=== PATIENT | male | born 1955 | race Caucasian/White ===

== ENCOUNTER 2023-04-16 06:35 | Outpatient (OUT) | payer MEDICARE, SELFPAY ==
[2023-04-16 07:14] LABS: Estimated Average Glucose 123 mg/dL; Glycohemoglobin A1C 5.9 % (4.5-6.2)
[2023-04-16 07:21] LABS: Anion Gap 12.7; BUN Creatinine Ratio 21.9; Calcium 8.9 mg/dL (8.5-10.1); Carbon Dioxide 28.5 mmol/L (21.0-32.0); Chloride 103 mmol/L (98-107); Chol HDL Ratio 2.1; Cholesterol 90 mg/dL (<=200); Estimated GFR (African America >60 (>=60); Estimated GFR (Non-African Ame >60 (>=60); Glucose 85 mg/dL (74-106); HDL Cholesterol 43 mg/dL (40-60); LDL Cholesterol Calculated 28.2 mg/dL; Potassium 4.2 mmol/L (3.5-5.1); Sodium 140 mmol/L (136-145); Triglycerides 94 mg/dL (<=150); VLDL CHOLESTEROL 18.8 mg/dL
== END 2023-04-16 06:36 | disposition home or self-care (01) ==
LOC: LAB 06:35
PROVIDERS: PCP Family Medicine; Visit Provider Family Medicine
DX: E11.9 Type 2 diabetes mellitus without complications (principal); E78.2 Mixed hyperlipidemia; I10 Essential (primary) hypertension
CPT/HCPCS: 36415; 80048; 80061; 83036

== ENCOUNTER 2024-10-26 00:49 | Observation (INO) | payer MEDICARE, SELFPAY ==
[2024-10-26] VITALS (11 sets, daily range): BP systolic 110–151; BP diastolic 56–73; PULSE 59–71; TEMP 36.4–36.7; O2SAT 95–99; BMI 27.6; BMI 28.1
--- NOTE | 2024-10-26 01:12 | CT_ITS ---
[address] [address] Patient Name: ARCHANA GUTIERREZ MRN: [id number] date: 1955 Sex: M Assigned Patient Location: ER Current Patient Location: [facility] Accession/Order Number: [id number] Exam Date: 10/26/2024 02:11 Report Date: 10/26/2024 03:28 At the request of: AFUA MARKER Procedure: CT head/brain wo con EXAMINATION: CT Head without Contrast TECHNIQUE: Multiple axial noncontrast images of the brain were obtained and reformatted according to the standard protocol. QPP DOCUMENTATION: At least one of the following dose reduction techniques was utilized: Iterative reconstruction, and/or Automatic Exposure Control, and/or mA/kV adjustment based on body size. INDICATION: hx CVA with right sided visual changes COMPARISON: Images from prior examinations are not available. FINDINGS: Intracranial hemorrhage: No CT evidence of intraparenchymal, intraventricular, or extraaxial hemorrhage. Infarct/Vascular: No CT evidence of acute transcortical infarctions. There is a large area of encephalomalacia within the anterior left frontal lobe likely due to old infarction. Intracranial Mass: No evidence of intracranial mass. There is an empty sella. CSF Spaces: The ventricles, sulci, and cisterns are normal. Calvarium and Scalp: Unremarkable. Mastoid Air Cells: Clear. Paranasal Sinuses: Visualized paranasal sinuses are clear. Orbits: Orbits are unremarkable. CT/CT head/brain wo con IMPRESSION: No CT evidence of acute intracranial abnormalities. Chronic intracranial changes, as described above. Empty sella. Electronically authenticated by: ROSAURA MARQUEZ Date: 10/26/2024 03:28
--- NOTE | 2024-10-26 01:12 | CT_ITS ---
The [address] [address] Patient Name: ARCHANA GUTIERREZ MRN: [id number] date: 1955 Sex: M Assigned Patient Location: ER Current Patient Location: Accession/Order Number: [id number] Exam Date: 10/26/2024 02:11 Report Date: 10/26/2024 04:15 At the request of: AFUA MARKER Procedure: CT abdomen pelvis w con CT OF THE ABDOMEN AND PELVIS WITH CONTRAST: 10/26/2024 2:11 AM EST CLINICAL HISTORY: Bloody diarrhea. COMPARISONS: None. TECHNIQUE: Thin section axial CT images were obtained from the lung bases to the pubis symphysis. This CT exam was performed using one or more of the following dose reduction techniques: Automated exposure control, adjustment of the mA and/or kV according to patient size, or use of iterative reconstruction technique. Thin section coronal and sagittal images were reconstructed from the axial data set. All images were reviewed and interpreted. CONTRAST: Intravenous contrast was administered. Type and amount is documented at the local institution. FINDINGS: LUNG BASES: No consolidation or pleural fluid. Cardiac chambers are not enlarged. Moderate coronary artery calcific disease noted. LIVER: Normal. GALLBLADDER: Normal. BILIARY TREE: No ductal dilatation. PANCREAS: Normal. SPLEEN: Normal. ADRENALS: Normal. KIDNEYS: There is chronic cortical scarring and atrophy and throughout the mid and lower pole left kidney. There is some mild cortical scarring right kidney. 2 mm nonobstructing calculus upper pole calyx right kidney. No right hydronephrosis. Right renal vascular calcifications. No calculi in left kidney or ureter. No left hydronephrosis. No renal mass or cyst. URINARY BLADDER: Grossly unremarkable. PELVIC STRUCTURES: Unremarkable. BOWEL: Fluid and air-filled nondistended small bowel. Question of some mild enteritis the left upper quadrant. No bowel obstruction. Scattered nonspecific mild/moderate stool retention of large bowel. No acute colitis. There is mild scattered diverticulosis. There is no evidence of diverticulitis. APPENDIX: No active disease with normal appendix. LYMPH NODES: No pathologically enlarged lymph nodes identified. PERITONEUM: No intraperitoneal free air. No free intraperitoneal fluid. MESENTERY: Unremarkable. RETROPERITONEUM: The retroperitoneum is unremarkable. AORTA: Normal caliber aorta. Severe calcific plaque throughout wall of the abdominal aorta and iliac arteries. No dissection. BODY WALL: No body wall mass. OSSEOUS STRUCTURES: Degenerative endplate changes throughout the lower thoracic and lumbar spine with some degenerative disc height loss facet arthropathy. No fractures. No lytic or blastic bone lesion. CT/CT abdomen pelvis w con IMPRESSION: 1. Nonspecific nondilated fluid and air-filled small bowel loops with question of some mild enteritis the left upper quadrant involving jejunum. No overt bowel obstruction. 2. Normal appendix. 3. Significant chronic scarring and focal atrophy of mid and lower pole left kidney some mild right renal cortical scarring. Nonobstructing calculus upper pole right renal calyx. No hydronephrosis of either kidney. 4. Additional chronic incidental findings as discussed above. Electronically authenticated by: PAO RUSSELL Date: 10/26/2024 04:15
[2024-10-26 01:21] LABS: Basophils Absolute Auto 0.1 10^3/uL (0.0-0.1); Basophils Percent Auto 0.8 % (0.2-2.0); Eosinophils Absolute Auto 0.3 10^3/uL (0.0-0.7); Eosinophils Percent Auto 2.3 % (0.9-7.0); Hematocrit 31.6 % (42.0-54.0); Hemoglobin 10.4 g/dL (14.0-18.0); Immature Granulocytes Abs Auto 0.05 10^3/uL (0.00-0.03); Immature Granulocytes Pct Auto 0.4 % (0.0-0.5); Lymphocytes Absolute Auto 1.7 10^3/uL (1.2-3.8); Lymphocytes Percent Auto 14.2 % (20.5-60.0); Mean Corpuscular HGB Conc 32.9 g/dL (29.9-35.2); Mean Corpuscular Hemoglobin 30.2 pg (25.9-34.0); Mean Corpuscular Volume 91.9 fL (80.0-94.0); Mean Platelet Volume 10.6 fL (9.5-13.5); Monocytes Absolute Auto 0.8 10^3/uL (0.3-0.8); Neutrophils Percent Auto 75.3 % (43.0-75.0); Platelet Count 377 10^3/uL (150-450); Red Blood Count 3.44 10^6/uL (4.70-6.10); Red Cell Distribution Width 13.2 % (11.0-15.0); White Blood Count 11.9 10^3/uL (4.0-11.0)
--- NOTE | 2024-10-26 01:28 | ED.GENADUL1 ---
HPI HPI - General Adult General Chief complaint: Weakness Stated complaint: DIARRHEA Time Seen by Provider: 10/26/24 00:51 Source: patient Mode of arrival: ambulance Limitations: no limitations History of Present Illness HPI narrative: This 69-year-old male who had a stroke in the past with right sided hand weakness presents for evaluation of diarrhea earlier in the day that was like mud. He thinks that there was blood mixed in with his diarrhea. He does not have any fevers or chills. He denies any abdominal pain. He states that after an episode of diarrhea his right leg was shaking and his vision in his right eye became blurry. That has since resolved. He has no new or focal neurologic weakness numbness or tingling. The patient lives at home. He denies any nausea or vomiting but did feel mildly lightheaded prior to his diarrhea. He has not had any dizziness or syncope. He does not have a headache. He has no slurred speech or confusion. He denies that he is on any blood thinners. Related Data Home Medications ?Medication ?Instructions ?Recorded ?Confirmed atorvastatin 80 mg tablet 80 mg PO DAILY 10/26/24 10/26/24 blood sugar diagnostic (OneTouch 10/26/24 10/26/24 Ultra Test strips) doxepin 10 mg capsule 20 mg PO BEDTIME 10/26/24 10/26/24 escitalopram oxalate 5 mg tablet 5 mg PO DAILY 10/26/24 10/26/24 hydralazine 25 mg tablet 25 mg PO BID 10/26/24 10/26/24 metformin 850 mg tablet 850 mg PO DAILY 10/26/24 10/26/24 Allergies Allergy/AdvReac Type Severity Reaction Status Date / Time No Known Drug Allergies Allergy Verified 10/26/24 00:53 Opioid HPI Opioid Management Most Recent Opioid Data: No Data to Display Review of Systems ROS Status of ROS 10 or more systems reviewed and unremarkable except as noted in history and below PFSH PFSH Social History Little interest or pleasure in doing things: not at all Feeling down, depressed, or hopeless: not at all Exam Narrative Exam Narrative: Vital signs and Nursing Notes reviewed: Patient is afebrile with a normal pulse, blood pressure is mildly elevated at 143/56, he is not hypoxic with pulse ox of 98% on room air General: Awake, alert, oriented, no acute distress, lying comfortably on the stretcher HEENT: Normocephalic atraumatic, mucous membranes are moist and pink, eyes are clear, normal conjunctiva, vision is grossly intact, posterior pharynx is normal in appearance. Neck: Supple, no meningeal signs, no anterior or posterior cervical lymphadenopathy Chest: Lungs are clear to auscultation with good air entry, there is no wheezing rhonchi or rales appreciated no accessory muscle use, patient is speaking in complete sentences-no chest wall tenderness to palpation CVS: Regular rate and rhythm S1-S2, no murmurs rubs or gallops, pulses are brisk and equal bilaterally ABD: Soft, nondistended, nontender, no rebound guarding or rigidity, bowel sounds are normal, no pulsatile masses appreciated, rectal exam performed with blood mixed with stool in rectal vault, no mass or hemorrhoid appreciated Extremities: Contracture of right hand, otherwise patient has full range of motion of the left hand and lower extremities have full strength and sensation Skin: Normal in appearance without rash,pallor, petechiae or purpura Neuro: No focal deficits, speech is clear, there is no facial droop, vision is grossly intact, there is a contracture of the right hand otherwise the upper and lower extremity strength and sensation is intact Constitutional Vital Signs, click to edit/add: Last Vital Signs Temp 97.6 F 10/26/24 00:49 Pulse 70 10/26/24 03:31 Resp 20 10/26/24 03:31 BP 118/61 10/26/24 03:31 Pulse Ox 95 10/26/24 03:31 O2 Del Method Room Air 10/26/24 00:49 Course Vital Signs Vital signs: Vital Signs Temperature 97.6 F 10/26/24 00:49 Pulse Rate 59 L 10/26/24 00:49 Respiratory Rate 16 10/26/24 00:49 Blood Pressure 143/56 H 10/26/24 00:49 Pulse Oximetry 98 10/26/24 00:49 Oxygen Delivery Method Room Air 10/26/24 00:49 Temperature 97.6 F 10/26/24 00:49 Pulse Rate 70 10/26/24 03:31 Respiratory Rate 20 10/26/24 03:31 Blood Pressure 118/61 10/26/24 03:31 Pulse Oximetry 95 10/26/24 03:31 Oxygen Delivery Method Room Air 02/04/25 00:49 Medical Decision Making [facility] Narrative Medical decision making narrative: This 69-year-old male with a history of a stroke who denies that he is on any blood thinners presents for evaluation of an episode of bloody diarrhea that he describes as looking like mud. He also had a brief episode of blurred vision in the right eye and shaking of his right leg. Those symptoms had resolved prior to arrival. His neuroexam was normal with the exception of a contracture of the right hand. He denied any abdominal pain. He had no chest pain or shortness of breath. His abdomen is soft. Rectal exam did reveal a small amount of mucus and blood on my finger but he does not appreciate any mass or hemorrhoids. He has remote history of a colonoscopy but has not had one in several years. An IV was placed and he was medicated with IV fluids. He declined the need for anything for pain. Routine labs are ordered. He has a normal white count. Hemoglobin is mildly low at 10.4. Lactic acid is elevated at 4. Electrolytes are normal with the exception of an elevated BUN of 58. Creatinine is stable at 1.05. Troponin is normal at 19. CT scan of the abdomen pelvis was ordered as well as CT scan of the brain due to his brief episode of blurred vision and shaking of the right leg. CT the scan of the brain is negative for acute findings. We did repeat his labs. His hemoglobin went from 10.4-9.5. Lactic acid proved from 4-1.5 after IV fluids. He has not had any additional episodes of bloody stool in the emergency department. CT scan of the abdomen pelvis shows a left upper quadrant enteritis but otherwise no specific findings contributory to the patient's symptoms. He has not had any additional neurologic findings or diarrhea or bloody stool while in the emergency department. The case was discussed with the hospitalist and he is excepted for admission to [facility], observation status Medical Records Medical records narrative: The [place] [id number] CT Scan Report Signed Patient: ARCHANA GUTIERREZ MR#: [id number] : 1955 Acct:[id number] Age/Sex: 69 / M ADM Date: 10/26/24 Loc: ER Attending Dr: Ordering Physician: Anali Lucas Date of Service: 10/26/24 Procedure(s): CT head/brain wo con Accession Number(s): [id number] cc: HITESH WATKINS ~ The [place] [id number] Patient Name: ARCHANA GUTIERREZ MRN: [id number] date: 1955 Sex: M Assigned Patient Location: ER Current Patient Location: ED.MAIN Accession/Order Number: [id number] Exam Date: 10/26/2024 02:11 Report Date: 10/26/2024 03:28 At the request of: ANALI MARKER Procedure: CT head/brain wo con EXAMINATION: CT Head without Contrast TECHNIQUE: Multiple axial noncontrast images of the brain were obtained and reformatted according to the standard protocol. QPP DOCUMENTATION: At least one of the following dose reduction techniques was utilized: Iterative reconstruction, and/or Automatic Exposure Control, and/or mA/kV adjustment based on body size. INDICATION: hx CVA with right sided visual changes COMPARISON: Images from prior examinations are not available. FINDINGS: Intracranial hemorrhage: No CT evidence of intraparenchymal, intraventricular, or extraaxial hemorrhage. Infarct/Vascular: No CT evidence of acute transcortical infarctions. There is a large area of encephalomalacia within the anterior left frontal lobe likely due to old infarction. Intracranial Mass: No evidence of intracranial mass. There is an empty sella. CSF Spaces: The ventricles, sulci, and cisterns are normal. Calvarium and Scalp: Unremarkable. Mastoid Air Cells: Clear. Paranasal Sinuses: Visualized paranasal sinuses are clear. Orbits: Orbits are unremarkable. CT/CT head/brain wo con IMPRESSION: No CT evidence of acute intracranial abnormalities. Chronic intracranial changes, as described above[place] [address] CT Scan Report Signed Patient: ARCHANA GUTIERREZ MR#: [id number] : 1955 Acct:[id number] Age/Sex: 69 / M ADM Date: 10/26/24 Loc: ER Attending Dr: Ordering Physician: Anali Lucas Date of Service: 10/26/24 Procedure(s): CT abdomen pelvis w con Accession Number(s): [id number] cc: LEONORAVIASMITAHITESH Coleman ~ The [address] [address] Patient Name: ARCHANA GUTIERREZ MRN: [facility]:[id number] date: 1955 Sex: M Assigned Patient Location: ER Current Patient Location: ER Accession/Order Number: [id number] Exam Date: 10/26/2024 02:11 Report Date: 10/26/2024 04:15 At the request of: ANALI LUCAS Procedure: CT abdomen pelvis w con CT OF THE ABDOMEN AND PELVIS WITH CONTRAST: 10/26/2024 2:11 AM EST CLINICAL HISTORY: Bloody diarrhea. COMPARISONS: None. TECHNIQUE: Thin section axial CT images were obtained from the lung bases to the pubis symphysis. This CT exam was performed using one or more of the following dose reduction techniques: Automated exposure control, adjustment of the mA and/or kV according to patient size, or use of iterative reconstruction technique. Thin section coronal and sagittal images were reconstructed from the axial data set. All images were reviewed and interpreted. CONTRAST: Intravenous contrast was administered. Type and amount is documented at the local institution. FINDINGS: LUNG BASES: No consolidation or pleural fluid. Cardiac chambers are not enlarged. Moderate coronary artery calcific disease noted. LIVER: Normal. GALLBLADDER: Normal. BILIARY TREE: No ductal dilatation. PANCREAS: Normal. SPLEEN: Normal. ADRENALS: Normal. KIDNEYS: There is chronic cortical scarring and atrophy and throughout the mid and lower pole left kidney. There is some mild cortical scarring right kidney. 2 mm nonobstructing calculus upper pole calyx right kidney. No right hydronephrosis. Right renal vascular calcifications. No calculi in left kidney or ureter. No left hydronephrosis. No renal mass or cyst. URINARY BLADDER: Grossly unremarkable. PELVIC STRUCTURES: Unremarkable. BOWEL: Fluid and air-filled nondistended small bowel. Question of some mild enteritis the left upper quadrant. No bowel obstruction. Scattered nonspecific mild/moderate stool retention of large bowel. No acute colitis. There is mild scattered diverticulosis. There is no evidence of diverticulitis. APPENDIX: No active disease with normal appendix. LYMPH NODES: No pathologically enlarged lymph nodes identified. PERITONEUM: No intraperitoneal free air. No free intraperitoneal fluid. MESENTERY: Unremarkable. RETROPERITONEUM: The retroperitoneum is unremarkable. AORTA: Normal caliber aorta. Severe calcific plaque throughout wall of the abdominal aorta and iliac arteries. No dissection. BODY WALL: No body wall mass. OSSEOUS STRUCTURES: Degenerative endplate changes throughout the lower thoracic and lumbar spine with some degenerative disc height loss facet arthropathy. No fractures. No lytic or blastic bone lesion. CT/CT abdomen pelvis w con IMPRESSION: 1. Nonspecific nondilated fluid and air-filled small bowel loops with question of some mild enteritis the left upper quadrant involving jejunum. No overt bowel obstruction. 2. Normal appendix. 3. Significant chronic scarring and focal atrophy of mid and lower pole left kidney some mild right renal cortical scarring. Nonobstructing calculus upper pole right renal calyx. No hydronephrosis of either kidney. 4. Additional chronic incidental findings as discussed above. Lab Data Lab results reviewed: Yes I reviewed the patient's lab results Labs: Lab Results 10/26/24 10/26/24 10/26/24 Range/Units 01:00 03:35 04:09 WBC 11.9 H 10.2 (4.0-11.0) 10^3/uL RBC 3.44 L 3.14 L (4.70-6.10) 10^6/uL Hgb 10.4 L 9.5 L (14.0-18.0) g/dL Hct 31.6 L 28.5 L (42.0-54.0) % MCV 91.9 90.8 (80.0-94.0) fL MCH 30.2 30.3 (25.9-34.0) pg MCHC 32.9 33.3 (29.9-35.2) g/dL RDW 13.2 13.4 (11.0-15.0) % Plt Count 377 354 (150-450) 10^3/uL MPV 10.6 10.5 (9.5-13.5) fL Neut % (Auto) 75.3 H 78.7 H (43.0-75.0) % Lymph % (Auto) 14.2 L 14.1 L (20.5-60.0) % [place] % (Auto) 7.0 5.7 (1.7-12.0) % Eos % (Auto) 2.3 0.5 L (0.9-7.0) % Baso % (Auto) 0.8 0.6 (0.2-2.0) % Neut # (Auto) 9.0 H 8.1 H (1.4-6.5) 10^3/uL Lymph # (Auto) 1.7 1.4 (1.2-3.8) 10^3/uL [place] # (Auto) 0.8 0.6 (0.3-0.8) 10^3/uL Eos # (Auto) 0.3 0.1 (0.0-0.7) 10^3/uL Baso # (Auto) 0.1 0.1 (0.0-0.1) 10^3/uL Abs Immat Gran (auto) 0.05 H 0.04 H (0.00-0.03) 10^3/uL Imm/Tot Granulo (auto) 0.4 0.4 (0.0-0.5) % Sodium 141 (136-145) mmol/L Potassium 5.1 (3.5-5.1) mmol/L Chloride 108 H (98-107) mmol/L Carbon Dioxide 21.1 (21.0-32.0) mmol/L Anion Gap 17.0 BUN 58.0 H (7.0-18.0) mg/dL Creatinine 1.05 (0.70-1.30) mg/dL Est GFR ( Amer) >60 (>=60 mL/min/1.73m^2) Est GFR (Non-Af Amer) >60 (>=60 mL/min/1.73m^2) BUN/Creatinine Ratio 55.2 Glucose 144 H (74-106) mg/dL Lactate 4.0 H* 1.5 (0.4-2.0) mmol/L Calcium 8.0 L (8.5-10.1) mg/dL Total Bilirubin 0.4 (0.2-1.0) mg/dL AST 25 (15-37) U/L ALT 26 (16-63) U/L Alkaline Phosphatase 93 (46-116) U/L Troponin I High Sens 19.0 (4.0-76.1) pg/mL Total Protein 5.3 L (6.4-8.2) g/dL Albumin 2.8 L (3.4-5.0) g/dL Globulin 2.5 g/dL Albumin/Globulin Ratio 1.1 Stool Occult Blood Positive A Blood Type O Positive Antibody Screen Negative ECG Data Attestation: I personally reviewed and interpreted this ECG as follows: (Sinus rhythm at 73 bpm, nonspecific ST changes, normal axis, no acute ST segment elevation or T wave inversion) Discharge Plan Discharge Chief Complaint: Weakness Clinical Impression: Diarrhea, Hematochezia, Enteritis Patient Disposition: Admitted as Observation Time of Disposition Decision: 04:22 Condition: Good
[2024-10-26 01:50] LABS: BUN Creatinine Ratio 55.2; Carbon Dioxide 21.1 mmol/L (21.0-32.0); Chloride 108 mmol/L (98-107); Estimated GFR (African America >60 (>=60 mL/min/1.73m^2); Estimated GFR (Non-African Ame >60 (>=60 mL/min/1.73m^2); Glucose 144 mg/dL (74-106); Potassium 5.1 mmol/L (3.5-5.1); Sodium 141 mmol/L (136-145)
[2024-10-26 01:51] LABS: Alanine Aminotransferase 26 U/L (16-63); Albumin Globulin Ratio 1.1; Albumin Level 2.8 g/dL (3.4-5.0); Alkaline Phosphatase 93 U/L (46-116); Aspartate Amino Transferase 25 U/L (15-37); Bilirubin Total 0.4 mg/dL (0.2-1.0); Globulin 2.5 g/dL; Total Protein 5.3 g/dL (6.4-8.2)
[2024-10-26] MEDS: 0.9 % SODIUM CHLORIDE 1,000 ML 1000 ML IV (02:26)
--- NOTE | 2024-10-26 02:39 | ECG_ITS ---
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
[2024-10-26] MEDS: lidocaine HCL 15 ML, MAG HYDROX/ALUMINUM HYD/SIMETH 30 ML, HYOSCYAMINE SULFATE 0.25 MG PO (02:53)
[2024-10-26] MEDS: FAMOTIDINE/PF 20 MG/2 ML VIAL IV (02:54)
[2024-10-26 03:53] LABS: Basophils Absolute Auto 0.1 10^3/uL (0.0-0.1); Basophils Percent Auto 0.6 % (0.2-2.0); Eosinophils Absolute Auto 0.1 10^3/uL (0.0-0.7); Eosinophils Percent Auto 0.5 % (0.9-7.0); Hematocrit 28.5 % (42.0-54.0); Hemoglobin 9.5 g/dL (14.0-18.0); Immature Granulocytes Abs Auto 0.04 10^3/uL (0.00-0.03); Immature Granulocytes Pct Auto 0.4 % (0.0-0.5); Lymphocytes Absolute Auto 1.4 10^3/uL (1.2-3.8); Lymphocytes Percent Auto 14.1 % (20.5-60.0); Mean Corpuscular HGB Conc 33.3 g/dL (29.9-35.2); Mean Corpuscular Hemoglobin 30.3 pg (25.9-34.0); Mean Corpuscular Volume 90.8 fL (80.0-94.0); Mean Platelet Volume 10.5 fL (9.5-13.5); Monocytes Absolute Auto 0.6 10^3/uL (0.3-0.8); Monocytes Percent Auto 5.7 % (1.7-12.0); Neutrophils Absolute Auto 8.1 10^3/uL (1.4-6.5); Neutrophils Percent Auto 78.7 % (43.0-75.0); Platelet Count 354 10^3/uL (150-450); Red Blood Count 3.14 10^6/uL (4.70-6.10); Red Cell Distribution Width 13.4 % (11.0-15.0); White Blood Count 10.2 10^3/uL (4.0-11.0)
[2024-10-26 04:08] LABS: Lactate/Lactic Acid 1.5 mmol/L (0.4-2.0)
[2024-10-26 04:15] LABS: Internal Control Within Normal Limits; Occult Blood Positive
[2024-10-26] MEDS: 0.9 % SODIUM CHLORIDE 1,000 ML 100 ML IV (06:03)
[2024-10-26 08:25] LABS: Hematocrit 28.7 % (42.0-54.0); Hemoglobin 9.5 g/dL (14.0-18.0)
--- NOTE | 2024-10-26 09:26 | P.HP_ITS ---
HPI H&P: HPI History of Present Illness Chief complaint: LOWER GI BLEED, ENTERITIS Narrative: Patient is a 69 year old male with past medical history of prior CVA with right arm weakness, HLD, depression, Non insulin dependent type 2 diabetes, Hypertension who presented to the ER last night with a few episodes of muddy diarrhea that he reports as blood tinged. He also had episode of right leg shaking and blurriness of vision shortly after the diarrhea episode. CT of the head showed no ACUTE strokes or bleeds. His leg shacking and visual symptoms subsided prior to arrival at the ER. He had a stool sample that was positive for blood. He has had no further bowel movements, no fever or chills. No nausea or vomiting. CT of the ab/pelvis showed air filled small bowel loops consistent with enteritis in the jejunum. Hemoglobin has been stable at 9.5. WBCs were 11.9, lactate was 4.0. Patient was given IVF bolus and admitted to the hospitalist service for further plan of care. He said it's been a long time since last colonoscopy. He has not had any Bowel movements today. he has no other issues or complaints. Opioid HPI Opioid Management Most Recent Pain and Opioid Data: Last Pain Assessment 10/26/24 07:00 Last ORT Total Score 0 10/26/24 05:10 10/26/24 Last ORT Risk Category Low Risk 10/26/24 05:10 10/26/24 Review of Systems ROS Narrative ROS: a complete review of systems were reviewed with patient and are positive as below or listed in History of Chief Complaint. General: no fever, chills, night sweats Head: no headache, trauma, visual changes, nausea or vomiting Skin: no reported rashes, itching or sores Eyes: no blurriness of vision Ears: no reported hearing loss, vertigo, earache, or tinnitus Throat: no sore throat, hoarseness, swelling of neck, or tongue pain Heart: no chest pain Lungs: no shortness of breath or cough GI: diarrhea no vomiting/nausea Urinary: no urinary urgency, frequency or pain Neuro: no numbness or tingling HEM: no bleeding issues or bruising ENDO: no thyroid problems Psych: no anxiety or depression [facility] Medical History (Updated 10/26/24 @ 09:33 by Leni Berry DO) Type 2 diabetes mellitus ?E11.9 - Type 2 diabetes mellitus without complications (ICD-10) Hyperlipidemia associated with type 2 diabetes mellitus ?E11.69 - Type 2 diabetes mellitus with other specified complication (ICD-10) ?E78.5 - Hyperlipidemia, unspecified (ICD-10) Primary hypertension ?I10 - Essential (primary) hypertension (ICD-10) History of CVA with residual deficit ?I69.30 - Unspecified sequelae of cerebral infarction (ICD-10) Type 2 diabetes mellitus ?E11.9 - Type 2 diabetes mellitus without complications (ICD-10) Stroke ?I63.9 - Cerebral infarction, unspecified (ICD-10) Family History Other Family history of cancer Family history of diabetes mellitus Family history of hypertension Family history of stroke Social History Within the past year, how often did you have a drink containing alcohol: never Within the past year, how often did you have six or more drinks on one occasion: never Score interpretation: A score less than 4 is consistent with normal alcohol consumption. Smoking status: Former smoker Non-prescribed substance use: denies use Previous occupational history: retired Highest level of school completed/degree received: GED or equivalent In a typical week, how many times do you talk on the telephone with family, friends, or neighbors: twice per week How often do you get together with friends or relatives: twice per week How often do you attend baptism or temple services: 4 or more times per year Little interest or pleasure in doing things: not at all Feeling down, depressed, or hopeless: not at all Feel stressed/tense/nervous/anxious/difficulty sleeping: not at all Do you think of yourself as: straight/heterosexual Gender Identity: male Meds Home Medications and Allergies Home Medications ?Medication ?Instructions ?Recorded ?Confirmed ?Type atorvastatin 80 mg tablet 80 mg PO .QHS 10/26/24 10/26/24 History blood sugar diagnostic (OneTouch 10/26/24 10/26/24 History Ultra Test strips) ciprofloxacin HCl 500 mg tablet 500 mg PO BID 7 days #14 tabs 10/26/24 Rx doxepin 10 mg capsule 20 mg PO BEDTIME 10/26/24 10/26/24 History escitalopram oxalate 5 mg tablet 5 mg PO DAILY 10/26/24 10/26/24 History hydralazine 25 mg tablet 25 mg PO BID 10/26/24 10/26/24 History metformin 850 mg tablet 850 mg PO DAILY 10/26/24 10/26/24 History metronidazole 250 mg tablet 250 mg PO BID 7 days #14 tabs 10/26/24 Rx omeprazole 40 mg capsule,delayed 40 mg PO BID 7 days #14 caps 10/26/24 Rx release Allergies Allergy/AdvReac Type Severity Reaction Status Date / Time No Known Drug Allergies Allergy Verified 10/26/24 00:53 Exam Narrative Exam Narrative: General: Patient is alert, and oriented to person, place and time with normal affect, proper hygiene Skin: no visible rashes, or ulcers Head: atraumatic, acephalic Eyes: PERRLA, no nystagmus present, conjunctiva clear, no scleral icterus Ears: normal Tympanic Membrane, normal gross auditory acuity Nose: symmetric, no discharge, no maxillary or frontal sinus tenderness Mouth/Throat: no erythema, exudate, or tonsillar enlargement, normal dentition Neck: no masses palpated, normal thyroid, no JVD or audible carotid bruits Heart: Normal rate and rhythm, no murmurs/rubs/gallops Lungs: no audible wheezes, crackles and normal breath sounds all lung gagnon Abdomen: Normal audible bowel sounds, no distension, No palpable masses, no organomegaly, no rebound/guarding/ or rigidity Musculoskeletal: muscle atrophy noted, ROM is limited due to being in hospital bed, no swelling bilateral lower extremities Neuro: CN II-X grossly intact Constitutional Vital Signs, click to edit/add: Last Vital Signs Temp 98.1 F 10/26/24 05:10 Pulse 67 10/26/24 05:10 Resp 18 10/26/24 05:10 BP 116/61 10/26/24 05:10 Pulse Ox 95 10/26/24 05:10 O2 Del Method Room Air 10/26/24 05:10 Results Labs Labs: Short CBC 10/26/24 10/26/24 10/26/24 Range/Units 01:00 03:35 08:18 WBC 11.9 H 10.2 (4.0-11.0) 10^3/uL Hgb 10.4 L 9.5 L 9.5 L (14.0-18.0) g/dL Hct 31.6 L 28.5 L 28.7 L (42.0-54.0) % Plt Count 377 354 (150-450) 10^3/uL BMP 10/26/24 01:00 Sodium 141 Potassium 5.1 Chloride 108 H Carbon Dioxide 21.1 BUN 58.0 H Creatinine 1.05 Glucose 144 H Calcium 8.0 L Liver Function 10/26/24 Range/Units 01:00 Total Bilirubin 0.4 (0.2-1.0) mg/dL AST 25 (15-37) U/L ALT 26 (16-63) U/L Alkaline Phosphatase 93 (46-116) U/L Albumin 2.8 L (3.4-5.0) g/dL Assessment and Plan Assessment and Plan (1) Enteritis: Assessment and Plan: add cipro and flagyl today. Monitor H&H. Type and Screen if necessary. Stool cultures, C diff. monitor closely electrolytes (2) History of CVA with residual deficit: Assessment and Plan: No acute strokes seen on CT head, no acute symptoms. (3) Primary hypertension: Assessment and Plan: continue hydralazine (4) Hyperlipidemia associated with type 2 diabetes mellitus: Assessment and Plan: continue statin (5) Type 2 diabetes mellitus: Assessment and Plan: SSI as needed hold metformin. Qualifiers: Diabetes mellitus complication status: without complication Diabetes mellitus terminal operations supervisor insulin use: without terminal operations supervisor use Qualified Code(s): E11.9 - Type 2 diabetes mellitus without complications Plan patient is a full code SCD's for DVT prophylaxis patient is in observation status and is not expected to cross 2 midnights.
[2024-10-26] MEDS: HYDRALAZINE HCL 25 MG TABLET PO (09:29)
[2024-10-26] MEDS: ESCITALOPRAM 10 MG TABLET 5 MG PO (09:30)
[2024-10-26] MEDS: METRONIDAZOLE 250 MG TABLET 500 MG PO (10:28)
[2024-10-26] MEDS: CIPROFLOXACIN HCL 500 MG TABLET PO (10:28)
--- NOTE | 2024-10-26 10:45 | CM.NOTE ---
Rounds made with Dr. Berry, pt will discharge to home today. Pt will need to f/u with GI for colonoscopy and PCP. Pt voices he would like to see a GI doctor in [place].
[2024-10-26 11:44] LABS: Hemoglobin 8.4 g/dL (14.0-18.0)
--- NOTE | 2024-10-26 13:29 | SWNOTE1 ---
Medicare Outpatient Observation Notice reviewed and discussed with patient. Pt. verbalized understanding and signed the form. Original given to patient and copy placed in patient?s chart.
--- NOTE | 2024-10-26 13:29 | SWNOTE1 ---
BOBBI met with pt to discuss dc needs. Pt lives at home by himself. He has a brother that checks on him. Pt is independent and still drives, cooks, does grocery shopping, etc. Pt does not use any DME to get around. Pt's biggest concern is about his insurance being in network. Pt had his insurance card. SW to make copy and place in chart and then send to Destiny in billing. BOBBI sent copy of card to Destiny in billing and to Sudha in PFS. Sudha replied stating she will reach out since pt had questions about financial assistance. Destiny replied back that pt was in network with us. BOBBI to update patient. Copy of insurance cards placed in chart.
--- NOTE | 2024-10-26 13:50 | PM.DS1 ---
DS: Providers Provider Date of admission: 10/26/24 04:57 Primary care physician: HITESH VYAS Attending physician on admission: Leni Berry Discharging clinician: Leni Berry DS: Diagnosis Discharge Diagnosis (1) Enteritis: (2) History of CVA with residual deficit: (3) Primary hypertension: (4) Hyperlipidemia associated with type 2 diabetes mellitus: (5) Type 2 diabetes mellitus: Qualifiers: Diabetes mellitus joint terminal attack controller insulin use: without skilled nursing use Diabetes mellitus complication status: without complication Qualified Code(s): E11.9 - Type 2 diabetes mellitus without complications DS: Summary Hospital Course Hospital Course: Patient's H&H remained stable, no further diarrhea. Patient will have close outpatient follow up for colonoscopy. He will be treated with cipro and flagyl x 7 days. He may return to the ER with any worsening bloody stools, fevers or abdominal pain. I have discussed all findings with the patient including labs and CT scan results. Due to contrasted study he is to hold his metformin until friday. Patient aware of plan. He also has follow up with his pcp. Status at Discharge Functional status at discharge: independent ambulation Overall status at discharge: patient is back to baseline Time Spent with Patient Time attestation: Total time spent providing and/or coordinating discharge services: Time spent: greater than 30 minutes Exam Narrative Exam Narrative: no changes to discharge exam from H&P exam dated 10/26/24 Constitutional Vital Signs, click to edit/add: Last Vital Signs Temp 98.1 F 10/26/24 05:10 Pulse 67 10/26/24 05:10 Resp 18 10/26/24 05:10 BP 116/61 10/26/24 05:10 Pulse Ox 95 10/26/24 05:10 O2 Del Method Room Air 10/26/24 05:10 DS: Data Data Completed and Pending Labs on day of discharge: Labs from last 24 hours 10/26/24 10/26/24 10/26/24 11:36 08:18 04:09 WBC RBC Hgb 8.4 L 9.5 L Hct 25.0 L 28.7 L MCV MCH MCHC RDW Plt Count MPV Neut % (Auto) Lymph % (Auto) Shelby % (Auto) Eos % (Auto) Baso % (Auto) Neut # (Auto) Lymph # (Auto) Shelby # (Auto) Eos # (Auto) Baso # (Auto) Abs Immat Gran (auto) Imm/Tot Granulo (auto) Sodium Potassium Chloride Carbon Dioxide Anion Gap BUN Creatinine Est GFR ( Amer) Est GFR (Non-Af Amer) BUN/Creatinine Ratio Glucose Lactate Calcium Total Bilirubin AST ALT Alkaline Phosphatase Troponin I High Sens Total Protein Albumin Globulin Albumin/Globulin Ratio Stool Occult Blood Positive A Blood Type Antibody Screen 10/26/24 10/26/24 03:35 01:00 WBC 10.2 11.9 H RBC 3.14 L 3.44 L Hgb 9.5 L 10.4 L Hct 28.5 L 31.6 L MCV 90.8 91.9 MCH 30.3 30.2 MCHC 33.3 32.9 RDW 13.4 13.2 Plt Count 354 377 MPV 10.5 10.6 Neut % (Auto) 78.7 H 75.3 H Lymph % (Auto) 14.1 L 14.2 L Shelby % (Auto) 5.7 7.0 Eos % (Auto) 0.5 L 2.3 Baso % (Auto) 0.6 0.8 Neut # (Auto) 8.1 H 9.0 H Lymph # (Auto) 1.4 1.7 Shelby # (Auto) 0.6 0.8 Eos # (Auto) 0.1 0.3 Baso # (Auto) 0.1 0.1 Abs Immat Gran (auto) 0.04 H 0.05 H Imm/Tot Granulo (auto) 0.4 0.4 Sodium 141 Potassium 5.1 Chloride 108 H Carbon Dioxide 21.1 Anion Gap 17.0 BUN 58.0 H Creatinine 1.05 Est GFR ( Amer) >60 Est GFR (Non-Af Amer) >60 BUN/Creatinine Ratio 55.2 Glucose 144 H Lactate 1.5 4.0 H* Calcium 8.0 L Total Bilirubin 0.4 AST 25 ALT 26 Alkaline Phosphatase 93 Troponin I High Sens 19.0 Total Protein 5.3 L Albumin 2.8 L Globulin 2.5 Albumin/Globulin Ratio 1.1 Stool Occult Blood Blood Type O Positive Antibody Screen Negative Discharge Plan Discharge Disposition: Home, Self-Care Condition: Good Discharge Medications: New metronidazole 250 mg Tablet 250 mg PO BID 7 Days Qty: 14 0RF ciprofloxacin HCl 500 mg Tablet 500 mg PO BID 7 Days Qty: 14 0RF omeprazole 40 mg Capsule,Delayed Release(Dr/Ec) 40 mg PO BID 7 Days Qty: 14 0RF Continued atorvastatin 80 mg tablet 80 mg PO .QHS hydralazine 25 mg tablet 25 mg PO BID (DME) OneTouch Ultra Test Strip MISCELLANEOUS doxepin 10 mg capsule 20 mg PO BEDTIME escitalopram oxalate 5 mg tablet 5 mg PO DAILY Held metformin 850 mg tablet 850 mg PO DAILY Hold Instructions: Resume on 10/29/24. Activity: increase activity as tolerated Diet: advance to your usual diet Print Language: Kinyarwanda Forms: Portal Instructions Follow Up Appointments: Oct. @ 10am with Dr. Vyas [phone] Dec.21 @ 10:45am with Dr. Martínez [facility], [address] [place] [address]
--- NOTE | 2024-10-28 15:23 | CM.DCFOLLOWU ---
Person spoke with:patient How are you feeling? not too well, not having a BM and nauseous. Advised to return to ED if problems continue How is your pain? some pain Did you understand your discharge instructions?yes Do you have any questions about your discharge instructions?no Were you given any prescriptions at discharge?yes Were you able to get your prescriptions filled?yes Do you understand how to take your medications as ordered?yes Do you have any questions about your follow up appointment and do you plan to keep your follow up appointment? no questions, follow ups reviewed Is there anything else that you would like to discuss?no Questions/Comments/Concerns/Other:none
== END 2024-10-26 14:55 | disposition home or self-care (01) ==
LOC: ER 04:22 → MS 05:06
PROVIDERS: Registered Nurse; Admitting Provider Family Medicine; Emergency Provider Emergency Medicine; PCP Family Medicine; Visit Provider Family Medicine
DX: K52.9 Noninfective gastroenteritis and colitis, unspecified (principal); K92.1 Melena; I69.351 Hemiplegia and hemiparesis following cerebral infarction affecting right dominant side; E78.5 Hyperlipidemia, unspecified; F32.A Depression, unspecified; E11.9 Type 2 diabetes mellitus without complications; I10 Essential (primary) hypertension; Z87.891 Personal history of nicotine dependence; Z79.84 Long term (current) use of oral hypoglycemic drugs; M62.50 Muscle wasting and atrophy, not elsewhere classified, unspecified site
CPT/HCPCS: 36415; 70450; 74177; 80053; 83605; 84484; 85014; 85018; 85025; 86850; 86900; 86901; 87045; 87046; 87427; 87493; 93005; 96361; 96374; 99285; G0328; G0378; J3490; Q9967

== ENCOUNTER 2024-11-09 17:38 | Emergency (ER) | payer MEDICARE, SELFPAY ==
[2024-11-09 17:47] VITALS: BP 179/74; PULSE 57; TEMP 36.6; O2SAT 100; BMI 27.3
--- OUTSIDE RECORDS SUMMARY | 2024-11-09 17:50 | XMS_ITS | CCD ---
Author Organization [facility] CliniSy[facility] Care Team Providers Care Fire Alarm Mechanic Name Role Phone TARIK DAVIS Admitting Unavailable TARIK DAVIS Attending Unavailable TARIK DAVIS Referring Unavailable HELEN MEYERS~[id number] UNKNOWN Primary Care Unavailable Rajan Kee Unavailable [phone] Nicolas Valdez Unavailable Chao Vyas Unavailable Unavailable Unavailable MD Rajan Kee Attending Provider NON STAFF Primary Care Provider UnavailDO Chao Lynn Primary Care Provider MD Rajan Kee Admit Provider [phone] PAY, DR FARIAS Admitting Unavailable PAY, DR FARIAS Attending Unavailable MISC, DR BENITEZ Primary Care Unavailable PAY, DR FARIAS Consulting Unavailable VALONE, DR CERVANTES Admitting Unavailable VALONE, DR CERVANTES Attending Unavailable VALONE, DR CERVANTES Primary Care Unavailable VALONE, DR CERVANTES Admitting Unavailable VALONE, DR CERVANTES Attending Unavailable MISC, DR BENITEZ Primary Care Unavailable VALONE, DR CERVANTES Admitting Unavailable VALONE, DR CERVANTES Attending Unavailable VALONE, DR CERVANTES Primary Care Unavailable VALONE, DR CERVANTES Admitting Unavailable VALONE, DR CERVANTES Attending Unavailable MISC, DR BENITEZ Primary Care Unavailable VALONE, DR CERVANTES Admitting Unavailable VALONE, DR CERVANTES Attending Unavailable VALONE, DR CERVANTES Primary Care Unavailable VALONE, DR CERVANTES Admitting Unavailable VALONE, DR CERVANTES Attending Unavailable VALONE, DR CERVANTES Primary Care Unavailable MISC, DR BENITEZ Primary Care Unavailable ARABELLA PERKINS Admitting Unavailable MADDIE, ARABELLA Attending Unavailable ARABELLA PERKINS Consulting Unavailable Lory Bernardo Unavailable DO Chao Vyas Primary Care Provider [phone] MD Rajan Kee Attending Provider Dr. Chao Vyas Primary Care Unava ilable ZAID TALAVERA Attending Unavailable Furlong, DO Chao Primary Care Provider DORA Bernardo Attending Provider MD Miky Talavera Emergency Provider [facility] Scooby T Admit Provider [phone] [facility] Scooby T Attending Provider DO Hamilton Stuart Other [facility] [place] Primary Care Provider MD Arin Ferrera Attending Provider DORA Bernardo Attending Provider Chao Vyas MD Primary Care Provider Janng, DO [place] Primary Care Provider DORA Bernardo Attending Provider FURLONG, CHAO G Referring Unavailable FURLONG, CHAO G Primary Care Unavailable FURLONG, CHAO G Referring Unavailable FURLONG, CHAO G Primary Care Unavailable NORMA Romero Attending Provider Arin Ferrera Admitting Unavailable Arin Ferrera Attending Unavailable Janlong, Chao Primary Care Unavailable Lory Bernardo R Admitting Unavailable KaittinoLory R Attending Unavailable Furlong, Chao Primary Care Unavailable Az, Lory R Admitting Unavailable Lory Bernardo R Attending Unavailable Furlong, Chao Primary Care Unavailable Regla Romero Admitting Unavailable Regla Romero Attending Unavailable NO FAMILY, PHYSICIAN Primary Care Unavailable FURLONG, CHAO G Referring Unavailable FURLONG, CHAO G Primary Care Unavailable FURLONG, CHAO G Attending Unavailable FURLONG, CHAO G Referring Unavailable FURLONG, CHAO G Primary Care Unavailable FURLONG, CHAO G Attending Unavailable FURLONG, CHAO G Referring Unavailable FURLONG, CHAO Chavez Primary Care Unavailable JANCHAO BLUNT Attending Unavailable JANJOSSELIN, CHAO Chavez Referring Unavailable JANCHAO BLUNT Primary Care Unavailable NO FAMILY, PHYSICIAN Primary Care Provider Unava ilable Lilliam DEVLIN Chao G Primary Care Provider KARIME BAUTISTA Attending Unavailable KRISHNA BURGOS Attending Unavailable KRISHNA BURGOS Attending Unavailable KRISHNA BURGOS Attending Unavailable ARIN FERRERA Attending Unavailable ARIN FERRERA Referring Unavailable KRISHNA BURGOS Attending Unavailable Allergies Allergy Classification Reported Allergen(s) Allergy Type Date of Onset Reaction(s) Facility (20 sources) Lisinopril; Translations: [LISINOPRIL] Drug Allergy 2 [facility] (4 sources) Angiotensin Converting Enzyme (Phillip) Inhibitors; Translations: [PHILLIP Inhibitors] Allergy to drug (finding) 9 [facility] Repository (1 source) Amino Acids Drug Allergy [facility] Repository (9 sources) Angiotensin-conv erting enzyme inhibitor agent Drug Intolerance 9 [facility] (1 source) Lisinopril Drug Allergy 4 [facility] Repository (7 sources) Lisinopril Allergy to substance 3 [facility] (20 sources) Angiotensin-conv erting enzyme inhibitor agent Propensity to adverse reactions to drug 9 [facility] Work Phone: Medications Current Medications Medication Drug Class(es) Dates Sig (Normalized) Sig (Original) acetaminophen 500 mg oral tablet (15 sources) Start: 07-18-2021 take 500 mg by mouth every four hours Acetaminophen Active 500 MG PO Q4H July 18, 2021 12:00am amoxicillin 875 mg / clavulanate 125 mg oral tablet (1 source) Penicillin-class Antibacterial Start: 06-28-2024 take 1 tablet by mouth every twelve hours Amoxicillin-Pot Clavulanate Active 1 TAB PO Every 12 hours 11 07June 28, 2024 12:00am Apple Cider Vinegar (14 sources) Apple Cider Vinegar Active atorvastatin 80 mg oral tablet (20 sources) HMG-CoA Reductase Inhibitor Start: 08-06-2023 End: 04-15-2024 take 1 tablet by mouth once daily atorvastatin (LIPITOR) 80 mg tablet Take 1 tablet (80 mg total) by mouth nightly. 100 tablet 3 04/15/2024 Active Start: 07-18-2021 End: 11-27-2021 take 80 mg by mouth once daily at bedtime Atorvastatin Active 80 MG PO Daily at bedtime November 27, 2021 3:40pm azelastine hydrochloride 0.137 mg/actuat metered dose nasal spray (13 sources) Histamine-1 Receptor Antagonist take 1 puff(s) nasal route twice daily Azelastine HCl 137 MCG/SPRAY 1 puff in each nostril Nasally Twice a day Active Blood Glucose Monitoring Sup pl (ONE TOUCH ULTRA 2) w/Device kit (9 sources) Start: 11-11-2022 Blood Glucose Monitoring Suppl (ONE TOUCH ULTRA 2) w/Device kit USE DIRECTED IN THE MORNING 11/11/2022 Active Start: 11-11-2022 Blood Glucose Monitoring Suppl (ONE TOUCH ULTRA 2) w/Device kit USE DIRECTED IN THE MORNING 0 11/11/2022 Active blood-glucose meter (ONET[place]C [place]2 [place] [facility] [place] Start: 11-11-2022 blood-glucose meter (ONET[place] ULTRA2 METER[place] [facility] [place]ications: Type 2 diabetes mellitus with other circulatory complication, without long-term current use of insulin [place] [place] Unit by miscellaneous route in the morning. 1 each 11/11/2022 Active Start: 11-11-2022 blood-glucose meter (ONETOUCH ULTRA2 METER[place] [facility] [place]ications: Type 2 diabetes mellitus with other circulatory complication, without long-term current use of insulin [place] [place] Unit by miscellaneous route in the morning. 1 each 0 11/11/2022 Active clopidogrel 75 mg oral tablet (20 sources) P2Y12 Platelet Inhibitor Start: 06-23-2021 End: 05-03-2024 clopidogreL (PLAVIX) 75 mg tablet Daily 05/13/2023 Active Plavix Active 12 hr dextromethorphan hydrobromide 30 mg / guaiFENesin 600 mg extended release oral tablet (3 sources) Uncompetitive D-odlbfa-T-aspartate Receptor Antagonist, Sigma-1 Agonist Start: 06-06-2022 take 1 tablet by mouth every twelve hours Mucinex DM 30-600 MG 1 tablet as needed Orally every 12 hrs May, Active doxepin hydrochloride 10 mg oral capsule (20 sources) Tricyclic Antidepressant Start: 05-12-2023 take 20 mg by mouth once daily at bedtime Doxepin Active 20 MG PO Daily at bedtime May 12, 2023 12:00am Start: 11-12-2021 End: 12-31-2023 take 2 capsules by mouth once daily doxepin (SINEquan) 10 mg capsule Indications: Sleep pattern disturbance Take 2 capsules (20 mg total) by mouth nightly. 180 capsule 1 12/31/2023 Active take 1 capsule by mo [facility] every twenty-four hours Doxepin HCl 10 MG 1 capsule at bedtime Orally Once a day Active escitalopram 5 mg oral tablet (20 sources) Serotonin Reuptake Inhibitor Start: 04-19-2022 End: 12-31-2023 take 1 tablet by mouth once daily escitalopram (LEXAPRO) 5 mg tablet take 1 tablet by mouth once daily 90 tablet 1 12/31/2023 Active ezetimibe 10 mg oral tablet (11 sources) Dietary Cholesterol Absorption Inhibitor Start: 11-06-2022 take 1 tablet by mouth in the morning ezetimibe (Zetia) 10 MG tablet Take 10 mg by mouth in the morning. 11/06/2022 Active Start: 09-11-2021 take 1 tablet by aleta once daily Ezetimibe 10 MG Oral Tablet TAKE ONE TABLET BY MOUTH DAILY Quantity: 28 Refills: 0 Ordered: 05-Feb-2022 DO Start : 11-Sep-2021 Active fluticasone propionate 0.05 mg/actuat metered dose nasal spray (9 sources) Corticosteroid Start: 12-30-2022 take 2 spray(s) nasal route in the morning fluticasone (Flonase) 50 MCG/ACT nasal spray Administer 2 sprays into affected nostril(s) in the morning. 12/30/2022 Active hydrALAZINE hydrochloride 25 mg oral tablet (20 sources) Arteriolar Vasodilator Start: 05-18-2024 Hydralazine Active MG PO May 18, 2024 12:00am Start: 02-04-2022 End: 04-19-2024 take 1 tablet by mouth twice daily hydrALAZINE (APRESOLINE) 25 mg tablet TAKE ONE TABLET BY MOUTH TWICE A DAY *HOLD IF 60 tablet 5 04/19/2024 Active Start: 11-27-2021 End: 05-18-2024 take 25 mg by mouth twice daily Hydralazine Discontinu ed 25 MG PO Twice daily November 27, 2021 3:40pm May 18, 2024 9:08am Start: 06-23-2021 End: 11-27-2021 take 10 mg by mouth twice daily Hydralazine Discontinu ed 10 MG PO Twice daily 0 July 18, 2021 12:00am November 27, 2021 3:40pm take 1 tablet by aleta every eight hours hydrALAZINE HCl 25 MG 1 tablet with food Orally Three times a day Active irbesartan 300 mg oral tablet (20 sources) Angiotensin 2 Receptor Isabela Start: 10-22-2023 End: 03-28-2024 take 1 tablet by mouth once daily irbesartan (AVAPRO) 300 mg tablet Indications: Essential hypertension take 1 tablet by mouth once daily AT THE SAME TIME EACH DAY 90 tablet 3 03/28/2024 Active Start: 06-16-2023 irbesartan (AV APRO) 300 mg tablet Indications: Essential hypertension 1 (one) time each day at the same time. 90 tablet 1 06/16/2023 Active Start: 06-10-2017 End: 04-26-2022 take 1 tablet by mouth once daily in the morning Irbesartan (Avapro) 300 mg tablet Discontinued 300 MG PO Every morning August 04, 2019 1:00am July 18, 2021 1:07pm krill oil (13 sources) Krill Oil Active Magnesium (13 sources) take 1 capsule by mo [facility] once daily Magnesium 300 MG 1 capsule with a meal Orally Once a day Active metFORMIN hydrochloride 850 mg oral tablet (20 sources) Biguanide Start: 10-04-2024 take 1 tablet by mouth once daily at breakfast metFORMIN (GLUCOPHAGE) 850 mg tablet TAKE 1 TABLET BY MOUTH DAILY WITH BREAKFAST 90 tablet 1 10/04/2024 Active Start: 05-12-2023 End: 10-04-2024 take 1 tablet by mouth once daily in the morning metFORMIN (GLUCOPHAGE) 850 mg tablet take 1 tablet by mouth every morning WITH BREAKFAST 90 tablet 1 04/07/2024 Active Start: 07-18-2021 End: 04-26-2022 take 850 mg by mouth twice daily at mealtime Metformin Discontinued 850 MG PO Twice daily with meals November 27, 2021 3:40pm April 26, 2022 10:17am Start: 06-23-2021 End: 07-18-2021 take 500 mg by mouth once daily Metformin Discontinued 500 MG PO Daily June 23, 2021 12:00am July 18, 2021 1:07pm Take with a meal. Do not take on an empty stomach take 1 tablet by aleta th every twelve hours metFORMIN HCl 500 MG 1 tablet with a meal Orally twice a day Active Mupirocin (2 sources) RNA Synthetase Inhibitor Antibacterial Start: 05-18-2024 Mupirocin Active 1 APPLIC TOPICAL Twice daily 05 04May 18, 2024 12:00am niacin, bulk, powder (20 sources) Start: 06-03-2023 niacin, bulk, powder 1 Dose by miscellaneous route in the morning. 500 g 06/03/2023 Active Start: 06-03-2023 niacin, bulk, powder 1 Dose by miscellaneous route in the morning. 500 g 0 06/03/2023 Active pravastatin sodium 40 mg oral tablet (13 sources) HMG-CoA Reductase Inhibitor take 1 tablet by mouth every twenty-four hours Pravastatin Sodium 40 MG 1 tablet Orally Once a day Active predniSONE 20 mg oral tablet (1 source) Start: 06-21-20 End: 06-26-20 take 1 tablet by mouth in the morning, then take 1 tablet by mouth at bedtime predniSONE (DELTASONE) 20 mg tablet Take 1 tablet (20 mg total) by mouth in the morning and 1 tablet (20 mg total) before bedtime. Do all this for 5 days. 10 tablet 06/21/2024 06/26/2024 Active risankizumab (4 sources) risankizumab-rza a 150mg/1.66mL(75 mg/0.83 mL x2) syringe kit Active Risankizumab-Rzaa (8 sources) Start: 05-12-20 Risankizumab-Rzaa (Skyrizi) 150 mg/mL Pen Injector Active MG SUBCUT May 11, 2023 11:00pm Start: 05-12-2023 Risankizumab-R zaa (Skyrizi) 150 mg/mL Pen Injector Active MG SUBCUT May 12, 2023 12:00am Risankizumab-rzaa (Skyrizi Pen) 150 MG/ML solution auto-injector (2 sources) Start: 08-26-2024 inject 150 mg by subcutaneous injection every three months Risankizumab-rzaa (Skyrizi Pen) 150 MG/ML solution auto-injector Indications: Psoriasis vulgaris (CMS/HCC) Inject 150 mg under the skin every 3 (three) months 1 mL 3 08/26/2024 Active risankizumab-rzaa (SKYRIZI) 60 mg/mL injection (20 sources) Start: 05-22-2023 risankizumab-r zaa (SKYRIZI) 60 mg/mL injection Indications: Plaque psoriasis Infuse 1 mL (60 mg total) into a venous catheter every 60 (sixty) days. 1 mL 05/22/2023 Active Start: 05-22-2023 risankizumab-r zaa (SKYRIZI) 60 mg/mL injection Indications: Plaque psoriasis Infuse 1 mL (60 mg total) into a venous catheter every 60 (sixty) days. 1 mL 0 05/22/2023 Active Skyrizi Pen 150 MG/ML solution auto-injector (7 sources) Start: 10-08-2023 inject 150 mg by subcutaneous injection every three months Skyrizi Pen 150 MG/ML solution auto-injector Indications: Psoriasis vulgaris (CMS/HCC) Inject 150 mg under the skin every 3 (three) months 1 mL 3 10/08/2023 Active triamcinolone acetonide 1 mg/ml topical cream (9 sources) Corticosteroid triamcinolone (Kenalog) 0.1 % cream 1 application to affected area (do not use on face, axilla or groin) Externally Twice a day as needed for 2 weeks Active Completed/Discontinued Medications Medication Drug Class(es) Dates Sig (Normalized) Sig (Original) Alum-Mag Hydroxide-Simeth (Mag-Al Plus) 200-200-20 mg/5 mL Suspension (15 sources) Start: 07-18-2021 End: 04-26-2022 take 1 mL by mouth every four hours Alum-Mag Hydroxide-Simeth (Mag-Al Plus) 200-200-20 mg/5 mL Suspension Discontinued 30 ML PO Q4H 0 July 17, 2021 11:00pm April 26, 2022 9:13am Start: 07-18-2021 End: 04-26-2022 take 1 mL by mouth every four hours Alum-Mag Hydroxide-Simeth (Mag-Al Plus) 200-200-20 mg/5 mL Suspension Discontinued 30 ML PO Q4H 0 July 18, 2021 12:00am April 26, 2022 10:13am aspirin 81 mg delayed release oral tablet (20 sources) Platelet Aggregation Inhibitor, Nonsteroidal Anti-inflammatory Drug Start: 06-15-2021 End: 11-27-2021 take 81 mg by mouth once daily Aspirin Discontinued 81 MG PO DAILY@1200 0 July 18, 2021 12:00am November 27, 2021 3:40pm Baby Aspirin Act nilda Balsam Pe[place] Oil (15 sources) Start: 07-18-2021 End: 11-27-2021 Balsam [place] Oil Disco ntinued 1 APPLIC TOPICAL Three times daily 0 July 17, 2021 11:00pm November 27, 2021 2:36pm Start: 07-18-2021 End: 11-27-2021 Balsam [place] Oil Disco ntinued 1 APPLIC TOPICAL Three times daily 0 July 18, 2021 12:00am November 27, 2021 3:36pm bisacodyl 10 mg rectal suppository (15 sources) Stimulant Laxative Start: 07-18-2021 End: 11-27-2021 Bisacodyl Discontinued 10 MG ID Daily 0 July 18, 2021 12:00am November 27, 2021 3:36pm carvedilol 3.125 mg oral tablet (20 sources) alpha-Adrenergic Isabela, beta-Adrenergic Isabela Start: 08-08-2023 End: 05-03-2024 take 1 tablet by mouth twice daily carvediloL (COREG) 3.125 mg tablet TAKE 1 TABLET BY MOUTH TWICE DAILY -HOLD IF HR 60 tablet 08/08/2023 05/03/2024 Discontinued (Side effects) Start: 08-04-2019 End: 07-18-2021 take 3.125 mg by mouth twice daily Carvedilol Active 3.125 MG PO Twice daily 0 July 18, 2021 12:00am clotrimazole 10 mg/ml topical cream (15 sources) Azole Antifungal End: 05-03-2024 clotrimazole (LOTRIMIN) 1 % cream 05/03/2024 Discontinued (Therapy completed) dapagliflozin 10 mg oral tablet (2 sources) Sodium-Glucose Cotransporter 2 Inhibitor Start: 03-27-2022 take 1 tablet by mouth once daily Farxiga 10 MG Oral Tablet TAKE ONE TABLET BY MOUTH DAILY Quantity: 28 Refills: 0 Ordered: 29-Apr-2022 DO Start : 27-Mar-2022 Active docosanol 100 mg/ml topical cream (15 sources) Start: 07-18-2021 End: 11-27-2021 Docosanol (Abreva) 10 % Cream Discontinued 1 APPLIC TOPICAL Five times daily 0 July 18, 2021 12:00am November 27, 2021 3:37pm docusate sodium 10 mg/ml oral suspension (20 sources) Start: 07-18-2021 End: 11-27-2021 take 100 mg by mouth twice daily Docusate Sodium Discontinued 100 MG PO Twice daily 0 July 18, 2021 12:00am November 27, 2021 3:37pm Start: 06-23-2021 End: 11-27-2021 take 1 capsule by mouth twice daily Docusate Sodium (Dok) 100 mg Capsule Discontinued 100 MG PO Twice daily 0 July 18, 2021 12:00am November 27, 2021 3:37pm esomeprazole 20 mg delayed release oral capsule (20 sources) Proton Pump Inhibitor Start: 06-15-2021 End: 07-18-2021 take 20 mg by mouth once daily in the morning Esomeprazole Magnesium Discontinued 20 MG PO Every morning June 15, 2021 12:00am July 18, 2021 1:07pm Esomeprazole Mag nesium Active 1 ml guselkumab 100 mg/ml auto-injector (20 sources) Interleukin-23 Antagonist Start: 05-12-2023 End: 05-12-2023 Guselkumab (Tremfya) 100 mg/mL Auto-Injector Discontinued MG SUBCUT May 12, 2023 12:00am May 12, 2023 5:37pm Start: 08-04-2019 End: 07-18-2021 Guselkumab Discontinued 100 MG SUBCUT Q2M August 04, 2019 1:00am July 18, 2021 1:07pm guselkumab (Trem fya) 100 MG/ML injection inject contents of 1 prefilled syringe Active inject 1 mL by subcu taneous injection once Tremfya 100 MG/ML 1 ml Subcutaneous q 3m Active hydrOXYzine pamoate 25 mg oral capsule (15 sources) Antihistamine Start: 07-18-2021 End: 04-26-2022 take 25 mg by mouth every six hours Hydroxyzine Pamoate Discontinued 25 MG PO Q6H 0 July 18, 2021 12:00am April 26, 2022 10:16am lidocaine 0.04 mg/mg medicated patch (15 sources) Antiarrhythmic, Amide Local Anesthetic Start: 07-18-2021 End: 11-27-2021 apply 1 dose topically once daily Lidocaine (Lidocaine Pain Relief) 4 % Adhesive Patch,Medicated Discontinued 1 PATCH TOPICAL Daily 0 July 18, 2021 12:00am November 27, 2021 3:38pm meloxicam 15 mg oral tablet (15 sources) Nonsteroidal Anti-inflammatory Drug Start: 08-04-2019 End: 06-15-2021 Meloxicam Discontinued TABLET August 04, 2019 1:00am June 15, 2021 2:53pm methylPREDNISolone 4 mg oral tablet (1 source) Corticosteroid Start: 06-06-2022 methylPREDNISolone 4 MG as directed Orally Once a day for 6 days May, Not-Taking montelukast 10 mg oral tablet (20 sources) Leukotriene Receptor Antagonist Start: 06-15-2021 End: 11-27-2021 Montelukast Discontinued 10 MG PO MoWeFr@0900 0 July 18, 2021 12:00am November 27, 2021 3:39pm nitrofurantoin, macrocrystals 25 mg / nitrofurantoin, monohydrate 75 mg oral capsule (15 sources) Nitrofuran Antibacterial Start: 07-18-2021 End: 11-27-2021 take 100 mg by mouth twice daily at mealtime Nitrofurantoin Monohyd/M-Cryst Discontinued 100 MG PO Twice daily with meals 0 July 18, 2021 12:00am November 27, 2021 3:39pm omeprazole 20 mg delayed release oral capsule (15 sources) Proton Pump Inhibitor Start: 07-18-2021 End: 11-27-2021 take 20 mg by mouth once daily in the morning Omeprazole Discontinued 20 MG PO Every morning 0 July 18, 2021 12:00am November 27, 2021 3:39pm ondansetron 4 mg disintegrating oral tablet (15 sources) Serotonin-3 Receptor Antagonist Start: 07-18-2021 End: 04-26-2022 take 4 mg by mouth every six hours Ondansetron Discontinued 4 MG PO Every 6 hours 0 July 18, 2021 12:00am April 26, 2022 10:17am potassium chloride 10 meq extended release oral tablet (17 sources) Start: 07-18-2021 End: 04-26-2022 Potassium Chloride (Klor-Con 10) 10 mEq Tablet Extended Release Discontinued 10 MEQ PO Daily 0 July 18, 2021 12:00am April 26, 2022 10:17am rivaroxaban 2.5 mg oral tablet (20 sources) Factor Xa Inhibitor Start: 08-04-2019 End: 06-23-2021 take 1 tablet by mouth once daily in the morning Rivaroxaban (Xarelto) 2.5 mg tablet Discontinued 2.5 MG PO Every morning August 04, 2019 1:00am June 23, 2021 2:36pm rivaroxaban (Xar elto) 2.5 MG tablet every 12 (twelve) hours. Active rosuvastatin calcium 40 mg oral tablet (15 sources) HMG-CoA Reductase Inhibitor Start: 06-15-2021 End: 07-18-2021 take 40 mg by mouth once daily in the morning Rosuvastatin Discontinued 40 MG PO Every morning June 15, 2021 12:00am July 18, 2021 1:07pm Sennosides (Senna Lax) 8.6 mg Tablet (15 sources) Start: 07-18-2021 End: 11-27-2021 take 2 tablets by mouth once daily Sennosides (Senna Lax) 8.6 mg Tablet Discontinued 2 TAB PO DAILY@12 July 17, 2021 11:00pm November 27, 2021 2:40pm Start: 07-18-2021 End: 11-27-2021 take 2 tablets by mouth once daily Sennosides (Senna Lax) 8.6 mg Tablet Discontinued 2 TAB PO DAILY@12 July 18, 2021 12:00am November 27, 2021 3:40pm Problems Active Problems Problem Classification Problem Date Documented Da te Episodic/Chronic Acquired foot deformities (2 sources) Hallux valgus (acquired), left foot; Translations: [Hallux valgus (acquired)] 07-12-2024 Chronic Acquired foot deformities (9 sources) Hallux valgus (acquired), right foot; Translations: [Hallux valgus (acquired)] Onset: 4 07-12-2024 Chronic Administrative/social admission (15 sources) Other reduced mobility; Translations: [Impaired mobility and activities of daily living] 06-24-2021 Episodic Anxiety disorders (20 sources) Other specified anxiety disorders; Translations: [Mixed anxiety and depressive disorder] Onset: 2 07-02-2022 Chronic Cataract (1 source) Artificial lens present; Translations: [Presence of intraocular lens] 10-23-2023 Chronic Coagulation and hemorrhagic disorders (20 sources) Coagulation defect, unspecified; Translations: [Blood coagulation disorder] Onset: 2 07-02-2022 Chronic Complications of surgical procedures or medical care (18 sources) Postoperative hematoma formation; Translations: [Postoperative hematoma] 05-21-2022 Episodic Conditions associated with dizziness or vertigo (2 sources) Lightheadedness; Translations: [Dizziness and giddiness] Episodic Developmental disorders (1 source) Expressive language disorder; Translations: [EXPRESSIVE LANGUAGE DISORDER] Onset: Chronic Diabetes mellitus with complications (20 sources) Type 2 diabetes mellitus with other circulatory complications; Translations: [Polyneuropathy due to diabetes mellitus] Onset: 2 07-12-2024 Chronic Diabetes mellitus without complication (20 sources) Diabetes mellitus; Translations: [Diabetes mellitus without mention of complication, type II or unspecified type, not stated as uncontrolled] Onset: 2 06-23-2021 Chronic Diseases of white blood cells (20 sources) Leukocytosis; Translations: [Elevated white blood cell count, unspecified] Onset: 4 06-29-2021 Chronic Disorders of lipid metabolism (20 sources) Hyperlipidemia; Translations: [Hyperlipidemia, unspecified] Onset: 2 06-24-2021 Chronic Diverticulosis and diverticulitis (20 sources) Diverticulitis of colon; Translations: [Diverticulitis of large intestine without perforation or abscess without bleeding] Onset: 2 07-02-2022 Chronic Esophageal disorders (20 sources) Gastroesophageal reflux disease; Translations: [Gastro-esophageal reflux disease without esophagitis] Onset: 2 06-24-2021 Chronic Essential hypertension (20 sources) Benign essential hypertension; Translations: [Benign essential hypertension] Onset: 2 06-24-2021 Chronic Genitourinary symptoms and ill-defined conditions (15 sources) Incontinence; Translations: [Unspecified urinary incontinence] 06-27-2021 Chronic Hepatitis (20 sources) Chronic hepatitis C; Translations: [Chronic viral hepatitis C] Onset: 9 Resolved: 3 04-28-2023 Chronic Hypertension with complications and secondary hypertension (9 sources) Hypertensive urgency ; Translations: [Hypertensive urgency] 05-12-2023 Chronic Late effects of cerebrovascular disease (20 sources) Aphasia as late effect of cerebrovascular accident; Translations: [Aphasia following cerebral infarction] Onset: 2 06-21-2021 Chronic Mycoses (2 sources) Pain in toe; Translations: [Tinea unguium] 07-12-2024 Episodic Occlusion or stenosis of precerebral arteries (20 sources) Left carotid artery stenosis; Translations: [Occlusion and stenosis of left carotid artery] Onset: 2 Resolved: 2 Chronic Comment on above: SEVERE LICA AND MODE RATE ALEJANDRINA BY US AND MRI/A 06/12; Open wounds of extremities (2 sources) Laceration without foreign body of left hand, initial encounter; Translations: [Laceration of hand without foreign body] Onset: 4 05-03-2024 Episodic Other aftercare (1 source) Other watermelon inspector (current) drug therapy; Translations: [OTH INTERMEDIATE CURRENT DRUG THERAPY] Onset: 2 Episodic Other aftercare (2 sources) Taking high risk medication; Translations: [Other watermelon inspector (current) drug therapy] 08-24-2024 Episodic Other and ill-defined cerebrovascular disease (4 sources) Other cerebrovascular disease; Translations: [OTHER CEREBROVASCULAR DISEASE] Onset: 1 Chronic Other circulatory disease (14 sources) Elevated blood pressure; Translations: [Elevated blood-pressure reading, without diagnosis of hypertension] Episodic Other circulatory disease (2 sources) Carotid bruit; Translations: [Other symptoms involving cardiovascular system] Episodic Other connective tissue disease (1 source) Other symptoms and signs involving the musculoskeletal system Episodic Other gastrointestinal disorders (15 sources) Dysphagia; Translations: [Dysphagia, unspecified] 06-24-2021 Episodic Other gastrointestinal disorders (15 sources) Incontinence of feces; Translations: [Full incontinence of feces] 06-27-2021 Episodic Other gastrointestinal disorders (4 sources) Constipation, unspecified; Translations: [CONSTIPATION UNSPECIFIED] Onset: 2 Episodic Other inflammatory condition of skin (14 sources) Psoriasis; Translations: [Psoriasis, unspecified] Chronic Other inflammatory condition of skin (20 sources) Plaque psoriasis; Translations: [Psoriasis vulgaris] Onset: 2 07-02-2022 Chronic Other inflammatory condition of skin (2 sources) Psoriasis vulgaris; Translations: [Psoriasis vulgaris] 08-24-2024 Chronic Other liver diseases (20 sources) Chronic liver disease; Translations: [Liver disease, unspecified] Onset: 9 07-02-2022 Chronic Other lower respiratory disease (1 source) Cough Onset: 4 Episodic Other nervous system disorders (20 sources) Idiopathic peripheral neuropathy; Translations: [Hereditary and idiopathic neuropathy, unspecified] Onset: 2 07-02-2022 Chronic Other nervous system disorders (20 sources) Sleep pattern disturbance; Translations: [Circadian rhythm sleep disorder, unspecified type] Onset: 3 04-28-2023 Chronic Other nervous system disorders (18 sources) Aphasia; Translations: [Aphasia] Onset: 4 11-03-2023 Chronic Other nutritional; endocrine; and metabolic disorders (2 sources) Overweight in adulthood with body mass index of 25 or more but less than 30; Translations: [Overweight] Episodic Other nutritional; endocrine; and metabolic disorders (1 source) Overweight; Translations: [Overweight] Onset: 4 Episodic Other skin disorders (2 sources) Sebaceous cyst; Translations: [Sebaceous cyst] 01-05-2024 Episodic Other upper respiratory disease (1 source) Pain in throat Onset: 4 Episodic Other upper respiratory infections (3 sources) Acute pharyngitis, unspecified; Translations: [Upper respiratory infection] Onset: 4 06-21-2024 Episodic Paralysis (20 sources) Right hemiplegia; Translations: [Hemiplegia, unspecified affecting right dominant side] Onset: 2 06-24-2021 Chronic Peripheral and visceral atherosclerosis (20 sources) Peripheral vascular disease; Translations: [Peripheral vascular disease, unspecified] Onset: 2 Resolved: 2 Chronic Comment on above: BILATERAL SEVERE SFA 100% OCCLUSIONS WITH COLLATERAL BILATERAL BY ANGIOGRAPHY 06/12; BILATERAL; Residual codes; unclassified (15 sources) Altered mental status; Translations: [Altered mental status, unspecified] 06-20-2021 Episodic Residual codes; unclassified (1 source) Other specified postprocedural states Episodic Skin and subcutaneous tissue infections (3 sources) Furuncle, unspecified; Translations: [Carbuncle and furuncle of unspecified site] Onset: 4 05-18-2024 Episodic Transient cerebral ischemia (20 sources) Transient cerebral ischemia; Translations: [Transient cerebral ischemic attack, unspecified] Onset: 3 05-12-2023 Chronic Unclassified (1 source) Occlusion and stenosis of bilateral carotid arteries; Translations: [Occlusion and stenosis of bilateral carotid arteries] Onset: 3 Unclassified (1 source) Psoriasis vulgaris; Translations: [Psoriasis vulgaris] Onset: 3 Unclassified (1 source) MAW Onset: 4 Past or Other Problems Problem Classification Problem Date Documented Da te Episodic/Chronic Acute cerebrovascular disease (20 sources) Carotid artery stenosis; Translations: [Cerebral infarction due to unspecified occlusion or stenosis of unspecified carotid artery] Onset: 1 Resolved: 4 Chronic Cancer of head and neck (20 sources) Malignant tumor of nasopharynx; 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, unspecified] Onset: 2 Resolved: 3 04-28-2023 Chronic Fluid and electrolyte disorders (20 sources) Hyponatremia; Translations: [Hypo-osmolality and hyponatremia] Onset: 4 06-20-2021 Episodic Immunizations and screening for infectious disease (20 sources) Nonspecific tuberculin test reaction ; Translations: [Nonspecific reaction to cell mediated immunity measurement of gamma interferon antigen response without active tuberculosis] Onset: 2 06-28-2024 Episodic Malaise and fatigue (1 source) Weakness; Translations: [WEAKNESS] Onset: 1 Episodic Mood disorders (20 sources) Mood disorders Onset: 4 Resolved: 4 06-21-2024 Other circulatory disease (4 sources) Personal history of transient ischemic attack (TIA), and cerebral infarction without residual deficits; Translations: [PERS HX TIA AND CI NO RESID DEFICIT] Onset: 1 Episodic Other connective tissue disease (20 sources) Weakness of face muscles; Translations: [Facial weakness] Onset: 4 06-24-2021 Episodic Other connective tissue disease (1 source) Abnormal posture; Translations: [ABNORMAL POSTURE] Onset: 1 Episodic Other gastrointestinal disorders (20 sources) Oropharyngeal dysphagia; Translations: [Dysphagia, oropharyngeal phase] Onset: 4 06-25-2021 Episodic Other gastrointestinal disorders (5 sources) Dysphagia, unspecified; Translations: [DYSPHAGIA UNSPECIFIED] Onset: 1 Episodic Other infections; including parasitic (20 sources) History of hepatitis C; Translations: [Personal history of other infectious and parasitic diseases] Onset: 3 09-04-2023 Episodic Other nervous system disorders (1 source) Unspecified abnormalities of gait and mobility; Translations: [UNS ABNORMALITIES GAIT AND MOBILITY] Onset: 1 Episodic Other nutritional; endocrine; and metabolic disorders (7 sources) Overweight; Translations: [Overweight] Onset: 4 05-03-2024 Episodic Other screening for suspected conditions (not mental disorders or infectious disease) (9 sources) Electrocardiogram abnormal; Translations: [Nonspecific abnormal electrocardiogram [ECG] [EKG]] Onset: 2 11-03-2023 Episodic Comment on above: INF QS C/W PRIOR IWM I; Residual codes; unclassified (20 sources) Edema of lower extremity; Translations: [Localized edema] Onset: 9 07-02-2022 Episodic Screening and history of mental health and substance abuse codes (4 sources) Ex-smoker; Translations: [Personal history of tobacco use] Onset: 2 03-18-2024 Episodic Comment on above: QUIT 1997; Urinary tract infections (20 sources) Urinary tract infectious disease; Translations: [Urinary tract infection, site not specified] Onset: 4 07-17-2021 Episodic Results Test Name Value Interpretation Reference Range Facility XR CHEST 2 VIEWSon 4 XR CHEST 2 VIEWS EXAM: XR Chest, Two Views. REASON FOR EXAM: High risk med use, no current complaints. COMPARISON: Chest x-ray August 05, 2022. FINDINGS: Two images. Elevation of the right lung base. Mild reticular markings in the left base. Atherosclerosis. Postoperative changes of the right neck. Degenerative changes of the shoulders. The cardiac and mediastinal silhouettes are normal for size. The trachea is not displaced. Pulmonary vasculature is normal. The lungs are clear. The regional skeleton and pleural surfaces are without significant abnormality. IMPRESSION: No acute cardiopulmonary abnormalities. No significant interval change radiographically from previous chest x-ray. *This report is generated using voice recognition reporting (Oppa). On occasion CloudLock[employer] erroneously drops words from the report or replaces the spoken word with similar sounding words. Please call with any questions/concerns regarding this report.* Dictated and transcribed 08/25/24/dpd This report has been electronically signed and approved by the interpreting radiologist. Normal Not Available POCT Influenza A/Influenza B /SARS-COV-2 Veritoron 06-21-2024 External Poct Influenza A Antigen Negative [facility] External Poct Influenza B Antigen Negative [facility] SARS-CoV-2 (COVID-19) Ag IA.rapid Ql (Resp) Negative [facility] POCT rapid strep Aon 024 S. pyogenes Ag IA Ql (Unsp spec) Negative Negative [facility] Aerobic Cultureon 05-18-2024 Aerobic Culture FURUNCLE OF SKIN OR SUBCUTANEOUS TISSUE Light Normal Skin [place] 2 Days FURUNCLE OF SKIN OR SUBCUTANEOUS TISSUE No Anaerobes Isolated 3 Days FURUNCLE OF SKIN OR SUBCUTANEOUS TISSUE Gram Stain Result No Bacteria Seen PERFORMED BY: [address] [id number] PATHOLOGIST TAILERCPA YON REECE M.D. Normal [facility] Comment on above: Performed By: #### G S, AERC #### [place] [id number] [place] Gram Stainon 05-18-2024 Microscopic observation Gram stain Nom (Unsp spec) FURUNCLE OF SKIN OR SUBCUTANEOUS TISSUE Gram Stain Result No Bacteria Seen PERFORMED BY: [facility] [address] [place] [id number] PATHOLOGIST TAILERCPA YON REECE M.D. Normal [facility] Comment on above: Performed By: #### G S, AERC #### [facility] [address] [place] [id number] [facility] Gram stain for investigation of transfusion reactionOrdered By: Regla Romero on 05-18-2024 Microscopic observation Gram stain Nom (Unsp spec) No Anaerobes Isolated 3 Days [facility] COMPREHENSIVE METABOLIC PANE [place] 05-03-2024 Albumin [Mass/Vol] 4.6 g/dL Normal 3.2-5.3 [facility] Comment on above: Performed By: #### C ROXIE, 92026-8, HA1C #### [facility] ([id number]) [address], [address] [place] [address] ALP [Catalytic activity/Vol] 76 U/L Normal 39-130 [facility] Comment on above: Performed By: #### Melvina FAUSTIN, 05196-5, HA1C #### [facility] ([id number]) [address], [address] [place] [address] ALT [Catalytic activity/Vol] 31 U/L Normal 0-40 [facility] Comment on above: Performed By: #### Melvina FAUSTIN, 04868-3, HA1C #### [facility] ([id number]) [address], [address] [place] [address] Anion gap [Moles/Vol] 10 mmol/L Normal 5-15 [facility] Comment on above: Performed By: #### Melvina FAUSTIN, 24344-5, HA1C #### [facility] ([id number]) [address], [address] [place] [address] AST [Catalytic activity/Vol] 37 U/L Normal 0-41 [facility] Comment on above: Performed By: #### Melvina FAUSTIN, 72428-1, HA1C #### [facility] ([id number]) [address], [address] [place] [address] Bilirubin [Mass/Vol] 0.9 mg/dL Normal 0.3-1.2 [facility] Comment on above: Performed By: #### Melvina FAUSTIN, 37758-7, HA1C #### [facility] ([id number]) [address], [address] [place] [address] Calcium [Mass/Vol] 9.5 mg/dL Normal 8.5-10.5 [facility] Comment on above: Performed By: #### Melvina FAUSTIN, 74871-3, HA1C #### [facility] ([id number]) [address], [address] [place] [address] Chloride [Moles/Vol] 103 mmol/L Normal 98-109 [facility] Comment on above: Performed By: #### Melvina FAUSTIN, 04367-2, HA1C #### [facility] ([id number]) [address], [address] [place] [address] CO2 [Moles/Vol] 27 mmol/L Normal 22-32 [facility] Comment on above: Performed By: #### Melvina FAUSTIN, 32019-4, HA1C #### [facility] ([id number]) [address], [address] [place] [address] Creatinine [Mass/Vol] 0.86 mg/dL Normal 0.60-1.30 [facility] Comment on above: Result Comment: METH OD TRACEABLE TO IDMS STANDARD Performed By: #### C ROXIE, 94269-8, HA1C #### [facility] ([id number]) [address], [address] [place] [address] eGFR (CKD-EPI) NON-RACE DEPENDENT >90 Normal >59 [facility] Comment on above: Result Comment: Reported eGFR is based on the CKD-EPI 2020 equation that does not use a race coefficient. Performed By: #### Melvina FAUSTIN 20449-5, MONSTER1C #### [facility] ([id number]) [address], [address] [place] [address] Glucose [Mass/Vol] 101 mg/dL High 65-99 [facility] Comment on above: Performed By: #### Melvina FAUSTIN 49379-7, MONSTER1C #### [facility] ([id number]) [address], [address] [place] [address] Potassium [Moles/Vol] 5.1 mmol/L High 3.5-5.0 [facility] Comment on above: Performed By: #### Melvina FAUSTIN 48737-9, HALEY #### [facility] ([id number]) [address], [address] [place] [address] Protein [Mass/Vol] 6.8 g/dL Normal 6.0-8.0 [facility] Comment on above: Performed By: #### Melvina FAUSTIN 41393-0, MONSTER1C #### [facility] ([id number]) [address], [address] [place] [address] Sodium [Moles/Vol] 140 mmol/L Normal 134-146 [facility] Comment on above: Performed By: #### Melvina FAUSTIN 26986-1, HA1C #### [facility] ([id number]) [address], [address] [place] [address] Urea nitrogen [Mass/Vol] 15 mg/dL Normal 5-27 [facility] Comment on above: Performed By: #### Melvina FAUSTIN 33981-0, MONSTER1C #### [facility] ([id number]) [address], [address] [place] [address] HGB A1C (GLYCO-HGB)on 2023 Glucose [Mass/Vol] 131 mg/dL Normal [facility] Comment on above: Performed By: #### Melvina FAUSTIN, 61808-5, HALEY #### [facility] ([id number]) [address], [address] [address] HbA1c (Bld) [Mass fraction] 6.2 % High 4.4-5.6 [facility] Comment on above: Result Comment: NOTE ADA Guidelines Result HgbA1c Normal : less than 5.7 % Prediabetes : 5.7 % to 6.4 % Diabetes : > 6.4 % Use with caution in patients with abnormal hemoglobin variants as the half-life of red blood cells and in vivo glycation rates are affected. Performed By: #### Melvina FAUSTIN, 11828-7, HALEY #### [facility] ([id number]) [address], [address] [place] [address] Lipid 1996 panelon 4 Cholesterol [Mass/Vol] 95 mg/dL Low 150-200 [facility] Comment on above: Performed By: #### Melvina FAUSTIN, 66359-0, HALEY #### [facility] ([id number]) [address], [address] [place] [address] Cholesterol in HDL [Mass/Vol] 44 mg/dL Normal >39 [facility] Comment on above: Result Comment: HDL <40 mg/dL - High Risk HDL > or = 40mg/dL- Desirable HDL >60 mg/dL - Negative Risk Performed By: #### Melvina FAUSTIN, 33741-8, HA1C #### [facility] ([id number]) [address], [address] [place] [address] Cholesterol in LDL [Mass/Vol] 31 mg/dL Normal <130 [facility] Comment on above: Result Comment: LDL <100 mg/dL - Desirable LDL >160 mg/dL - High Risk Performed By: #### C ROXIE, 17267-1, HA1C #### [facility] ([id number]) [address], [address] [place] [address] Cholesterol in VLDL [Mass/Vol] 20 mg/dL Normal 0-30 [facility] Comment on above: Performed By: #### Melvina FAUSTIN, 06333-5, HA1C #### [facility] ([id number]) [address], [facility] [address] [place] [address] CHOLESTEROL:HDL 2.2 Normal 1.0-5.0 [facility] Comment on above: Performed By: #### Melvina FAUSTIN, 61198-0, HA1C #### [facility] ([id number]) [address], [address] [place] [address] Triglyceride [Mass/Vol] 98 mg/dL Normal 27-150 [facility] Comment on above: Performed By: #### Melvina FAUSTIN, 59711-0, HA1C #### [facility] ([id number]) [address], [facility] [address] [place] [address] MICROALBUMIN - ALBUMIN:CREAT ININE URINE RATIOon 05-03-2024 ALB/CREAT RATIO 37.7 mg/g creat High 0.0-30.0 [facility] Comment on above: Performed By: #### M ALBU #### [facility] ([id number]) [address], [address] [place] [address] Albumin DL <= 20 mg/L (U) [Mass/Vol] 5.8 mg/dL High 0.0-1.9 [facility] Comment on above: Performed By: #### M ALBU #### [facility] ([id number]) [address] [facility], [address] [place] [address] URINE CREAT 153.96 mg/dL Normal [facility] Comment on above: Performed By: #### M YRIS #### [facility] ([id number]) [address] [place] [address] US carotid doppler BIon 02-21 US carotid doppler BI [facility] [address] [place] [address] Ultrasound Report Signed Patient: Archana Gutierrez MR#: [id number] : 1955 Acct:[id number] Age/Sex: 68 / M ADM Date: 03/17/24 Loc: [facility] Room: Type: [facility] Attending Dr: Lory LINTONC Ordering Provider: Lory Bernardo APRN Date of Service: 03/17/24 US/US carotid doppler BI: [id number] Copies to: Lory Bernardo APRN CAROTID DUPLEX INDICATION: Follow-up known carotid occlusive disease status post bilateral TKR PROCEDURE: Color-flow duplex scanning is used to interrogate the extracranial carotid arterial system, as well as both vertebral arteries. Both carotid bifurcations show indwelling stent. The proximal right internal carotid artery shows a highest peak systolic velocity of 48.2 cm/s with an end-diastolic velocity of 12.9 cm/s . The mid internal carotid artery measures 72.9 cm/s peak systolic with an end diastolic velocity of 23.1 cm/s . The distal segment measures 45.9 cm/s peak systolic with an end diastolic velocity of 18.8 cm/s . The velocities of the right common carotid artery are 52.2 cm/s peak systolic and 11.2 cm/s end-diastolic and 56.7 cm/s peak systolic and 11.2 cm/s end diastolic distally. The peak systolic velocity ratio of the internal to the common carotid artery is 1.29 . The external carotid artery measures 161 cm/s peak systolic. The right vertebral artery is nonvisualized. The proximal left internal carotid artery shows a highest peak systolic velocity of 146 cm/s with an end-diastolic velocity of 26.9 cm/s . The mid internal carotid artery measures 70.2 cm/s peak systolic with an end diastolic velocity of 22.5 cm/s . The distal segment measures 75.7 cm/s peak systolic with an end diastolic velocity of 25.8 cm/s . The velocities of the left common carotid artery are 75.7 cm/s peak systolic and 17.2 cm/s end-diastolic and 78.6 cm/s peak systolic and 15.7 cm/s end diastolic distally. The peak systolic velocity ratio of the internal to the common carotid artery is 1.86 . The external carotid artery measures 85.6 cm/s peak systolic. The left vertebral artery is patent at 76.7 cm/s peak systolic with antegrade flow. US/US carotid doppler BI IMPRESSION: No hemodynamically significant residual or recurrent stenosis in either extracranial internal carotid artery after prior bilateral stent placement. The right vertebral artery is not visualized. Left vertebral artery is patent with antegrade flow. Impression dictated by: Nicolas Valdez M.D.03/17/2024 12:23 PM Dictation Location: [place] [address] Tech: Peggy Ng Transcribed By: JANET 03/17/24 1223 Dictated By: Nicolas Valdez MD 03/17/24 1222 Signed By: 03/17/24 1223 Normal [facility] CBC without diffon Erythrocyte distribution width (RBC) [Ratio] 14.5 % 11.5 - 15.0 % [facility] Hematocrit (Bld) [Volume fraction] 44.4 % 39 - 49 % [facility] Hemoglobin (Bld) [Mass/Vol] 14.9 g/dL 13.0 - 17.0 g/dL [facility] MCH (RBC) [Entitic mass] 29.2 pg 27 - 34 pg [facility] MCHC (RBC) [Mass/Vol] 33.6 g/dL 32 - 3 6 g/dL [facility] MCV (RBC) [Entitic vol] 87 fL 80 - 100 fL [facility] Platelet mean volume (Bld) [Entitic vol] 9.0 fL 7 - 12 fL [facility] Platelets (Bld) [#/Vol] 397 10*3/uL [facility] RBC (Bld) [#/Vol] 5.12 10*6/uL [facility] WBC corrected for nucl RBC Auto (Bld) [#/Vol] 6.5 [facility] COMPLETE BLOOD COUNTon 11-03 Erythrocyte distribution width (RBC) [Ratio] 14.5 % Normal 11.5-15.0 [facility] Comment on above: Performed By: #### C ENOC, CMP #### [facility] ([id number]) [address], [address] [place] [address] Hematocrit (Bld) [Volume fraction] 44.4 % Normal 39-49 [facility] Comment on above: Performed By: #### C ENOC, CMP #### [facility] ([id number]) [address], [address] [place] [address] Hemoglobin (Bld) [Mass/Vol] 14.9 g/dL Normal 13.0-17.0 [facility] Comment on above: Performed By: #### C ENOC, CMP #### [facility] ([id number]) [address], [address] [place] [address] MCH (RBC) [Entitic mass] 29.2 pg Normal 27-34 [facility] Comment on above: Performed By: #### C ENOC, CMP #### [facility] ([id number]) [address], [address] [place] [address] MCHC (RBC) [Mass/Vol] 33.6 g/dL Normal 32-36 [facility] Comment on above: Performed By: #### C ENOC, CMP #### [facility] ([id number]) [address], [address] [place] [address] MCV (RBC) [Entitic vol] 87 fL Normal 80-100 [facility] Comment on above: Performed By: #### C BC, CMP #### [facility] ([id number]) [address] [place] [address] Platelet mean volume (Bld) [Entitic vol] 9.0 fL Normal 7-12 [facility] Comment on above: Performed By: #### C ENOC, CMP #### [facility] ([id number]) [address], [address] [place] [address] Platelets (Bld) [#/Vol] 397 10*3/uL Normal 150-450 [facility] Comment on above: Performed By: #### C ENOC, CMP #### [facility] ([id number]) [address] [place] [address] RBC COUNT 5.12 X10E12/L Normal 4.10-5.70 [facility] Comment on above: Performed By: #### C ENOC, CMP #### [facility] ([id number]) [address] [place] [address] WBC (Bld) [#/Vol] 6.5 10*3/uL Normal 4.0-11.0 [facility] Comment on above: Performed By: #### C ENOC, CMP #### [facility] ([id number]) [address], [address] [place] [address] COMPREHENSIVE METABOLIC PANE [place] 11-03-2023 Albumin [Mass/Vol] 4.5 g/dL Normal 3.2-5.3 [facility] Comment on above: Performed By: #### C ENOC, CMP #### [facility] ([id number]) [address], [address] [place] [address] ALP [Catalytic activity/Vol] 106 U/L Normal 39-130 [facility] [facility] Comment on above: Performed By: #### C BC, CMP #### [facility] ([id number]) [address], [address] [place] [address] ALT [Catalytic activity/Vol] 31 U/L Normal 0-40 [facility] Comment on above: Performed By: #### C BC, CMP #### [facility] ([id number]) [address], [address] [place] [address] Anion gap [Moles/Vol] 8 mmol/L Normal 5-15 [facility] Comment on above: Performed By: #### C BC, CMP #### [facility] ([id number]) [address] [place] [address] AST [Catalytic activity/Vol] 38 U/L Normal 0-41 [facility] Comment on above: Performed By: #### C BC, CMP #### [facility] ([id number]) [address], [address] [place] [address] Bilirubin [Mass/Vol] 0.8 mg/dL Normal 0.3-1.2 [facility] Comment on above: Performed By: #### C BC, CMP #### [facility] ([id number]) [address] [place] [address] Calcium [Mass/Vol] 9.8 mg/dL Normal 8.5-10.5 [facility] Comment on above: Performed By: #### C BC, CMP #### [facility] ([id number]) [address], [address] [place] [address] Chloride [Moles/Vol] 103 mmol/L Normal 98-109 [facility] Comment on above: Performed By: #### C BC, CMP #### [facility] ([id number]) [address], [address] [place] [address] CO2 [Moles/Vol] 27 mmol/L Normal 22-32 [facility] Comment on above: Performed By: #### C BC, CMP #### [facility] ([id number]) [address], [address] [place] [address] Creatinine [Mass/Vol] 0.94 mg/dL Normal 0.60-1.30 [facility] Comment on above: Result Comment: METH OD TRACEABLE TO IDMS STANDARD Performed By: #### C ENOC, CMP #### [facility] ([id number]) [address], [address] [place] [address] GFR/1.73 sq M.predicted among non-blacks MDRD (S/P/Bld) [Vol rate/Area] 87 mL/min/{1.73_m2} Normal >59 [facility] Comment on above: Result Comment: Reported eGFR is based on the CKD-EPI 2020 equation that does not use a race coefficient. Performed By: #### C ENOC, CMP #### [facility] ([id number]) [address], [address] [place] [address] Glucose [Mass/Vol] 110 mg/dL High 65-99 [facility] Comment on above: Performed By: #### C ENOC, CMP #### [facility] ([id number]) [address] [address] [place] [address] Potassium [Moles/Vol] 4.7 mmol/L Normal 3.5-5.0 [facility] Comment on above: Performed By: #### C ENOC, CMP #### [facility] ([id number]) [address], [address] [place] [address] Protein [Mass/Vol] 7.3 g/dL Normal 6.0-8.0 [facility] Comment on above: Performed By: #### C ENOC, CMP #### [facility] ([id number]) [address], [address] [place] [address] Sodium [Moles/Vol] 138 mmol/L Normal 134-146 [facility] Comment on above: Performed By: #### C BC, CMP #### [facility] ([id number]) [address], [address] [place] [address] Urea nitrogen [Mass/Vol] 22 mg/dL Normal 5-27 [facility] Comment on above: Performed By: #### C BC, CMP #### [facility] ([id number]) [address] [facility] [address], [address] [place] [address] Comprehensive metabolic pane [facility]ilton 11-03-2023 Albumin [Mass/Vol] 4.5 g/dL 3.2 - 5.3 g/dL [facility] ALP [Catalytic activity/Vol] 106 U/L 39 - 130 U/L [facility] ALT No additional P-5'-P [Catalytic activity/Vol] 31 U/L 0 - 40 U/L [facility] Anion gap [Moles/Vol] 8 mmol/L 5 - 15 mmol/L [facility] AST [Catalytic activity/Vol] 38 U/L 0 - 41 U/L [facility] Bilirubin [Mass/Vol] 0.8 mg/dL 0.3 - 1 .2 mg/dL [facility] Calcium [Mass/Vol] 9.8 mg/dL 8.5 - 10. 5 mg/dL [facility] Chloride [Moles/Vol] 103 mmol/L 98 - 10 9 mmol/L [facility] CO2 [Moles/Vol] 27 mmol/L 22 - 32 mmol/L [facility] Creatinine [Mass/Vol] 0.94 mg/dL 0.60 - 1.30 mg/dL [facility] Comment on above: METHOD TRACEABLE TO IDAR STANDARD eGFR (CKD-EPI)non-race dependent 87 - PINF [facility] Comment on above: Reported eGFR is based on the CKD-EPI 2020 equation that does not use a race coefficient. Glucose [Mass/Vol] 110 mg/dL High 65 - 99 mg/dL [facility] Interpretation and review of laboratory results Abnormal [facility] Potassium [Moles/Vol] 4.7 mmol/L 3.5 - 5.0 mmol/L [facility] Protein [Mass/Vol] 7.3 g/dL 6.0 - 8.0 g/dL [facility] Sodium [Moles/Vol] 138 mmol/L 134 - 146 mmol/L [facility] Urea nitrogen [Mass/Vol] 22 mg/dL 5 - 27 mg/dL [facility] HGB A1C (GLYCO-HGB)on 2023 Glucose [Mass/Vol] 143 mg/dL Normal [facility] Comment on above: Performed By: #### C BC, CMP #### [facility] ([id number]) [address] [place] [address] HbA1c (Bld) [Mass fraction] 6.6 % High 4.4-5.6 [facility] Comment on above: Result Comment: NOTE ADA Guidelines Result HgbA1c Normal : less than 5.7 % Prediabetes : 5.7 % to 6.4 % Diabetes : > 6.4 % Use with caution in patients with abnormal hemoglobin variants as the half-life of red blood cells and in vivo glycation rates are affected. Performed By: #### C BC, CMP #### [facility] ([id number]) [address] [place] [address] Hemoglobin A1con 11-03-2023 Average glucose Estimated from glycated hemoglobin (Bld) [Mass/Vol] 143 mg/dL [facility] HbA1c (Bld) [Mass fraction] 6.6 % High 4.4 - 5.6 % [facility] Comment on above: NOTE ADA Guidelines Result HgbA1c Normal : less than 5.7 % Prediabetes : 5.7 % to 6.4 % Diabetes : > 6.4 % Use with caution in patients with abnormal hemoglobin variants as the half-life of red blood cells and in vivo glycation rates are affected. Interpretation and review of laboratory results Abnormal [facility] US carotid doppler BIon 12-2 US carotid doppler [facility] Main [address] [address] Ultrasound Report Signed Patient: Archana Gutierrez MR#: [id number] : 1955 Acct:[id number] Age/Sex: 68 / M ADM Date: 09/11/23 Loc: [facility] Room: Type: [facility] Attending Dr: Lory Bernardo HEAD OF SALES-C Ordering Provider: Lory Bernardo APRN Date of Service: 09/11/23 US/US carotid doppler BI: [id number] Copies to: Lory Bernardo APRN CAROTID DUPLEX INDICATION: Surveillance study after bilateral carotid interventions. PROCEDURE: Color-flow duplex scanning is used to interrogate the extracranial carotid arterial system, as well as both vertebral arteries. Both carotid bifurcations show some smooth homogeneous plaque formation. The proximal right internal carotid artery shows a highest peak systolic velocity of 49.6 cm/s with an end-diastolic velocity of 15.7 cm/s . The mid internal carotid artery measures 60 cm/s peak systolic with an end diastolic velocity of 20.6 cm/s . The distal segment measures 31.7 cm/s peak systolic with an end diastolic velocity of 11.8 cm/s . The velocities of the right common carotid artery are 57.5 cm/s peak systolic and 11.4 cm/s end-diastolic and 67.5 cm/s peak systolic and 17 cm/s end diastolic distally. The peak systolic velocity ratio of the internal to the common carotid artery is 0.89 . The external carotid artery measures 292 cm/s peak systolic. The right vertebral artery is patent at 27.3 cm/s peak systolic with antegrade flow. The proximal left internal carotid artery shows a highest peak systolic velocity of 163 cm/s with an end-diastolic velocity of 24.4 cm/s . The mid internal carotid artery measures 81.4 cm/s peak systolic with an end diastolic velocity of 22.5 cm/s . The distal segment measures 74.3 cm/s peak systolic with an end diastolic velocity of 25.9 cm/s . The velocities of the left common carotid artery are 103 cm/s peak systolic and 27.4 cm/s end-diastolic and 103 cm/s peak systolic and 24.8 cm/s end diastolic distally. The peak systolic velocity ratio of the internal to the common carotid artery is 1.58 . The external carotid artery measures 178 cm/s peak systolic. The left vertebral artery is patent at 57.8 cm/s peak systolic with antegrade flow. US/US carotid doppler BI IMPRESSION: MILD PLAQUE FORMATION IS NOTED BILATERALLY, WITH LESS THAN 50% STENOSIS OF BOTH EXTRACRANIAL INTERNAL CAROTID ARTERY. Impression dictated by: Rajan Kee MD09/11/2023 1:50 PM Dictation Location: [place] [address] Tech: Cally Shell Transcribed By: PWS 09/11/23 1350 Dictated By: Rjaan Kee MD 09/11/23 1349 Signed By: 09/11/23 1350 Normal [facility] XR chest 2V*on 09-05-2023 XR chest 2V* [facility] Main [facility] [address] [place] [address] XRay Report Signed Patient: Archana Gutierrez MR#: [id number] : 1955 Acct:[id number] Age/Sex: 68 / M ADM Date: 09/05/23 Loc: XD Room: Type: [facility] Attending Dr: Arin Ferrera MD Copies to: Arin Ferrera MD Ordering Provider: Arin Ferrera MD Date of Service: 09/05/23 XR/XR chest 2V*: L40.0 Chest 2 views CLINICAL HISTORY: TB clearance. COMPARISON: Chest 05/12/2023 FINDINGS: Heart normal size. Lungs are clear. No free air. XR/XR chest 2V* IMPRESSION: NO ACUTE FINDINGS. NO PLAIN FILM EVIDENCE OF TUBERCULOSIS. Impression dictated by: Ashish Villasenor Jr., Marli09/05/2023 2:42 PM Dictation Location: [place] [address] Transcribed By: [facility] 09/05/23 1442 Dictated By: Ashish Villasenor Jr, DO 09/05/23 144 Signed By: 09/05/23 1442 Normal [facility] Basophils Auto (Bld) [#/Vol] Ordered By: Scooby Brenner on 05-13-2023 Basophils (Bld) [#/Vol] 0.1 10*3/uL 0.0-0.2 [facility] Basophils/100 WBC Auto (Bld) Ordered By: Scooby Brenner on 05-13-2023 Basophils/100 WBC (Bld) 1.1 % . [facility] Calcium [Mass/volume] in Ser um or PlasmaOrdered By: Scooby FigueroaBrenner on 05-13-2023 Calcium [Mass/Vol] 9.1 mg/dL 8.6-10.3 [facility] Carbon dioxide, total [Moles /volume] in Serum or PlasmaOrdered By: Scooby Brenner on 05-13-2023 CO2 [Moles/Vol] 27.0 mmol/L 21.0-31.0 [facility] Chloride [Moles/volume] in S rolf or PlasmaOrdered By: Scooby FigueroaBrenner on 05-13-2023 Chloride [Moles/Vol] 104 mmol/L 98-107 [facility] Creatinine [Mass/volume] in Serum or PlasmaOrdered By: Scooby FigueroaBrenner on 05-13-2023 Creatinine [Mass/Vol] 0.74 mg/dL 0.70-1.30 [facility] Eosinophils Auto (Bld) [#/Vo l]Ordered By: Scooby Carmel on 05-13-2023 Eosinophils (Bld) [#/Vol] 0.4 10*3/uL 0.0-0.45 [facility] Eosinophils/100 WBC Auto (Bl d)Ordered By: Scooby Carmel on 05-13-2023 Eosinophils/100 WBC (Bld) 5.4 % . [facility] Erythrocyte distribution wid th Auto (RBC) [Ratio]Ordered By: Scooby Brenner on 05-13-2023 Erythrocyte distribution width (RBC) [Ratio] 14.6 % 12.0-14.8 [facility] Glucose Glucometer (BldC) [M ass/Vol]Ordered By: Scooby FigueroaBrenner on 05-13-2023 Glucose [Mass/Vol] 190 mg/dL [facility] Comment on above: Random Glucose Refer ence Range is dependent on time and content of last meal. Glucose of more than 200 mg/dL in a nonstressed, ambulatory subject supports the diagnosis of Diabetes Mellitus. Glucose [Mass/volume] in Ser um or PlasmaOrdered By: Scooby Brenner on 05-13-2023 Glucose [Mass/Vol] 90 mg/dL 70-100 [facility] Comment on above: ADA recommended refe rence rangeRandom Glucose Reference Range is dependent on time and content of last meal. Glucose of more than 200 mg/dL in a nonstressed, ambulatory subject supports the diagnosis of Diabetes Mellitus. Hematocrit Auto (Bld) [Volum e fraction]Ordered By: Scooby Brenner on 05-13-2023 Hematocrit (Bld) [Volume fraction] 40.2 % 38.8-50.0 [facility] Hemoglobin [Mass/volume] in BloodOrdered By: Scooby Brenner on 05-13-2023 Hemoglobin (Bld) [Mass/Vol] 13.5 g/dL 13.0-17.0 [facility] Leukocytes [#/volume] correc tamiko for nucleated erythrocytes in Blood by Automated counOrdered By: Scooby Brenner on 05-13-2023 WBC corrected for nucl RBC Auto (Bld) [#/Vol] 6.5 10*3/uL 4.1-10.5 [facility] Lymphocytes Auto (Bld) [#/Vo l]Ordered By: Scooby FigueroaBrenner on 05-13-2023 Lymphocytes (Bld) [#/Vol] 2.2 10*3/uL 1.00-4.8 [facility] Lymphocytes/100 WBC Auto (Bl d)Ordered By: Scooby Brenner on 05-13-2023 Lymphocytes/100 WBC (Bld) 34.7 % . [facility] MCH Auto (RBC) [Entitic mass ]Ordered By: Scooby Brenner on 05-13-2023 MCH (RBC) [Entitic mass] 29.4 pg 27.5-35.2 [facility] MCHC Auto (RBC) [Mass/Vol]Or dered By: Scooby Brenner on 05-13-2023 MCHC (RBC) [Mass/Vol] 33.6 g/dL 32.5-35.6 [facility] MCV Auto (RBC) [Entitic vol] Ordered By: Scooby Brenner on 05-13-2023 MCV (RBC) [Entitic vol] 87.4 fL 83.5-101 [facility] Monocytes Auto (Bld) [#/Vol] Ordered By: Scooby Brenner on 05-13-2023 Monocytes (Bld) [#/Vol] 0.9 10*3/uL 0.0-0.8 [facility] Monocytes/100 WBC Auto (Bld) Ordered By: Scooby FigueroaBrenner on 05-13-2023 Monocytes/100 WBC (Bld) 13.9 % . [facility] Neutrophils Auto (Bld) [#/Vo l]Ordered By: Scooby FigueroaBrenner on 05-13-2023 Neutrophils (Bld) [#/Vol] 2.9 10*3/uL 1.8-7.7 [facility] Neutrophils/100 WBC Auto (Bl d)Ordered By: Scooby Carmel on 05-13-2023 Neutrophils/100 WBC (Bld) 44.9 % . [facility] No Panel InformationOrdered By: Scooby FigueroaBrenner on 05-13-2023 Bedside Glucose Comment Glu2: cleaned meter [facility] Estimated GFR (CKD-EPI) > 60.0 mL/Min [facility] Creatinine Clearance (Chem 85.92 [facility] Nucleated erythrocytes [Pres ence] in Blood by Automated countOrdered By: Scooby FigueroaBrenner on 05-13-2023 Nucleated RBC Auto Ql (Bld) 0.1 /100{WBC} 0-0.5 [facility] Platelet mean volume Auto (B ld) [Entitic vol]Ordered By: Scooby FigueroaBrenner on 05-13-2023 Platelet mean volume (Bld) [Entitic vol] 8.8 fL 6.6-10.1 [facility] Platelets Auto (Bld) [#/Vol] Ordered By: Scooby Brenner on 05-13-2023 Platelets (Bld) [#/Vol] 376 10*3/uL 150-450 [facility] Potassium [Moles/volume] in Serum or PlasmaOrdered By: Scooby Brenner on 05-13-2023 Potassium [Moles/Vol] 4.1 mmol/L 3.5-5.1 [facility] RBC Auto (Bld) [#/Vol]Ordere d By: Scooby Brenner on 05-13-2023 RBC (Bld) [#/Vol] 4.60 10*6/uL 3.90-5.60 [facility] Serum or plasma anion gap de terminationOrdered By: Scooby Brenner on 05-13-2023 Anion gap [Moles/Vol] 11.1 mmol/L 6.0-15.0 [facility] Sodium [Moles/volume] in Ser um or PlasmaOrdered By: Scooby Brenner on 05-13-2023 Sodium [Moles/Vol] 138 mmol/L 136-145 [facility] Urea nitrogen [Mass/volume] in Serum or PlasmaOrdered By: Scooby Brenner on 05-13-2023 Urea nitrogen [Mass/Vol] 14 mg/dL 7-25 [facility] WBC Auto (Bld) [#/Vol]Ordere d By: Scooby Carmel on 05-13-2023 WBC (Bld) [#/Vol] 6.5 10*3/uL 4.1-10.5 [facility] Activated partial thrombopla stin time (aPTT) in platelet poor plasma by coagulation aOrdered By: Miky Talavera on 05-12-2023 aPTT Coag (PPP) [Time] 32.2 s 25.1-36.5 [facility] Bilirubin Test strip Ql (U)O rdered By: Miky Talavera on 05-12-2023 Bilirubin Ql (U) Negative Negative [facility] Color Auto (U)Ordered By: Cintia Talavera on 05-12-2023 Color (U) Yellow Yellow [facility] Creatine kinase [Enzymatic a ctivity/volume] in Serum or PlasmaOrdered By: Miky Talavera on 05-12-2023 CK [Catalytic activity/Vol] 154 U/L 30-223 [facility] INR in Platelet poor plasma by Coagulation assayOrdered By: Miky Talavera on 05-12-2023 INR Coag (PPP) [Relative time] 1.0 {INR} [facility] Comment on above: INR Therapeutic Rang e A) Pre- and Peroperative OAT started two weeks before surgery. NOT HIP SURGERY: 1.5 - 2.5 HIP SURGERY: 2 - 3B) Primary and secondary prevention of venous THROMBOSIS: 2 - 3C) Active venous thrombosis, pulmonary embolismand prevention of recurrent venous thrombosis: 2 - 3D) Prevention of arterial thromboembolismincluding patients with mechanical heart valves: 3 - 4.5 Ketones Auto test strip (U) [Mass/Vol]Ordered By: Miky Talavera on 05-12-2023 Ketones (U) [Mass/Vol] Negative Negative [facility] - CoagulationOrde red By: Miky Talavera on 05-12-2023 PT Coag (PPP) [Time] 12.0 s 9.0-12.9 [facility] Monocyte distribution width [Entitic volume] in Blood by AutomatedOrdered By: Miky Talavera on 05-12-2023 Monocyte distribution width Auto (Bld) [Entitic vol] 16.96 % 0.00-20.00 [facility] Nitrite Test strip Ql (U)Ord ered By: Miky Talavera on 05-12-2023 Nitrite Ql (U) Negative Negative [facility] Protein Auto test strip (U) [Mass/Vol]Ordered By: Miky Talavera on 05-12-2023 Protein (U) [Mass/Vol] Negative Negative [facility] Specific gravity Auto test s trip (U) [Rel density]Ordered By: Miky Talavera on 05-12-2023 Specific gravity (U) [Rel density] 1.011 1.001-1.03 0 [facility] Troponin I.cardiac [Mass/vol ume] in Serum or Plasma by Detection limit <= 0.01 ng/Ordered By: Miky Talavera on 05-12-2023 Troponin I.cardiac DL <= 0.01 ng/mL [Mass/Vol] 10.9 pg/mL 0.0-20.0 [facility] Urine clarity by refractomet ry automatedOrdered By: Miky Talavera on 05-12-2023 Clarity Refractometry automated (U) Clear Clear [facility] Urine glucose measurement by automated test strip (mass/volume)Ordered By: Miky Talavera on 05-12-2023 Glucose Auto test strip (U) [Mass/Vol] Normal mg/dL Normal [facility] Urine hemoglobin detection b y automated test stripOrdered By: Miky Talavera on 05-12-2023 Hemoglobin Auto test strip Ql (U) Negative Negative [facility] Urine leukocyte esterase det ection by automated test stripOrdered By: Miky Talavera on 05-12-2023 Leukocyte esterase Auto test strip Ql (U) Negative Negative [facility] Urobilinogen Auto test strip (U) [Mass/Vol]Ordered By: Miky Talavera on 05-12-2023 Urobilinogen (U) [Mass/Vol] Normal mg/dL Normal [facility] pH Auto test strip (U)Ordere d By: Miky Talavera on 05-12-2023 pH (U) 6.5 [pH] 5.0-9.0 [facility] XR Chest 2 Views*on 08-05-20 XR Chest 2 Views* Chest 2 views. History: Tuberculosis screen. Findings: Osseous structures intact. Her crit is normal. Aorta calcified. Pulmonary vasculature normal. Ill-defined increased opacity right lung base. Left lung clear. Impression: Right lower lung subsegmental atelectasis/pneumonia. Report reported and signed by Ramón Jeronimo on 08/06/2022 0941 Normal [facility] [employer] Operator Activated partial thrombopla stin time (aPTT) in platelet poor plasma by coagulation aOrdered By: Rajan Kee on 05-22-2022 aPTT Coag (PPP) [Time] 30.6 s 25.1-36.5 [facility] - CoagulationOrde red By: Rajan Kee on 05-22-2022 PT Coag (PPP) [Time] 13.3 s 9.0-12.9 [facility] Platelet poor plasma interna tional normalized ratio (INR) by coagulation assay (relatOrdered By: Rajan Kee on 05-22-2022 INR Coag (PPP) [Relative time] 1.2 {INR} [facility] Comment on above: INR Therapeutic Rang e A) Pre- and Peroperative OAT started two weeks before surgery. NOT HIP SURGERY: 1.5 - 2.5 HIP SURGERY: 2 - 3 B) Primary and secondary prevention of venous THROMBOSIS: 2 - 3 C) Active venous thrombosis, pulmonary embolism and prevention of recurrent venous thrombosis: 2 - 3 D) Prevention of arterial thromboembolism including patients with mechanical heart valves: 3 - 4.5 INR Therapeutic Rang e A) Pre- and Peroperative OAT started two weeks before surgery. NOT HIP SURGERY: 1.5 - 2.5 HIP SURGERY: 2 - 3B) Primary and secondary prevention of venous THROMBOSIS: 2 - 3C) Active venous thrombosis, pulmonary embolismand prevention of recurrent venous thrombosis: 2 - 3D) Prevention of arterial thromboembolismincluding patients with mechanical heart valves: 3 - 4.5 Blood activated clotting evonne e by coagulation assayOrdered By: Rajan Kee on 05-21-2022 ACT Coag (Bld) 155 s 90-139 [facility] Comment on above: Reference Range: 90- 139 (Non-heparinized) Glucose Glucometer (BldC) [M ass/Vol]Ordered By: Rajan Kee on 05-21-2022 Glucose [Mass/Vol] 115 mg/dL [facility] Comment on above: Random Glucose Refer ence Range is dependent on time and content of last meal. Glucose of more than 200 mg/dL in a nonstressed, ambulatory subject supports the diagnosis of Diabetes Mellitus. No Panel InformationOrdered By: Rajan Kee on 05-21-2022 Bedside Glucose Comment Glu2: cleaned meter [facility] COVID-19 Positive/NegativeOr dered By: Rajan Kee on 05-17-2022 SARS-CoV-2 (COVID-19) N gene EMMANUEL+probe Ql (Resp) Negative Negative [facility] Comment on above: Testing for SARS-CoV -2 by RT-PCR This test was developed and its performance characteristics determined by [employer] ([employer]) and validated at the [facility]. This test has not been FDA cleared or approved. This test has been authorized by FDA under an Emergency Use Authorization (EUA). This test has been validated in accordance with the FDA's Guidance Document (Policy for Diagnostics Testing in Laboratories Certified to Perform High Complexity Testing under CLIA prior to Emergency Use Authorization for Coronavirus Disease-2019 during the Public Health Emergency) issued on December 23, 2019. This test is only authorized for the duration of time the declaration that circumstances exist justifying the authorization of the emergency use of in vitro diagnostic tests for detection of SARS-CoV-2 virus and/or diagnosis of COVID-19 infection under section 564(b)(1) of the Act, 21 U.S.C. 360bbb-3(b)(1), unless the authorization is terminated or revoked sooner. Testing for SARS-CoV -2 by RT-PCRThis test was developed and its performance characteristics determined by [employer]) and validated at the [facility]. This test has not been FDA cleared or approved. This test has been authorized by FDA under an Emergency Use Authorization (EUA). This test has been validated in accordance with the FDA's Guidance Document (Policy for Diagnostics Testing in Laboratories Certified to Perform High Complexity Testing under CLIA prior to Emergency Use Authorization for Coronavirus Disease-2019 during the Public Health Emergency) issued on December 23, 2019. This test is only authorized for the duration of time the declaration that circumstances exist justifying the authorization of the emergency use of in vitro diagnostic tests for detection of SARS-CoV-2 virus and/or diagnosis of COVID-19 infection under section 564(b)(1) of the Act, 21 U.S.C. 360bbb-3(b)(1), unless the authorization is terminated or revoked sooner. [facility] CARDIAC STRESS/REST INJE CTIONon 05-08-2022 [facility] CARDIAC STRESS/REST INJECTION Patient Name: ARCHANA GUTIERREZ STUDY: MYOCARDIAL PERFUSION STRESS TEST WITH LEXISCAN Performing facility: [facility], [address] [place] [address], [address] Provider: Zaid Talavera RN, INSULATION HELPER PCP: Dr. Harry Vyas Supervising provider: Kimberly Mahan MD, [facility] INDICATION: Abnormal echo Pre-operative risk assessment for Carotid scheduled at [facility] on TBD. HISTORY: Gender: M; Age: 67 y/o ; Height: 175.26 cm; Weight: 87.9787289 kg. High Cholesterol; Diabetes; HTN; Chest Pain; CVA Quit smoking 22 years ago. COMPARISON: No comparison. ACCESSION NUMBER(S): [id number]; [id number]; [id number] ORDERING CLINICIAN: ZAID TALAVERA TECHNIQUE: ONE DAY protocol. Stress injection: Date:05-08-22, 34.5 mCi of Myoview IV 20 seconds after rapid injection of Lexiscan. Rest injection: Date: 05-08-22, 10.7 mCi of Myoview IV at rest. The patient had a rapid injection of 0.4 mg of Lexiscan IV over 10 seconds. Imaging was performed by gated tomographic technique. Reason for Lexiscan: CVA STRESS TEST DATA: Resting heart rate was 49 BPM. Resting blood pressure was 138/86 mmHg. Peak blood pressure was 126/70 mmHg. Peak heart rate was 58 BPM. TEST TERMINATED DUE TO: Protocol completed FINDINGS: STRESS TEST RESULTS: Resting electrocardiogram revealed normal sinus rhythm with sinus bradycardia. There were no significant ischemic ECG changes or dysrhythmias. The patient did not have chest pains/symptoms during procedure. There was a normal recovery phase. IMAGING RESULTS: Image quality was good. Rest and stress tomographic images were reviewed and revealed normal perfusion without evidence of ischemia, myocardial infarction, or left ventricular dilatation with stress. Overall left ventricular systolic function appeared to be normal without regional wall motion abnormalities. Ejection fraction was 59%. TID is 1.0 and is normal. There 1 evidence of diaphragmatic attenuation artifact. IMPRESSION: Normal Lexiscan Myoview cardiac perfusion stress test. No evidence of ischemia or myocardial infarction by perfusion imaging. Normal left ventricular systolic function, ejection fraction 59%. No previous studies are available for comparison. Electronically signed by: KIMBERLY MAHAN MD Normal [facility] No Panel Informationon 05-08 Please click on the link to view the study images Normal [facility] [place] [address] DO Work Phone: Normal [facility] [place] [address] [place] Work Phone: Tobacco Screening.on 022 Adult depression screening assessment No [facility] [place] [address] DO Work Phone: Fall risk assessment a) No falls within the last year [facility] [place] [address] DO Work Phone: Tobacco use status [facility] b) No [facility] [place] [address] DO Work Phone: Basophils Auto (Bld) [#/Vol] Ordered By: Rajan Kee on 04-26-2022 Basophils (Bld) [#/Vol] 0.1 10*3/uL 0.0-0.2 [facility] Basophils/100 WBC Auto (Bld) Ordered By: Rajan Kee on 04-26-2022 Basophils/100 WBC (Bld) 1.0 % . [facility] Blood hemoglobin measurement (mass/volume)Ordered By: Rajan Kee on 08-05-2022 Hemoglobin (Bld) [Mass/Vol] 15.4 g/dL 13.0-17.0 [facility] Blood leukocytes automated c ount (number/volume)Ordered By: Rajan Chilango on 04-26-2022 WBC (Bld) [#/Vol] 7.3 10*3/uL 4.5-11.0 [facility] COVID-19 Positive/NegativeOr dered By: Rajan Kee on 04-26-2022 SARS-CoV-2 (COVID-19) N gene EMMANUEL+probe Ql (Resp) Negative Negative [facility] Comment on above: Testing for SARS-CoV -2 by RT-PCR This test was developed and its performance characteristics determined by [employer] ([employer]) and validated at the [facility]. This test has not been FDA cleared or approved. This test has been authorized by FDA under an Emergency Use Authorization (EUA). This test has been validated in accordance with the FDA's Guidance Document (Policy for Diagnostics Testing in Laboratories Certified to Perform High Complexity Testing under CLIA prior to Emergency Use Authorization for Coronavirus Disease-2019 during the Public Health Emergency) issued on December 23, 2019. This test is only authorized for the duration of time the declaration that circumstances exist justifying the authorization of the emergency use of in vitro diagnostic tests for detection of SARS-CoV-2 virus and/or diagnosis of COVID-19 infection under section 564(b)(1) of the Act, 21 U.S.C. 360bbb-3(b)(1), unless the authorization is terminated or revoked sooner. Testing for SARS-CoV -2 by RT-PCRThis test was developed and its performance characteristics determined by [employer] ([employer]) and validated at the [facility]. This test has not been FDA cleared or approved. This test has been authorized by FDA under an Emergency Use Authorization (EUA). This test has been validated in accordance with the FDA's Guidance Document (Policy for Diagnostics Testing in Laboratories Certified to Perform High Complexity Testing under CLIA prior to Emergency Use Authorization for Coronavirus Disease-2019 during the Public Health Emergency) issued on December 23, 2019. This test is only authorized for the duration of time the declaration that circumstances exist justifying the authorization of the emergency use of in vitro diagnostic tests for detection of SARS-CoV-2 virus and/or diagnosis of COVID-19 infection under section 564(b)(1) of the Act, 21 U.S.C. 360bbb-3(b)(1), unless the authorization is terminated or revoked sooner. Creatinine and Glomerular fi ltration rate.predicted panel (S/P/Bld)Ordered By: Rajan Kee on 04-26-2022 Creatinine [Mass/Vol] 0.86 mg/dL 0.64-1.27 [facility] Eosinophils Auto (Bld) [#/Vo l]Ordered By: Rajan Kee on 04-26-2022 Eosinophils (Bld) [#/Vol] 0.3 10*3/uL 0.0-0.45 [facility] Eosinophils/100 WBC Auto (Bl d)Ordered By: Rajan Kee on 04-26-2022 Eosinophils/100 WBC (Bld) 3.5 % . [facility] Erythrocyte distribution wid th Auto (RBC) [Ratio]Ordered By: Rajan Kee on 04-26-2022 Erythrocyte distribution width (RBC) [Ratio] 13.7 % 12.0-14.8 [facility] Estimated glomerular filtrat ion rate (GFR) non- AmericanOrdered By: Rajan Kee on 04-26-2022 GFR/1.73 sq M.predicted among non-blacks MDRD (S/P/Bld) [Vol rate/Area] > 60 mL/Min [facility] Hematocrit Auto (Bld) [Volum e fraction]Ordered By: Rajan Kee on 04-26-2022 Hematocrit (Bld) [Volume fraction] 47.0 % 38.8-50.0 [facility] Laboratory - Hematology and Cell countsOrdered By: Rajan Kee on 04-26-2022 Nucleated RBC/100 WBC (Bld) [Ratio] 0.0 % 0-0.5 [facility] Lymphocytes Auto (Bld) [#/Vo l]Ordered By: Rajan Kee on 04-26-2022 Lymphocytes (Bld) [#/Vol] 2.3 10*3/uL 1.00-4.8 [facility] Lymphocytes/100 WBC Auto (Bl d)Ordered By: Rajan Kee on 04-26-2022 Lymphocytes/100 WBC (Bld) 31.0 % . [facility] MCH Auto (RBC) [Entitic mass ]Ordered By: Rajan Kee on 04-26-2022 MCH (RBC) [Entitic mass] 28.7 pg 27.5-35.2 [facility] MCHC Auto (RBC) [Mass/Vol]Or dered By: Rajan Kee on 04-26-2022 MCHC (RBC) [Mass/Vol] 32.8 g/dL 32.5-35.6 [facility] MCV Auto (RBC) [Entitic vol] Ordered By: Rajan Kee on 04-26-2022 MCV (RBC) [Entitic vol] 87.7 fL 83.5-101 [facility] Monocytes Auto (Bld) [#/Vol] Ordered By: Rajan Kee on 04-26-2022 Monocytes (Bld) [#/Vol] 1.0 10*3/uL 0.0-0.8 [facility] Monocytes/100 WBC Auto (Bld) Ordered By: Rajan Kee on 04-26-2022 Monocytes/100 WBC (Bld) 14.3 % . [facility] Neutrophils Auto (Bld) [#/Vo l]Ordered By: Rajan Kee on 04-26-2022 Neutrophils (Bld) [#/Vol] 3.7 10*3/uL 1.8-7.7 [facility] Neutrophils/100 WBC Auto (Bl d)Ordered By: Rajan Kee on 04-26-2022 Neutrophils/100 WBC (Bld) 50.2 % . [facility] No Panel InformationOrdered By: Rajan Kee on 04-26-2022 Estimated GFR () > 60 mL/Min [facility] Comment on above: GFR estimated refere nce range: According to KDOQI guidelines, <60 ml/min/1.73m2 is sufficient to diagnose a patient with chronic kidney disease. Pharmacy Creatinine Clearance (Chem N/A [facility] Platelet mean volume Auto (B ld) [Entitic vol]Ordered By: Rajan Kee on 04-26-2022 Platelet mean volume (Bld) [Entitic vol] 9.1 fL 6.6-10.1 [facility] Platelets Auto (Bld) [#/Vol] Ordered By: Rajan Kee on 04-26-2022 Platelets (Bld) [#/Vol] 363 10*3/uL 150-450 [facility] RBC Auto (Bld) [#/Vol]Ordere d By: Rajan Kee on 04-26-2022 RBC (Bld) [#/Vol] 5.37 10*6/uL 3.90-5.60 [facility] Serum or plasma calcium terri urement (mass/volume)Ordered By: Rajan Kee on 04-26-2022 Calcium [Mass/Vol] 9.4 mg/dL 8.2-10.2 [facility] Serum or plasma chloride carlos surement (moles/volume)Ordered By: Rajan Kee on 04-26-2022 Chloride [Moles/Vol] 101 mmol/L 95-114 [facility] Serum or plasma glucose terri urement (mass/volume)Ordered By: Rajan Kee on 04-26-2022 Glucose [Mass/Vol] 140 mg/dL 70-100 [facility] Comment on above: ADA recommended refe rence range Random Glucose Reference Range is dependent on time and content of last meal. Glucose of more than 200 mg/dL in a nonstressed, ambulatory subject supports the diagnosis of Diabetes Mellitus. ADA recommended refe rence rangeRandom Glucose Reference Range is dependent on time and content of last meal. Glucose of more than 200 mg/dL in a nonstressed, ambulatory subject supports the diagnosis of Diabetes Mellitus. Serum or plasma potassium me asurement (moles/volume)Ordered By: Rajan Kee on 04-26-2022 Potassium [Moles/Vol] 4.3 mmol/L 3.5-5.1 [facility] Serum or plasma sodium measu rement (moles/volume)Ordered By: Rajan Kee on 04-26-2022 Sodium [Moles/Vol] 133 mmol/L 136-146 [facility] Serum or plasma total carbon dioxide measurement (moles/volume)Ordered By: Rajan Kee on 04-26-2022 CO2 [Moles/Vol] 23.3 mmol/L 22.0-30.0 [facility] Serum or plasma urea nitroge n measurement (mass/volume)Ordered By: Rajan Kee on 04-26-2022 Urea nitrogen [Mass/Vol] 15 mg/dL 06-14 [facility] Creatinine (Bld) [Mass/Vol]O rdered By: Rajan Kee on 04-15-2022 Creatinine [Mass/Vol] 1.0 mg/dL 0.6-1.3 [facility] Comment on above: ER/ESD physician is notified/shown all ISTAT results. Critical values may be confirmed by laboratory testing if deemed necessary by ER attending doctor. ER/ESD physician is notified/shown all ISTAT results.Critical values may be confirmed by laboratory testing ifdeemed necessary by ER attending doctor. No Panel InformationOrdered By: Rajan Kee on 04-15-2022 POC Estimated GFR > 60 [facility] Comment on above: GFR estimated refere nce range: According to KDOQI guidelines, <60 ml/min/1.73m2 is sufficient to diagnose a patient with chronic kidney disease. POC Estimated GFR Non- Amer > 60 [facility] COMPREHENSIVE METABOLIC PANE [place] 03-22-2022 Albumin [Mass/Vol] 4.6 g/dL Normal 3.6-5.1 [facility] Comment on above: Performed By: #### 1 0231, 490, 6100 #### [facility] [address] [address] [employer]: Davy Pollard MD Albumin/Globulin [Mass ratio] 1.8 {ratio} Normal 1.0-2.5 [facility] Comment on above: Performed By: #### 1 0231, 492, 5910 #### [facility] [address] [address] [employer]: Davy Pollard MD ALP [Catalytic activity/Vol] 78 U/L Normal 37-153 [facility] Comment on above: Performed By: #### 1 0231, 492, 0430 #### [place] [address] [employer]: Davy Pollard MD ALT [Catalytic activity/Vol] 34 U/L High 6-29 [facility] Comment on above: Performed By: #### 1 0231, 496, 7600 #### [facility] of [place] [address] [employer]: Davy Pollard MD AST [Catalytic activity/Vol] 36 U/L High 10-35 [facility] Comment on above: Performed By: #### 1 0231, 496, 7600 #### [facility] [place] [address] [employer]: Davy Pollard MD Bilirubin [Mass/Vol] 0.5 mg/dL Normal 0.2-1.2 [facility] Comment on above: Performed By: #### 1 023, 496, 7600 #### [facility] [place] [address] [employer]: Davy Pollard MD Calcium [Mass/Vol] 9.5 mg/dL Normal 8.6-10.4 [facility] Comment on above: Performed By: #### 1 0231, 496, 7600 #### [facility] [place] [address] [employer]: Davy Pollard MD Chloride [Moles/Vol] 103 mmol/L Normal 98-110 [facility] Comment on above: Performed By: #### 1 0231, 496, 7600 #### [facility] [place] [address] [employer]: Davy Pollard MD CO2 [Moles/Vol] 26 mmol/L Normal 20-32 [facility] Comment on above: Performed By: #### 1 0231, 496, 7600 #### [facility] [place] [address] [employer]: Davy Pollard MD Creatinine [Mass/Vol] 1.41 mg/dL High 0.50-0.[address] [facility] Comment on above: Result Comment: For patients >49 years of age, the reference limit for Creatinine is approximately 13% higher for people identified as -[place]. Performed By: #### 1 230, 496, 7600 #### [facility] [address], [address] [place] [address] [employer]: Davy Pollard MD eGFR NON-AFR. PALESTINIAN 38 mL/min/1.73m2 Low > OR = 60 [facility] Comment on above: Performed By: #### 1 230, 49, 7600 #### [facility] [address], [address] [place] [address] [employer]: Davy Pollard MD GFR/1.73 sq M.predicted among blacks MDRD (S/P/Bld) [Vol rate/Area] 44 mL/min/{1.73_m2} Low > OR = 60 [facility] Comment on above: Performed By: #### 1 230, 49, 9740 #### [facility] of [address], [address] [place] [address] [employer]: Davy Pollard MD Globulin (S) [Mass/Vol] 2.6 g/dL Normal 1.9-3.7 [facility] Comment on above: Performed By: #### 1 230, 49, 3180 #### [facility] [place] [address] [employer]: Davy Pollard MD Glucose [Mass/Vol] 157 mg/dL High 65-99 [facility] Comment on above: Result Comment: Fasting reference interval For someone without known diabetes, a glucose value >125 mg/dL indicates that they may have diabetes and this should be confirmed with a follow-up test. Performed By: #### 1 230, 496, 7600 #### [facility] [address], [address] [place] [address] [employer]: Dvay Pollard MD Potassium [Moles/Vol] 5.8 mmol/L High 3.5-5.[address] [facility] Comment on above: Performed By: #### 1 0231, 496, 7600 #### [facility] [address], [address] [place] [address] [employer]: Davy Pollard MD Protein [Mass/Vol] 7.2 g/dL Normal 6.1-8.1 [facility] Comment on above: Performed By: #### 1 0231, 496, 7600 #### [facility] [address], [address] [place] [address] [employer]: Davy Pollard MD Sodium [Moles/Vol] 136 mmol/L Normal 135-146 [facility] Comment on above: Performed By: #### 1 0231, 496, 7600 #### [facility] [place] [address] [employer]: Davy Pollard MD Urea nitrogen [Mass/Vol] 25 mg/dL Normal 7-25 [facility] Comment on above: Performed By: #### 1 023, 496, 7600 #### [facility] [place] [address] [employer]: Davy Pollard MD Urea nitrogen/Creatinine [Mass ratio] 18 mg/mg Normal 6-22 [facility] Comment on above: Performed By: #### 1 0231, 496, 7600 #### [facility] [place] [address] [employer]: Davy Pollard MD HEMOGLOBIN A1con 03-22-2022 HEMOGLOBIN A1c 7.4 % of total Hgb High <5.7 [facility] Comment on above: Result Comment: For someone without known diabetes, a hemoglobin A1c value of 6.5% or greater indicates that they may have diabetes and this should be confirmed with a follow-up test. For someone with known diabetes, a value <7% indicates that their diabetes is well controlled and a value greater than or equal to 7% indicates suboptimal control. A1c targets should be individualized based on duration of diabetes, age, comorbid conditions, and other considerations. Currently, no consensus exists regarding use of hemoglobin A1c for diagnosis of diabetes for children. Performed By: #### 1 0231, 496, 7600 #### [facility] [address], [address] [place] [address] [employer]: Davy Pollard MD LIPID PANEL, [facility] 07-0 Cholesterol [Mass/Vol] 103 mg/dL Normal <200 [facility] Comment on above: Performed By: #### 1 0231, 496, 7600 #### [facility] [address], [address] [place] [address] [employer]: Davy Pollard MD Cholesterol in HDL [Mass/Vol] 36 mg/dL Low > OR = 50 [facility] Comment on above: Performed By: #### 1 023, 496, 7600 #### [facility] of [address], [address] [place] [address] [employer]: Davy Pollard MD Cholesterol in LDL [Mass/Vol] 36 mg/dL Normal [facility] Comment on above: Result Comment: Refe rence range: <100 Desirable range <100 mg/dL for primary prevention; <70 mg/dL for patients with CHD or diabetic patients with > or = 2 CHD risk factors. LDL-C is now calculated using the Santosh-Rosario calculation, which is a validated novel method providing better accuracy than the Friedewald equation in the estimation of LDL-C. Santosh BENNETT et al. GILBERTO. 2013;310(19): 7063-4074 (http://education.Mailgun.Aliveshoes/faq/XMX459) Performed By: #### 1 230, 496, 7600 #### [facility] [address], [address] [place] [address] [employer]: Davy Pollard MD Cholesterol.total/Chol esterol in HDL [Mass ratio] 2.9 {ratio} Normal <5.0 [facility] Comment on above: Performed By: #### 1 023, 496, 7600 #### [facility] [address], [address] [place] [address] [employer]: Davy Pollard MD NON HDL CHOLESTEROL 67 mg/dL (calc) Normal <130 [facility] Comment on above: Result Comment: For patients with diabetes plus 1 major ASCVD risk factor, treating to a non-HDL-C goal of <100 mg/dL (LDL-C of <70 mg/dL) is considered a therapeutic option. Performed By: #### 1 0231, 496, 7600 #### [facility] [address], [address] [place] [address] [employer]: Davy Pollard MD Triglyceride [Mass/Vol] 260 mg/dL High <150 [facility] Comment on above: Result Comment: If a non-fasting specimen was collected, consider repeat triglyceride testing on a fasting specimen if clinically indicated. Cristiane et al. J. of Clin. Lipidol. 2015;9:129-169. Performed By: #### 1 0231, 496, 7400 #### [facility] [address], [address] [place] [id number] [employer]: Davy Pollard MD Coding Summary.on 07-01-2018 Coding Summary. CODING DATE: 018 [facility] STATUS: Home (Routine DC) PAYOR: Commercial Insurance APC DESCRIPTION 5721 Level1 Diagnostic Tests and Related Services ADMIT DX: REASON FOR VISIT DX: Z86.19 Personal history of other infectious and parasitic diseases FINAL DX: PRINCIPAL: K76.0 Fatty (change of) liver, not elsewhere classified SECONDARY: Z86.19 Personal history of other infectious and parasitic diseases PYMT PROC APC STAT DESCRIPTION DOCTOR NAME DATE NOTE: The code number assigned matches the documented diagnosis and / or procedure in the patient's chart. However, the narrative phrase printed from the coding software may appear abbreviated, or result in slightly different terminology. Coded By: Radha Wood Date Saved: 07/01/2018 04:08 pm Normal [facility] Vital Signs Date Time Vital Sign Value Performing Clinician Facility 09-30-2024 14:09-0500 Body height 175.3 cm Krishna Burgos DPM Work Phone: [facility] 09-30-2024 14:09-0500 Body mass index (BMI) [Ratio] 27.62 kg/m2 Krishna Burgos DPM Work Phone: [facility] 09-30-2024 14:09-0500 Body weight 84.82 kg Krishna Jean-Claude DPM Work Phone: [facility] 09-30-2024 14:09-0500 Respiratory rate 18 /min Krishna Brown DPM Work Phone: [facility] 07-15-2024 15:16-0400 Body height 175.3 cm Krishna Brown DPM Work Phone: [facility] 07-15-2024 15:16-0400 Body mass index (BMI) [Ratio] 27.62 kg/m2 Krishna Burgos DPM Work Phone: [facility] 07-15-2024 15:16-0400 Body weight 84.82 kg Krishna Jean-Claude DPM Work Phone: [facility] 07-15-2024 15:16-0400 Diastolic blood pressure 79 mm[Hg] Krishna Burgos DPM Work Phone: [facility] 07-15-2024 15:16-0400 Heart rate 75 /min Krishna Brown DPM Work Phone: [facility] 07-15-2024 15:16-0400 Systolic blood pressure 126 mm[Hg] Krishna Brown DPM Work Phone: [facility] 06-28-2024 10:43-0400 Body height 173.99 cm [facility] 06-28-2024 10:43-0400 Body mass index (BMI) [Ratio] 27.6 kg/m2 PHYSICIAN [facility] 06-28-2024 10:43-0400 Body temperature 97.8 [degF] [facility] 06-28-2024 10:43-0400 Body weight 83.46 kg [facility] 06-28-2024 10:43-0400 Diastolic blood pressure 63 mm[Hg] [facility] 06-28-2024 10:43-0400 Heart rate 54 /min [facility] 06-28-2024 10:43-0400 Respiratory rate 18 /min [facility] 06-28-2024 10:43-0400 SaO2% (BldA) [Mass fraction] 99 % [facility] 06-28-2024 10:43-0400 Systolic blood pressure 123 mm[Hg] [facility] 06-21-2024 15:56-0400 Body height 172.7 cm Chao Furlong DO Work Phone: [facility] 06-21-2024 15:56-0400 Body mass index (BMI) [Ratio] 28.83 kg/m2 Chao Furlong DO Work Phone: [facility] 06-21-2024 15:56-0400 Body temperature 97.81 [degF] Chao Furlong DO Work Phone: [facility] [employer] 06-21-2024 15:56-0400 Body weight 86 kg [facility]-21-[facility] 15:56-0400 Diastolic blood pressure 62 mm[Hg] Chao Furlong DO Work Phone: [facility] 06-21-2024 15:56-0400 Heart rate 60 /min Chao Furlong DO Work Phone: [facility] 06-21-2024 15:56-0400 Respiratory rate 20 /min Chao Furlong DO Work Phone: [facility] [employer] 06-21-2024 15:56-0400 SaO2% (BldA) [Mass fraction] 100 % [facility] 06-21-2024 15:56-0400 Systolic blood pressure 140 mm[Hg] Chao Furlong DO Work Phone: [facility] 05-18-2024 09:19-0400 Body height 175.26 cm DO Chao Furlong Work Phone: [facility] 05-18-2024 09:19-0400 Body mass index (BMI) [Ratio] 12.6 kg/m2 DO Chao Furlong Work Phone: [facility] 05-18-2024 09:19-0400 Body temperature 97.5 [degF] DO Chao Furlong Work Phone: [facility] 05-18-2024 09:19-0400 Body weight 38.81 kg DO Chao Furlong Work Phone: [facility] 05-18-2024 09:19-0400 Diastolic blood pressure 69 mm[Hg] DO Chao Furlong Work Phone: [facility] 05-18-2024 09:19-0400 Heart rate 69 /min DO Chao Furlong Work Phone: [facility] 05-18-2024 09:19-0400 Respiratory rate 16 /min DO Chao Furlong Work Phone: [facility] 05-18-2024 09:19-0400 SaO2% (BldA) [Mass fraction] 95 % DO Chao Furlong Work Phone: [facility] 05-18-2024 09:19-0400 Systolic blood pressure 148 mm[Hg] DO Chao Furlong Work Phone: [facility] 05-03-2024 09:37-0400 Body height 172.7 cm Chao Furlong DO Work Phone: [employer] 05-03-2024 09:37-0400 Body mass index (BMI) [Ratio] 28.68 kg/m2 Chao Furlong DO Work Phone: [facility] 05-03-2024 09:37-0400 Body temperature 97.39 [degF] Chao Furlong DO Work Phone: [facility] 05-03-2024 09:37-0400 Body weight 85.55 kg Chao Furlong DO Work Phone: [facility] 05-03-2024 09:37-0400 Diastolic blood pressure 62 mm[Hg] Chao Furlong DO Work Phone: [facility] 05-03-2024 09:37-0400 Heart rate 48 /min Chao Furlong DO Work Phone: [facility] 05-03-2024 09:37-0400 Respiratory rate 18 /min Chao Furlong DO Work Phone: [facility] 05-03-2024 09:37-0400 SaO2% (BldA) [Mass fraction] 98 % Chao Furlong DO Work Phone: [facility] 05-03-2024 09:37-0400 Systolic blood pressure 118 mm[Hg] Chao Furlong DO Work Phone: [facility] 03-17-2024 12:05-0400 Body height 172.72 cm DO Chao Furlong Work Phone: [facility] 03-17-2024 12:05-0400 Body mass index (BMI) [Ratio] 28.8 kg/m2 DO Chao Furlong Work Phone: [facility] 03-17-2024 12:05-0400 Body temperature 96.1 [degF] DO Chao Furlong Work Phone: [facility] 03-17-2024 12:05-0400 Body weight 86.18 kg DO Chao Furlong Work Phone: [facility] 03-17-2024 12:05-0400 Diastolic blood pressure 58 mm[Hg] DO Chao Furlong Work Phone: [facility] 03-17-2024 12:05-0400 Heart rate 41 /min DO Chao Furlong Work Phone: [facility] 03-17-2024 12:05-0400 SaO2% (BldA) [Mass fraction] 97 % DO Chao Furlong Work Phone: [facility] 03-17-2024 12:05-0400 Systolic blood pressure 118 mm[Hg] DO Chao Furlong Work Phone: [facility] 03-16-2024 13:33-0400 Body height 172.7 cm Chao Furlong DO Work Phone: [facility] 03-16-2024 13:33-0400 Body mass index (BMI) [Ratio] 28.89 kg/m2 Chao Furlong DO Work Phone: [facility] 03-16-2024 13:33-0400 Body weight 86.18 kg Chao Furlong DO Work Phone: [facility] 03-16-2024 13:33-0400 Diastolic blood pressure 68 mm[Hg] Chao Furlong DO Work Phone: [facility] [employer] 03-16-2024 13:33-0400 Systolic blood pressure 120 mm[Hg] Chao Furlong DO Work Phone: [facility] 01-05-2024 10:58-0400 Body height 175.26 cm [facility] 01-05-2024 10:58-0400 Body mass index (BMI) [Ratio] 28.2 kg/m2 [facility] 01-05-2024 10:58-0400 Body temperature 97.1 [degF] [facility] 01-05-2024 10:58-0400 Body weight 86.74 kg [facility] 01-05-2024 10:58-0400 Heart rate 43 /min [facility] 01-05-2024 10:58-0400 Respiratory rate 18 /min [facility] 01-05-2024 10:58-0400 SaO2% (BldA) [Mass fraction] 97 % [facility] 11-03-2023 09:45-0500 Body height 175.3 cm Chao Furlong DO Work Phone: [facility] 11-03-2023 09:45-0500 Body mass index (BMI) [Ratio] 27.44 kg/m2 Chao Furlong DO Work Phone: [facility] 11-03-2023 09:45-0500 Body temperature 96.3 [degF] Chao Furlong DO Work Phone: [facility] 11-03-2023 09:45-0500 Body weight 84.28 kg Chao Furlong DO Work Phone: [facility] 11-03-2023 09:45-0500 Diastolic blood pressure 60 mm[Hg] Chao Furlong DO Work Phone: [facility] 11-03-2023 09:45-0500 Heart rate 98 /min Chao Furlong DO Work Phone: [facility] 11-03-2023 09:45-0500 SaO2% (BldA) [Mass fraction] 92 % Chao Furlong DO Work Phone: [facility] 11-03-2023 09:45-0500 Systolic blood pressure 120 mm[Hg] Chao Furlong DO Work Phone: [facility] 05-13-2023 12:00-0400 Body temperature 97.8 [degF] DO Chao Furlong Work Phone: [facility] 05-13-2023 12:00-0400 Diastolic blood pressure 86 mm[Hg] DO Chao Furlong Work Phone: [facility] 05-13-2023 12:00-0400 Heart rate 72 /min DO Chao Furlong Work Phone: [facility] 05-13-2023 12:00-0400 Respiratory rate 16 /min DO Chao Furlong Work Phone: [facility] 05-13-2023 12:00-0400 SaO2% (BldA) [Mass fraction] 97 % DO [employer] Work Phone: [facility] 05-13-2023 12:00-0400 Systolic blood pressure 150 mm[Hg] DO [employer] Work Phone: [facility] 05-13-2023 04:54-0400 Body weight 80.2 kg DO [employer] Work Phone: [facility] 05-12-2023 21:33-0400 Body height 175.26 cm DO [employer] Work Phone: [facility] 03-19-2023 09:30-0400 Body height 173.99 cm Lory Bernardo Other [employer] Other 03-19-2023 09:30-0400 Body mass index (BMI) [Ratio] 27.12 kg/m2 Lory Bernardo Other [employer] Other 03-19-2023 09:30-0400 Body temperature 96.2 [degF] Lory Bernardo Other [employer] Other 03-19-2023 09:30-0400 Body weight 82.1 kg Lory Bernardo Other [employer] Other 03-19-2023 09:30-0400 Diastolic blood pressure 64 mm[Hg] Lory Bernardo Other [employer] Other 03-19-2023 09:30-0400 SaO2% (BldA) [Mass fraction] 95 % Lory Bernardo Other [employer] Other 03-19-2023 09:30-0400 Systolic blood pressure 130 mm[Hg] Lory Bernardo Other [employer] Other 09-11-2022 11:00-0500 Body height 173.99 cm Lory Gundersono Other [employer] Other 09-11-2022 11:00-0500 Body mass index (BMI) [Ratio] 27.12 kg/m2 Lory Gundersono Other [employer] Other 09-11-2022 11:00-0500 Body temperature 97.8 [degF] Lory Gundersono Other [employer] Other 09-11-2022 11:00-0500 Body weight 82.1 kg Lory Bernardo Other [employer] Other 09-11-2022 11:00-0500 Diastolic blood pressure 78 mm[Hg] Lory Gundersono Other [employer] Other 09-11-2022 11:00-0500 SaO2% (BldA) [Mass fraction] 97 % Lory Gundersono Other [employer] Other 09-11-2022 11:00-0500 Systolic blood pressure 118 mm[Hg] Lory Carballofloro Other [employer] Other 06-12-2022 10:30-0400 Body height 173.99 cm Lory Gundersono Other [employer] Other 06-12-2022 10:30-0400 Body mass index (BMI) [Ratio] 27.12 kg/m2 Lory Bernardo Other [employer] Other 06-12-2022 10:30-0400 Body temperature 96.8 [degF] Lory Bernardo Other [employer] Other 06-12-2022 10:30-0400 Body weight 82.1 kg Lory Bernardo Other [employer] Other 06-12-2022 10:30-0400 Diastolic blood pressure 72 mm[Hg] Lory Bernardo Other [employer] Other 06-12-2022 10:30-0400 SaO2% (BldA) [Mass fraction] 96 % Lory Bernardo Other [employer] Other 06-12-2022 10:30-0400 Systolic blood pressure 126 mm[Hg] Lory Bernardo Other [employer] Other 05-22-2022 11:00-0400 Diastolic blood pressure 70 mm[Hg] MD Rajan Kee Work Phone: [facility] 05-22-2022 11:00-0400 Heart rate 55 /min MD Rajan Kee Work Phone: [facility] 05-22-2022 11:00-0400 Respiratory rate 20 /min MD Rajan Kee Work Phone: [facility] 05-22-2022 11:00-0400 SaO2% (BldA) [Mass fraction] 94 % MD Rajan Kee Work Phone: [facility] 05-22-2022 11:00-0400 Systolic blood pressure 153 mm[Hg] MD Rajan Kee Work Phone: [facility] 05-22-2022 10:00-0400 Inhaled oxygen flow rate 8 L/min MD Rajan Kee Work Phone: [facility] 05-22-2022 07:00-0400 Body temperature 98 [degF] MD Rajan Kee Work Phone: [facility] 05-21-2022 11:57-0400 Body height 172.72 cm MD Rajan Kee Work Phone: [facility] 05-21-2022 11:57-0400 Body mass index (BMI) [Ratio] 27.9 kg/m2 MD Rajan Kee Work Phone: [facility] 05-21-2022 11:57-0400 Body weight 83.46 kg MD Rajan Kee Work Phone: [facility] 05-08-2022 07:30-0400 59 1 Chao G Furlong Work Phone: [facility] [place] Work Phone: Comment on above: [id number] 05-07-2022 16:16-0400 Body height 172.72 cm Chao G Furlong Work Phone: [facility] [address] DO Work Phone: 05-07-2022 16:16-0400 Body mass index (BMI) [Ratio] 28.89 kg/m2 Chao G Furlong Work Phone: [facility] [address] DO Work Phone: 05-07-2022 16:16-0400 Body surface area Derived from formula 2 m2 Chao G Furlong Work Phone: [facility] [address] DO Work Phone: 05-07-2022 16:16-0400 Body weight 86.18 kg Chao G Furlong Work Phone: [facility] [address] DO Work Phone: 05-07-2022 16:16-0400 Diastolic blood pressure 46 mm[Hg] Chao Chavez Furlong Work Phone: [facility] [address] DO Work Phone: 05-07-2022 16:16-0400 Heart rate 53 /min Chao Chavez Furlong Work Phone: [facility] [address] DO Work Phone: 05-07-2022 16:16-0400 Systolic blood pressure 122 mm[Hg] Chao Chavez Furlong Work Phone: [facility] [address] DO Work Phone: 04-26-2022 09:57-0400 Body height 172.09 cm MD Rajan Kee Work Phone: [facility] 04-26-2022 09:57-0400 Body temperature 97.8 [degF] MD Rajan Kee Work Phone: [facility] 04-26-2022 09:57-0400 Body weight 87 kg MD Rajan Kee Work Phone: [facility] 04-26-2022 09:57-0400 Diastolic blood pressure 73 mm[Hg] MD Rajan Kee Work Phone: [facility] 04-26-2022 09:57-0400 Heart rate 44 /min MD Rajan Kee Work Phone: [facility] 04-26-2022 09:57-0400 SaO2% (BldA) [Mass fraction] 96 % MD Rajan Kee Work Phone: [facility] 04-26-2022 09:57-0400 Systolic blood pressure 134 mm[Hg] MD Rajan Kee Work Phone: [facility] 04-23-2022 10:00-0400 Body height 173.99 cm Nicolas Evansvanessa Other [employer] Other 04-23-2022 10:00-0400 Body mass index (BMI) [Ratio] 28.17 kg/m2 Nicolas Evansr Other [employer] Other 04-23-2022 10:00-0400 Body temperature 96.2 [degF] Nicolas Evansvanessa Other [employer] Other 04-23-2022 10:00-0400 Body weight 85.28 kg Nicolas Evansvanessa Other [employer] Other 04-23-2022 10:00-0400 Diastolic blood pressure 60 mm[Hg] Nicolas Valdez Other [employer] Other 04-23-2022 10:00-0400 SaO2% (BldA) [Mass fraction] 97 % Nicolas Mckeonafshan Other [employer] Other 04-23-2022 10:00-0400 Systolic blood pressure 130 mm[Hg] Nicolas Stephenssarahrevanessa Other [employer] Other 04-17-2022 09:30-0400 Body height 173.99 cm Rajan Kee Other [employer] Other 04-17-2022 09:30-0400 Body mass index (BMI) [Ratio] 28.17 kg/m2 Rajan Kee Other [employer] Other 04-17-2022 09:30-0400 Body temperature 96.4 [degF] Rajan Kee Other [employer] Other 04-17-2022 09:30-0400 Body weight 85.28 kg Rajan Chilango Other [employer] Other 04-17-2022 09:30-0400 Diastolic blood pressure 62 mm[Hg] Rajan Kee Other [employer] Other 04-17-2022 09:30-0400 SaO2% (BldA) [Mass fraction] 98 % Rajan Kee Other [employer] Other 04-17-2022 09:30-0400 Systolic blood pressure 110 mm[Hg] Rajan Kee Other [employer] Other 01-02-2022 12:15-0400 Body height 173.99 cm Rajan Kee Other [employer] Other 01-02-2022 12:15-0400 Body mass index (BMI) [Ratio] 28.17 kg/m2 Rajan Kee Other [employer] Other 01-02-2022 12:15-0400 Body temperature 97.6 [degF] Rajan Kee Other [employer] Other 01-02-2022 12:15-0400 Body weight 85.28 kg Rajan Kee Other [employer] Other 01-02-2022 12:15-0400 Diastolic blood pressure 60 mm[Hg] Rajan Kee Other [employer] Other 01-02-2022 12:15-0400 SaO2% (BldA) [Mass fraction] 91 % Rajan Kee Other [employer] Other 01-02-2022 12:15-0400 Systolic blood pressure 120 mm[Hg] Rajan Kee Other [employer] Other 11-15-2021 12:30-0500 Body height 173.99 cm Rajan Kee Other [employer] Other 11-15-2021 12:30-0500 Body mass index (BMI) [Ratio] 28.17 kg/m2 Rajan Kee Other [employer] Other 11-15-2021 12:30-0500 Body temperature 96.8 [degF] Rajan Kee Other [employer] Other 11-15-2021 12:30-0500 Body weight 85.28 kg Rajan Chilango Other [employer] Other 11-15-2021 12:30-0500 Diastolic blood pressure 70 mm[Hg] Rajan Kee Other [employer] Other 11-15-2021 12:30-0500 SaO2% (BldA) [Mass fraction] 98 % Rajan Kee Other [employer] Other 11-15-2021 12:30-0500 Systolic blood pressure 126 mm[Hg] Rajan Kee Other [employer] Other 07-30-2021 16:00-0500 Body height 173.99 cm Rajan Kee Other [employer] Other 07-30-2021 16:00-0500 Body mass index (BMI) [Ratio] 28.17 kg/m2 Rajan Shinlashae Other [employer] Other 07-30-2021 16:00-0500 Body temperature 97.6 [degF] Rajan Chilango Other [employer] Other 07-30-2021 16:00-0500 Body weight 85.28 kg Rajan Chilango Other [employer] Other 07-30-2021 16:00-0500 Diastolic blood pressure 56 mm[Hg] Rajan Chilango Other [employer] Other 07-30-2021 16:00-0500 SaO2% (BldA) [Mass fraction] 96 % Rajan Chilango Other [employer] Other 07-30-2021 16:00-0500 Systolic blood pressure 118 mm[Hg] Rajan Shinlashae Other [employer] Other Encounters Encounter Date Encounter Type Care Provider Facility Start: 10-04-2024 End: 10-04-2024 Refill Chao Vyas DO Work Phone: [facility] Start: 09-30-2024 End: 09-30-2024 Patient encounter procedure Krishna Burgos DPM Work Phone: [facility] Comment on above: Diabetes mellitus du e to underlying condition with diabetic polyneuropathy, unspecified whether watermelon inspector insulin use ([facility]) (Primary Dx); Pain due to onychomycosis of toenails of both feet; Hav (hallux abducto valgus), left; Hav (hallux abducto valgus), right Start: 09-30-2024 End: 09-30-2024 Bamboo flowsheet Krishna Burgos DPM Work Phone: [facility] Start: 09-30-2024 End: 09-30-2024 Bamboo flowsheet Krishna Burgos DPM Work Phone: [facility] Start: 09-30-2024 End: 09-30-2024 ambulatory KRISHNA BURGOS Not Available Start: 08-24-2024 End: 08-24-2024 Office outpatient visit 15 minutes Arin Ferrera MD Work Phone: [facility] Comment on above: Psoriasis vulgaris ( CMS/HCC) (Primary Dx); High risk medication use Start: 08-24-2024 End: 08-24-2024 ambulatory ARIN FERRERA Not Available Start: 08-24-2024 End: 08-24-2024 Mervin Ferrera MD Work Phone: [facility] Start: 08-24-2024 End: 08-24-2024 Bamboo flowslew Ferrera MD Work Phone: [facility] Start: 08-02-2024 End: 08-02-2024 Orders Only Chao Jared Vyas DO Work Phone: [facility] Start: 07-29-2024 End: 08-05-2024 Telephone encounter Na Alvarado CMA [facility] Start: 07-15-2024 End: 07-15-2024 Patient encounter procedure Krishna Burgos DPM Work Phone: [facility] Comment on above: Diabetes mellitus du e to underlying condition with diabetic polyneuropathy, unspecified whether watermelon inspector insulin use (CMS/HCC) (Primary Dx); Pain due to onychomycosis of toenails of both feet; Hav (hallux abducto valgus), left; Hav (hallux abducto valgus), right Start: 07-15-2024 End: 07-15-2024 ambulatory KRISHNA BURGOS Not Available Start: 07-15-2024 End: 07-15-2024 Bamboo flowsheet Krishna Burgos DPM Work Phone: [facility] Start: 07-15-2024 End: 07-15-2024 Bamboo flowsheet Krishna Burgos DPM Work Phone: [facility] Start: 06-28-2024 End: 06-28-2024 ambulatory PHYSICIAN NO [facility] Work Phone: Start: 06-28-2024 End: 06-28-2024 Patient encounter procedure [facility]IAN [facility] Work Phone: Start: 06-21-2024 End: 06-21-2024 Office outpatient visit 15 minutes Chao Vyas DO Work Phone: [facility] Comment on above: Upper respiratory tr act infection, unspecified type (Primary Dx); Pharyngitis, unspecified etiology Start: 06-21-2024 End: 06-21-2024 ambulatory [facility] Start: 05-18-2024 End: 05-18-2024 Departed Referred DO Chao Janng Work Phone: [facility] Work Phone: Start: 05-18-2024 End: 05-18-2024 ambulatory DO Chaoiban Montoyang Work Phone: [facility] Work Phone: Start: 05-18-2024 End: 05-18-2024 Patient encounter procedure DO Chaoiban Montoyalong Work Phone: [facility] Work Phone: Start: 05-06-2024 End: 05-06-2024 ambulatory KRISHNA BURGOS Not Available Start: 05-04-2024 End: 05-05-2024 [facility] Start: 05-03-2024 End: 05-03-2024 ambulatory [facility] Start: 05-03-2024 End: 05-03-2024 Office outpatient visit 25 minutes Chao Vyas DO Work Phone: [facility] Comment on above: Essential hypertensi on (Primary Dx); Type 2 diabetes mellitus with other circulatory complication, without long-term current use of insulin ([facility]); Need for vaccination; Mixed hyperlipidemia; Overweight; Laceration of left hand without foreign body, initial encounter; Hammer toe of right foot Start: 05-03-2024 End: 05-03-2024 ambulatory [facility] Start: 04-19-2024 End: 04-19-2024 Refill Seda Squires [facility] Start: 04-15-2024 End: 04-15-2024 Refill Akilah Eric [facility] Start: 04-07-2024 End: 04-07-2024 Refill Chao Vyas DO Work Phone: [facility] Start: 03-30-2024 End: 03-30-2024 Refill Seda Squires [facility] Start: 03-28-2024 End: 03-28-2024 Refill Chao Vyas DO Work Phone: [facility] Comment on above: Essential hypertensi on Start: 03-17-2024 End: 03-17-2024 ambulatory DO Chao Downingng Work Phone: [facility] Work Phone: Start: 03-17-2024 End: 03-17-2024 Patient encounter procedure DO Chaoiban Montoyalong Work Phone: [facility] Vascular Surgery Work Phone: Start: 03-16-2024 End: 03-16-2024 Patient encounter procedure Chaoiban Downingng DO Work Phone: [facility] Comment on above: Medicare annual well ness visit, subsequent (Primary Dx); Screening for depression Start: 03-16-2024 End: 03-16-2024 ambulatory [facility] Start: 02-26-2024 End: 02-26-2024 ambulatory KRISHNA BURGOS Not Available Start: 01-05-2024 End: 01-05-2024 ambulatory [facility] Work Phone: Start: 01-05-2024 End: 01-05-2024 Patient encounter procedure [facility] Work Phone: Start: 12-31-2023 End: 12-31-2023 Orders Only Chao Vyas DO Work Phone: [facility] Comment on above: Sleep pattern distur bance (Primary Dx) Start: 12-08-2023 Orders Only Chao rodriguez DO Work Phone: [facility] Start: 11-28-2023 Refill Chao Downing ng DO Work Phone: [facility] Start: 11-12-2023 Refill Na Alvarado [facility] Start: 11-03-2023 End: 11-03-2023 ambulatory [facility] Start: 11-03-2023 End: 11-03-2023 ambulatory [facility] Start: 11-03-2023 End: 11-03-2023 Office outpatient visit 25 minutes Chao Vyas DO Work Phone: [facility] Comment on above: Essential hypertensi on (Primary Dx); Type 2 diabetes mellitus with other circulatory complication, without long-term current use of insulin (CMS-HCC); Hemiplegia of dominant side (CMS-HCC); Peripheral vascular disease (CMS-HCC); Coagulopathy ([facility]); Leukocytosis, unspecified type; Hyponatremia; Screening for colon cancer; Special screening for malignant neoplasm of colon; Mixed anxiety and depressive disorder Start: 10-23-2023 Bamboo flowsheet Karime Bautista MD Work Phone: [facility] Start: 10-23-2023 Quianao anjaliheet Karime Bautista MD Work Phone: [facility] Start: 10-23-2023 End: 10-23-2023 ambulatory KARIME BAUTISTA Not Available Start: 10-06-2023 Refill Chao rodriguez DO Work Phone: [facility] Comment on above: Type 2 diabetes eric itus with other circulatory complication, without long-term current use of insulin ([facility]) Start: 09-21-2023 Orders Only Chao Downing ng DO Work Phone: [facility] Start: 09-11-2023 End: 09-11-2023 Patient encounter procedure DO Chaoiban Montoyalong Work Phone: [facility]Ul[facility]ound [facility] Start: 09-11-2023 End: 09-11-2023 ambulatory DO Chao Janlong Work Phone: [facility] Work Phone: Start: 09-05-2023 End: 09-05-2023 Patient encounter procedure DO Chaoiban Montoyalong Work Phone: [facility] Work Phone: Start: 09-05-2023 End: 09-05-2023 ambulatory Arin A Petbenjii Facility:[facility] Start: 05-12-2023 End: 05-13-2023 Evaluation and management of inpatient DO Chao Furlong Work Phone: [facility] [place] [facility] Work Phone: Start: 05-12-2023 End: 05-13-2023 observation encounter DO Chao Furlong Work Phone: [facility] Work Phone: Start: 03-19-2023 End: 03-19-2023 Patient encounter procedure Lory Bernardo [facility] Start: 03-19-2023 End: 03-19-2023 ambulatory DO Chao Furlong Work Phone: [employer] Other Start: 09-11-2022 Follow-up encounter Lory Bernardo [facility] Start: 09-11-2022 End: 09-11-2022 ambulatory DO Chao Furlong Work Phone: [facility] Work Phone: Start: 09-11-2022 End: 09-11-2022 Patient encounter procedure DO Chao Furlong Work Phone: [facility]Ul[facility]ound [facility] Start: 06-12-2022 End: 06-12-2022 ambulatory Lory Bernardo Other [employer] Other Start: 06-12-2022 FQHC visit, estab pt Lory Bernardo [facility] Start: 05-25-2022 End: 05-25-[address] DOCTOR SHIRLEY Facility: Start: 05-21-2022 End: 05-22-2022 Evaluation and management of inpatient MD Rajan Kee Work Phone: [facility] [place] [facility] Start: 05-17-2022 End: 05-17-2022 Patient encounter procedure MD Rajan Kee Work Phone: [facility]-Pre-Surgical Testing Start: 05-09-2022 End: 05-09-2022 ambulatory Rajan Kee Other [employer] Other Start: 05-09-2022 Encounter for other preprocedural examination Rajan Kee [facility] Vascular Surgery Start: 05-09-2022 Telephone encounter Rajan painting [facility] Start: 05-08-2022 Encounter for preprocedural cardiovascular examination ZAID TALAVERA [facility] Start: 05-08-2022 Encounter for other preprocedural examination ZAID TALAVERA [facility] Start: 05-08-2022 Patient encounter procedure Chao Vyas Work Phone: [facility] [address] [place] Work Phone: Start: 05-08-[address] [id number] Start: 05-07-2022 Office outpatient vi sit 25 minutes Chao Vyas Work Phone: [facility] 250 DO Work Phone: Start: 04-30-2022 End: 04-30-2022 ambulatory NON STAFF [facility] Work Phone: Start: 04-30-2022 End: 04-30-2022 Departed Referred MD Rajan Kee Work Phone: [facility]-4 [facility] - O/P Start: 04-26-2022 End: 04-26-2022 Patient encounter procedure MD Rajan Kee Work Phone: [facility] Start: 04-23-2022 End: 04-23-2022 ambulatory Nicolas Valdez Other [employer] Other Start: 04-23-2022 Office outpatient vi sit 25 minutes Nicolas Valdez [facility] Start: 04-17-2022 End: 04-17-2022 ambulatory Rajan Kee Other [employer] Other Start: 04-17-2022 Encounter for other preprocedural examination Rajan Kee [facility] Vascular Surgery Start: 04-17-2022 Office outpatient vi sit 25 minutes Rajan Kee [facility] Vascular Surgery Start: 04-17-2022 Telephone encounter Rajan painting [facility] Start: 04-15-2022 End: 04-15-2022 Patient encounter procedure MD Rajan Kee Work Phone: [facility]-CT Scan [facility] Start: 04-03-2022 End: 04-03-2022 ambulatory Rajan Kee Other [employer] Other Start: 04-03-2022 Office outpatient vi sit 25 minutes Rajan Kee [facility] Start: 04-03-2022 End: 04-03-2022 Patient encounter procedure MD Rajan Kee Work Phone: [facility]-Ultrasound [facility] Start: 01-02-2022 End: 01-02-2022 ambulatory Rajan Kee Other [employer] Other Start: 01-02-2022 Postop follow up vis it related to original px Rajan Kee [facility] Start: 11-27-2021 Patient encounter status MD Darian Kee Work Phone: [facility] Start: 11-27-2021 End: 11-27-2021 ambulatory Rajan Kee Other [employer] Other Start: 11-27-2021 Telephone encounter Rajan Malloy rg [facility] Start: 11-19-2021 End: 11-19-2021 ambulatory Rajan Kee Other [employer] Other Start: 11-19-2021 Encounter for other preprocedural examination Rajan Kee [facility] Start: 11-19-2021 Telephone encounter Rajan Malloy rg [facility] Start: 11-15-2021 End: 11-15-2021 ambulatory Rajan Kee Other [employer] Other Start: 11-15-2021 Office outpatient vi sit 25 minutes Rajan Kee [facility] Start: 11-09-2021 End: 11-09-[address] NICOLAS CLANCY Facility:[facility]1 Start: 09-23-2021 End: 12-22-[address] HELEN MEYERS Facility:[facility] Start: 09-04-2021 End: 09-21-[address] HELEN MEYERS Facility:[facility] Start: 08-22-2021 End: 09-21-[address] HELEN MEYERS Facility:[facility] Start: 08-22-2021 End: 09-21-[address] HELEN MEYERS Facility:[facility] Start: 07-30-2021 End: 07-30-2021 ambulatory Rajan Kee Other [facility] [employer] Other Start: 07-30-2021 Postop follow up vis it related to original px Rajan Langlashae [facility] Start: 06-29-2018 End: 06-30-2018 Patient encounter procedure TARIK RYAN [place] [place] encounter status Chao Chavez IES Work Phone: [facility] 250 DO Work Phone: Procedures Date Procedure Procedure Detail Performing Clinician Start: 06-21-2024 POCT INFLUENZA A/INFLUENZA B/SARS-COV-2 VERITOR Chao Vyas DO Work Phone: Start: 06-21-2024 Iaadiadoo streptococ cus group a Chao Vyas DO Work Phone: Start: 06-21-2024 Adult depression screening assessment Chao MontoyaChainalyticsjennifer DO Work Phone: Start: 05-18-2024 Investigation of transfusion reaction PHYSICIAN NO FAMILY Start: 05-03-2024 Adult depression screening assessment Chao Vyas DO Work Phone: Start: 05-03-2024 Microalbumin [Mass/volume] in Urine by Test strip Karan Alvarez CLERICAL SUPPORT SPECIALIST Start: 03-17-2024 Doppler ultrasonogra phy of bilateral carotid arteries DO Chao [employer] Work Phone: Start: 03-16-2024 Adult depression screening assessment Chao MontoyaAn[employer] DO Work Phone: Start: 11-03-2023 History of carotid endarterectomy S/P carotid endarterectomy Chao [employer] Phone: Start: 11-03-2023 Adult depression screening assessment [employer]aoDesmos Phone: Start: 10-23-2023 End: 10-23-2023 [facility] medical xm&eval comprhnsv estab pt 1/> Type 2 diabetes mellitus without complication, without long-term current use of insulin (CMS/HCC) Karime Bautista MD Work Phone: Comment on above: Type 2 diabetes eric itus without complication, without long- term current use of insulin (CMS/HCC) (Primary Dx); Pseudophakia Start: 10-23-2023 Diabetic retinal eye exam Chao [employer]ing[employer]ap[employer]tv Phone: Start: 09-11-2023 Doppler ultrasonogra phy of bilateral carotid arteries DO [employer] Phone: Start: 09-05-2023 Plain chest X-ray DO De Ayudarum Phone: Start: 09-04-2023 Adult depression screening assessment [employer] Phone: Start: 05-13-2023 MRI of head DO [employer] Phone: Start: 05-13-2023 Magnetic resonance angiography of head without contrast DO [employer] Phone: Start: 05-12-2023 CT of head without contrast DO [employer] Phone: Start: 05-12-2023 Plain chest X-ray DO De Ayudarum Phone: Start: 04-28-2023 Microalbumin [Mass/volume] in Urine by Test strip Chao [employer] Phone: Start: 03-19-2023 Doppler ultrasonogra phy of bilateral carotid arteries DO [employer] Phone: Start: 09-11-2022 Doppler ultrasonogra phy of bilateral carotid arteries DO Chao Vyas Work Phone: Start: 05-21-2022 OR TCAR (Left) MD Eliecer Kee Work Phone: Start: 04-15-2022 CT angiography of head MD Rajan Kee Work Phone: Start: 04-15-2022 CT angiography of ne ck vessels MD Rajan Kee Work Phone: Start: 04-03-2022 Doppler ultrasonogra phy of bilateral carotid arteries MD Rajan Kee Work Phone: Start: 09-22-2018 Total colonoscopy Evens Vyas Work Phone: History of carotid endarterectomy S/P carotid endarterectomy MD Rajan Kee Work Phone: Leg repair Chao chavez Work Phone: Tonsillectomy and adenoidectomy Chao Vyas Work Phone: Plan of Treatment Date Care Activity Detail Author Start: 05-03-2034 DTaP,Tdap and Td Vac cines (2 - Td or Tdap) DTaP,Tdap and Td Vaccines (2 - Td or Tdap) [facility] [employer] Start: 08-24-2025 End: 08-24-2025 Patient encounter procedure 08/24/2025 3:15 PM EST Office Visit [facility] [address] [place] [address] Arin Ferrera MD [address] [place] [address] [facility] Start: 06-21-2025 Adult BMI Screening Adult BMI Screen ing [facility] Start: 06-21-2025 Depression Screening Depression Scre ening [facility] Start: 06-21-2025 Fall Risk Screening Fall Risk Screen ing [facility] Start: 06-21-2025 Tobacco Screening Tobacco Screening [facility] Start: 05-03-2025 Adult BMI Screening Adult BMI Screen ing [facility] Start: 05-03-2025 Depression Screening Depression Scre ening [facility] Start: 05-03-2025 Diabetic foot examination Diabetic F oot Exam [facility] Start: 05-03-2025 Fall Risk Screening Fall Risk Screen ing [facility] Start: 05-03-2025 Tobacco Screening Tobacco Screening [facility] Start: 05-03-2025 Urine screening for protein Urine Microalbumin [facility] Start: 03-17-2025 End: 03-17-2025 Patient encounter procedure 03/17/2025 1:40 PM EDT Office Visit [facility] Internal Medicine - Family Medicine [address] [place] [address] [facility] - [facility] Start: 03-16-2025 Adult BMI Screening Adult BMI Screen ing [facility] Start: 03-16-2025 Depression Screening Depression Scre ening [facility] Start: 03-16-2025 Fall Risk Screening Fall Risk Screen ing [facility] Start: 03-16-2025 Medicare Annual Well ness Visit Medicare Annual Wellness Visit [facility] Start: 03-16-2025 Tobacco Screening Tobacco Screening [facility] Start: 12-16-2024 End: 12-16-2024 Patient encounter procedure 12/16/2024 2:10 PM EDT Procedure Visit [facility] [address] [facility] [address] [place] [address] Krishna Burgos, DPKenyetta [address] [facility] [address] [place] [address] [facility] Start: 11-04-2024 End: 11-04-2024 Patient encounter procedure 11/04/2024 10:00 AM EST Office Visit [facility] Internal Medicine - Family Medicine [address] [place] [address] Chao Vyas, DO [address] [facility] [address] [facility] - Family Medicine Start: 11-03-2024 Adult BMI Screening Adult BMI Screen ing [facility] Start: 11-03-2024 Depression Screening Depression Scre [facility] Start: 11-03-2024 Fall Risk Screening Fall Risk Screen ing [facility] Start: 11-03-2024 Tobacco Screening Tobacco Screening [facility] Start: 10-23-2024 Glaucoma screening Diabetic Op hthalmology Exam [facility] Start: 09-30-2024 End: 09-30-2024 Patient encounter procedure [facility] Comment on above: Diabetes mellitus du e to underlying condition with diabetic polyneuropathy, unspecified whether watermelon inspector insulin use ([facility]) (Primary Dx); Pain due to onychomycosis of toenails of both feet; Hav (hallux abducto valgus), left; Hav (hallux abducto valgus), right Start: 09-04-2024 Adult BMI Screening Adult BMI Screen ing [facility] Start: 09-04-2024 Depression Screening Depression Scre [facility] Start: 09-04-2024 Fall Risk Screening Fall Risk Screen ing [facility] Start: 09-04-2024 Tobacco Screening Tobacco Screening [facility] Start: 08-24-2024 End: 08-24-2024 Patient encounter procedure [facility] Comment on above: Arrived Start: 08-24-2024 End: 08-24-2025 XR Chest 2 Views XR chest 2 views Imaging Routine Psoriasis vulgaris ([facility]) High risk medication use Expected: 08/24/2024, Expires: 08/24/2025 [facility] Work Phone: Comment on above: Expected: 08/24/2024 , Expires: 08/24/2025 Start: 07-15-2024 End: 07-15-2024 Patient encounter procedure 07/15/2024 3:40 PM EDT Procedure Visit [facility] [address] [facility] [address] [place] [id number] Krishna Burgos DPM [address] [facility] [address] [place] [address] Diabetes mellitus due to underlying condition with diabetic polyneuropathy, unspecified whether retirement insulin use ([facility]) (Primary Dx); Pain due to onychomycosis of toenails of both feet; Hav (hallux abducto valgus), left; Hav (hallux abducto valgus), right [facility] Comment on above: Diabetes mellitus du e to underlying condition with diabetic polyneuropathy, unspecified whether retirement insulin use ([facility]) (Primary Dx); Pain due to onychomycosis of toenails of both feet; Hav (hallux abducto valgus), left; Hav (hallux abducto valgus), right Start: 05-23-2024 Influenza vaccination Influenza Vacc ine [facility] Start: 05-18-2024 Microscopic observat ion [Identifier] in Unspecified specimen by Gram stain [facility] Start: 05-18-2024 [facility] Start: 05-03-2024 End: 05-03-2024 Patient encounter procedure [facility] Internal Medicine - Family Medicine Start: 04-28-2024 Diabetic foot examination Diabetic F oot Exam [facility] Start: 04-28-2024 Urine screening for protein Urine Microalbumin [facility] Start: 03-16-2024 End: 03-16-2024 Patient encounter procedure 03/16/2024 1:30 PM EDT Office Visit [facility] Internal Medicine - Family Medicine [address] [place] [address] [facility] Internal Medicine - Family Medicine Start: 03-11-2024 Medicare Annual Well ness Visit Medicare Annual Wellness Visit [facility] Start: 11-03-2023 End: 11-03-2023 Patient encounter procedure 11/03/2023 10:10 AM EST Office Visit [facility] Internal Medicine - Family Medicine [address] [place] [address] Chao Vyas DO [address] [place] [address] [facility] - [facility] Start: 10-23-2023 End: 10-23-2023 Patient encounter procedure 10/23/2023 2:00 PM EST Office Visit [facility] [address] [place] [phone] Karime Bautista MD [address] [place] [address] Arrived [facility] Comment on above: Arrived Start: 05-22-[address] [facility] Start: 05-22-2023 [facility] Start: 05-21-[address] [facility] Start: 05-21-2023 [facility] Start: 05-20-[address] [facility] Start: 05-20-2023 [facility] Start: 05-19-[address] [facility] Start: 05-19-2023 [facility] Start: 05-18-[address] [facility] Start: 05-18-2023 [facility] Start: 05-17-[address] [facility] Start: 05-17-2023 [facility] Start: 05-16-[address] [facility] Start: 05-16-2023 [facility] Start: 05-15-[address] [facility] Start: 05-15-2023 [facility] Start: 05-14-[address] [facility] Start: 05-14-2023 [facility] Start: 05-13-2023 [facility] Start: 05-13-2023 [facility] Start: 05-12-2023 Referral to neurologist [facility] Start: 05-12-2023 Hospital admission [facility] Start: 03-19-2023 Doppler ultrasonogra phy of bilateral carotid arteries US carotid doppler BI [facility] Start: 03-19-2023 US.doppler Carotid arteries - bilateral [facility] Start: 05-22-2022 [facility] Start: 05-21-2022 Cerebral Embolic Filtration, Extracorporeal Flow Reversal Circuit from Left Common Carotid Artery, Percutaneous Approach, [employer] Cerebral Embolic Filtration, Extracorporeal Flow Reversal Circuit from Left Common Carotid Artery, Percutaneous Approach, [employer] 6 [facility] Start: 05-21-2022 Dilation of Left Int ernal Carotid Artery with Intraluminal Device, Open Approach Dilation of Left Internal Carotid Artery with Intraluminal Device, Open Approach [facility] Start: 05-21-2022 OR TCAR (Left) OR TCAR (Left) [facility] Start: 05-21-2022 End: 05-22-2022 Evaluation and management of inpatient Postoperative hematoma [facility] Start: 05-17-2022 [facility] Work Phone: Start: 05-17-2022 End: 05-17-2022 Patient encounter procedure [facility] Eff-Otn-Hgcuwyhm Testing Start: 04-30-2022 OR TCAR (Left) OR TCAR (Left) [facility] Start: 04-26-2022 End: 04-26-2022 Patient encounter procedure Departed Clinical [facility] Start: 2018 Abdominal aortic ane urysm screening Abdominal Aortic Aneurysm (AAA) Screen [facility] Start: 2003 Administration of varicella zoster vaccine Zoster (Shingles) Vaccine (1 of 2) [facility] Start: 1998 Screening for malign ant neoplasm of colon Colonoscopy [facility] Start: 1972 DTaP,Tdap and Td Vac cines (1 - Tdap) DTaP,Tdap and Td Vaccines (1 - Tdap) [facility] Start: 1971 Adult BMI Follow Up Plan Adult BMI F ollow Up Plan [facility] Start: 1953 Glaucoma screening Diabetic Op hthalmology Exam [facility] [employer] Bacteria identified in Unspecified specimen by Aerobe culture [facility] Bacteria identified in Unspecified specimen by Anaerobe culture [facility] Cologuard [facility] Cologuar d [facility] Lab Routine Special screening for malignant neoplasm of colon Ordered: 11/03/2023 [employer] Work Phone: Comment on above: Ordered: 11/03/2023 End: 05-03-2025 Comprehensive metabolic 2000 panel - Serum or Plasma Comprehensive metabolic panel Lab Routine Essential hypertension 1 Occurrences starting 05/03/2024 until 05/03/2025 [employer] Work Phone: Comment on above: 1 Occurrences starti ng 05/03/2024 until 05/03/2025 End: 05-03-2025 Hemoglobin A1c/Hemoglobin.total in Blood Hemoglobin A1c Lab Routine Type 2 diabetes mellitus with other circulatory complication, without long-term current use of insulin ([facility] 1 Occurrences starting 05/03/2024 until 05/03/2025 [facility] Comment on above: 1 Occurrences starti ng 05/03/2024 until 05/03/2025 End: 05-03-2025 Lipid panel Lipid panel Lab Routine Mixed hyperlipidemia 1 Occurrences starting 05/03/2024 until 05/03/2025 [facility] Comment on above: 1 Occurrences starti ng 05/03/2024 until 05/03/2025 End: 05-03-2025 Microalbumin - Albumin: Creatinine Urine Ratio Microalbumin - Albumin: Creatinine Urine Ratio Lab Routine Type 2 diabetes mellitus with other circulatory complication, without long-term current use of insulin ([facility]) 1 Occurrences starting 05/03/2024 until 05/03/2025 [facility] Comment on above: 1 Occurrences starti ng 05/03/2024 until 05/03/2025 Patient Education [facility] Work Phone: Patient referral [facility] Work Phone: [facility] Immunizations Immunization Date Immunization Notes Care Provider Fa cility 05-03-2024 tetanus toxoid, redu lubna diphtheria toxoid, and acellular pertussis vaccine, adsorbed Chao Montoyajosselin DO Work Phone: [facility] 05-03-2024 Immunization, In Clinic,; Translations: [Drug or medicament (substance)] Chao Janjosselin DO Work Phone: [facility] 09-04-2023 Influenza Vaccine, Quadrivalent, Adjuvanted Chao Furlong DO Work Phone: [facility] 09-04-2023 influenza virus vacc ine, unspecified formulation Chao Furlong DO Work Phone: [facility] 04-28-2023 Pneumococcal Conjuga te 20-valent Chao Furlong DO Work Phone: [facility] 07-04-2020 influenza, high dose seasonal, preservative-free Chao G Janlong Work Phone: [facility] [employer] DO Work Phone: 07-04-2020 pneumococcal polysaccharide vaccine, 23 valent Chao G Janlong Work Phone: [facility] Work Phone: 10-23-2018 influenza, injectabl e, quadrivalent, preservative free Chao G Janlong Work Phone: [facility] 07-08-2009 influenza virus vacc ine, unspecified formulation Chao Furlong DO Work Phone: [facility] 06-29-2009 hepatitis A and hepatitis B vaccine Chao G Janlong Work Phone: [facility] [employer] DO Work Phone: 05-25-2009 hepatitis A and hepatitis B vaccine Chao G Janlong Work Phone: [facility] Work Phone: Payers Date Payer Category Payer [facility] Care O (unspecified) [employer] H[employer] [id number] 2024 Medicare [id number] 2023 Unknown [id number] 2023 Self-pay [id number] 2023 Medicare (Managed Care) [employer] [id number] 2023 Medicare [employer] P [place] MEDICARE [employer] MEDICARE ADVANTAGE [id number] 2023-Present [phone] [address] [place] [address] [id number] 2023 Medicare HMO [employer] EDICARE ADVANTAGE [id number] 2023 Unknown 2023 Medicare [id number] 2022 Unknown [id number] 2018 Unknown [id number] 1959 Medicare [id number] 1953 Unknown [id number] 2.16.840.1.691681.3.579.2. 727 1953 Unknown [id number] 2.16.840.1.265085.3.579.2. 593 1953 Unknown [id number] 2.16.840.1.932096.3.579.2. 593 1953 Unknown [id number] 2.16.840.1.029528.3.579.2. 593 1953 Unknown [id number] 2.16.840.1.987571.3.579.2. 593 1953 Unknown [id number] 2.16.840.1.271075.3.579.2. 593 1953 Unknown [id number] 2.16.840.1.600147.3.579.2. 593 1953 Unknown [id number] 2.16.840.1.103387.3.579.2. 593 1953 Unknown [id number] 2.16.840.1.595356.3.579.2. 593 1953 Unknown [id number] 2.16.840.1.582490.3.579.2. 1068 1953 Unknown [id number] 2.16.840.1.514047.3.579.2. 1286 1953 Unknown [id number] 2.16.840.1.984417.3.579.2. 1286 1953 Unknown [id number] 2.16.840.1.510304.3.579.2. 1286 1953 Unknown [id number] 2.16.840.1.546637.3.579.2. 1285 1953 Unknown [id number] 2.16.840.1.084350.3.579.2. 1285 1953 Unknown [id number] 2.16840.1.554183.3.579.2. 128 1953 Unknown [id number] 2.840.1.013664.3.579.2. 1258 1953 Unknown [id number] 2.840.1.208926.3.579.2. 1258 1953 Unknown [id number] 2.840.1.589298.3.579.2. 1258 1953 Unknown [id number] 2.840.1.315174.3.579.2. 1258 1953 Unknown [id number] 2.840.1.050967.3.579.2. 1258 1953 Unknown [id number] 2.840.1.020222.3.579.2. 1258 1953 Unknown [id number] 2.840.1.218254.3.579.2. 1259 Medicare [id number] 2.840.1.991769.19 Medicare [id number] Unknown [id number] 2.840.1.163123.3.579.2. 531 Unknown [id number] 2.16840.1.747029.3.579.2. 531 Unknown [id number] 2.16840.1.916359.3.579.2. 531 Unknown [id number] 2.16840.1.998862.3.579.2. 531 Social History Date Type Detail Facility Unknown if ever smoked [facility] [employer] Other Start: 05-22-2023 End: 08-21-2023 Sex Assigned At [facility] [employer] Other Start: 05-22-2023 End: 08-21-2023 Occasional alcohol use Occasional alcohol use -[facility] [address] DO Work Phone: Comment on above: QUIT 1997; Start: 04-26-2022 End: 05-03-2024 Tobacco smoking status [facility] Ex-smoker (finding) [facility] Start: 1955 Sex Assigned At Male F [facility] Start: 08-21-2023 Tobacco smoking status [facility] Never smoked tobacco [facility] Start: 08-21-2023 End: 05-03-2024 Tobacco use and exposure Smokeless tobacco non-user [facility] Start: 1955 Sex Assigned At Not on file P [facility] Start: 09-22-1972 End: 09-22-1997 History of tobacco use Current smoker [facility] Start: 09-22-1972 End: 09-22-1997 History of tobacco use Cigarette Smoker [facility] Start: 05-06-2024 End: 09-30-2024 Alcoholic beverage intake [facility] Start: 11-03-2023 End: 06-21-2024 Alcoholic beverage intake Ex-drinker (finding) [facility] Has the [employer], [employer], oil, or water [employer] threatened to shut off services in your home in past 12Mo No [facility] Are you now , , , , never or living with a partner? [facility] How often to you hav e a drink containing alcohol? Never [facility] How many standard drinks containing alcohol do you have on a typical day? Patient does not drink [facility] Do you feel stress - tense, restless, nervous, or anxious, or unable to sleep at night because your mind is troubled all the time - these days [OSQ] Not at all [facility] Start: 06-20-2021 Sex Male (finding) [facility] NEGATED: Highlighted rowStart: [place] History of tobacco use Passive smoker [facility] Medical Equipment Procedure Code Equipment Code Equipment Origin al Text Equipment Identifier Dates Endarterectomy, carotid Cardiovascular patch, animal-derived ()[id number] [id number] FDA Start: 06-20-2021 Bare-metal carot id artery stent ()[id number] FDA Start: 12-03-2021 Bare-metal carot id artery stent ()[id number] FDA Start: 05-21-2022 [id number] Start: 11-11-2022 USE ONCE DAILY A S DIRECTED IN THE MORNING [id number] Start: 02-26-2023 1 strip by Other route Daily as needed. [id number] Start: 11-11-2022 Blood Sugar Diag nostic (Onetouch Ultra Test) strip Start: 05-18-2024 Blood Sugar Diag nostic (Onetouch Ultra Test) strip Start: 05-18-2024 Blood Sugar Diag nostic (Onetouch Ultra Test) strip Start: 05-18-2024 1 strip by other route in the morning. [id number] Start: 10-06-2023 1 Lancet. by miscellaneous route in the morning. [id number] Start: 11-11-2022 1 strip by other route as needed for high blood sugar. [id number] Start: 11-11-2022 End: 10-06-2023 1 strip by miscellaneous route in the morning. [id number] Start: 02-26-2023 USE ONCE DAILY A S DIRECTED IN THE MORNING [id number] Start: 02-26-2023 Goals Date Patient Goal Desired Activity /State Functional Status Date Assessment Result Facility 05-13-2023 Functional status Patient at Baseline [facility] Work Phone: 05-22-2022 Functional status Patient at Baseline [facility] Work Phone: 04-26-2022 Functional status Patient at Baseline [facility] Work Phone: Mental Status Date Assessment Result Facility 05-13-2023 Cognitive function Cognitive Sta tus Patient at Baseline [facility] Work Phone: 05-22-2022 Cognitive function Cognitive Sta tus Patient at Baseline [facility] Work Phone: 04-26-2022 Cognitive function Cognitive Sta tus Patient at Baseline [facility] Work Phone: Clinical Notes 05-05-2014 to 09-30-2024 Krishna Burgos DPM - 09/30/2024 2:10 PM Magalis Ferrera MD - 08/24/2024 3:50 PM ESTTelephone Encounter - Na Alvarado CMA - 07/29/2024 4:21 PM Antwan Bautista MD - 10/23/2023 2:00 PM EST Note Date & Type Note Facility 09-30-2024 History of Presen t illness Narrative Patient: Archana Gutierrez : 1955 PCP: Chao Vyas MD SUBJECTIVE This is a 69 y.o. male that presents today with a CC of elongated, thick nails. Pt states nails have been elongated and thick for many years and cause pain with ambulation in shoegear. Pt has tried previous treatment with minimal relief. Pt presents today for nail care and treatment. 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 Allergies: Allergies Allergen Reactions Phillip Inhibitors cough Lisinopril Cough Other Reaction(s): Cough, bad cough Past Medical History: Past Medical History: Diagnosis Date Acute hepatitis Diabetes (CMS/HCC) Stroke (cerebrum) (CMS/HCC) Medications: Current Outpatient Medications: atorvastatin (Lipitor) 80 MG tablet, Take 80 mg by mouth in the evening., Disp: , Rfl: Blood Glucose Monitoring Suppl (ONE TOUCH ULTRA 2) w/Device kit, USE DIRECTED IN THE MORNING, Disp: , Rfl: carvedilol (Coreg) 3.125 MG tablet, TAKE 1 TABLET BY MOUTH TWICE DAILY -HOLD IF HR<50 ANDOR BP<100, Disp: , Rfl: doxepin (SINEquan) 10 MG capsule, Take 20 mg by mouth at bedtime, Disp: , Rfl: escitalopram (Lexapro) 5 MG tablet, Take 5 mg by mouth in the morning., Disp: , Rfl: ezetimibe (Zetia) 10 MG tablet, Take 10 mg by mouth in the morning., Disp: , Rfl: fluticasone (Flonase) 50 MCG/ACT nasal spray, Administer 2 sprays into affected nostril(s) in the morning., Disp: , Rfl: guselkumab (Tremfya) 100 MG/ML injection, inject contents of 1 prefilled syringe, Disp: , Rfl: hydrALAZINE (Apresoline) 25 MG tablet, TAKE ONE TABLET BY MOUTH TWICE A DAY HOLD IF <110, Disp: , Rfl: irbesartan (Avapro) 300 MG tablet, 1 (one) time each day at the same time., Disp: , Rfl: Lancet Devices (NuConomyTouch Delica Plus Lancing) misc, USE DIRECTED ONCE DAILY IN THE MORNING, Disp: , Rfl: Lancets (NuConomyTouch Delica Plus Ekfrtm12F) misc, USE ONCE DAILY DIRECTED IN THE MORNING, Disp: , Rfl: metFORMIN (Glucophage) 850 MG tablet, take 1 tablet by mouth every morning WITH BREAKFAST, Disp: , Rfl: OneTouch Ultra test strip, 1 strip by Other route Daily as needed., Disp: , Rfl: Risankizumab-rzaa (Skyrizi Pen) 150 MG/ML solution auto-injector, Inject 150 mg under the skin every 3 (three) months, Disp: 1 mL, Rfl: 3 rivaroxaban (Xarelto) 2.5 MG tablet, every 12 (twelve) hours., Disp: , Rfl: triamcinolone (Kenalog) 0.1 % cream, 1 application to affected area (do not use on face, axilla or groin) Externally Twice a day as needed for 2 weeks, Disp: , Rfl: Social History: Social History Socioeconomic History Marital status: Spouse name: Not on file Number of children: Not on file Years of education: Not on file Highest education level: Not on file Occupational History Not on file Tobacco Use Smoking status: Former Types: Cigarettes Passive exposure: Never Smokeless tobacco: Never Vaping Use Vaping status: Never Used Substance and Sexual Activity Alcohol use: Defer Drug use: Defer Sexual activity: Defer Other Topics Concern Not on file Social History Narrative Not on file Social Drivers of Health Financial Resource Strain: Low Risk (03/11/2023) Received from [facility] Overall Financial Resource Strain (CARDIA) Difficulty of Paying Living Expenses: Not hard at all Food Insecurity: No Food Insecurity (06/21/2024) Received from [facility] Hunger Screening Within the past 12 months we worried whether our food would run out before we got money to buy more.: Never True Within the past 12 months the food we bought just didn't last and we didn't have money to get more.: Never True Transportation Needs: No Transportation Needs (03/11/2023) Received from [facility], [facility] PRAPARE - Transportation Lack of Transportation (Medical): No Lack of Transportation (Non-Medical): No Physical Activity: Sufficiently Active (05/22/2023) Received from [facility] Exercise Vital Sign Days of Exercise per Week: 3 days Minutes of Exercise per Session: 50 min Recent Concern: Physical Activity - Inactive (03/11/2023) Received from [facility] Exercise Vital Sign Days of Exercise per Week: 0 days Minutes of Exercise per Session: 0 min Stress: No Stress Concern Present (05/22/2023) Received from [facility] [place] [facility] [employer] - Occupational Stress Questionnaire Feeling of Stress : Not at all Social Connections: Moderately Isolated (03/16/2024) Received from [facility] Social Connection and Isolation Panel [NHANES] Frequency of Communication with Friends and Family: Twice a week Frequency of Social Gatherings with Friends and Family: Twice a week Attends [employer] Services: More than 4 times per year Active Member of Clubs or Organizations: No Attends Club or Organization Meetings: Never Marital Status: Intimate Partner Violence: Not on file Housing Stability: Low Risk (03/11/2023) Received from [facility] Housing Instability Are you worried or concerned that in the next two months you may not have stable housing that you own, rent or stay in as a part of a household?: No ROS: Gastrointestinal: denies abdominal pain, ulcers, or changes in appetite or bowel habits Musculoskeletal: Positive generalized arthritis to joints and denies loss of strength. Cardiovascular: denies CP, palpitations, irregular rhythms OBJECTIVE LE EXAM: DERM: Elongated thick yellow crumbly nails digits 1 through 10. Negative hair growth with thin shiny atrophic skin bilaterally Rubor to dorsal medial eminence of the right and left foot 1st metatarsal VASC: Positive DP and negative PT pedal pulses NEURO: 5.07 Stanton Tsering monofilament test diminished to digits and forefoot bilaterally 125Hz tuning fork diminished to 1st MPJ bilaterally ORTHO: Positive pain on palpation to nails 1 through 10 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 Diabetes mellitus due to underlying condition with diabetic polyneuropathy, unspecified whether retirement insulin use ([facility]) 2. Pain due to onychomycosis of toenails of both feet 3. Hav (hallux abducto valgus), left 4. Hav (hallux abducto valgus), right PLAN Discussed proper foot care with patient today. Debride nails in length and thickness digits 1 through 10 Patient educated today on proper diabetic foot care including monitoring feet daily for any signs of infection openings in the skin or irregularities to both feet. Patient had a diabetic neurological exam today to both their feet and discussed proper shoe gear. Krishna Burgos DPM documented in this encounter [facility] 08-24-2024 History of Presen t illness Narrative Images from the original note were not included. Subjective Archana Gutierrez is a 69 y.o. male who presents for the following: Psoriasis biologic follow up Location: knees, buttocks; pt states he'll flare on the face right before next dose is due Duration: years Associated Factors: scaly Initial BSA: 5% Joint pain present: No History of Depression: No Treatments tried: Tremfya 100 mg/mL every 8 weeks (samples), TAC 0.1% cream bid Changes made to treatment at last visit: No Current treatment: Skyrizi 150 mg/12 weeks Months of current treatment: 2 years (since 01/2022) Last chest xray: 09/05/2023 Patient has noticed improvement in BSA since starting current treatment. Established patient All pertinent medical history, medications, and allergies were reviewed. General Exam: alert, oriented to person, place, and time, normal affect, well appearing Accompanied by spouse A focused exam completed based on patient reported problems, see below: 1. Psoriasis vulgaris (CMS/HCC) Left Hip (side) - Posterior, Left Leg, Right Hip (side) - Posterior, Right Leg Clear today. BSA 0%. The patient was informed that psoriasis is a chronic condition that can be controlled but not cured. Improvement in BSA and symptoms since starting medication. Instructed to contact office if psoriasis worsens or fails to improve despite treatment or if side effects develop. Chest XR ordered today for TB screening. Continue Skyrizi 150 mg/ 12 weeks. Reminded patient to hold medication for any infections, resume once feeling better. Related Procedures XR chest 2 views Related Medications Skyrizi Pen 150 MG/ML solution auto-injector Inject 150 mg under the skin every 3 (three) months 2. High risk medication use Related Procedures XR chest 2 views Next Visit: 1 year. documented in this encounter [facility] 07-29-2024 Miscellaneous Notes Formattin g of this note might be different from the original. Patient wanted to know if his handicap placard could be renewed? Letter printed to pick documented in this encounter [facility] 07-29-2024 Telephone encount er Note Patient wanted to know if his handicap placard could be renewed? [facility] 07-29-2024 Telephone encount er Note Letter printed to pick [facility] 06-21-2024 History of Presen t illness Narrative Subjective Patient ID: Archana Gutierrez is a 69 y.o. male. Right presents today for a sore throat. It started 1 day ago. His GF may have Covid. She is sick too. He does not have a fever or shortness a breath. He has not had any COVID vaccinations. Sore Throat This is a new problem. The current episode started yesterday. There has been no fever. Associated symptoms include coughing. Cough Associated symptoms include a sore throat. The following portions of the patient's history were reviewed and updated as appropriate: allergies, current medications, past family history, past medical history, past social history, past surgical history, problem list, and medication reconciliation was completed including current medication and post discharge medication. Review of Systems HENT: Positive for sore throat. Respiratory: Positive for cough. Objective Physical Exam Constitutional: General: He is not in acute distress. Appearance: He is overweight. He is not ill-appearing. HENT: Head: Normocephalic. Right Ear: Tympanic membrane, ear canal and external ear normal. Left Ear: Tympanic membrane, ear canal and external ear normal. Nose: Rhinorrhea present. Rhinorrhea is clear. Right Turbinates: Enlarged and swollen. Left Turbinates: Enlarged and swollen. Mouth/Throat: Lips: [place]. Mouth: Mucous membranes are moist. Tongue: No lesions. Pharynx: Pharyngeal swelling (Lymphoid hyperplasia) and posterior oropharyngeal erythema present. No oropharyngeal exudate or uvula swelling. Tonsils: No tonsillar exudate. Comments: + PND Eyes: Extraocular Movements: Right eye: Normal extraocular motion and no nystagmus. Left eye: Normal extraocular motion and no nystagmus. Neck: Thyroid: No thyroid mass, thyromegaly or thyroid tenderness. Cardiovascular: Rate and Rhythm: Normal rate and regular rhythm. Pulses: Normal pulses. Heart sounds: Normal heart sounds. No murmur heard. Pulmonary: Effort: Pulmonary effort is normal. No respiratory distress. Breath sounds: Normal breath sounds. No wheezing, rhonchi or rales. Musculoskeletal: Cervical back: Neck supple. Lymphadenopathy: Cervical: No cervical adenopathy. Neurological: Mental Status: He is alert and oriented to person, place, and time. Psychiatric: Attention and Perception: Attention normal. Mood and Affect: Mood and affect normal. Speech: Speech normal. Behavior: Behavior normal. Behavior is cooperative. Thought Content: Thought content normal. Cognition and Memory: Cognition normal. Judgment: Judgment normal. Assessment/Plan Archana was seen today for sore throat and cough. Diagnoses and all orders for this visit: Upper respiratory tract infection, unspecified type I suspect a viral upper respiratory infection. Flu, COVID and strep test were negative. We discussed symptomatic treatment with medications. He will stay on the fluticasone nasal spray. Deferred cough medicine. We will try a steroid burst of 20 mg twice a day for 5 days. Call if worse or no better. He could retested himself at home for COVID if he is getting worse. If so then I will send in Spindalelovid for him. Pharyngitis, unspecified etiology - POCT Influenza A/Influenza B/SARS-COV-2 Veritor - POCT rapid strep A As above. Other orders - predniSONE (DELTASONE) 20 mg tablet; Take 1 tablet (20 mg total) by mouth in the morning and 1 tablet (20 mg total) before bedtime. Do all this for 5 days. documented in this encounter [facility] 05-04-2024 Miscellaneous Notes Formattin g of this note might be different from the original. ----- Message from Dr. Chao Vyas DO sent at 05/04/2024 2:51 PM EDT ----- His A1c was very good at 6.2%. His ACR was high though although a little better than last year. ACR was 37.7. His potassium was a little high so he can not start Kerendia which could help protect his kidneys. He is not really on anything that would raise his potassium. If he is taking an yngb-mzh-tqfoofu supplement he can stop. The rest of his CMP was normal. His GFR was greater than 90 which is really good. His lipids were all at goal. Continue current regimen Patient notified documented in this encounter [facility] 05-04-2024 Telephone encount er Note ----- Message from Dr. Chao Vyas DO sent at 05/04/2024 2:51 PM EDT ----- His A1c was very good at 6.2%. His ACR was high though although a little better than last year. ACR was 37.7. His potassium was a little high so he can not start Kerendia which could help protect his kidneys. He is not really on anything that would raise his potassium. If he is taking an indr-udt-uqzgtqg supplement he can stop. The rest of his CMP was normal. His GFR was greater than 90 which is really good. His lipids were all at goal. Continue current regimen [facility] 05-04-2024 Telephone encount er Note Patient notified [facility] 05-03-2024 History of Presen t illness Narrative Images from the original note were not included. Subjective Patient ID: Archana Gutierrez is a 69 y.o. male. Archana presents for CV recheck. He is taking his medications. He is not having any side effects. He is monitoring his blood pressure pulse and blood sugars at home every day. His blood pressures and pulses have been running low frequently. Many times his blood pressure is are less than 100/60 and pulse is less than 60. Currently is asymptomatic when this happens. He cut his left hand a couple weeks ago while in the car. A friend's pack of cigarettes fell down between the seats and he reached down to get it and cut the back of his hand. He has not had a tetanus booster in a long time. He can not remember his last 1. There is no record on impactsis of his last vaccination. Diabetes He presents for his follow-up diabetic visit. He has type 2 diabetes mellitus. There are no hypoglycemic associated symptoms. Associated symptoms include weakness. The following portions of the patient's history were reviewed and updated as appropriate: allergies, current medications, past family history, past medical history, past social history, past surgical history, problem list, and medication reconciliation was completed including current medication and post discharge medication. Review of Systems Constitutional: Negative. Eyes: Negative. Respiratory: Negative. Cardiovascular: Negative. Gastrointestinal: Negative. Genitourinary: Negative. Skin: Negative. Neurological: Positive for weakness. Objective Physical Exam Exam conducted with a oven laborer present (daniela Pettit MS III). Constitutional: Appearance: He is overweight. HENT: Head: Normocephalic. Eyes: General: No scleral icterus. Extraocular Movements: Extraocular movements intact. Conjunctiva/sclera: Conjunctivae normal. Cardiovascular: Rate and Rhythm: Normal rate and regular rhythm. Pulses: Dorsalis pedis pulses are 1+ on the right side and 1+ on the left side. Posterior tibial pulses are 1+ on the right side and 1+ on the left side. Heart sounds: No murmur heard. Pulmonary: Effort: Pulmonary effort is normal. No respiratory distress. Breath sounds: Normal breath sounds. No wheezing, rhonchi or rales. Abdominal: General: Bowel sounds are normal. Palpations: Abdomen is soft. Musculoskeletal: Cervical back: Neck supple. Right lower leg: No edema. Left lower leg: No edema. Right foot: Deformity (hammer toes 2-5 digits) present. Feet: Feet: Right foot: Protective Sensation: 10 sites tested. 8 sites sensed. Skin integrity: Skin integrity normal. Toenail Condition: Right toenails are abnormally thick. Left foot: Protective Sensation: 10 sites tested. 9 sites sensed. Skin integrity: Skin integrity normal. Toenail Condition: Left toenails are normal. Comments: Varicose veins Middle digit on left was hypersensitive Lymphadenopathy: Cervical: No cervical adenopathy. Skin: Findings: Lesion (scabs on dorsum of left hand) present. Neurological: General: No focal deficit present. Mental Status: He is alert and oriented to person, place, and time. Motor: Weakness present. Psychiatric: Attention and Perception: Attention normal. Mood and Affect: Mood normal. Speech: Speech normal. Behavior: Behavior normal. Behavior is cooperative. Thought Content: Thought content normal. Judgment: Judgment normal. Assessment/Plan Archana was seen today for diabetes. Diagnoses and all orders for this visit: Essential hypertension - Comprehensive metabolic panel; Future Blood pressure at goal in the office but is low frequently at home. Also frequently bradycardic. I asked him to wean off the carvedilol by taking half a tablet twice a day for week and then stop. Continue to monitor blood pressure daily. Call if there are any problems. Stay on irbesartan and hydralazine. Type 2 diabetes mellitus with other circulatory complication, without long-term current use of insulin ([facility]) - Hemoglobin A1c; Future - Microalbumin - Albumin: Creatinine Urine Ratio; Future - DIABETES FOOT EXAM Check A1c and ACR. Need for vaccination - Tdap vaccine greater than or equal to 7yo IM He is in need of a tetanus booster. Mixed hyperlipidemia - Lipid panel; Future Check lipid panel Overweight He is overweight. He would benefit from weight loss. Laceration of left hand without foreign body, initial encounter His laceration is healing well. It is scabbed over. No signs of infection. He is in need of a tetanus booster. He does agree. He was given a Tdap Hammer toe of right foot He qualifies for diabetic shoes documented in this encounter [facility] 03-16-2024 History of Presen t illness Narrative Subjective SUBJECTIVE: Patient ID: Archana Gutierrez is a 68 y.o. male who presents for a Medicare Annual Wellness exam. HPI The following portions of the patient's history were reviewed and updated as appropriate: allergies, current medications, past family history, past medical history, past social history, past surgical history and problem list. AWV FLOWSHEET : Lifestyle Assessment Do you smoke or use smokeless tobacco?: No If you smoke or use smokeless tobacco, are you ready to quit?: NA Are you exposed to secondhand smoke?: No On average, how many drinks of alcohol do you consume in a week?: None Do you exercise for 30 or more minutes on average at least 3 days a week?: Often Do you have any tooth, denture, or oral problems?: No Do you snore or has anyone told you that you snore?: No Do you try to eat a balanced diet?: Yes Do you experience leakage of urine, also known as urinary incontinence?: Never Do you have difficulty performing any of these activities? (check all that apply): None Do you have difficulty performing any of these activities? (check all that apply): None Fall Risk Fall Risk Assessment Completed?: Yes Have you fallen in the past year?: No Are you worried about falling?: (!) Yes Do you feel unsteady when standing or walking?: (!) Yes Risk Stratification: Moderate Risk Depression Screening Little interest or pleasure in doing things: Not at all Feeling down, depressed, or hopeless: Not at all Trouble falling or staying asleep, or sleeping too much: Not at all Feeling tired or having little energy: Not at all Poor appetite or overeating: Not at all Feeling bad about yourself - or that you are a failure or have let yourself or your family down: Not at all Trouble concentrating on things, such as reading the newspaper or watching television: Not at all Moving or speaking so slowly that other people could have noticed. Or the opposite - being so fidgety or restless that you have been moving around a lot more than usual: Not at all Thoughts that you would be better off , or of hurting yourself in some way: Not at all PEG Scale Safety Assessment Do you have throw rugs on the floor?: No Do you feel safe at your home?: Yes Do you feel unsteady when walking?: No Are you having difficulty with driving?: No Do you have trouble seeing?: No What assistive device do you use? (check all that apply): None Hearing Assessment Do you strain or struggle to hear/understand conversations?: No Do you have trouble hearing the television or radio when others do not?: No Does your family ever voice concerns about your hearing?: No Personal Health During the past 4 weeks, how would you rate your overall health?: Very Good Do you understand how to take all of your medications?: Yes How confident are you that you can control and manage most of your health problems?: Very confident In the past 12 months, how many times have you been hospitalized?: None End of Life Planning Do you have a living will?: Yes Do you have a durable power of assistant city attorney?: Yes Cognitive Screening Do you have trouble remembering or recalling facts or events?: No Do family members or caregivers report that you have difficulty remembering things?: No Clock Drawing Test: Abnormal mini mental exam deferred REVIEW OF SYSTEMS: Review of Systems Objective PHYSICAL EXAMINATION: Vitals: 03/16/24 1333 Weight: 86.2 kg (190 lb) Height: 172.7 cm (5' 8 ) Physical Exam Assessment/Plan ASSESSMENT/PLAN Encounter Diagnoses Name Primary? Medicare annual wellness visit, subsequent Yes Screening for depression Health maintenance discussed. Depression screen was negative. At least 3 minute spent administering and discussing. Cognitive evaluation revealed impairment. He declined further evaluation. He has advanced directives in place. Return in about 1 year (around 03/16/2025). documented in this encounter [facility] 11-03-2023 Miscellaneous Notes Formattin g of this note might be different from the original. Insurance requested a 100 day supply documented in this encounter [facility] 11-03-2023 Telephone encount er Note Insurance requested a 100 day supply [facility] 11-03-2023 History of Presen t illness Narrative Subjective Patient ID: Archana Gutierrez is a 68 y.o. male. Archana presents today for recheck of his diabetes, high blood pressure and other problems. He is doing well. He has no new problems to report. He did decide to take 1 metformin a day and is tolerating that well. He recently saw the eye doctor in his exam was normal. He is doing well with his depression. He would like to stay on Lexapro 5 mg. He has no trouble eating, chewing or swallowing. He has been monitoring his blood pressure at home as well as his glucose levels. They are all very good. Glucose levels in the low 100s. Most every blood pressure is at goal. He is tolerating his medications well. He has been exercising the [employer] and does aquatic therapy there. Have not had a web analyst lately so he has not been going but plans on getting back into it soon. He feels that it helps with his strengthening from his stroke. The following portions of the patient's history were reviewed and updated as appropriate: allergies, current medications, past family history, past medical history, past social history, past surgical history, problem list, and medication reconciliation was completed including current medication and post discharge medication. Review of Systems Constitutional: Negative. HENT: Negative. Eyes: Negative. Respiratory: Negative. Cardiovascular: Negative. Gastrointestinal: Negative. Genitourinary: Negative. Neurological: Positive for weakness. Psychiatric/Behavioral: Negative. Objective Physical Exam Constitutional: Appearance: He is overweight. HENT: Head: Normocephalic. Eyes: General: No scleral icterus. Extraocular Movements: Extraocular movements intact. Conjunctiva/sclera: Conjunctivae normal. Cardiovascular: Rate and Rhythm: Normal rate and regular rhythm. Heart sounds: No murmur heard. Pulmonary: Effort: Pulmonary effort is normal. No respiratory distress. Breath sounds: Normal breath sounds. No wheezing, rhonchi or rales. Abdominal: General: Bowel sounds are normal. Palpations: Abdomen is soft. Musculoskeletal: Cervical back: Neck supple. Right lower leg: No edema. Left lower leg: No edema. Lymphadenopathy: Cervical: No cervical adenopathy. Neurological: General: No focal deficit present. Mental Status: He is alert and oriented to person, place, and time. Motor: Weakness present. Psychiatric: Attention and Perception: Attention normal. Mood and Affect: Mood normal. Speech: Speech normal. Behavior: Behavior normal. Behavior is cooperative. Thought Content: Thought content normal. Judgment: Judgment normal. Assessment/Plan Archana was seen today for diabetes. Diagnoses and all orders for this visit: Essential hypertension - Comprehensive metabolic panel; Future Blood pressure at goal. Check CMP. Continue current regimen Type 2 diabetes mellitus with other circulatory complication, without long-term current use of insulin ([facility]) - Hemoglobin A1c; Future Check A1c. Continue metformin 850 once a day. Hemiplegia of dominant side ([facility]) Stable. Continue current regimen Peripheral vascular disease ([facility]) Stable. Coagulopathy ([facility]) Continue anticoagulation Leukocytosis, unspecified type - CBC; Future Recheck CBC Hyponatremia Check sodium Screening for colon cancer Patient is due for colon cancer screen. He had a colonoscopy and it was normal. Risks and benefits of colonoscopy versus Cologuard discussed. He has never had colon polyps. There is no family history of colon cancer. He would pursue further evaluation and treatment if needed. He opts for the Cologuard. Special screening for malignant neoplasm of colon - Cologuard Non[facility] Mixed anxiety and depressive disorder Stable. Continue current regimen documented in this encounter [facility] 10-23-2023 History of Presen t illness Narrative Assessment/Plan Diabetes Mellitus without sign of diabetic retinopathy on dilated retinal examination today OU: Discussed the pathophysiology of diabetes and its effect on the eye. Stressed the importance of strong glucose control. Advised of importance of at least yearly dilated examinations, but to contact us immediately for any problems or concerns. documented in this encounter [facility] 09-21-2023 History of Presen t illness Narrative Stopped by specialist per pt documented in this encounter [facility] 09-11-2023 Evaluation note Encounter Date Diagnosis Assessment Notes Aug, Bilateral carotid artery stenosis (ICD-10 - I65.23) We reviewed today's carotid duplex studies which show no hemodynamically significant restenosis on the left. 50 to 69% stenosis on the right. Peak systolic velocities are slightly increased since last visit 6 months ago. He remains asymptomatic of his carotid occlusive disease and on good medical therapy with use of aspirin and statin medication daily. Will continue to follow him along on a routine basis and have him back in 6 months with repeat studies. If everything remains stable at that time we will move him to annual follow-up thereafter. He knows to call us in the meantime with any issues or concerns whatsoever. Aug, Status post carotid endarterectomy (ICD-10 - Z98.890) Aug, Right arm weakness (ICD-10 - R29.898) [employer] Other 08-22-2023 Consult note Author Hamilton Stuart [facility] May 13, 2023 1:46pm Note Date/Time May 13, 2023 11 :26am [facility] [address] [place] [address] Neurology Consult Note Signed Patient: Archana Gutierrez MR#: [id number] 3 : 1955 Acct:[id number] Age/Sex: 68 / M Adm Date: 3 Loc: 3T Room: [address] [place] [address] Type: ADM INOo Attending Dr: Scooby Brenner DO Copies to: DO Chao Lopes DO Kyle T [facility], DO~ HPI Consult Date: 05/13/23 Tail Sawyer: Hamilton Stuart DO [facility] Medical History (Updated 05/13/23 @ 13:46 by Hamilton Stuart DO) COVID-19 11/2019 CVA (cerebral vascular accident) Diabetes Diverticulosis Dysphagia GERD (gastroesophageal reflux disease) Hepatitis C resolved Hyperlipidemia Hypertension Normal colonoscopy Peripheral vascular disease Psoriasis Right arm weakness Soft tissue mass nasal cavity Surgical History History of ankle surgery left History of left-sided carotid endarterectomy History of phacoemulsification of cataract of both eyes with intraocular lens implantation History of tonsillectomy Family History Mother Stroke Father Pancreatic cancer Sister Pancreatic cancer Brother Heart disease Brother Brain tumor Social History Smoking Status: Former smoker Tobacco Type: cigarettes Substance Use Type: None Meds Medications and Allergies Allergies lisinopril Adverse Reaction (Verified 05/12/23 16:15) Cough Home Medications acetaminophen 500 mg tablet 500 mg PO Q4H PRN Pain #0 tabs 07/18/21 [Rx Confirmed 05/12/23] carvedilol 3.125 mg tablet 3.125 mg PO BID #0 tabs 07/18/21 [Rx Confirmed 05/12/23] aspirin 81 mg tablet,delayed release 81 mg PO QAM CVA prevention 11/27/21 [History Confirmed 05/12/23] atorvastatin 80 mg tablet 80 mg PO QHS hyperlipidemia 11/27/21 [History Confirmed 05/12/23] hydralazine 10 mg tablet 25 mg PO BID HTN 11/27/21 [History Confirmed 05/12/23] doxepin 10 mg capsule 20 mg PO QHS 05/12/23 [History Confirmed 05/12/23] escitalopram oxalate 5 mg tablet 5 mg PO DAILY 05/12/23 [History Confirmed 05/12/23] metformin 850 mg tablet 850 mg PO DAILY 05/12/23 [History Confirmed 05/12/23] risankizumab-rzaa 150 mg/mL subcutaneous pen injector (Skyrizi) mg subcut 05/12/23 [History] Exam Physical Exam Vital Signs: Temp Pulse Resp BP Pulse Ox O2 Del Method 97.6 F 60 18 158/86 H 96 Room Air 05/13/23 07:18 05/13/23 07:18 05/13/23 07:18 05/13/23 07:18 05/13/23 07:18 05/13/23 08:00 Results Laboratory Findings 05/13/23 06:07 05/13/23 06:07 Diagnostic Findings Imaging/Impressions: ITS Impressions Chest X-Ray 05/12/23 16:37 IMPRESSION: NO ACUTE FINDINGS Impression dictated by: Ashish Villasenor Jr., D.O.05/12/2023 5:14 PM Dictation Location: [facility]-[address] 05/12/23 16:38 IMPRESSION: NO ACUTE INTRACRANIAL ABNORMALITY. Impression dictated by: Ashish Villasenor Jr., D.O.05/12/2023 5:13 PM Dictation Location: [employer] [facility]--15 Brain MRI 05/13/23 18:02 IMPRESSION: No acute intracranial pathology. There is gliosis and encephalomalacia within the left frontal lobe consistent with a remote infarct. This is unchanged. Periventricular and subcortical white matter T2 and T2 FLAIR hyperintense foci are noted consistent with chronic microvascular ischemic change. Impression dictated by: Tad Rea M.D.05/13/2023 10:44 AM Dictation Location: [place] [address] Therapy Recommendations Therapy Recommendations: OT Recommendations OT Recommended Discharge Home with Home Health Location OT Recommended Services at Occupational Therapy Discharge ST Recommendations ST Recommended Services at Speech Therapy,14/04 Supervision Discharge Assessment/Plan (1) Amaurosis fugax of left eye: Code(s): G45.3 - Amaurosis fugax Status: Acute Plan CONSULT REASON: Concern for stroke HPI: 68-year-old man with history of stroke and residual distal right upper extremity weakness. He presented to the emergency department on May 12, 2023 after his second episode of loss of vision of the left eye. He said that in the morning he had a 15-minute long episode in which the left eyes vision completely grayed out so that he could not see with it. It was painless. Then it resolved. Later in the day he had a similar episode, though this 130 minutes long and causing more concerned so he came for evaluation. Blood pressure was found to be elevated to 192/80. His vision in the left eye gradually return to its normal. At baseline he says he has worse visual acuity of the left eye. But he said his vision currently seems to be at its baseline and he has no complaints. He says he saw his eye doctor about a month ago and the checkup went well and was without any significant issues. Review of systems otherwise negative unless already mentioned. EXAMINATION: Well-kempt. No distress. No deformities or trauma. Normal spinal curvature. Limbs seem well-perfused. No significant edema. Normal work of breathing. Visualized skin is generally intact and without lesions. Affect normal. Patient is alert. Attention normal. Speech is fluent and nondysarthric. Pupils are equal and reactive. Ocular motility is full. Visual acuity normal in the right eye and reduced in the left eye, said to be baseline (he can read 12 point font at arms length with the right eye but not the left eye). Funduscopic examination unremarkable; no areas of pallor or hyperemia. No nystagmus. Facial sensation is normal. Hearing is normal. Facial strength is normal. Tongue is midline. Muscle bulk, tone, and strength are normal aside from the distal right upper extremity which is +4/5 strength. No tremors. No pathologic reflexes. Light touch is normal. Vibratory sensation is normal. Normal rapidly alternating movements. No limb dysmetria with [id number] testing. DATA REVIEW: -MRI brain May 13, 2023 shows gliosis and encephalomalacia within the left frontal lobe consistent with remote infarct and diffuse white matter changes and nothing acute -CTA head and neck from April 15, 2022 shows chronic occlusion of the right vertebral artery, calcified plaque causing severe narrowing at the origin of the left vertebral artery, stent at the right carotid bifurcation without significant stenosis, irregular calcified plaque at the origin of the left internal carotid artery causing about 75% stenosis. -Carotid Dopplers from March 19, 2023 showed bilateral carotid stenting and no hemodynamically significant residual or recurrent stenosis in either extracranial internal carotid artery -MRA head from May 13, 2023 awaiting report from radiology but does not appear to show any issues with the intracranial carotid arteries. ASSESSMENT: 1. Transient painless monocular vision loss (left eye) x 2 episodes. Considering transient ischemic cause given his history of cerebrovascular disease. History of bilateral carotid disease, status post bilateral stenting, but they currently look patent. I did not visualize any retinal abnormalities. Do not suspect giant cell arteritis. And MRI of his brain is unremarkable for any acute process 2. Chronic ischemic stroke in left frontal lobe with residual distal right upper extremity weakness PLAN: 1. Continue home medications of aspirin 81 mg daily and atorvastatin 80 mg daily 2. Adding clopidogrel 75 mg daily; after 3 weeks he can discontinue the aspirin 81 mg daily and continue on just clopidogrel monotherapy 3. Ophthalmology outpatient follow-up as soon as possible 4. No other inpatient neurology recommendations at this time Documented By: Hamilton Stuart DO 05/13/23 1124 Signed By: <Electronically signed by Hamilton Stuart DO> 05/13/23 1340 [facility] Work Phone: 1(296) 911-751608-21-2023 History and physical note Author Scooby Brenner [facility] May 12, 2023 6:56pm Note Date/Time May 12, 2023 6: 49pm [facility] [address] [place] [address] Hospitalist H&P Signed Patient: Archana Gutierrez MR#: [id number] 3 : 1955 Acct:[id number] Age/Sex: 68 / M Adm Date: 3 Loc: Room: [address] [place] [address] Type: ADM IN Attending Dr: Scooby Brenner DO Copies to: DO Scooby Lerma DO~ HPI DATE OF EXAMINATION: 05/12/23 CHIEF COMPLAINT: blurred vision HISTORY OF PRESENT ILLNESS: Pt is a 68 y/o M with PMHx of HTN/HLD, previous CVA with residual R sided facialdroop, anxiety who presents to the ED with complaint of blurred vision. Pt states it started 2 days ago. States for the last two days, he has awoken with Lsided blurred, tunnel vision with intermittent black out in the left eye. Statesthat for the last 2 days, it seemed to improve as the day went on, but today, the vision did not come back and he was worried about another CVA given his history so he came to the ED. No other focal deficits. Upon arrival to the ED, BP noted to be elevated at 192/80. Labs unremarkable. CT head negative for acuteprocess. Blurred vision remained so decision was made to admit for CVA workup and neuro evaluation. Pt states he has not taken his medications today. Review of Systems Review of Systems All other systems reviewed & are negative unless noted below or in HPI [facility] Medical History (Updated 05/12/23 @ 18:52 by Scooby Brenner, DO) COVID-19 11/2019 CVA (cerebral vascular accident) Diabetes Diverticulosis Dysphagia GERD (gastroesophageal reflux disease) Hepatitis C resolved Hyperlipidemia Hypertension Normal colonoscopy Peripheral vascular disease Psoriasis Right arm weakness Soft tissue mass nasal cavity Surgical History History of ankle surgery left History of left-sided carotid endarterectomy History of phacoemulsification of cataract of both eyes with intraocular lens implantation History of tonsillectomy Family History Mother Stroke Father Pancreatic cancer Sister Pancreatic cancer Brother Heart disease Brother Brain tumor Social History Smoking Status: Former smoker Tobacco Type: cigarettes Substance Use Type: None Meds Medications and Allergies Allergies lisinopril Adverse Reaction (Verified 05/12/23 16:15) Cough Home Medications acetaminophen 500 mg tablet 500 mg PO Q4H PRN Pain #0 tabs 07/18/21 [Rx Confirmed 05/12/23] carvedilol 3.125 mg tablet 3.125 mg PO BID #0 tabs 07/18/21 [Rx Confirmed 05/12/23] aspirin 81 mg tablet,delayed release 81 mg PO QAM CVA prevention 11/27/21 [History Confirmed 05/12/23] atorvastatin 80 mg tablet 80 mg PO QHS hyperlipidemia 11/27/21 [History Confirmed 05/12/23] hydralazine 10 mg tablet 25 mg PO BID HTN 11/27/21 [History Confirmed 05/12/23] doxepin 10 mg capsule 20 mg PO QHS 05/12/23 [History Confirmed 05/12/23] escitalopram oxalate 5 mg tablet 5 mg PO DAILY 05/12/23 [History Confirmed 05/12/23] metformin 850 mg tablet 850 mg PO DAILY 05/12/23 [History Confirmed 05/12/23] risankizumab-rzaa 150 mg/mL subcutaneous pen injector (Skyrizi) mg subcut 05/12/23 [History] Exam Physical Exam Vital Signs: Temp Pulse Resp BP Pulse Ox O2 Del Method 97.6 F 57 L 20 200/86 H 96 Room Air 05/12/23 16:28 05/12/23 17:38 05/12/23 17:38 05/12/23 18:41 05/12/23 17:38 05/12/23 17:38 Narrative: General: Awake and alert. Lying in bed comfortably, visible chronic R facial droop HEENT: Normocephalic, atraumatic, trachea midline Respiratory: good inspiratory effort, clear to auscultation, no wheeze, no rhonchi, no crackles Cardiovascular: RRR, normal S1 and S2 Abdominal: soft, non-distended, no tenderness, no rebound, no guarding, +BS Skin: warm, dry, no lesions or rashes MSK: equal strength bilaterally, normal ROM bilaterally, no edema Neurologic: No focal deficits other than chronic facial droop Psych: appropriate affect Results Lab Results Labs: Laboratory Last Values Corrected WBC 8.0 X10E3/uL (4.1-10.5) 05/12/23 16:30 Uncorrected WBC Count 8.0 x10E3/uL (4.1-10.5) 05/12/23 16:30 RBC 4.97 X10E6/uL (3.90-5.60) 05/12/23 16:30 Hgb 14.6 g/dL (13.0-17.0) 05/12/23 16:30 Hct 43.5 % (38.8-50.0) 05/12/23 16:30 MCV 87.4 fl (83.5-101) 05/12/23 16:30 MCH 29.3 pg (27.5-35.2) 05/12/23 16:30 MCHC 33.5 g/dL (32.5-35.6) 05/12/23 16:30 RDW 15.0 % (12.0-14.8) H 05/12/23 16:30 Plt Count 387 x10E3/uL (150-450) 05/12/23 16:30 MPV 8.7 fl (6.6-10.1) 05/12/23 16:30 Neut % (Auto) 43.0 % (.) 05/12/23 16:30 Lymph % (Auto) 37.6 % (.) 05/12/23 16:30 [place] % (Auto) 13.2 % (.) 05/12/23 16:30 Eos % (Auto) 5.2 % (.) 05/12/23 16:30 Baso % (Auto) 1.0 % (.) 05/12/23 16:30 Nucleat RBC Rel Count 0.3 /100 WBC (0-0.5) 05/12/23 16:30 Neut # (Auto) 3.5 x10E3/uL (1.8-7.7) 05/12/23 16:30 Lymph # (Auto) 3.0 x10E3/uL (1.00-4.8) 05/12/23 16:30 [place] # (Auto) 1.1 x10E3/uL (0.0-0.8) H 05/12/23 16:30 Eos # (Auto) 0.4 x10E3/uL (0.0-0.45) 05/12/23 16:30 Baso # (Auto) 0.1 x10E3/uL (0.0-0.2) 05/12/23 16:30 Monocyte Dist Width 16.96 % (0.00-20.00) 05/12/23 16:30 PT 12.0 Seconds (9.0-12.9) 05/12/23 16:30 INR 1.0 05/12/23 16:30 APTT 32.2 Seconds (25.1-36.5) 05/12/23 16:30 PHA Creatinine Clear 80.87 05/12/23 16:30 Sodium 141 mmol/L (136-145) 05/12/23 16:30 Potassium 4.5 mmol/L (3.5-5.1) 05/12/23 16:30 Chloride 101 mmol/L (98-107) 05/12/23 16:30 Carbon Dioxide 28.5 mmol/L (21.0-31.0) 05/12/23 16:30 Anion Gap 16.0 mEq/L (6.0-15.0) H 05/12/23 16:30 BUN 16 mg/dL (7-25) 05/12/23 16:30 Creatinine 0.85 mg/dL (0.70-1.30) 05/12/23 16:30 Est GFR (CKD-EPI) > 60.0 mL/Min 05/12/23 16:30 Glucose 95 mg/dL (70-100) 05/12/23 16:30 Calcium 9.6 mg/dL (8.6-10.3) 05/12/23 16:30 Total Creatine Kinase 154 U/L (30-223) 05/12/23 16:30 Troponin I High Sens 10.9 pg/mL (0.0-20.0) 05/12/23 16:30 Urine Color Yellow (Yellow) 05/12/23 17:04 Urine Appearance Clear (Clear) 05/12/23 17:04 Urine pH 6.5 (5.0-9.0) 05/12/23 17:04 Ur Specific [place] 1.011 (1.001-1.030) 05/12/23 17:04 Urine Protein Negative mg/dL (Negative) 05/12/23 17:04 Urine Glucose (UA) Normal mg/dL (Normal) 05/12/23 17:04 Urine Ketones Negative (Negative) 05/12/23 17:04 Urine Occult Blood Negative (Negative) 05/12/23 17:04 Urine Nitrite Negative (Negative) 05/12/23 17:04 Urine Bilirubin Negative (Negative) 05/12/23 17:04 Urine Urobilinogen Normal mg/dL (Normal) 05/12/23 17:04 Ur Leukocyte Esterase Negative (Negative) 05/12/23 17:04 Assessment & Plan Assessment/Plan (1) Brain TIA: (2) Hypertensive urgency: Plan # Blurred vision - likely related to HTN urgency. BP noted to be 192/80 and went up to 200/86 in the ED. - resume home HTN meds and prn labetalol - given hx of CVA in the past, need to rule out CVA. Will order MRI. - neuro consulted - cont DAPT, statin - PT/OT # HTN/HLD - cont home meds - prn labetalol # DM2 - ISS. Resume home regimen at discharge Disposition: Pt with blurred vision which seems to be worse in the AM, likely hypertensive induced. Resume home regimen and monitor closely. Will adjust meds if needed. Prn BP meds. MRI to rule out acute infarct. Neurology consult in setting of previous CVA. PT/OT. Anticipated length of stay less than 48 hours. IP vs OBS Justification Based on differential dx, clinical care plan, and risk of adverse events, if untreated, in my clinical judgement this patient requires an acute care setting as:OBSERVATION because of an expectation of an under 2 midnight stay. Estimated length of stay (# of days): 2 Time Spent With Patient (min): 45 Documented By: Scooby Brenner DO 05/12/23 184 7 Signed By: <Electronically signed by Scooby Brenner DO> 05/12/23 1856 [facility] Work Phone: 1([phone]) 974-757606-28-2023 Evaluation note* Encounter Date Diagnosis Assessment Notes Treatment Notes Treatment Clinical Notes Feb, Carotid stenosis, bilateral (ICD-10 - I65.23) We reviewed today's carotid duplex studies which remained stable once again. He has had a previous stroke and has chronic mild right arm deficit and slight facial droop. He remains on good medical therapy with use of aspirin, Plavix, and statin medications daily. He does complain of a bit of bruising and we are 6 months out from intervention, we discussed stopping the Plavix today. He will remain on aspirin and statin medication going forward. We will continue to follow him along on a routine basis and have him back in 6 months time with repeat studies. If he remains stable at that time we will move to annual follow-up thereafter. He verbalizes understanding of all discussion, agrees with this plan, and denies any questions. [employer] Other 12-21-2022 Evaluation note* Encounter Date Diagnosis Assessment Notes Treatment Notes Treatment Clinical Notes Aug, Carotid stenosis, bilateral (ICD-10 - I65.23) Reviewed today's carotid duplex studies which remained stable. He does have some mild right arm deficit which is his normal from previous stroke which she continues to work on and doing with his rehab. On extensive questioning today, he remains asymptomatic of his carotid occlusive disease and on good medical therapy with use of aspirin, Plavix, and statin medications daily. We reviewed signs and symptoms of carotid disease and when would be appropriate to return for further evaluation prior to neck scheduled appointment. We will continue to follow him on a routine basis and have him back in 6 months time with repeat studies. He knows to call us in the meantime with any issues or concerns. [employer] Other 09-21-2022 Evaluation note* Encounter Date Diagnosis Assessment Notes Treatment Notes Treatment Clinical Notes May, Carotid stenosis, bilateral (ICD-10 - I65.23) This patient has gotten along well after recent left TCAR procedure. He continues to get stronger from his previous stroke. On extensive questioning today he remains asymptomatic of his carotid occlusive disease and he is on good medical therapy with use of aspirin, Plavix, and statin medications daily. We will continue to follow him along closely and have him back in a couple of months with carotid duplex studies. He knows to call us in the meantime with any issues. He verbalizes understanding of all discussion, agrees with this plan, denies any questions. [employer] Other 08-31-2022 Discharge summary Author Rajan Kee [facility] May 22, 2022 11:24am Note Date/Time May 22, 2022 8: 26am [facility] [address] [place] [address] Discharge Summary Signed Patient: Archana Gutierrez MR#: [id number] 3 : 1955 Acct:[id number] Age/Sex: 67 / M Adm Date: 2 Loc: Room: [address] [place] [address]: Rajan Kee MD Copies to: Chao Vyas,DO Lory Bernardo, NORMA Kee MD~ Providers Date of Discharge: 05/22/22 Discharging Provider: Rajan Kee Additional Discharging Provider: Lory Bernardo Primary Care Provider: Chao Vyas Discharge Diagnosis (1) Postoperative hematoma: (2) Left carotid stenosis: Final Diagnosis Final Discharge Diagnosis: same Summary Hospital Course Hospital course: Archana presented for left transcarotid arterial revascularization yesterday for asymptomatic high-grade recurrent ICA stenosis. He did have formation of small hematoma to the left neck postoperatively. This has stabilized. He tells me heis having some moderate pain to the left neck with movement. He is having no difficulty with chewing or swallowing and tells me his appetite is good this morning and he is anxiously awaiting his breakfast. He has not been out of bed yet since his procedure. He denies any headache. 1034 -notified by nursing staff the patient has been up about in the room, walked the hallways, ate a full breakfast without any issue and states readinessfor discharge home. Nursing states no unsteadiness with ambulating and no discharge concerns. He does live at home by himself but tells us that he will be having his niece stay with him at his house overnight to help him out. He continues to deny any headaches or any difficulty with chewing and swallowing. Left neck hematoma stable. Condition Condition at Discharge: Stable Time Spent with Patient Time spent providing/coordinating discharge services (# min): 20 Surgeries and Procedures Operation Date: 05/21/22 11:45 Actual Procedures p OR Left TCAR (Left) - Rajan Kee MD Diagnostic Studies Completed and Pending Studies Labs on day of discharge: 05/22/22 05:07: PT 13.3 H, INR 1.2, APTT 30.6 05/21/22 13:12: POC Glucose 115 05/21/22 12:42: Activated Clotting Time 155 H 05/21/22 12:03: Activated Clotting Time 283 H 05/21/22 11:44: Activated Clotting Time 150 H 05/21/22 09:55: POC Glucose 136, POC Glucose Comment Glu2: cleaned meter 05/21/22 09:54: PT 12.2, INR 1.1, APTT 30.7 Exam Physical Exam Vital Signs: Temp Pulse Resp BP Pulse Ox O2 Del Method O2 Flow Rate 97.8 F 60 20 140/65 92 L Room Air 8 05/22/22 04:00 05/22/22 06:00 05/22/22 06:00 05/22/22 06:00 05/22/22 06:00 05/22/22 08:17 05/21/22 13:02 Narrative: 67-year-old male, no acute distress. He is resting comfortably in hisbed this morning with nursing at bedside. He does have a small hematoma presentto the left neck nonpulsatile in nature. Incision site is stable. No tracheal deviation. He does have a slight facial droop on the right which is his baseline. Tongue is midline. He is able to swallow with ease. Neck range of motion is good with slight pain reported. 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 Left groin puncture site stable, soft, nontender, no palpable hematoma. Discharge Plan Discharge Plan Patient Disposition: Home Comment: Rest. Take it easy. Ice to left neck. Diet: Regular Instructions: Carotid Artery Disease, Carotid Artery Disease (DC) Prescriptions: Continued acetaminophen 500 mg Tablet 500 mg PO Q4H PRN (Reason: Pain) Qty: 0 0RF carvedilol 3.125 mg Tablet 3.125 mg PO BID Qty: 0 0RF hydralazine 10 mg tablet 10 mg PO BID atorvastatin 80 mg tablet 80 mg PO QAM clopidogrel 75 mg tablet 75 mg PO QAM aspirin 81 mg tablet,delayed release (DR/EC) 81 mg PO QAM Follow Up: Rajan Kee MD [Active Staff] - 06/12/22 9:30 am (Please call the office to reschedule this appointment if this time does not work for you. Thankyou.) Documented By: Lory Bernardo APRN 05/22/22 0 826 Signed By: <Electronically signed by NORMA Bernardo> 05/22/22 1036 <Electronically signed by Rajan Kee MD> 05/22/22 1124 [facility] Work Phone: 1(478) 986-163508-30-2022 Progress note Author Rajan Kee [facility] May 21, 2022 3:39pm Note Date/Time May 21, 2022 3: 39pm [facility] [address] [place] [address] Vascular Surgery Progress Note Signed Patient: Archana Gutierrez MR#: [id number] 3 : 1955 Acct:[id number] Age/Sex: 67 / M Adm Date: 2 Loc: Room: [address] [place] [address] Type: ADM IN Attending Dr: Rajan Kee MD Copies to: ~ Date of Service: 05/21/2022 Subjective Subjective Interval history: Called to PACU for by RN for small hematoma on the left neck. Patient has no difficulty chewing or swallowing. His systolic blood pressure was in the 190s. Patient is still waking up from surgery. Exam Physical Exam Vital Signs: Temp Pulse Resp BP Pulse Ox O2 Del Method O2 Flow Rate 95.2 F L 47 L 12 126/59 L 95 Room Air 8 05/21/22 14:30 05/21/22 15:15 05/21/22 15:15 05/21/22 15:15 05/21/22 15:15 05/21/22 15:15 05/21/22 13:02 Narrative: A small mild hematoma present in the left neck. It is not pulsatile. His neck is not expanding currently. There is no deviation of the trachea or tongue. There is no difficulty chewing or swallowing. Const General: cooperative, comfortable and no acute distress Objective Labs Other Labs: Laboratory Results - last 24 hr 05/21/22 05/21/22 05/21/22 09:54 09:55 11:44 PT 12.2 INR 1.1 APTT 30.7 Activated Clotting Time 150 H POC Glucose 136 POC Glucose Comment Glu2: cleaned meter 05/21/22 05/21/22 12:03 12:42 PT INR APTT Activated Clotting Time 283 H 155 H POC Glucose POC Glucose Comment A&P - Vascular Assessment/Plan (1) Postoperative hematoma: I emphasized the need to strictly control this patient's blood pressure. It needs to be less than 180 systolic. We gave an order for hydralazine and I recommended ordering a Cleviprex drip. In the meantime I suggest some ice and some gentle pressure. We will check him again before I go home tonight. Of asked that the nurse call me if he gets any worse. Status: Acute Documented By: Rajan Kee MD 05/21/221536 Signed By: <Electronically signed by Rajan Kee MD> 05/21/221538 [facility] Work Phone: 1(738) 898-673308-30-2022 [facility]* Encounter Date Diagnosis Assessment Notes Treatment Notes Treatment Clinical Notes Apr, Pre-op testing (ICD-10 - Z01.818) [employer] Other 08-02-2022 Evaluation note* Encounter Date Diagnosis Assessment Notes Treatment Notes Treatment Clinical Notes Apr, Peripheral artery disease (ICD-10 - I73.9) Apr, Other Peripheral anita rial occlusive disease This patient is stable with regards to his peripheral vascular disease and does not have an indication for intervention at this time. He is on the schedule for treatment of his recurrent left internal carotid artery stenosis. For some reason he has follow-up with both Dr. Kee and myself and I have advised him that either of us could see him so he does not have 2 visits. [employer] Other 07-27-2022 Evaluation note* Encounter Date Diagnosis Assessment Notes Treatment Notes Treatment Clinical Notes Mar, Recurrent stenosis of left carotid artery (ICD-10 - I65.22) This patient has greater than 80% stenosis of the left internal carotid artery. This is based on recent surveillance duplex study. I did review the CT angiogram with the patient today. It looks to me the patient has more than 80% stenoses. Due to the recurrent stenoses I am recommending a intervention in order to prevent additional stroke. At this point recommend a TCAR approach. Patient is very familiar with this procedure as we have as we have just recanalized and open up the right side with the same technique. We will plan a left-sided TCAR for recurrent asymptomatic carotid stenoses. We did review the risks and benefits as well as medical surgical tenderness. He understands wishes to proceed. I am aware the CTA official radiologic interpretation has not suggested 80% stenoses. I respectfully disagree with this finding. [employer] Other 07-27-2022 Evaluation note* Encounter Date Diagnosis Assessment Notes Treatment Notes Treatment Clinical Notes Mar, Pre-op testing (ICD-10 - Z01.818) [employer] Other 07-13-2022 Evaluation note* Encounter Date Diagnosis Assessment Notes Treatment Notes Treatment Clinical Notes Mar, Recurrent stenosis of left carotid artery (ICD-10 - I65.22) I did go over the patient's carotid duplex surveillance study results with him today. The right side is normal after right-sided TCAR. The left side shows evidence of greater than 80% recurrent stenoses. The patient's original procedure was left carotid endarterectomy with bovine pericardial patch.Procedure was on June 20, 2021. There was this was complicated by a stroke postop.The patient developed a stroke about 6 to 7 hours after the procedure.I did explain this result to the patient today. I do recommend we obtain a CT angiogram to further delineate the anatomy and the area of stenoses. We will see the patient back in a couple weeks after the CT scan he understands agrees the plan all his questions were addressed. [employer] Other 04-13-2022 Evaluation note* Encounter Date Diagnosis Assessment Notes Treatment Notes Treatment Clinical Notes Dec, Carotid artery stenosis with cerebral infarction (ICD-10 - I63.239) Dec, Stenosis of left carotid artery without cerebral infarction (ICD-10 - I65.22) Dec, Carotid stenosis, right (ICD-10 - I65.21) Patient is doing very well after right-sided TCAR. This completes his bilateral revascularization. Unfortunately he did suffer a stroke after the first left-sided TCAR. This was extremely unfortunate. The patient has recovered nicely. I am pleased with his progress. We will see him in 3 months with a repeat carotid duplex for surveillance post stent placement. All of his questions were addressed. He understands agrees the plan. [employer] Other 02-28-2022 Evaluation note* Encounter Date Diagnosis Assessment Notes Treatment Notes Treatment Clinical Notes Oct, Pre-op testing (ICD-10 - Z01.818) [employer] Other 02-24-2022 Evaluation note* Encounter Date Diagnosis Assessment Notes Treatment Notes Treatment Clinical Notes Oct, Carotid stenosis, right (ICD-10 - I65.21) This patient has high-grade right internal carotid artery stenoses of greater than 80%. He is not currently have any symptoms from this. I had a lengthy discussion with this patient. He does meet the criteria for right carotid repair. This would either be endarterectomy or stent placement. I am leaning towards stent placement for this patient. The patient agrees. We will send the images to [facility] for an opinion as to whether or not he is a TCAR candidate for the right side. The meantime the patient should continue his pharmacologic regimen and we will schedule this in the near future for repair. Alternatively I gave the patient the option of doing nothing and being in God's hands. The patient wishes for repair. He is very aware of the potential complications including stroke. [employer] Other 08-14-2014 History general Narrative - Reported* Type Description Date Medical History hypetension Medical History 05/05/14 EGD and colonoscopy Medical History Diabetes, diet controlled Medical History Chronic hepatitis C Medical History Rash and other nonspecific skin eruption Medical History Abdominal pain, generalized Medical History Diverticulosis Medical History Internal hemorrhoid Medical History Psoriasis Medical History BMI 32.0-32.9,adult Medical History Body mass index (BMI) of 30.0-30 .9 in adult Medical History acute renal failure Medical History PVOD Medical History Carotid stenosis Surgical History pin in leg at age of 18 Surgical History L CEA w/bovine patch angioplast y 06/20/21 Hospitalization History see above [employer] Other 08-14-2014 History general Narrative - Reported* Type Description Date Medical History hypetension Medical History 05/05/14 EGD and colonoscopy Medical History Diabetes, diet controlled Medical History Chronic hepatitis C Medical History Rash and other nonspecific skin eruption Medical History Abdominal pain, generalized Medical History Diverticulosis Medical History Internal hemorrhoid Medical History Psoriasis Medical History BMI 32.0-32.9,adult Medical History Body mass index (BMI) of 30.0-30 .9 in adult Medical History acute renal failure Medical History PVOD Medical History Carotid stenosis Surgical History pin in leg at age of 18 Surgical History L CEA w/bovine patch angioplast y 06/20/21 Surgical History RT TCAR 2021 Hospitalization History see above [employer] Other Discharge summary Author Scooby Brenner [facility] May 13, 2023 3:09pm Note Date/Time May 13, 2023 3: 09pm [facility] [address] [place] [address] Discharge Summary Signed Patient: Archana Gutierrez MR#: [id number] 3 : 1955 Acct:[id number] Age/Sex: 68 / M Adm Date: 3 Loc: 3T Room: [address] [place] [address]: Scooby Brenner DO Copies to: DO Scooby Lerma DO~ Providers Date of Discharge: 05/13/23 Discharging Provider: Scooby Brenner Primary Care Provider: Chao Vyas Consults: 05/12/23 18:02 Consult to Neurology Routine Consult to Occupational Therapy Routine Consult to Physical Therapy Routine Discharge Diagnosis (1) Amaurosis fugax of left eye: Final Diagnosis Final Discharge Diagnosis: HTN Urgency, amaurosis fugax L eye Summary Hospital Course Hospital course: 68 y/o M with PMHx of HTN/HLD, previous CVA with residual R sided facial droop, anxiety who presents to the ED with complaint of blurred vision. Pt states it started 2 days ago. States for the last two days, he has awoken with L sided blurred, tunnel vision with intermittent black out in the left eye. States that for the last 2 days, it seemed to improve as the day went on, but today, the vision did not come back and he was worried about another CVA given his history so he came to the ED. No other focal deficits. Upon arrival to the ED, BP noted to be elevated at 192/80. Labs unremarkable. CT head negative for acute process.Blurred vision remained so decision was made to admit for CVA workup and neuro evaluation. BP improved with resumption of his home medications and vision improved with improvement in BP. Neurology consulted. MRI negative for acute findings and neurology believed pt to have amaurosis fugax of the L eye and was ok with discharge and outpatient ophthalmology follow up after discharge. Pt without home going needs and discharged home in stable and improved condition. Condition Condition at Discharge: Stable Status at Discharge Functional status at discharge: independent ambulation Overall status at discharge: patient is back to baseline Time Spent with Patient Time spent providing/coordinating discharge services (# min): 45 Diagnostic Studies Completed and Pending Studies Pending studies at discharge: 05/14/23 05:00 Basic Metabolic Panel [CHEM] IN AM Complete Blood Count Auto Diff IN AM 05/15/23 05:00 Basic Metabolic Panel [CHEM] IN AM Complete Blood Count Auto Diff IN AM 05/16/23 05:00 Basic Metabolic Panel [CHEM] IN AM Complete Blood Count Auto Diff IN AM 05/17/23 05:00 Basic Metabolic Panel [CHEM] IN AM Complete Blood Count Auto Diff IN AM 05/18/23 05:00 Basic Metabolic Panel [CHEM] IN AM Complete Blood Count Auto Diff IN AM 05/19/23 05:00 Basic Metabolic Panel [CHEM] IN AM Complete Blood Count Auto Diff IN AM 05/20/23 05:00 Basic Metabolic Panel [CHEM] IN AM Complete Blood Count Auto Diff IN AM 05/21/23 05:00 Basic Metabolic Panel [CHEM] IN AM Complete Blood Count Auto Diff IN AM 05/22/23 05:00 Basic Metabolic Panel [CHEM] IN AM Complete Blood Count Auto Diff IN AM Labs on day of discharge: 05/13/23 11:06: POC Glucose 190, POC Glucose Comment Glu2: cleaned meter 05/13/23 07:03: POC Glucose 113 05/13/23 06:07: PHA Creatinine Clear 85.92, Sodium 138, Potassium 4.1, Chloride 104, Carbon Dioxide 27.0, Anion Gap 11.1, BUN 14, Creatinine 0.74, Est GFR (CKD-EPI) > 60.0, Glucose 90, Calcium 9.1 05/13/23 06:07: Corrected WBC 6.5, Uncorrected WBC Count 6.5, RBC 4.60, Hgb 13.5, Hct 40.2, MCV 87.4, MCH 29.4, MCHC 33.6, RDW 14.6, Plt Count 376, MPV 8.8, Neut % (Auto) 44.9, Lymph % (Auto) 34.7, [place] % (Auto) 13.9, Eos % (Auto) 5.4, Baso % (Auto) 1.1, Nucleat RBC Rel Count 0.1, Neut # (Auto) 2.9, Lymph # (Auto) 2.2, [place] # (Auto) 0.9 H, Eos # (Auto) 0.4, Baso # (Auto) 0.1 05/12/23 21:51: POC Glucose 75 05/12/23 17:04: Urine Color Yellow, Urine Appearance Clear, Urine pH 6.5, Ur Specific [place] 1.011, Urine Protein Negative, Urine Glucose (UA) Normal, Urine Ketones Negative, Urine Occult Blood Negative, Urine Nitrite Negative, Urine Bilirubin Negative, Urine Urobilinogen Normal, Ur Leukocyte Esterase Negative 05/12/23 16:30: Total Creatine Kinase 154, Troponin I High Sens 10.9 05/12/23 16:30: PHA Creatinine Clear 80.87, Sodium 141, Potassium 4.5, Chloride 101, Carbon Dioxide 28.5, Anion Gap 16.0 H, BUN 16, Creatinine 0.85, Est GFR (CKD- EPI) > 60.0, Glucose 95, Calcium 9.6 05/12/23 16:30: PT 12.0, INR 1.0, APTT 32.2 05/12/23 16:30: Corrected WBC 8.0, Uncorrected WBC Count 8.0, RBC 4.97, Hgb 14.6, Hct 43.5, MCV 87.4, MCH 29.3, MCHC 33.5, RDW 15.0 H, Plt Count 387, MPV 8.7, Neut % (Auto) 43.0, Lymph % (Auto) 37.6, [place] % (Auto) 13.2, Eos % (Auto) 5.2, Baso % (Auto) 1.0, Nucleat RBC Rel Count 0.3, Neut # (Auto) 3.5, Lymph # (Auto) 3.0, [place] # (Auto) 1.1 H, Eos # (Auto) 0.4, Baso # (Auto) 0.1, Monocyte Dist Width 16.96 Exam Physical Exam Vital Signs: Temp Pulse Resp BP Pulse Ox O2 Del Method 97.8 F 72 16 150/86 H 97 Room Air 05/13/23 12:00 05/13/23 12:00 05/13/23 12:00 05/13/23 12:00 05/13/23 12:00 05/13/23 12:00 Narrative: General: Awake and alert. Lying in bed comfortably, visible chronic R facial droop HEENT: Normocephalic, atraumatic, trachea midline Respiratory: good inspiratory effort, clear to auscultation, no wheeze, no rhonchi, no crackles Cardiovascular: RRR, normal S1 and S2 Abdominal: soft, non-distended, no tenderness, no rebound, no guarding, +BS Skin: warm, dry, no lesions or rashes MSK: equal strength bilaterally, normal ROM bilaterally, no edema Neurologic: No focal deficits other than chronic facial droop Psych: appropriate affect Discharge Plan Discharge Plan Patient Disposition: Home Activity: No Activity Restriction Diet: Regular Instructions: Transient Ischemic Attack (DC), Clopidogrel Prescriptions: New clopidogrel 75 mg Tablet 75 mg PO DAILY 30 Days Qty: 30 0RF Continued acetaminophen 500 mg Tablet 500 mg PO Q4H PRN (Reason: Pain) Qty: 0 0RF carvedilol 3.125 mg Tablet 3.125 mg PO BID Qty: 0 0RF hydralazine 10 mg tablet 25 mg PO BID atorvastatin 80 mg tablet 80 mg PO QHS aspirin 81 mg tablet,delayed release (DR/EC) 81 mg PO QAM metformin 850 mg tablet 850 mg PO DAILY Patient Comments: TAKE 1 TABLET (850 MG TOTAL) BY MOUTH IN THE MORNING AND 1 TABLET (850 MG TOTAL) IN THE EVENING. TAKE WITH MEALS. doxepin 10 mg capsule 20 mg PO QHS Patient Comments: TAKE TWO CAPSULES BY MOUTH DAILY AT BEDTIME escitalopram oxalate 5 mg tablet 5 mg PO DAILY Patient Comments: TAKE ONE TABLET BY MOUTH EVERY DAY Skyrizi 150 mg/mL Pen Injector SUBCUT Follow Up: [facility] [place] [Outside] - 05/29/23 11:00 am (You have been scheduled for a follow up appointment with Selene Martinez NP for the following date and time, please call to reschedule if needed.) Chao Vyas DO [Primary Care Provider] - 05/22/23 4:10 pm (You have been scheduled for a follow up appointment for the following date and time, please call to reschedule if needed.) Karime Bautista MD [Referring] - 05/14/23 1:30 pm (You have been scheduled for a follow up appointment with Ophthalmology for the following date and time, please call to reschedule if needed.) Documented By: Scooby Brenner DO 05/13/23 150 6 Signed By: <Electronically signed by Scooby Brenner DO> 05/13/23 1509 [facility] Work Phone: Evaluation [employer] Other Evaluation noteNo InformationNort [employer] Other Evaluation noteNo assessment information available [facility] Work Phone: Evaluation note* Diagnosis Onset Date Resolution Status Postoperative hematoma acute [facility] Work Phone: evaluation note* Diagnosis Onset Date Resolution Status Amaurosis fugax of left eye acute Brain TIA acute Hypertensive urgency acute [facility] Work Phone: Evaluation note* Diagnosis Type 2 diabetes mellitus without complication, without long-term current use of insulin ([facility])- Primary Pseudophakia Lens replaced by other means documented in this encounter [facility] HealthcareEvaluation note* Diagnosis Onset Date Resolution Status Sebaceous cyst noneactive [facility] Work Phone: evaluation note* Diagnosis Onset Date Resolution Status Sebaceous cyst noneactive Bilateral carotid artery stenosis acute [facility] Work Phone: evaluation note* Diagnosis Onset Date Resolution Status Bilateral carotid artery stenosis acute [facility] Work Phone: evaluation note* Diagnosis Onset Date Resolution Status Bilateral carotid artery stenosis acute Boil noneactive [facility] Work Phone: Evaluation note* Diagnosis Onset Date Resolution Status Abscess of back noneactive Contact with and (suspected) exposure to covid-19 noneactive [facility] Work Phone: evaluation note* Diagnosis Diabetes mellitus due to underlying condition with diabetic polyneuropathy, unspecified whether watermelon inspector insulin use ([facility])- Primary Pain due to onychomycosis of toenails of both feet Hav (hallux abducto valgus), left Hav (hallux abducto valgus), right documented in this encounter [facility] HealthcareEvaluation note* Diagnosis Psoriasis vulgaris ([facility])- Primary Other psoriasis High risk medication use documented in this encounter [facility] HealthcareEvaluation note* Diagnosis Type 2 diabetes mellitus with other circulatory complication, without long-term current use of insulin ([facility]) [facility]* Diagnosis Essential hypertension- Primary Unspecified essential hypertension Type 2 diabetes mellitus with other circulatory complication, without long-term current use of insulin ([facility]) Hemiplegia of dominant side (CMS-HCC) Peripheral vascular disease (CMS-HCC) Unspecified peripheral vascular disease Coagulopathy (CMS-HCC) Other and unspecified coagulation defects Leukocytosis, unspecified type Hyponatremia Hyposmolality and/or hyponatremia Screening for colon cancer Special screening for malignant neoplasms, colon Special screening for malignant neoplasm of colon Special screening for malignant neoplasms, colon Mixed anxiety and depressive disorder Dysthymic disorder documented in this encounter [facility]* Diagnosis Medicare annual wellness visit, subsequent- Primary Screening for depression documented in this encounter [facility]* Diagnosis Essential hypertension Unspecified essential hypertension documented in this encounter [facility]* Diagnosis Essential hypertension- Primary Unspecified essential hypertension Type 2 diabetes mellitus with other circulatory complication, without long-term current use of insulin ([facility]) Need for vaccination Need for prophylactic vaccination and inoculation against unspecified single disease Mixed hyperlipidemia Overweight Laceration of left hand without foreign body, initial encounter Hammer toe of right foot documented [facility] this [facility] Diagnosis Sleep pattern disturbance- Primary documented in this encounter [facility]* Diagnosis Upper respiratory tract infection, unspecified type- Primary Pharyngitis, unspecified etiology documented in this encounter [facility] general Narrative - ReportedRunnemede [employer] Other History of Present illness Narrative* Krishna Burgos, BRITTA - 07/15/2024 3:40 PM EDT Patient: Archana Gutierrez : 1955 PCP: Chao Vyas MD SUBJECTIVE This is a 69 y.o. male that presents today with a CC of elongated, thick nails. Pt states nails have been elongated and thick for many years and cause pain with ambulation in shoegear. Pt has tried previous treatment with minimal relief. Pt presents today for nail care and treatment. 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 Allergies: Allergies Allergen Reactions Phillip Inhibitors cough Lisinopril Cough Other Reaction(s): Cough, bad cough Past Medical History: Past Medical History: Diagnosis Date Acute hepatitis Diabetes (CMS/HCC) Stroke (cerebrum) (CMS/HCC) Medications: Current Outpatient Medications: atorvastatin (Lipitor) 80 MG tablet, Take 80 mg by mouth in the evening., Disp: , Rfl: Blood Glucose Monitoring Suppl (ONE TOUCH ULTRA 2) w/Device kit, USE DIRECTED IN THE MORNING, Disp: , Rfl: carvedilol (Coreg) 3.125 MG tablet, TAKE 1 TABLET BY MOUTH TWICE DAILY -HOLD IF HR<50 ANDOR BP<100, Disp: , Rfl: doxepin (SINEquan) 10 MG capsule, Take 20 mg by mouth at bedtime, Disp: , Rfl: escitalopram (Lexapro) 5 MG tablet, Take 5 mg by mouth in the morning., Disp: , Rfl: ezetimibe (Zetia) 10 MG tablet, Take 10 mg by mouth in the morning., Disp: , Rfl: fluticasone (Flonase) 50 MCG/ACT nasal spray, Administer 2 sprays into affected nostril(s) in the morning., Disp: , Rfl: guselkumab (Tremfya) 100 MG/ML injection, inject contents of 1 prefilled syringe, Disp: , Rfl: hydrALAZINE (Apresoline) 25 MG tablet, TAKE ONE TABLET BY MOUTH TWICE A DAY HOLD IF <110, Disp: , Rfl: irbesartan (Avapro) 300 MG tablet, 1 (one) time each day at the same time., Disp: , Rfl: Lancet Devices (Leadformanceuch Delica Plus Lancing) [facility], USE DIRECTED ONCE DAILY IN THE MORNING, Disp: , Rfl: Lancets (NuConomyTouch Delica Plus Amahxy09C) misc, USE ONCE DAILY DIRECTED IN THE MORNING, Disp: , Rfl: metFORMIN (Glucophage) 850 MG tablet, take 1 tablet by mouth every morning WITH BREAKFAST, Disp: , Rfl: Leadformanceuch Ultra test strip, 1 strip by Other route Daily as needed., Disp: , Rfl: rivaroxaban (Xarelto) 2.5 MG tablet, every 12 (twelve) hours., Disp: , Rfl: Skyrizi Pen 150 MG/ML solution auto-injector, Inject 150 mg under the skin every 3 (three) months, Disp: 1 mL, Rfl: 3 triamcinolone (Kenalog) 0.1 % cream, 1 application to affected area (do not use on face, axilla or groin) Externally Twice a day as needed for 2 weeks, Disp: , Rfl: Social History: Social History Socioeconomic History Marital status: Spouse name: Not on file Number of children: Not on file Years of education: Not on file Highest education level: Not on file Occupational History Not on file Tobacco Use Smoking status: Former Types: Cigarettes Passive exposure: Never Smokeless tobacco: Never Vaping Use Vaping status: Never Used Substance and Sexual Activity Alcohol use: Defer Drug use: Defer Sexual activity: Defer Other Topics Concern Not on file Social History Narrative Not on file Social Drivers of Health Financial Resource Strain: Low Risk (03/11/2023) Received from [facility], [facility] Overall Financial Resource Strain (CARDIA) Difficulty of Paying Living Expenses: Not hard at all Food Insecurity: No Food Insecurity (06/21/2024) Received from [facility] Hunger Screening Within the past 12 months we worried whether our food would run out before we got money to buy more.: Never True Within the past 12 months the food we bought just didn't last and we didn't have money to get more.: Never True Transportation Needs: No Transportation Needs (03/11/2023) Received from [facility], [facility] PRAPARE - Transportation Lack of Transportation (Medical): No Lack of Transportation (Non-Medical): No Physical Activity: Sufficiently Active (05/22/2023) [facility] Vital Sign Days of Exercise per Week: 3 days Minutes of Exercise per Session: 50 min Recent Concern: Physical Activity - Inactive (03/11/2023) Received from [facility] Exercise Vital Sign Days of Exercise per Week: 0 days Minutes of Exercise per Session: 0 min Stress: No Stress Concern Present (05/22/2023) Received from [facility], [facility] [place] [employer] [place] [facility] [employer] [facility] - Occupational Stress Questionnaire Feeling of Stress : Not at all Social Connections: Moderately Isolated (03/16/2024) Received from [facility] Social Connection and Isolation Panel [NHANES] Frequency of Communication with Friends and Family: Twice a week Frequency of Social Gatherings with Friends and Family: Twice a week Attends [employer] Services: More than 4 times per year Active Member of Clubs or Organizations: No Attends Club or Organization Meetings: Never Marital Status: Intimate Partner Violence: Not on file Housing Stability: Low Risk (03/11/2023) Received from [facility], [facility], [facility] Housing Instability Are you worried or concerned that in the next two months you may not have stable housing that you own, rent or stay in as a part of a household?: No ROS: Gastrointestinal: denies abdominal pain, ulcers, or changes in appetite or bowel habits Musculoskeletal: Positive generalized arthritis to joints and denies loss of strength. Cardiovascular: denies CP, palpitations, irregular rhythms OBJECTIVE LE EXAM: DERM: Elongated thick yellow crumbly nails digits 1 through 10. Negative hair growth with thin shiny atrophic skin bilaterally Rubor to dorsal medial eminence of the right and left foot 1st metatarsal VASC: Positive DP and negative PT pedal pulses NEURO: 5.07 Stanton Tsering monofilament test diminished to digits and forefoot bilaterally 125Hz tuning fork diminished to 1st MPJ bilaterally ORTHO: Positive pain on palpation to nails 1 through 10 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 Diabetes mellitus due to underlying condition with diabetic polyneuropathy, unspecified whether retirement insulin use ([facility]) 2. Pain due to onychomycosis of toenails of both feet 3. Hav (hallux abducto valgus), left 4. Hav (hallux abducto valgus), right PLAN Discussed proper foot care with patient today. Debride nails in length and thickness digits 1 through 10 Patient educated today on proper diabetic foot care including monitoring feet daily for any signs of infection openings in the skin or irregularities to both feet. Patient had a diabetic neurologicalexam today to both their feet and discussed proper shoe gear. Krishna Burgos DPM documented in this encounterSamaritan HospitalInstructionsNot on filedocumented in this encounterProC[facility] HospitalInstructionsNot on filedocumented in this encounterProCleveland Clinic South Pointe HospitalInstructionsNot on filedocumented in this encounterCleveland ClinicInstructionsNot on filedocumented in this encounterCleveland ClinicInstructionsNot on filedocumented in this encounterPrem[facility] SystemInstructionsNot on filedocumented in this encounterProNorwalk Memorial Hospital SystemInstructionsNot on filedocumented in this encounterProNorwalk Memorial Hospital SystemInstructionsNot on filedocumented in this encounterProNorwalk Memorial Hospital SystemInstructionsNot on filedocumented in this encounterProNorwalk Memorial Hospital SystemInstructionsNot on filedocumented in this encounterPrem[facility] Summary Purpose Family History Unknown Family Member Name Dates Details Family history of pancreatic cancer: Father, Sister(V16.0, Z80.0) Status:Active Unknown Family Member Name Dates Details Family history of pancreatic cancer: Father, Sister(V16.0, Z80.0) Status:Active Relationship Condition Age at Onset Recorded Date/T dorina Not Specified Cerebrovascular accident (CVA) Unknown father Malignant neoplasm of pancreas Unknown sister Malignant neoplasm of pancreas Unknown brother Heart disease Unknown brother Neoplasm of brain Unknown Relationship Condition Age at Onset Recorded Date/T dorina Not Specified Cerebrovascular accident (CVA) Unknown father Malignant neoplasm of pancreas Unknown sister Malignant neoplasm of pancreas Unknown brother Heart disease Unknown brother Neoplasm of brain Unknown father Unknown Malignant neoplasm Unknown Family history of pancreatic cancer Unkno wn Not Specified Family history of mental disorder Unknow n Dementia Unknown Unknown sister Diabetes mellitus Unknown Relationship Condition Age at Onset Recorded Date/T dorina mother Cerebrovascular accident (CVA) Unknown father Malignant neoplasm of pancreas Unknown sister Malignant neoplasm of pancreas Unknown brother Heart disease Unknown brother Neoplasm of brain Unknown father Unknown Malignant neoplasm Unknown Family history of pancreatic cancer Unkno wn mother Family history of mental disorder Unknown Dementia Unknown Unknown sister Diabetes mellitus Unknown Advance Directives Advance Directive Response Recorded Date/ Time Advance Directives No May 2:03pm Advance Directive Response Recorded Date/ Time Advance Directives No May 1:03pm Chief Complaint and Reason for Visit Chief Complaint i65.23 I65.23 Recurrent Left Internal Carotid Stenosis Recurrent Left Internal Artery Stenosis Chief Complaint i65.23 I65.23 Recurrent Left Internal Carotid Stenosis Recurrent Left Internal Artery Stenosis Recurrent Left Internal Artery Stenosis Reason for Visit Postoperative hemato ma Chief Complaint i65.23 I65.23 Recurrent Left Internal Carotid Stenosis Recurrent Left Internal Carotid Stenosis Recurrent Left Internal Artery Stenosis Recurrent Left Internal Artery Stenosis Reason for Visit Postoperative hemato ma Chief Complaint I65.23 Chief Complaint I65.23 possible stroke Reason for Visit Amaurosis fugax of l eft eye Brain TIA Hypertensive urgency Chief Complaint l40.0 i65.23 Chief Complaint lump/abscess on back of left shoulder Chief Complaint lump/abscess on back of left shoulder 6MO F/U; CAROTID DUPLEX 1130A I65.23 Reason for Visit Sebaceous cyst Chief Complaint lump/abscess on back of left shoulder 6MO F/U; CAROTID DUPLEX 1130A I65.23 Reason for Visit Sebaceous cyst Bilateral carotid artery stenosis Chief Complaint 6MO F/U; CAROTID DUP APRIL 1130A I65.23 Boil on back Reason for Visit Bilateral carotid ar min stenosis Chief Complaint 6MO F/U; CAROTID DUP APRIL 1130A I65.23 Boil on back Furuncle of skin or subcutaneous tissue Reason for Visit Bilateral carotid ar min stenosis Boil Chief Complaint Boil on back L02.92 Cough Reason for Visit Abscess of back Contact with and (suspected) exposure to covid-19 Additional Source Comments (unrecognized sect ion and content) No Status Records FoundNo Status Records FoundNo Status Records FoundNo Status Records FoundNo Status Records FoundNo Status Records FoundNo Status Records FoundNo Status Records FoundNo Status Records Found INFORMATION SOURCE (unrecogn ized section and content) DATE CREATED AUTHOR 11/11/2018 [facility] DATE CREATED AUTHOR AUTHOR'S ORGANIZ ATION 03/23/2022 [facility] DATE CREATED AUTHOR AUTHOR'S ORGANIZ ATION 05/27/2022 [facility] DATE CREATED AUTHOR AUTHOR'S ORGANIZ ATION 08/06/[address] [facility] Special[facility] DATE CREATED AUTHOR AUTHOR'S ORGANIZ ATION 01/05/2023 [facility] DATE CREATED AUTHOR AUTHOR'S ORGANIZ ATION 05/05/2024 [facility] DATE CREATED AUTHOR AUTHOR'S ORGANIZ ATION 05/22/2024 [facility] DATE CREATED AUTHOR AUTHOR'S ORGANIZ ATION 06/22/2024 [facility] DATE CREATED AUTHOR AUTHOR'S ORGANIZ ATION 10/05/[address] [facility] d[facility] Specialists EPIC REASON FOR VISIT (unrecogniz ed section and content) Reason Comments Diabetic Eye Exam Reason Comments Toenail Care Non DM Nails Reason Comments Psoriasis Reason Comments Toenail Care Non dm nial care Reason Comments Med Refill Reason Comments Diabetes Reason Onset Date Comments Med Refill 11/03/2023 Reason Comments MAW Reason Onset Date Comments Med Refill 11/12/2023 Reason Onset Date Comments Med Refill 03/30/2024 Reason Onset Date Comments Med Refill 04/15/2024 Reason Onset Date Comments Med Refill 04/19/2024 Reason Comments Sore Throat Cough 1 day no fever. Care Teams (unrecognized sec tion and content) Team Status: Active Member Role Status Dates Chao Vyas DO Primary Care Provider Active Rajan Kee MD Attending Provider Active Team Status: Inactive Member Role Status Dates NON STAFF Primary Care Provider Active Rajan Kee MD Attending Provider Active Team Status: Inactive Member Role Status Dates Rajan Kee MD Attending Provider Active Chao Vyas DO Primary Care Provider Active Team Status: Inactive Member Role Status Dates Rajan Kee MD Attending Provider Active NON STAFF Primary Care Provider Active Team Status: Active Member Role Status Dates Chao Vyas DO Primary Care Provider Active Team Status: Inactive Member Role Status Dates Caho Vyas DO Primary Care Provider Active Rajan Kee MD Attending Provider Active Team Status: Inactive Member Role Status Dates Chao Vyas DO Primary Care Provider Active Rajan Kee MD Admit Provider, Attending Pr ovider Active Team Status: Inactive Member Role Status Dates Chao Vyas DO Primary Care Provider Active Lory Bernardo NP-C Attending Provider Active Team Status: Inactive Member Role Status Dates Chao Vyas DO Primary Care Provider Active Miky Talavera MD Emergency Provider Active Scooby Brenner DO Admit Provider, Attending Provid er Active Hamilton Stuart DO Other Provider Active Team Status: Inactive Member Role Status Dates Chao Vyas DO Primary Care Provider Active Arin Ferrera MD Attending Provider Active Fire Alarm Mechanic Relationship Specialty Start Date End Date Chao Vyas MD [address] [facility] [place] [address] PCP - General Family Medicine 04/15/23 Fire Alarm Mechanic Relationship Specialty Start Date End Date Chao Vyas MD [address] [place] [address] PCP - General Family Medicine 04/15/23 Team Status: Inactive Member Role Status Dates Chao Vyas DO Primary Care Provider Active Start: January 05, 2024 End: January 05, 2024 Katie Richardson NP-C Attending Provider Active S tart: January 05, 2024 End: January 05, 2024 Team Status: Inactive Member Role Status Dates Chao Vyas DO Primary Care Provider Active Start: March 17, 2024 End: March 17, 2024 Nicolas Valdez MD Attending Provider Active S tart: March 17, 2024 End: March 17, 2024 Team Status: Active Member Role Status Dates Chao Vyas DO Primary Care Provider Active Start: March 17, 2024 SHAILA HernandezC Attending Provider Active Start: March 17, 2024 Team Status: Inactive Member Role Status Dates Chao Vyas DO Primary Care Provider Active Start: March 17, 2024 End: March 17, 2024 SHAILA HernandezC Attending Provider Active Start: March 17, 2024 End: March 17, 2024 Team Status: Inactive Member Role Status Dates Chao Vyas DO Primary Care Provider Active Start: May 18, 2024 End: May 18, 2024 Regla Romero APRN Attending Provider Active Start: May 18, 2024 End: May 18, 2024 Team Status: Inactive Member Role Status Dates Regla Romero APRN Attending Provider Active Start: May 18, 2024 End: May 18, 2024 Team Status: Active Member Role Status Dates PHYSICIAN NO FAMILY Primary Care Provider Active Team Status: Inactive Member Role Status Dates Regla Romero APRN Attending Provider Active Start: May 18, 2024 End: May 18, 2024 PHYSICIAN NO FAMILY Primary Care Provider Active Start: May 18, 2024 End: May 18, 2024 Team Status: Inactive Member Role Status Dates PHYSICIAN NO FAMILY Primary Care Provider Active Start: June 28, 2024 End: June 28, 2024 Marisela Weeks APRN Attending Provider Active Start: June 28, 2024 End: June 28, 2024 Fire Alarm Mechanic Relationship Specialty Start Date End Date Chao Vyas MD [address] [place] [address] PCP - General Family Medicine 04/15/23 Fire Alarm Mechanic Relationship Specialty Start Date End Date Chao Vyas DO [address] [place] [address] PCP - General Family Medicine 07/02/22 Fire Alarm Mechanic Relationship Specialty Start Date End Date Chao Vyas DO [address] [place] [address] PCP - General Family Medicine 07/02/22 Fire Alarm Mechanic Relationship Specialty Start Date End Date Chao Vyas MD [address] [place] [address] PCP - General Family Medicine 04/15/23 Fire Alarm Mechanic Relationship Specialty Start Date End Date Chao Vyas DO [address] [place] [address] PCP - General Family Medicine 07/02/22 Fire Alarm Mechanic Relationship Specialty Start Date End Date Chao Vyas DO [address] [place] [address] PCP - General Family Medicine 07/02/22 Fire Alarm Mechanic Relationship Specialty Start Date End Date Chao Vyas DO [address] [place] [address] PCP - General Family Medicine 07/02/22 Fire Alarm Mechanic Relationship Specialty Start Date End Date hCao Vyas DO [address] [place] [address] PCP [facility] 07/02/22 Fire Alarm Mechanic Relationship Specialty Start Date End Date Chao Vyas DO [address], [place] [address] PCP [facility] 07/02/22 Fire Alarm Mechanic Relationship Specialty Start Date End Date Chao Vyas DO [address], [place] [address] PCP [facility] 07/02/22 Fire Alarm Mechanic Relationship Specialty Start Date End Date Chao Vyas DO [address], [place] [address] PCP [facility] 07/02/22 Fire Alarm Mechanic Relationship Specialty Start Date End Date Chao Vyas DO [address], [place] [address] PCP [facility] 07/02/22 Goals (unrecognized section and content) Goals may be documented in a n alternate section FOR RECORDS PERTAINING TO PATIENTS WHO ARE OR HAVE BEEN ENROLLED IN A CHEMICAL DEPENDENCY/SUBSTANCEABUSE PROGRAM, SOME INFORMATION MAY BE OMITTED. This clinical summary was aggregated from multiple sources. Caution should be exercised in using it in the provision of clinical care. This summary normalizes information from multiple sources, and as a consequence, information in this document may materially change the coding, format and clinical context of patient data. In addition, data may be omitted in some cases. CLINICAL DECISIONS SHOULD BE BASED ON THE PRIMARY CLINICAL RECORDS. [facility] [employer] [facility] provides no warranty or guarantee of the accuracy or completeness of information in this document.
--- NOTE | 2024-11-09 18:14 | PC.NURSE ---
screening unit registered nurse for rectal exam, pt tolerated well
--- NOTE | 2024-11-09 18:14 | ED.ABDPAIN1 ---
HPI - Abdominal Pain General Chief Complaint: Abdominal Pain Stated Complaint: abdominal pain Time Seen by Provider: 11/09/24 18:05 Source: patient Mode of arrival: walk-in Limitations: no limitations History of Present Illness HPI narrative: Patient is a 69-year-old male who presents to the emergency department for constipation. He states he has not had a bowel movement in 3 days. He has no significant abdominal pain. No fevers or vomiting. He is urinating normally. He states he drank 2 teaspoons of magnesium citrate as instructed by his brother but did not have a bowel movement so he came to the emergency department. Related Data Home Medications ?Medication ?Instructions ?Recorded ?Confirmed atorvastatin 80 mg tablet 80 mg PO .QHS 10/26/24 10/26/24 blood sugar diagnostic (OneTouch 10/26/24 10/26/24 Ultra Test strips) doxepin 10 mg capsule 20 mg PO BEDTIME 10/26/24 10/26/24 escitalopram oxalate 5 mg tablet 5 mg PO DAILY 10/26/24 10/26/24 hydralazine 25 mg tablet 25 mg PO BID 10/26/24 10/26/24 metformin 850 mg tablet 850 mg PO DAILY 10/26/24 10/26/24 Previous Rx's ?Medication ?Instructions ?Recorded ciprofloxacin HCl 500 mg tablet 500 mg PO BID 7 days #14 tabs 10/26/24 metronidazole 250 mg tablet 250 mg PO BID 7 days #14 tabs 10/26/24 omeprazole 40 mg capsule,delayed 40 mg PO BID 7 days #14 caps 10/26/24 release magnesium citrate (Citrate of 296 ml PO DAILY constipation #296 11/09/24 Magnesia oral) mL ondansetron 4 mg disintegrating 4 mg PO Q6H PRN nausea and 11/09/24 tablet vomiting #12 tabs Allergies Allergy/AdvReac Type Severity Reaction Status Date / Time lisinopril Allergy Mild Cough Verified 11/09/24 17:47 Review of Systems ROS Constitutional Denies: fever or chills Ears, nose, mouth, and throat Denies: throat pain or nasal congestion Cardiovascular Denies: chest pain Respiratory Denies: shortness of breath or cough Gastrointestinal Reports: constipation; Denies: nausea, vomiting or diarrhea Musculoskeletal Denies: back pain Integumentary/Breast Denies: rash Neurological Denies: numbness in extremities or weakness in extremities Hematologic/Lymphatic Denies: easy bruising or easy bleeding PFSH PFSH Medical History (Updated 11/09/24 @ 19:26 by EV Meza) Type 2 diabetes mellitus ?E11.9 - Type 2 diabetes mellitus without complications (ICD-10) Hyperlipidemia associated with type 2 diabetes mellitus ?E11.69 - Type 2 diabetes mellitus with other specified complication (ICD-10) ?E78.5 - Hyperlipidemia, unspecified (ICD-10) Primary hypertension ?I10 - Essential (primary) hypertension (ICD-10) History of CVA with residual deficit ?I69.30 - Unspecified sequelae of cerebral infarction (ICD-10) Type 2 diabetes mellitus ?E11.9 - Type 2 diabetes mellitus without complications (ICD-10) Stroke ?I63.9 - Cerebral infarction, unspecified (ICD-10) Family History Other Family history of cancer Family history of diabetes mellitus Family history of hypertension Family history of stroke Social History Within the past year, how often did you have a drink containing alcohol: never Within the past year, how often did you have six or more drinks on one occasion: never Score interpretation: A score less than 4 is consistent with normal alcohol consumption. Smoking status: Former smoker Non-prescribed substance use: denies use Previous occupational history: retired Highest level of school completed/degree received: GED or equivalent In a typical week, how many times do you talk on the telephone with family, friends, or neighbors: twice per week How often do you get together with friends or relatives: twice per week How often do you attend adventism or yarsani services: 4 or more times per year Little interest or pleasure in doing things: not at all Feeling down, depressed, or hopeless: not at all Feel stressed/tense/nervous/anxious/difficulty sleeping: not at all Do you think of yourself as: straight/heterosexual Gender Identity: male Exam Narrative Exam Narrative: Gen.: Awake, alert, in no distress Head: Normocephalic, atraumatic ENT: Moist mucous membranes Respiratory: No respiratory distress Gastrointestinal: Abdomen is soft, nondistended and nontender to palpation; exam performed with Leni Laguerre RN at bedside throughout the duration of the exam. Hard stool palpated beyond the reach of my fingertip Extremities: Moves extremities equally Psych: Normal mood and affect Neuro: No focal neuro deficit Skin: Warm, dry, intact Constitutional Vital Signs, click to edit/add: Last Vital Signs Temp 98 F 11/09/24 17:47 Pulse 57 L 11/09/24 17:47 Resp 14 11/09/24 17:47 BP 179/74 H 11/09/24 17:47 Pulse Ox 100 11/09/24 17:47 O2 Del Method Room Air 11/09/24 17:47 Course Vital Signs Vital signs: Vital Signs Temperature 98 F 11/09/24 17:47 Pulse Rate 57 L 11/09/24 17:47 Respiratory Rate 14 11/09/24 17:47 Blood Pressure 179/74 H 11/09/24 17:47 Pulse Oximetry 100 11/09/24 17:47 Oxygen Delivery Method Room Air 11/09/24 17:47 Temperature 98 F 11/09/24 17:47 Pulse Rate 57 L 11/09/24 17:47 Respiratory Rate 14 11/09/24 17:47 Blood Pressure 179/74 H 11/09/24 17:47 Pulse Oximetry 100 11/09/24 17:47 Oxygen Delivery Method Room Air 11/09/24 17:47 MDM - Abdominal Pain MDM Narrative Medical decision making narrative: Unable to digitally disimpact the patient. Enema was ordered, x-rays show mild to moderate stool with no obstruction or perforation. He is hemodynamically stable in the ER. Anticipate discharge home with instructions for a full bottle of magnesium citrate/stool softeners and increase fluids. Return to the ER if symptoms change or worsen. SUPERVISED APC VISIT, PHYSICIAN ATTESTATION: Based on the medical record the care appears appropriate. ? Medical Records Attestation: I reviewed the patient's medical records. Imaging Data Abdominal x-ray: Radiologist's impression: No bowel obstruction or free air seen. Mild to moderate stool right sided colon with fecal impaction at the rectum. Discharge Plan Discharge Chief Complaint: Abdominal Pain Clinical Impression: Constipation Patient Disposition: Home, Self-Care Time of Disposition Decision: 19:26 Condition: Good Prescriptions / Home Meds: New magnesium citrate [Citrate of Magnesia] Solution 296 ml PO DAILY Qty: 296 0RF Rx Instructions: Take half of the bottle with 8 oz of water, take the other half after 1 hour with 8 oz of water ondansetron 4 mg tablet,disintegrating 4 mg PO Q6H PRN (Reason: nausea and vomiting) Qty: 12 0RF No Action atorvastatin 80 mg tablet 80 mg PO .QHS metformin 850 mg tablet 850 mg PO DAILY hydralazine 25 mg tablet 25 mg PO BID (DME) OneTouch Ultra Test Strip MISCELLANEOUS doxepin 10 mg capsule 20 mg PO BEDTIME escitalopram oxalate 5 mg tablet 5 mg PO DAILY metronidazole 250 mg Tablet 250 mg PO BID 7 Days Qty: 14 0RF ciprofloxacin HCl 500 mg Tablet 500 mg PO BID 7 Days Qty: 14 0RF omeprazole 40 mg Capsule,Delayed Release(Dr/Ec) 40 mg PO BID 7 Days Qty: 14 0RF Print Language: Turkish Instructions: Constipation (ED) Referrals: HITESH WATKINS [Primary Care Provider] - 1 week
[2024-11-09] MEDS: LIDOCAINE 2% JELLY 10 ML UR (19:05)
[2024-11-09 19:59] VITALS: BP 156/72; PULSE 74; O2SAT 98
== END 2024-11-09 19:59 | disposition home or self-care (01) ==
PROVIDERS: Emergency Provider Emergency Medicine; PCP Family Medicine
DX: K56.41 Fecal impaction (principal); F17.201 Nicotine dependence, unspecified, in remission
CPT/HCPCS: 74019; 99283

== ENCOUNTER 2024-11-13 14:30 | Emergency (ER) | payer MEDICARE, SELFPAY ==
--- OUTSIDE RECORDS SUMMARY | 2024-11-13 14:37 | XMS_ITS | CCD ---
Author Organization [facility] CliniSyut Care Team Providers Care Target Setter Name Role Phone TARIK DAVIS Admitting Unavailable TARIK DAVIS Attending Unavailable TARIK DAVIS Referring Unavailable HELEN MEYERS~[phone] UNKNOWN Primary Care Unavailable Rajan Kee Unavailable Nicolas Valdez Unavailable Chao Vyas Unavailable Unavailable Unavailable MD Rajan Kee Attending Provider [phone] NON STAFF Primary Care Provider UnavailDO Chao Lynn Primary Care Provider MD Rajan Kee Admit Provider PAY, DR FARIAS Admitting Unavailable PAY, DR [...] Unavailable DO Chao Vyas Primary Care Provider [phone] MD Rajan Kee Attending Provider [phone] Dr. Chao Vyas Primary Care Unava ilable ZAID TALAVERA Attending Unavailable Furlong, DO Chao Primary Care Provider DORA Bernardo Attending Provider MD Miky Talavera Emergency Provider [facility] Sc[facility] T Admit Provider [facility] T Attending Provider [phone] DO Hamilton Stuart Other Provider [facility], DO [facility] Primary Care Provider MD Arin Ferrera Attending Provider DORA Bernardo Attending Provider Chao Vyas MD Primary Care Provider Janng, DO [facility] Primary Care Provider DORA Bernardo Attending Provider FURLONG, CHAO G Referring Unavailable FURLONG, CHAO G Primary Care Unavailable FURLONG, CHAO G Referring Unavailable FURLONG, CHAO G Primary Care Unavailable NORMA Romero Attending Provider [phone] Arin Ferrera Admitting Unavailable Arin Ferrera Attending [...] sources) Lisinopril; Translations: [LISINOPRIL] Drug Allergy 2 [facility] (4 sources) Angiotensin Converting Enzyme (Phillip) Inhibitors; Translations: [PHILLIP Inhibitors] Allergy to drug (finding) 9 [facility] (1 source) Amino Acids Drug Allergy [facility] (9 sources) Angiotensin-conv erting enzyme inhibitor agent Drug Intolerance 9 [facility] (1 source) Lisinopril Drug Allergy 4 [facility] (7 sources) Lisinopril Allergy to substance 3 Cough [facility] (20 sources) Angiotensin-conv erting enzyme inhibitor agent Propensity to adverse reactions to drug 9 [facility] Work Phone: Medications Current Medications Medication [...] Active blood-glucose meter (ONETOUC H ULTRA2 METER) [facility] (20 sources) Start: 11-11-2022 blood-glucose meter (ONETOUCH ULTRA2 METER) [facility] Indications: Type 2 diabetes mellitus with other circulatory complication, without long-term current use of insulin ([facility]) 1 Unit by miscellaneous route in the morning. 1 each 11/11/2022 Active Start: 11-11-2022 blood-glucose meter (ONETOUCH ULTRA2 METER) [facility] Indications: Type 2 diabetes mellitus with other circulatory complication, without long-term current use of insulin ([facility]) 1 Unit by miscellaneous route in the morning. 1 each 0 11/11/2022 Active clopidogrel 75 mg oral tablet (20 sources) P2Y12 Platelet Inhibitor Start: 06-23-2021 End: 05-03-2024 clopidogreL (PLAVIX) 75 mg tablet Daily 05/13/2023 Active Plavix Active 12 hr dextromethorphan hydrobromide 30 mg / guaiFENesin 600 mg extended release oral tablet (3 sources) Uncompetitive Y-waejox-D-aspartate Receptor Antagonist, Sigma-1 Agonist Start: 06-06-2022 take [...] 12/31/2023 Active take 1 capsule by mo [facility] every twenty-four hours Doxepin HCl 10 MG [...] (13 sources) take 1 capsule by mo [facility] once daily Magnesium 300 MG 1 capsule [...] 2021 3:40pm Baby Aspirin Act nilda [employer] [employer] (15 sources) Start: 07-18-2021 End: 11-27-2021 [facility] [employer] Disco ntinued 1 APPLIC TOPICAL Three times daily 0 July 17, 2021 11:00pm November 27, 2021 2:36pm Start: 07-18-2021 End: 11-27-2021 B[employer]am [employer] Disco ntinued 1 APPLIC TOPICAL Three times daily 0 July 18, 2021 12:00am November 27, 2021 3:36pm bisacodyl 10 mg rectal suppository (15 sources) Stimulant Laxative Start: 07-18-2021 End: 11-27-2021 Bisacodyl Discontinued 10 MG MS Daily 0 July 18, 2021 12:00am November [...] 05-03-2024 Episodic Other aftercare (1 source) Other terminal makeup operator (current) drug therapy; Translations: [OTH INTERMEDIATE CURRENT DRUG THERAPY] Onset: 2 Episodic Other aftercare (2 sources) Taking high risk medication; Translations: [Other terminal makeup operator (current) drug therapy] 08-24-2024 Episodic Other and [...] report is generated using voice recognition reporting (GeneCapture). On occasion Brainrackcribe erroneously drops words from the report or replaces the spoken word with similar sounding words. Please call with any questions/concerns regarding this report.* Dictated and transcribed 08/25/24/dpd This report has been electronically signed and approved by the interpreting radiologist. Normal Not Available POCT Influenza A/Influenza B /SARS-COV-2 Veritoron 06-21-2024 External Poct Influenza A Antigen Negative [facility] External Poct Influenza B Antigen Negative [facility] SARS-CoV-2 (COVID-19) Ag IA.rapid Ql (Resp) Negative [facility] POCT rapid strep Aon 024 S. pyogenes Ag IA Ql (Unsp spec) Negative Negative [facility] Aerobic Cultureon 05-18-2024 Aerobic Culture FURUNCLE OF SKIN OR SUBCUTANEOUS TISSUE Light Normal Skin [place] 2 Days FURUNCLE OF SKIN OR SUBCUTANEOUS TISSUE No Anaerobes Isolated 3 Days FURUNCLE OF SKIN OR SUBCUTANEOUS TISSUE Gram Stain Result No Bacteria Seen PERFORMED BY: [address] [id number] PATHOLOGIST SECONDARY SPECIAL EDUCATION TEACHER YON REECE M.D. Normal [facility] Comment on above: Performed By: #### G S, AERC #### [place] [id number] [place] Gram Stainon 05-18-2024 Microscopic observation Gram stain Nom (Unsp spec) FURUNCLE OF SKIN OR SUBCUTANEOUS TISSUE Gram Stain Result No Bacteria Seen PERFORMED BY: [facility] [address] [place] [id number] PATHOLOGIST SECONDARY SPECIAL EDUCATION TEACHER YON REECE M.D. Normal [facility] Comment on above: Performed By: #### G S, AERC #### [facility] [address] [place] [id number] [facility] Gram stain for investigation of transfusion reactionOrdered By: Regla Romero on 05-18-2024 Microscopic observation Gram stain Nom (Unsp spec) No Anaerobes Isolated 3 Days [facility] COMPREHENSIVE METABOLIC PANE [place] 05-03-2024 Albumin [Mass/Vol] 4.6 g/dL Normal 3.2-5.[address] [facility] Comment on above: Performed By: #### C ROXIE, 55150-4, HA1C #### [facility] ([id number]) [address], [address] [place] [address] ALP [Catalytic activity/Vol] 76 U/L Normal 39-130 [facility] Comment on above: Performed By: #### Melvina FAUSTIN, 13240-2, HA1C #### [facility] ([id number]) [address], [address] [place] [address] ALT [Catalytic activity/Vol] 31 U/L Normal 0-40 [facility] Comment on above: Performed By: #### Melvina FAUSTIN, 92477-4, HA1C #### [facility] ([id number]) [address], [address] [place] [address] Anion gap [Moles/Vol] 10 mmol/L Normal 5-15 [facility] Comment on above: Performed By: #### Melvina FAUSTIN, 35126-5, HA1C #### [facility] ([id number]) [address] [place] [address] AST [Catalytic activity/Vol] 37 U/L Normal 0-41 [facility] Comment on above: Performed By: #### Melvina FAUSTIN, 80701-5, HA1C #### [facility] ([id number]) [address], [address] [place] [address] Bilirubin [Mass/Vol] 0.9 mg/dL Normal 0.3-1.2 [facility] Comment on above: Performed By: #### Melvina FAUSTIN, 46699-1, HA1C #### [facility] ([id number]) [address] [place] [address] Calcium [Mass/Vol] 9.5 mg/dL Normal 8.5-10.[address] [facility] Comment on above: Performed By: #### Melvina FAUSTIN, 40840-6, HA1C #### [facility] ([id number]) [address] [place] [address] Chloride [Moles/Vol] 103 mmol/L Normal 98-109 [facility] Comment on above: Performed By: #### Melvina FAUSTIN, 47964-7, HA1C #### [facility] ([id number]) [address] [place] [address] CO2 [Moles/Vol] 27 mmol/L Normal 22-32 [facility] Comment on above: Performed By: #### Melvina FAUSTIN, 19019-3, HA1C #### [facility] ([id number]) [address], [address] [place] [address] Creatinine [Mass/Vol] 0.86 mg/dL Normal 0.60-1.30 [facility] Comment on above: Result Comment: METH OD TRACEABLE TO IDMS STANDARD Performed By: #### C ROXIE, 16528-1, HA1C #### [facility] ([id number]) [address], [address] [place] [address] eGFR (CKD-EPI) NON-RACE DEPENDENT >90 Normal >59 [facility] Comment on above: Result Comment: Reported eGFR is based on the CKD-EPI 2020 equation that does not use a race coefficient. Performed By: #### Melvina FAUSTIN 36339-3, MONSTER1C #### [facility] ([id number]) [address], [address] [place] [address] Glucose [Mass/Vol] 101 mg/dL High 65-[address] [facility] Comment on above: Performed By: #### Melvina FAUSTIN 24864-4, MONSTER1C #### [facility] ([id number]) [address], [address] [place] [address] Potassium [Moles/Vol] 5.1 mmol/L High 3.5-5.0 [facility] Comment on above: Performed By: #### Melvina FAUSTIN 30806-8, HALEY #### [facility] ([id number]) [address], [address] [place] [address] Protein [Mass/Vol] 6.8 g/dL Normal 6.0-8.[address] [facility] Comment on above: Performed By: #### Melvina FAUSTIN 26651-2, MONSTER1C #### [facility] ([id number]) [address], [address] [place] [address] Sodium [Moles/Vol] 140 mmol/L Normal 134-[address] [facility] Comment on above: Performed By: #### Melvina FAUSTIN 32383-7, HA1C #### [facility] ([id number]) [address], [address] [place] [address] Urea nitrogen [Mass/Vol] 15 mg/dL Normal 5-27 [facility] Comment on above: Performed By: #### Melvina FAUSTIN 38622-7, MONSTRE1C #### [facility] ([id number]) [address], [address] [place] [address] HGB A1C (GLYCO-HGB)on 2023 Glucose [Mass/Vol] 131 mg/dL Normal [facility] Comment on above: Performed By: #### Melvina FAUSTIN, 24390-3, HALEY #### [facility] ([id number]) [address], [address] [address] HbA1c (Bld) [Mass fraction] 6.2 % High 4.4-5.6 [facility] Comment on above: Result Comment: NOTE ADA Guidelines Result HgbA1c Normal : less than 5.7 % Prediabetes : 5.7 % to 6.4 % Diabetes : > 6.4 % Use with caution in patients with abnormal hemoglobin variants as the half-life of red blood cells and in vivo glycation rates are affected. Performed By: #### Melvina FAUSTIN, 09709-9, HALEY #### [facility] ([id number]) [address], [address] [place] [address] Lipid 1996 panelon 4 Cholesterol [Mass/Vol] 95 mg/dL Low 150-200 Pr [facility] Comment on above: Performed By: #### Melvina FAUSTIN, 09451-7, HALEY #### [facility] ([id number]) [address], [address] [place] [address] Cholesterol in HDL [Mass/Vol] 44 mg/dL Normal >39 [facility] Comment on above: Result Comment: HDL <40 mg/dL - High Risk HDL > or = 40mg/dL- Desirable HDL >60 mg/dL - Negative Risk Performed By: #### Melvina FAUSTIN, 06103-8, HA1C #### [facility] ([id number]) [address], [address] [place] [address] Cholesterol in LDL [Mass/Vol] 31 mg/dL Normal <130 [facility] Comment on above: Result Comment: LDL <100 mg/dL - Desirable LDL >160 mg/dL - High Risk Performed By: #### C ROXIE, 52266-0, HA1C #### [facility] ([id number]) [address], [address] [place] [address] Cholesterol in VLDL [Mass/Vol] 20 mg/dL Normal 0-30 [facility] Comment on above: Performed By: #### Melvina FAUSTIN, 78309-7, HA1C #### [facility] ([id number]) [address], [facility] [address] [place] [address] CHOLESTEROL:HDL 2.2 Normal 1.0-5.0 [facility] Comment on above: Performed By: #### Melvina FAUSTIN, 21746-0, HA1C #### [facility] ([id number]) [address], [address] [place] [address] Triglyceride [Mass/Vol] 98 mg/dL Normal 27-150 [facility] Comment on above: Performed By: #### Melvina FAUSTIN, 42143-0, HA1C #### [facility] ([id number]) [address], [facility] [address] [place] [address] MICROALBUMIN - ALBUMIN:CREAT ININE URINE RATIOon 05-03-2024 ALB/CREAT RATIO 37.7 mg/g creat High 0.0-30.0 [facility] Comment on above: Performed By: #### M ALBU #### [facility] ([id number]) [address], [address] [place] [address] Albumin DL <= 20 mg/L (U) [Mass/Vol] 5.8 mg/dL High 0.0-1.9 [facility] Comment on above: Performed By: #### M ALBU #### [facility] ([id number]) [address], [address] [place] [address] URINE CREAT 153.96 mg/dL Normal [facility] Comment on above: Performed By: #### M YRIS #### [facility] ([id number]) [address] [place] [address] US carotid doppler BIon 02-21 US carotid doppler BI [facility] [address] [place] [address] Ultrasound Report Signed Patient: Archana Gutierrez MR#: [id number] : 1955 Acct:[id number] Age/Sex: 68 / M ADM Date: 03/17/24 Loc: [facility] Room: Type: [facility] Attending Dr: Lory LINTONC Ordering Provider: Lory [...] Nicolas Valdez M.D.03/17/2024 12:23 PM Dictation Location: [place] [address] Tech: Peggy Ng Transcribed By: JANET 03/17/24 1223 Dictated By: Nicolas Valdez MD 03/17/24 1222 Signed By: 03/17/24 1223 Normal [facility] CBC without diffon Erythrocyte distribution width (RBC) [Ratio] 14.5 % 11.5 - 15.0 % [facility] Hematocrit (Bld) [Volume fraction] 44.4 % 39 - 49 % [facility] Hemoglobin (Bld) [Mass/Vol] 14.9 g/dL 13.0 - 17.0 g/dL [facility] MCH (RBC) [Entitic mass] 29.2 pg 27 - 34 pg [facility] MCHC (RBC) [Mass/Vol] 33.6 g/dL 32 - 3 6 g/dL [facility] MCV (RBC) [Entitic vol] 87 fL 80 - 100 fL [facility] Platelet mean volume (Bld) [Entitic vol] 9.0 fL 7 - 12 fL [facility] Platelets (Bld) [#/Vol] 397 10*3/uL [facility] RBC (Bld) [#/Vol] 5.12 10*6/uL [facility] WBC corrected for nucl RBC Auto (Bld) [#/Vol] 6.5 [facility] COMPLETE BLOOD COUNTon 11-03 Erythrocyte distribution width (RBC) [Ratio] 14.5 % Normal 11.5-15.0 [facility] Comment on above: Performed By: #### C ENOC, CMP #### [facility] ([id number]) [address], [address] [place] [address] Hematocrit (Bld) [Volume fraction] 44.4 % Normal 39-49 [facility] Comment on above: Performed By: #### C ENOC, CMP #### [facility] ([id number]) [address], [address] [place] [address] Hemoglobin (Bld) [Mass/Vol] 14.9 g/dL Normal 13.0-17.0 [facility] Comment on above: Performed By: #### C ENOC, CMP #### [facility] ([id number]) [address], [address] [place] [address] MCH (RBC) [Entitic mass] 29.2 pg Normal 27-34 [facility] Comment on above: Performed By: #### C ENOC, CMP #### [facility] ([id number]) [address], [address] [place] [address] MCHC (RBC) [Mass/Vol] 33.6 g/dL Normal 32-36 [facility] Comment on above: Performed By: #### C ENOC, CMP #### [facility] ([id number]) [address], [address] [place] [address] MCV (RBC) [Entitic vol] 87 fL Normal 80-100 [facility] Comment on above: Performed By: #### C BC, CMP #### [facility] ([id number]) [address] [place] [address] Platelet mean volume (Bld) [Entitic vol] 9.0 fL Normal 7-12 [facility] Comment on above: Performed By: #### C ENOC, CMP #### [facility] ([id number]) [address], [address] [place] [address] Platelets (Bld) [#/Vol] 397 10*3/uL Normal 150-450 [facility] Comment on above: Performed By: #### C ENOC, CMP #### [facility] ([id number]) [address] [place] [address] RBC COUNT 5.12 X10E12/L Normal 4.10-5.70 [facility] Comment on above: Performed By: #### C ENOC, CMP #### [facility] ([id number]) [address] [place] [address] WBC (Bld) [#/Vol] 6.5 10*3/uL Normal 4.0-11.[address] [facility] Comment on above: Performed By: #### C ENOC, CMP #### [facility] ([id number]) [address] [place] [address] COMPREHENSIVE METABOLIC PANE [place] 11-03-2023 Albumin [Mass/Vol] 4.5 g/dL Normal 3.2-5.[address] [facility] Comment on above: Performed By: #### C ENOC, CMP #### [facility] ([id number]) [address], [address] [place] [address] ALP [Catalytic activity/Vol] 106 U/L Normal 39-130 [facility] Comment on above: Performed By: #### C BC, CMP #### [facility] ([id number]) [address], [address] [place] [address] ALT [Catalytic activity/Vol] 31 U/L Normal 0-40 [facility] Comment on above: Performed By: #### C BC, CMP #### [facility] ([id number]) [address] [place] [address] Anion gap [Moles/Vol] 8 mmol/L Normal 5-15 [facility] Comment on above: Performed By: #### C BC, CMP #### [facility] ([id number]) [address] [place] [address] AST [Catalytic activity/Vol] 38 U/L Normal 0-41 [facility] Comment on above: Performed By: #### C BC, CMP #### [facility] ([id number]) [address], [address] [place] [address] Bilirubin [Mass/Vol] 0.8 mg/dL Normal 0.3-1.2 [facility] Comment on above: Performed By: #### C BC, CMP #### [facility] ([id number]) [address] [place] [address] Calcium [Mass/Vol] 9.8 mg/dL Normal 8.5-10.[address] [facility] Comment on above: Performed By: #### C BC, CMP #### [facility] ([id number]) [address], [address] [place] [address] Chloride [Moles/Vol] 103 mmol/L Normal 98-109 [facility] Comment on above: Performed By: #### C BC, CMP #### [facility] ([id number]) [address] [place] [address] CO2 [Moles/Vol] 27 mmol/L Normal 22-32 [facility] Comment on above: Performed By: #### C BC, CMP #### [facility] ([id number]) [address] [place] [address] Creatinine [Mass/Vol] 0.94 mg/dL Normal 0.60-1.30 [facility] Comment on above: Result Comment: METH OD TRACEABLE TO IDMS STANDARD Performed By: #### C ENOC, CMP #### [facility] ([id number]) [address], [address] [place] [address] GFR/1.73 sq M.predicted among non-blacks MDRD (S/P/Bld) [Vol rate/Area] 87 mL/min/{1.73_m2} Normal >59 [facility] Comment on above: Result Comment: Reported eGFR is based on the CKD-EPI 2020 equation that does not use a race coefficient. Performed By: #### C ENOC, CMP #### [facility] ([id number]) [address] [place] [address] Glucose [Mass/Vol] 110 mg/dL High 65-[address] [facility] Comment on above: Performed By: #### C ENOC, CMP #### [facility] ([id number]) [address] [address] [place] [address] Potassium [Moles/Vol] 4.7 mmol/L Normal 3.5-5.0 [facility] Comment on above: Performed By: #### C ENOC, CMP #### [facility] ([id number]) [address] [place] [address] Protein [Mass/Vol] 7.3 g/dL Normal 6.0-8.[address] [facility] Comment on above: Performed By: #### C ENOC, CMP #### [facility] ([id number]) [address] [place] [address] Sodium [Moles/Vol] 138 mmol/L Normal 134-[address] [facility] Comment on above: Performed By: #### C BC, CMP #### [facility] ([id number]) [address] [place] [address] Urea nitrogen [Mass/Vol] 22 mg/dL Normal 5-27 [facility] Comment on above: Performed By: #### C BC, CMP #### [facility] ([id number]) [address] [place] [address] Comprehensive metabolic pane hamilton 11-03-2023 Albumin [Mass/Vol] 4.5 g/dL 3.2 - 5.3 g/dL [facility] ALP [Catalytic activity/Vol] 106 U/L 39 - 130 U/L [facility] ALT No additional P-5'-P [Catalytic activity/Vol] 31 U/L 0 - 40 U/L [facility] Anion gap [Moles/Vol] 8 mmol/L 5 - 15 mmol/L [facility] AST [Catalytic activity/Vol] 38 U/L 0 - 41 U/L [facility] Bilirubin [Mass/Vol] 0.8 mg/dL 0.3 - 1 .2 mg/dL [facility] Calcium [Mass/Vol] 9.8 mg/dL 8.5 - 10. 5 mg/dL [facility] Chloride [Moles/Vol] 103 mmol/L 98 - 10 9 mmol/L [facility] CO2 [Moles/Vol] 27 mmol/L 22 - 32 mmol/L [facility] Creatinine [Mass/Vol] 0.94 mg/dL 0.60 - 1.30 mg/dL [facility] Comment on above: METHOD TRACEABLE TO IDDE STANDARD eGFR (CKD-EPI)non-race dependent 87 - PINF [facility] Comment on above: Reported eGFR is based on the CKD-EPI 2020 equation that does not use a race coefficient. Glucose [Mass/Vol] 110 mg/dL High 65 - 99 mg/dL [facility] Interpretation and review of laboratory results Abnormal [facility] Potassium [Moles/Vol] 4.7 mmol/L 3.5 - 5.0 mmol/L [facility] Protein [Mass/Vol] 7.3 g/dL 6.0 - 8.0 g/dL [facility] Sodium [Moles/Vol] 138 mmol/L 134 - 146 mmol/L [facility] Urea nitrogen [Mass/Vol] 22 mg/dL 5 - 27 mg/dL [facility] HGB A1C (GLYCO-HGB)on 2023 Glucose [Mass/Vol] 143 mg/dL Normal [facility] Comment on above: Performed By: #### C BC, CMP #### [facility] ([id number]) [address] [place] [address] HbA1c (Bld) [Mass fraction] 6.6 % High 4.4-5.6 [facility] Comment on above: Result Comment: NOTE ADA Guidelines Result HgbA1c Normal : less than 5.7 % Prediabetes : 5.7 % to 6.4 % Diabetes : > 6.4 % Use with caution in patients with abnormal hemoglobin variants as the half-life of red blood cells and in vivo glycation rates are affected. Performed By: #### C BC, CMP #### [facility] ([id number]) [address] [place] [address] Hemoglobin A1con 11-03-2023 Average glucose Estimated from glycated hemoglobin (Bld) [Mass/Vol] 143 mg/dL [facility] HbA1c (Bld) [Mass fraction] 6.6 % High 4.4 - 5.6 % [facility] Comment on above: NOTE ADA Guidelines Result HgbA1c Normal : less than 5.7 % Prediabetes : 5.7 % to 6.4 % Diabetes : > 6.4 % Use with caution in patients with abnormal hemoglobin variants as the half-life of red blood cells and in vivo glycation rates are affected. Interpretation and review of laboratory results Abnormal [facility] [facility] US carotid doppler BIon 12-2 US carotid doppler [facility] Main [address] [address] Ultrasound Report Signed Patient: Archana Gutierrez MR#: [id number] : 1955 Acct:[id number] Age/Sex: 68 / M ADM Date: 09/11/23 Loc: [facility] Room: Type: [facility] Attending Dr: Lory Bernardo IT PROGRAMMER ANALYST-C Ordering Provider: Lory Bernardo APRN Date of [...] Rajan Kee MD09/11/2023 1:50 PM Dictation Location: [place] [address] Tech: Cally Shell Transcribed By: PWS 09/11/23 1350 Dictated By: Rajan Kee MD 09/11/23 1349 Signed By: 09/11/23 1350 Normal [facility] XR chest 2V*on 09-05-2023 XR chest 2V* [facility] Main [place] [address] [place] [address] XRay Report Signed Patient: Archana Gutierrez MR#: [id number] : 1955 Acct:[id number] Age/Sex: 68 / M ADM Date: 09/05/23 Loc: XD Room: Type: [facility] Attending Dr: Arin Ferrera MD Copies to: [...] Villasenor Jr., Marli09/05/2023 2:42 PM Dictation Location: [place] [address] Transcribed By: [facility] 09/05/23 1442 Dictated By: Ashish Villasenor Jr, DO 09/05/23 144 Signed By: 09/05/23 1442 Normal [facility] Basophils Auto (Bld) [#/Vol] Ordered By: Scooby Brenner on 05-13-2023 Basophils (Bld) [#/Vol] 0.1 10*3/uL 0.0-0.2 [facility] Basophils/100 WBC Auto (Bld) Ordered By: Scooby Brenner on 05-13-2023 Basophils/100 WBC (Bld) 1.1 % . [facility] Calcium [Mass/volume] in Ser um or PlasmaOrdered By: Scooby FigueroaBrenner on 05-13-2023 Calcium [Mass/Vol] 9.1 mg/dL 8.6-10.3 [facility] Carbon dioxide, total [Moles /volume] in Serum or PlasmaOrdered By: Scooby Brenner on 05-13-2023 CO2 [Moles/Vol] 27.0 mmol/L 21.0-31.0 [facility] Chloride [Moles/volume] in S rolf or PlasmaOrdered By: Scooby FigueroaBrenner on 05-13-2023 Chloride [Moles/Vol] 104 mmol/L 98-107 [facility] Creatinine [Mass/volume] in Serum or PlasmaOrdered By: Scooby FigueroaBrenner on 05-13-2023 Creatinine [Mass/Vol] 0.74 mg/dL 0.70-1.30 [facility] Eosinophils Auto (Bld) [#/Vo l]Ordered By: Scooby Hollywood on 05-13-2023 Eosinophils (Bld) [#/Vol] 0.4 10*3/uL 0.0-0.45 [facility] Eosinophils/100 WBC Auto (Bl d)Ordered By: Scooby Hollywood on 05-13-2023 Eosinophils/100 WBC (Bld) 5.4 % . [facility] Erythrocyte distribution wid th Auto (RBC) [Ratio]Ordered By: Scooby Brenner on 05-13-2023 Erythrocyte distribution width (RBC) [Ratio] 14.6 % 12.0-14.8 [facility] Glucose Glucometer (BldC) [M ass/Vol]Ordered By: Scooby FigueroaBrenner on 05-13-2023 Glucose [Mass/Vol] 190 mg/dL [facility] Comment on above: Random Glucose Refer ence Range is dependent on time and content of last meal. Glucose of more than 200 mg/dL in a nonstressed, ambulatory subject supports the diagnosis of Diabetes Mellitus. Glucose [Mass/volume] in Ser um or PlasmaOrdered By: Scooby Brenner on 05-13-2023 Glucose [Mass/Vol] 90 mg/dL 70-100 [facility] Comment on above: ADA recommended refe rence rangeRandom Glucose Reference Range is dependent on time and content of last meal. Glucose of more than 200 mg/dL in a nonstressed, ambulatory subject supports the diagnosis of Diabetes Mellitus. Hematocrit Auto (Bld) [Volum e fraction]Ordered By: Scooby Brenner on 05-13-2023 Hematocrit (Bld) [Volume fraction] 40.2 % 38.8-50.0 [facility] Hemoglobin [Mass/volume] in BloodOrdered By: Scooby Brenner on 05-13-2023 Hemoglobin (Bld) [Mass/Vol] 13.5 g/dL 13.0-17.0 [facility] Leukocytes [#/volume] correc tamiko for nucleated erythrocytes in Blood by Automated counOrdered By: Scooby Brenner on 05-13-2023 WBC corrected for nucl RBC Auto (Bld) [#/Vol] 6.5 10*3/uL 4.1-10.5 [facility] Lymphocytes Auto (Bld) [#/Vo l]Ordered By: Scooby FigueroaBrenner on 05-13-2023 Lymphocytes (Bld) [#/Vol] 2.2 10*3/uL 1.00-4.8 [facility] Lymphocytes/100 WBC Auto (Bl d)Ordered By: Scooby Brenner on 05-13-2023 Lymphocytes/100 WBC (Bld) 34.7 % . [facility] MCH Auto (RBC) [Entitic mass ]Ordered By: Scooby Brenner on 05-13-2023 MCH (RBC) [Entitic mass] 29.4 pg 27.5-35.2 [facility] MCHC Auto (RBC) [Mass/Vol]Or dered By: Scooby Brenner on 05-13-2023 MCHC (RBC) [Mass/Vol] 33.6 g/dL 32.5-35.6 [facility] MCV Auto (RBC) [Entitic vol] Ordered By: Scooby Brenner on 05-13-2023 MCV (RBC) [Entitic vol] 87.4 fL 83.5-101 [facility] Monocytes Auto (Bld) [#/Vol] Ordered By: Scooby Brenner on 05-13-2023 Monocytes (Bld) [#/Vol] 0.9 10*3/uL 0.0-0.8 [facility] Monocytes/100 WBC Auto (Bld) Ordered By: Scooby FigueroaBrenner on 05-13-2023 Monocytes/100 WBC (Bld) 13.9 % . [facility] Neutrophils Auto (Bld) [#/Vo l]Ordered By: Scooby FigueroaBrenner on 05-13-2023 Neutrophils (Bld) [#/Vol] 2.9 10*3/uL 1.8-7.7 [facility] Neutrophils/100 WBC Auto (Bl d)Ordered By: Scooby Hollywood on 05-13-2023 Neutrophils/100 WBC (Bld) 44.9 % . [facility] No Panel InformationOrdered By: Scooby FigueroaBrenner on 05-13-2023 Bedside Glucose Comment Glu2: cleaned meter [facility] Estimated GFR (CKD-EPI) > 60.0 mL/Min [facility] Creatinine Clearance (Chem 85.92 [facility] Nucleated erythrocytes [Pres ence] in Blood by Automated countOrdered By: Scooby FigueroaBrenner on 05-13-2023 Nucleated RBC Auto Ql (Bld) 0.1 /100{WBC} 0-0.5 [facility] Platelet mean volume Auto (B ld) [Entitic vol]Ordered By: Scooby FigueroaBrenner on 05-13-2023 Platelet mean volume (Bld) [Entitic vol] 8.8 fL 6.6-10.1 [facility] Platelets Auto (Bld) [#/Vol] Ordered By: Scooby Brenner on 05-13-2023 Platelets (Bld) [#/Vol] 376 10*3/uL 150-450 [facility] Potassium [Moles/volume] in Serum or PlasmaOrdered By: Scooby Brenner on 05-13-2023 Potassium [Moles/Vol] 4.1 mmol/L 3.5-5.1 [facility] RBC Auto (Bld) [#/Vol]Ordere d By: Scooby Brenner on 05-13-2023 RBC (Bld) [#/Vol] 4.60 10*6/uL 3.90-5.60 [facility] Serum or plasma anion gap de terminationOrdered By: Scooby Brenner on 05-13-2023 Anion gap [Moles/Vol] 11.1 mmol/L 6.0-15.[address] [facility] Sodium [Moles/volume] in Ser um or PlasmaOrdered By: Scooby Brenner on 05-13-2023 Sodium [Moles/Vol] 138 mmol/L 136-145 [facility] Urea nitrogen [Mass/volume] in Serum or PlasmaOrdered By: Scooby Brenner on 05-13-2023 Urea nitrogen [Mass/Vol] 14 mg/dL 7-25 [facility] WBC Auto (Bld) [#/Vol]Ordere d By: Scooby Hollywood on 05-13-2023 WBC (Bld) [#/Vol] 6.5 10*3/uL 4.1-10.5 [facility] Activated partial thrombopla stin time (aPTT) in platelet poor plasma by coagulation aOrdered By: Miky Talavera on 05-12-2023 aPTT Coag (PPP) [Time] 32.2 s 25.1-36.[address] [facility] Bilirubin Test strip Ql (U)O rdered By: Miky Talavera on 05-12-2023 Bilirubin Ql (U) Negative Negative [facility] Color Auto (U)Ordered By: Cintia Talavera on 05-12-2023 Color (U) Yellow Yellow [facility] Creatine kinase [Enzymatic a ctivity/volume] in Serum or PlasmaOrdered By: Miky Talavera on 05-12-2023 CK [Catalytic activity/Vol] 154 U/L 30-223 [facility] INR in Platelet poor plasma by Coagulation assayOrdered By: Miky Talavera on 05-12-2023 INR Coag (PPP) [Relative time] 1.0 {INR} [facility] Comment on above: INR Therapeutic Rang [...] on 05-12-2023 Ketones (U) [Mass/Vol] Negative Negative [facility] Laboratory - CoagulationOrde red By: Miky Talavera on 05-12-2023 PT Coag (PPP) [Time] 12.0 s 9.0-12.9 [facility] Monocyte distribution width [Entitic volume] in Blood by AutomatedOrdered By: Miky Talavera on 05-12-2023 Monocyte distribution width Auto (Bld) [Entitic vol] 16.96 % 0.00-20.00 [facility] Nitrite Test strip Ql (U)Ord ered By: Miky Talavera on 05-12-2023 Nitrite Ql (U) Negative Negative [facility] Protein Auto test strip (U) [Mass/Vol]Ordered By: Miky Talavera on 05-12-2023 Protein (U) [Mass/Vol] Negative Negative [facility] Specific gravity Auto test s trip (U) [Rel density]Ordered By: Miky Talavera on 05-12-2023 Specific gravity (U) [Rel density] 1.011 1.001-1.03 0 [facility] Troponin I.cardiac [Mass/vol ume] in Serum or Plasma by Detection limit <= 0.01 ng/Ordered By: Miky Talavera on 05-12-2023 Troponin I.cardiac DL <= 0.01 ng/mL [Mass/Vol] 10.9 pg/mL 0.0-20.0 [facility] Urine clarity by refractomet ry automatedOrdered By: Miky Talavera on 05-12-2023 Clarity Refractometry automated (U) Clear Clear [facility] Urine glucose measurement by automated test strip (mass/volume)Ordered By: Miky Talavera on 05-12-2023 Glucose Auto test strip (U) [Mass/Vol] Normal mg/dL Normal [facility] Urine hemoglobin detection b y automated test stripOrdered By: Miky Talavera on 05-12-2023 Hemoglobin Auto test strip Ql (U) Negative Negative [facility] Urine leukocyte esterase det ection by automated test stripOrdered By: Miky Talavera on 05-12-2023 Leukocyte esterase Auto test strip Ql (U) Negative Negative [facility] Urobilinogen Auto test strip (U) [Mass/Vol]Ordered By: Miky Talavera on 05-12-2023 Urobilinogen (U) [Mass/Vol] Normal mg/dL Normal [facility] pH Auto test strip (U)Ordere d By: Miky Talavera on 05-12-2023 pH (U) 6.5 [pH] 5.0-9.0 [facility] XR Chest 2 Views*on 08-05-20 XR Chest 2 Views* Chest 2 views. History: Tuberculosis screen. Findings: Osseous structures intact. Her crit is normal. Aorta calcified. Pulmonary vasculature normal. Ill-defined increased opacity right lung base. Left lung clear. Impression: Right lower lung subsegmental atelectasis/pneumonia. Report reported and signed by Ramón Jeronimo on 08/06/2022 0941 Normal [facility] Transmitter Operator Activated partial thrombopla stin time (aPTT) in platelet poor plasma by coagulation aOrdered By: Rajan Kee on 05-22-2022 aPTT Coag (PPP) [Time] 30.6 s 25.1-36.[address] [facility] - CoagulationOrde red By: Rajan Kee on 05-22-2022 PT Coag (PPP) [Time] 13.3 s 9.0-12.9 [facility] Platelet poor plasma interna tional normalized ratio (INR) by coagulation assay (relatOrdered By: Rajan Kee on 05-22-2022 INR Coag (PPP) [Relative time] 1.2 {INR} [facility] Comment on above: INR Therapeutic Rang [...] 05-21-2022 ACT Coag (Bld) 155 s 90-139 [facility] Comment on above: Reference Range: 90- 139 (Non-heparinized) Glucose Glucometer (BldC) [M ass/Vol]Ordered By: Rajan Kee on 05-21-2022 Glucose [Mass/Vol] 115 mg/dL [facility] Comment on above: Random Glucose Refer ence Range is dependent on time and content of last meal. Glucose of more than 200 mg/dL in a nonstressed, ambulatory subject supports the diagnosis of Diabetes Mellitus. No Panel InformationOrdered By: Rajan Kee on 05-21-2022 Bedside Glucose Comment Glu2: cleaned meter [facility] COVID-19 Positive/NegativeOr dered By: Rajan Kee on 05-17-2022 SARS-CoV-2 (COVID-19) N gene EMMANUEL+probe Ql (Resp) Negative Negative [facility] Comment on above: Testing for SARS-CoV -2 by RT-PCR This test was developed and its performance characteristics determined by [employer] and validated at the [facility]. This test has not been FDA [...] developed and its performance characteristics determined by [employer] and validated at the [facility]. This test has not been FDA [...] the authorization is terminated or revoked sooner. [facility] CARDIAC STRESS/REST INJE CTIONon 05-08-2022 [facility] CARDIAC STRESS/REST INJECTION Patient Name: ARCHANA GUTIERREZ STUDY: MYOCARDIAL PERFUSION STRESS TEST WITH LEXISCAN Performing facility: [facility], [address] [place] [address], [address] Provider: Zaid Talavera RN, PRODUCT ENGINEER PCP: Dr. Harry Vyas Supervising provider: Kimberly Mahan MD, [facility] INDICATION: Abnormal echo Pre-operative risk assessment for Carotid scheduled at [facility] on TBD. HISTORY: Gender: M; Age: 67 y/o ; Height: 175.26 cm; Weight: 87.4101819 kg. High Cholesterol; Diabetes; HTN; Chest Pain; CVA Quit smoking 22 years ago. COMPARISON: No comparison. ACCESSION NUMBER(S): [id number]; [id number]; [id number] ORDERING CLINICIAN: ZAID TALAVERA TECHNIQUE: ONE DAY [...] Electronically signed by: KIMBERLY MAHAN MD Normal [facility] No Panel Informationon 05-08 Please click on the link to view the study images Normal [facility] [place] [address] DO Work Phone: Normal [facility] [address] [place] Work Phone: Tobacco Screening.on 022 Adult depression screening assessment No [facility] [place] [address] DO Work Phone: Fall risk assessment a) No falls within the last year [facility] [place] [address] DO Work Phone: Tobacco use status [facility] b) No [facility] [place] [address] DO Work Phone: Basophils Auto (Bld) [#/Vol] Ordered By: Rajan Kee on 04-26-2022 Basophils (Bld) [#/Vol] 0.1 10*3/uL 0.0-0.2 [facility] Basophils/100 WBC Auto (Bld) Ordered By: Rajan Kee on 04-26-2022 Basophils/100 WBC (Bld) 1.0 % . [facility] Blood hemoglobin measurement (mass/volume)Ordered By: Rajan Kee on 08-05-2022 Hemoglobin (Bld) [Mass/Vol] 15.4 g/dL 13.0-17.0 [facility] Blood leukocytes automated c ount (number/volume)Ordered By: Rajan Chilango on 04-26-2022 WBC (Bld) [#/Vol] 7.3 10*3/uL 4.5-11.0 [facility] COVID-19 Positive/NegativeOr dered By: Rajan Kee on 04-26-2022 SARS-CoV-2 (COVID-19) N gene EMMANUEL+probe Ql (Resp) Negative Negative [facility] Comment on above: Testing for SARS-CoV -2 by RT-PCR This test was developed and its performance characteristics determined by [employer] and validated at the [facility]. This test has not been FDA [...] developed and its performance characteristics determined by [employer] ([employer]) and validated at the [facility]. This test has not been FDA [...] 04-26-2022 Creatinine [Mass/Vol] 0.86 mg/dL 0.64-1.27 [facility] Eosinophils Auto (Bld) [#/Vo l]Ordered By: Rajan Kee on 04-26-2022 Eosinophils (Bld) [#/Vol] 0.3 10*3/uL 0.0-0.45 [facility] Eosinophils/100 WBC Auto (Bl d)Ordered By: Rajan Kee on 04-26-2022 Eosinophils/100 WBC (Bld) 3.5 % . [facility] Erythrocyte distribution wid th Auto (RBC) [Ratio]Ordered By: Rajan Kee on 04-26-2022 Erythrocyte distribution width (RBC) [Ratio] 13.7 % 12.0-14.8 [facility] Estimated glomerular filtrat ion rate (GFR) non- AmericanOrdered By: Rajan Kee on 04-26-2022 GFR/1.73 sq M.predicted among non-blacks MDRD (S/P/Bld) [Vol rate/Area] > 60 mL/Min [facility] Hematocrit Auto (Bld) [Volum e fraction]Ordered By: Rajan Kee on 04-26-2022 Hematocrit (Bld) [Volume fraction] 47.0 % 38.8-50.0 [facility] Laboratory - Hematology and Cell countsOrdered By: Rajan Kee on 04-26-2022 Nucleated RBC/100 WBC (Bld) [Ratio] 0.0 % 0-0.5 [facility] Lymphocytes Auto (Bld) [#/Vo l]Ordered By: Rajan Kee on 04-26-2022 Lymphocytes (Bld) [#/Vol] 2.3 10*3/uL 1.00-4.8 [facility] Lymphocytes/100 WBC Auto (Bl d)Ordered By: Rajan Kee on 04-26-2022 Lymphocytes/100 WBC (Bld) 31.0 % . [facility] MCH Auto (RBC) [Entitic mass ]Ordered By: Rajan Kee on 04-26-2022 MCH (RBC) [Entitic mass] 28.7 pg 27.5-35.2 [facility] MCHC Auto (RBC) [Mass/Vol]Or dered By: Rajan Kee on 04-26-2022 MCHC (RBC) [Mass/Vol] 32.8 g/dL 32.5-35.6 [facility] MCV Auto (RBC) [Entitic vol] Ordered By: Rajan Kee on 04-26-2022 MCV (RBC) [Entitic vol] 87.7 fL 83.5-101 [facility] Monocytes Auto (Bld) [#/Vol] Ordered By: aRjan Kee on 04-26-2022 Monocytes (Bld) [#/Vol] 1.0 10*3/uL 0.0-0.8 [facility] Monocytes/100 WBC Auto (Bld) Ordered By: Rajan Kee on 04-26-2022 Monocytes/100 WBC (Bld) 14.3 % . [facility] Neutrophils Auto (Bld) [#/Vo l]Ordered By: Rajan Kee on 04-26-2022 Neutrophils (Bld) [#/Vol] 3.7 10*3/uL 1.8-7.7 [facility] Neutrophils/100 WBC Auto (Bl d)Ordered By: Rajan Kee on 04-26-2022 Neutrophils/100 WBC (Bld) 50.2 % . [facility] No Panel InformationOrdered By: Rajan Kee on 04-26-2022 Estimated GFR () > 60 mL/Min [facility] Comment on above: GFR estimated refere nce range: According to KDOQI guidelines, <60 ml/min/1.73m2 is sufficient to diagnose a patient with chronic kidney disease. Pharmacy Creatinine Clearance (Chem N/A [facility] Platelet mean volume Auto (B ld) [Entitic vol]Ordered By: Rajan Kee on 04-26-2022 Platelet mean volume (Bld) [Entitic vol] 9.1 fL 6.6-10.1 [facility] Platelets Auto (Bld) [#/Vol] Ordered By: Rajan Kee on 04-26-2022 Platelets (Bld) [#/Vol] 363 10*3/uL 150-450 [facility] RBC Auto (Bld) [#/Vol]Ordere d By: Rajan Kee on 04-26-2022 RBC (Bld) [#/Vol] 5.37 10*6/uL 3.90-5.60 [facility] Serum or plasma calcium terri urement (mass/volume)Ordered By: Rajan Kee on 04-26-2022 Calcium [Mass/Vol] 9.4 mg/dL 8.2-10.2 [facility] Serum or plasma chloride carlos surement (moles/volume)Ordered By: Rajan Kee on 04-26-2022 Chloride [Moles/Vol] 101 mmol/L 95-114 [facility] Serum or plasma glucose terri urement (mass/volume)Ordered By: Rajan Kee on 04-26-2022 Glucose [Mass/Vol] 140 mg/dL 70-100 [facility] Comment on above: ADA recommended refe rence [...] 04-26-2022 Potassium [Moles/Vol] 4.3 mmol/L 3.5-5.1 [facility] Serum or plasma sodium measu rement (moles/volume)Ordered By: Rajan Kee on 04-26-2022 Sodium [Moles/Vol] 133 mmol/L 136-146 [facility] Serum or plasma total carbon dioxide measurement (moles/volume)Ordered By: Rajan Kee on 04-26-2022 CO2 [Moles/Vol] 23.3 mmol/L 22.0-30.0 [facility] Serum or plasma urea nitroge n measurement (mass/volume)Ordered By: Rajan Kee on 04-26-2022 Urea nitrogen [Mass/Vol] 15 mg/dL 06-14 [facility] Creatinine (Bld) [Mass/Vol]O rdered By: Rajan Kee on 04-15-2022 Creatinine [Mass/Vol] 1.0 mg/dL 0.6-1.3 [facility] Comment on above: ER/ESD physician is notified/shown all ISTAT results. Critical values may be confirmed by laboratory testing if deemed necessary by ER attending doctor. ER/ESD physician is notified/shown all ISTAT results.Critical values may be confirmed by laboratory testing ifdeemed necessary by ER attending doctor. No Panel InformationOrdered By: Rajan Kee on 04-15-2022 POC Estimated GFR > 60 [facility] Comment on above: GFR estimated refere nce range: According to KDOQI guidelines, <60 ml/min/1.73m2 is sufficient to diagnose a patient with chronic kidney disease. POC Estimated GFR Non- Amer > 60 [facility] COMPREHENSIVE METABOLIC PANE [place] 03-22-2022 Albumin [Mass/Vol] 4.6 g/dL Normal 3.6-5.1 [facility] Comment on above: Performed By: #### 1 0231, 490, 5620 #### [facility] [address] [address] [employer]: Davy Pollard MD Albumin/Globulin [Mass ratio] 1.8 {ratio} Normal 1.0-2.5 [facility] Comment on above: Performed By: #### 1 0231, 49, 8060 #### [facility] [address] [address] [employer]: Davy Pollard MD ALP [Catalytic activity/Vol] 78 U/L Normal 37-153 [facility] Comment on above: Performed By: #### 1 0231, 497, 1360 #### [place] [address] [employer]: Davy Polalrd MD ALT [Catalytic activity/Vol] 34 U/L High 6-29 [facility] Comment on above: Performed By: #### 1 0231, 496, 7600 #### [facility] [place] [address] [employer]: Davy Pollard MD AST [Catalytic activity/Vol] 36 U/L High 10-35 [facility] Comment on above: Performed By: #### 1 0231, 496, 7600 #### [facility] [place] [address] [employer]: Davy Pollard MD Bilirubin [Mass/Vol] 0.5 mg/dL Normal 0.2-1.2 [facility] Comment on above: Performed By: #### 1 023, 496, 7600 #### [facility] [place] [address] [employer]: Davy Pollard MD Calcium [Mass/Vol] 9.5 mg/dL Normal 8.6-10.4 [facility] Comment on above: Performed By: #### 1 0231, 496, 7600 #### [facility] [place] [address] [employer]: Davy Pollard MD Chloride [Moles/Vol] 103 mmol/L Normal 98-110 [facility] Comment on above: Performed By: #### 1 0231, 496, 7600 #### [facility] [place] [address] [employer]: Davy Pollard MD CO2 [Moles/Vol] 26 mmol/L Normal 20-32 [facility] Comment on above: Performed By: #### 1 0231, 496, 7600 #### [facility] [place] [address] [employer]: Davy Pollard MD Creatinine [Mass/Vol] 1.41 mg/dL High 0.50-0.[address] [facility] Comment on above: Result Comment: For patients >49 years of age, the reference limit for Creatinine is approximately 13% higher for people identified as -Mauritian. Performed By: #### 1 230, 496, 7600 #### [facility] [address], [address] [place] [address] [employer]: Davy Pollard MD eGFR NON-AFR. TAJIK 38 mL/min/1.73m2 Low > OR = 60 [facility] Comment on above: Performed By: #### 1 230, 49, 7600 #### [facility] [address], [address] [place] [address] [employer]: Davy Pollard MD GFR/1.73 sq M.predicted among blacks MDRD (S/P/Bld) [Vol rate/Area] 44 mL/min/{1.73_m2} Low > OR = 60 [facility] Comment on above: Performed By: #### 1 230, 49, 3310 #### [facility] of [address], [address] [place] [address] [employer]: Davy Pollard MD Globulin (S) [Mass/Vol] 2.6 g/dL Normal 1.9-3.7 [facility] Comment on above: Performed By: #### 1 230, 491, 2370 #### [facility] [place] [address] [employer]: Davy Pollard MD Glucose [Mass/Vol] 157 mg/dL High 65-99 [facility] Comment on above: Result Comment: Fasting reference interval For someone without known diabetes, a glucose value >125 mg/dL indicates that they may have diabetes and this should be confirmed with a follow-up test. Performed By: #### 1 230, 496, 7600 #### [facility] [address], [address] [place] [address] [employer]: Davy Pollard MD Potassium [Moles/Vol] 5.8 mmol/L High 3.5-5.[address] [facility] Comment on above: Performed By: #### 1 0231, 496, 7600 #### [facility] [address], [address] [place] [address] [employer]: Davy Pollard MD Protein [Mass/Vol] 7.2 g/dL Normal 6.1-8.1 [facility] Comment on above: Performed By: #### 1 0231, 496, 7600 #### [facility] [address], [address] [place] [address] [employer]: Davy Pollard MD Sodium [Moles/Vol] 136 mmol/L Normal 135-146 [facility] Comment on above: Performed By: #### 1 0231, 496, 7600 #### [facility] [place] [address] [employer]: Davy Pollard MD Urea nitrogen [Mass/Vol] 25 mg/dL Normal 7-25 [facility] Comment on above: Performed By: #### 1 023, 496, 7600 #### [facility] [place] [address] [employer]: Davy Pollard MD Urea nitrogen/Creatinine [Mass ratio] 18 mg/mg Normal 6-22 [facility] Comment on above: Performed By: #### 1 0231, 496, 7600 #### [facility] [place] [address] [employer]: Davy Pollard MD HEMOGLOBIN A1con 03-22-2022 HEMOGLOBIN [...] 1 0231, 496, 7600 #### [facility] [address] [address], [address] [place] [address] [employer]: Davy Pollard MD LIPID PANEL, [facility] 07-0 Cholesterol [Mass/Vol] 103 mg/dL Normal <200 [facility] Comment on above: Performed By: #### 1 0231, 496, 7600 #### [facility] [address], [address] [place] [address] [employer]: Davy Pollard MD Cholesterol in HDL [Mass/Vol] 36 mg/dL Low > OR = 50 [facility] Comment on above: Performed By: #### 1 023, 496, 7600 #### [facility] of [address], [address] [place] [address] [employer]: Davy Pollard MD Cholesterol in LDL [Mass/Vol] [...] LDL-C. Santosh BENNETT et al. GILBERTO. 2013;310(19): 3416-0639 (http://education.J.[email or web address] ink.[employer]/faq/[email or web address]) Performed By: #### 1 230, 496, 7600 #### [facility] [address], [address] [place] [address] [employer]: Davy Pollard MD Cholesterol.total/Chol esterol in HDL [Mass ratio] 2.9 {ratio} Normal <5.0 [facility] Comment on above: Performed By: #### 1 023, 496, 7600 #### [facility] [address], [address] [place] [address] [employer]: Davy Pollard MD NON HDL CHOLESTEROL 67 mg/dL (calc) Normal <130 [facility] Comment on above: Result Comment: For patients with diabetes plus 1 major ASCVD risk factor, treating to a non-HDL-C goal of <100 mg/dL (LDL-C of <70 mg/dL) is considered a therapeutic option. Performed By: #### 1 0231, 496, 7600 #### [facility] [address], [address] [place] [address] [employer]: Davy Pollard MD Triglyceride [Mass/Vol] 260 mg/dL High <150 [facility] Comment on above: Result Comment: If a non-fasting specimen was collected, consider repeat triglyceride testing on a fasting specimen if clinically indicated. Cristiane et al. J. of Clin. Lipidol. 2015;9:129-169. Performed By: #### 1 0231, 496, 7420 #### [facility] [address], [address] [place] [id number] [employer]: Davy Pollard MD Coding Summary.on 07-01-2018 Coding Summary. CODING DATE: 018 [facility] STATUS: Home (Routine DC) PAYOR: Commercial [...] Wood Date Saved: 07/01/2018 04:08 pm Normal [facility] Vital Signs Date Time Vital Sign Value Performing Clinician Facility 09-30-2024 14:09-0500 Body height 175.3 cm Krishna Burgos DPM Work Phone: [facility] 09-30-2024 14:09-0500 Body mass index (BMI) [Ratio] 27.62 kg/m2 Krishna Burgos DPM Work Phone: [facility] 09-30-2024 14:09-0500 Body weight 84.82 kg Krishna Jean-Claude DPM Work Phone: [facility] 09-30-2024 14:09-0500 Respiratory rate 18 /min Krishna Brown DPM Work Phone: [facility] 07-15-2024 15:16-0400 Body height 175.3 cm Krishna Brown DPM Work Phone: [facility] 07-15-2024 15:16-0400 Body mass index (BMI) [Ratio] 27.62 kg/m2 Krishna Burgos DPM Work Phone: [facility] 07-15-2024 15:16-0400 Body weight 84.82 kg Krishna Jean-Claude DPM Work Phone: [facility] 07-15-2024 15:16-0400 Diastolic blood pressure 79 mm[Hg] Krishna Burgos DPM Work Phone: [facility] 07-15-2024 15:16-0400 Heart rate 75 /min Krishna Brown DPM Work Phone: [facility] 07-15-2024 15:16-0400 Systolic blood pressure 126 mm[Hg] Krishna Brown DPM Work Phone: [facility] 06-28-2024 10:43-0400 Body height 173.99 cm PHYSICIAN NO [facility] 06-28-2024 10:43-0400 Body mass index (BMI) [Ratio] 27.6 kg/m2 PHYSICIAN [facility] 06-28-2024 10:43-0400 Body temperature 97.8 [degF] PHYSICIAN NO [facility] 06-28-2024 10:43-0400 Body weight 83.46 kg PHYSICIAN NO [facility] 06-28-2024 10:43-0400 Diastolic blood pressure 63 mm[Hg] PHYSICIAN NO [facility] 06-28-2024 10:43-0400 Heart rate 54 /min PHYSICIAN NO [facility] 06-28-2024 10:43-0400 Respiratory rate 18 /min PHYSICIAN NO [facility] 06-28-2024 10:43-0400 SaO2% (BldA) [Mass fraction] 99 % PHYSICIAN NO [facility] 06-28-2024 10:43-0400 Systolic blood pressure 123 mm[Hg] PHYSICIAN NO [facility] 06-21-2024 15:56-0400 Body height 172.7 cm Chao Furlong DO Work Phone: [facility] 06-21-2024 15:56-0400 Body mass index (BMI) [Ratio] 28.83 kg/m2 Chao Furlong DO Work Phone: [facility] 06-21-2024 15:56-0400 Body temperature 97.81 [degF] Chao Furlong DO Work Phone: [facility] [employer] 06-21-2024 15:56-0400 Body weight 86 kg [facility]long [facility] 06-21-2024 15:56-0400 Diastolic blood pressure 62 mm[Hg] Chao Furlong DO Work Phone: [facility] 06-21-2024 15:56-0400 Heart rate 60 /min Chao Furlong DO Work Phone: [facility] 06-21-2024 15:56-0400 Respiratory rate 20 /min Chao Furlong DO Work Phone: [facility] [employer] 06-21-2024 15:56-0400 SaO2% (BldA) [Mass fraction] 100 % Chao Furlong DO [facility] 06-21-2024 15:56-0400 Systolic blood pressure 140 mm[Hg] Chao Furlong DO Work Phone: [facility] 05-18-2024 09:19-0400 Body height 175.26 cm DO Chao Furlong Work Phone: [facility] 05-18-2024 09:19-0400 Body mass index (BMI) [Ratio] 12.6 kg/m2 DO Chao Furlong Work Phone: [facility] 05-18-2024 09:19-0400 Body temperature 97.5 [degF] DO Chao Furlong Work Phone: [facility] 05-18-2024 09:19-0400 Body weight 38.81 kg DO Chao Furlong Work Phone: [facility] 05-18-2024 09:19-0400 Diastolic blood pressure 69 mm[Hg] DO Chao Furlong Work Phone: [facility] 05-18-2024 09:19-0400 Heart rate 69 /min DO Chao Furlong Work Phone: [facility] 05-18-2024 09:19-0400 Respiratory rate 16 /min DO Chao Furlong Work Phone: [facility] 05-18-2024 09:19-0400 SaO2% (BldA) [Mass fraction] 95 % DO Chao Furlong Work Phone: [facility] 05-18-2024 09:19-0400 Systolic blood pressure 148 mm[Hg] DO Chao Furlong Work Phone: [facility] 05-03-2024 09:37-0400 Body height 172.7 cm Chao Furlong DO Work Phone: [employer] 05-03-2024 09:37-0400 Body mass index (BMI) [Ratio] 28.68 kg/m2 Chao Furlong DO Work Phone: [employer] [facility] 05-03-2024 09:37-0400 Body temperature 97.39 [degF] Chao Furlong DO Work Phone: [facility] 05-03-2024 09:37-0400 Body weight 85.55 kg Chao Furlong DO Work Phone: [facility] 05-03-2024 09:37-0400 Diastolic blood pressure 62 mm[Hg] Chao Furlong DO Work Phone: [facility] 05-03-2024 09:37-0400 Heart rate 48 /min Chao Furlong DO Work Phone: [facility] 05-03-2024 09:37-0400 Respiratory rate 18 /min Chao Furlong DO Work Phone: [facility] 05-03-2024 09:37-0400 SaO2% (BldA) [Mass fraction] 98 % Chao Furlong DO Work Phone: [facility] 05-03-2024 09:37-0400 Systolic blood pressure 118 mm[Hg] Chao Furlong DO Work Phone: [facility] 03-17-2024 12:05-0400 Body height 172.72 cm DO Chao Furlong Work Phone: [facility] 03-17-2024 12:05-0400 Body mass index (BMI) [Ratio] 28.8 kg/m2 DO Chao Furlong Work Phone: [facility] 03-17-2024 12:05-0400 Body temperature 96.1 [degF] DO Chao Furlong Work Phone: [facility] 03-17-2024 12:05-0400 Body weight 86.18 kg DO Chao Furlong Work Phone: [facility] 03-17-2024 12:05-0400 Diastolic blood pressure 58 mm[Hg] DO Chao Furlong Work Phone: [facility] 03-17-2024 12:05-0400 Heart rate 41 /min DO Chao Furlong Work Phone: [facility] 03-17-2024 12:05-0400 SaO2% (BldA) [Mass fraction] 97 % DO Chao Furlong Work Phone: [facility] 03-17-2024 12:05-0400 Systolic blood pressure 118 mm[Hg] DO Chao Furlong Work Phone: [facility] 03-16-2024 13:33-0400 Body height 172.7 cm Chao Furlong DO Work Phone: [facility] 03-16-2024 13:33-0400 Body mass index (BMI) [Ratio] 28.89 kg/m2 Chao Furlong DO Work Phone: [facility] 03-16-2024 13:33-0400 Body weight 86.18 kg Chao Furlong DO Work Phone: [facility] 03-16-2024 13:33-0400 Diastolic blood pressure 68 mm[Hg] Chao Furlong DO Work Phone: [facility] [employer] 03-16-2024 13:33-0400 Systolic blood pressure 120 mm[Hg] Chao Furlong DO Work Phone: [facility] 01-05-2024 10:58-0400 Body height 175.26 cm [facility] 01-05-2024 10:58-0400 Body mass index (BMI) [Ratio] 28.2 kg/m2 [facility] 01-05-2024 10:58-0400 Body temperature 97.1 [degF] [facility] 01-05-2024 10:58-0400 Body weight 86.74 kg [facility] 01-05-2024 10:58-0400 Heart rate 43 /min [facility] 01-05-2024 10:58-0400 Respiratory rate 18 /min [facility] 01-05-2024 10:58-0400 SaO2% (BldA) [Mass fraction] 97 % [facility] 11-03-2023 09:45-0500 Body height 175.3 cm Chao Furlong DO Work Phone: [facility] 11-03-2023 09:45-0500 Body mass index (BMI) [Ratio] 27.44 kg/m2 Chao Furlong DO Work Phone: [facility] 11-03-2023 09:45-0500 Body temperature 96.3 [degF] Chao Furlong DO Work Phone: [facility] 11-03-2023 09:45-0500 Body weight 84.28 kg Chao Furlong DO Work Phone: [facility] 11-03-2023 09:45-0500 Diastolic blood pressure 60 mm[Hg] Chao Furlong DO Work Phone: [facility] 11-03-2023 09:45-0500 Heart rate 98 /min Chao Furlong DO Work Phone: [facility] 11-03-2023 09:45-0500 SaO2% (BldA) [Mass fraction] 92 % Chao Furlong DO Work Phone: [facility] 11-03-2023 09:45-0500 Systolic blood pressure 120 mm[Hg] Chao Furlong DO Work Phone: [facility] 05-13-2023 12:00-0400 Body temperature 97.8 [degF] DO Chao Furlong Work Phone: [facility] 05-13-2023 12:00-0400 Diastolic blood pressure 86 mm[Hg] DO Chao Furlong Work Phone: [facility] 05-13-2023 12:00-0400 Heart rate 72 /min DO Chao Furlong Work Phone: [facility] 05-13-2023 12:00-0400 Respiratory rate 16 /min DO Chao Furlong Work Phone: [facility] 05-13-2023 12:00-0400 SaO2% (BldA) [Mass fraction] 97 % DO [employer] Work Phone: [facility] 05-13-2023 12:00-0400 Systolic blood pressure 150 mm[Hg] DO [employer] Work Phone: [facility] 05-13-2023 04:54-0400 Body weight 80.2 kg DO [employer] Work Phone: [facility] 05-12-2023 21:33-0400 Body height 175.26 cm DO [employer] Work Phone: [facility] 03-19-2023 09:30-0400 Body height 173.99 cm Lory Bernardo Other [employer] Other 03-19-2023 09:30-0400 Body mass index (BMI) [Ratio] 27.12 kg/m2 Lory Bernardo Other [employer] Other 03-19-2023 09:30-0400 Body temperature 96.2 [degF] Lory Bernardo Other [employer] Other 03-19-2023 09:30-0400 Body weight 82.1 kg Lory Bernardo Other [employer] Other 03-19-2023 09:30-0400 Diastolic blood pressure 64 mm[Hg] Lory Bernardo Other [employer] Other 03-19-2023 09:30-0400 SaO2% (BldA) [Mass fraction] 95 % Lory Bernardo Other [employer] Other 03-19-2023 09:30-0400 Systolic blood pressure 130 mm[Hg] Lory Bernardo Other [employer] Other 09-11-2022 11:00-0500 Body height 173.99 cm Lory Gundersono Other [employer] Other 09-11-2022 11:00-0500 Body mass index (BMI) [Ratio] 27.12 kg/m2 Lory Gundersono Other [employer] Other 09-11-2022 11:00-0500 Body temperature 97.8 [degF] Lory Gundersono Other [employer] Other 09-11-2022 11:00-0500 Body weight 82.1 kg Lory Bernardo Other [employer] Other 09-11-2022 11:00-0500 Diastolic blood pressure 78 mm[Hg] Lory Gundersono Other [employer] Other 09-11-2022 11:00-0500 SaO2% (BldA) [Mass fraction] 97 % Lory Gundersono Other [employer] Other 09-11-2022 11:00-0500 Systolic blood pressure 118 mm[Hg] Lory Carballofloro Other [employer] Other 06-12-2022 10:30-0400 Body height 173.99 cm Lory Gundersono Other [employer] Other 06-12-2022 10:30-0400 Body mass index (BMI) [Ratio] 27.12 kg/m2 Lory Bernardo Other [employer] Other 06-12-2022 10:30-0400 Body temperature 96.8 [degF] Lory Bernardo Other [employer] Other 06-12-2022 10:30-0400 Body weight 82.1 kg Lory Bernardo Other [employer] Other 06-12-2022 10:30-0400 Diastolic blood pressure 72 mm[Hg] Lory Bernardo Other [employer] Other 06-12-2022 10:30-0400 SaO2% (BldA) [Mass fraction] 96 % Lory Bernardo Other [employer] Other 06-12-2022 10:30-0400 Systolic blood pressure 126 mm[Hg] Lory Bernardo Other [employer] Other 05-22-2022 11:00-0400 Diastolic blood pressure 70 mm[Hg] MD Rajan Kee Work Phone: [facility] 05-22-2022 11:00-0400 Heart rate 55 /min MD Rajan Kee Work Phone: [facility] 05-22-2022 11:00-0400 Respiratory rate 20 /min MD Rajan Kee Work Phone: [facility] 05-22-2022 11:00-0400 SaO2% (BldA) [Mass fraction] 94 % MD Rajan Kee Work Phone: [facility] 05-22-2022 11:00-0400 Systolic blood pressure 153 mm[Hg] MD Rajan Kee Work Phone: [facility] 05-22-2022 10:00-0400 Inhaled oxygen flow rate 8 L/min MD Rajan Kee Work Phone: [facility] 05-22-2022 07:00-0400 Body temperature 98 [degF] MD Rajan Kee Work Phone: [facility] 05-21-2022 11:57-0400 Body height 172.72 cm MD Rajan Kee Work Phone: [facility] 05-21-2022 11:57-0400 Body mass index (BMI) [Ratio] 27.9 kg/m2 MD Rajan Kee Work Phone: [facility] 05-21-2022 11:57-0400 Body weight 83.46 kg MD Rajan Kee Work Phone: [facility] 05-08-2022 07:30-0400 59 1 Chao G Furlong Work Phone: [facility] [address] [place] Work Phone: Comment on above: [id number] 05-07-2022 16:16-0400 Body height 172.72 cm Chao G Furlong Work Phone: [facility] DO Work Phone: 05-07-2022 16:16-0400 Body mass index (BMI) [Ratio] 28.89 kg/m2 Chao G Furlong Work Phone: [facility] [address] DO Work Phone: 05-07-2022 16:16-0400 Body surface area Derived from formula 2 m2 Chao G Furlong Work Phone: [facility] [address] DO Work Phone: 05-07-2022 16:16-0400 Body weight 86.18 kg Chao G Furlong Work Phone: [facility] [address] DO Work Phone: 05-07-2022 16:16-0400 Diastolic blood pressure 46 mm[Hg] Chao Chavez Furlong Work Phone: [facility] [address] DO Work Phone: 05-07-2022 16:16-0400 Heart rate 53 /min Chao Chavez Furlong Work Phone: [facility] [address] DO Work Phone: 05-07-2022 16:16-0400 Systolic blood pressure 122 mm[Hg] Chao Chavez Furlong Work Phone: [facility] DO Work Phone: 04-26-2022 09:57-0400 Body height 172.09 cm MD Rajan Kee Work Phone: [facility] 04-26-2022 09:57-0400 Body temperature 97.8 [degF] MD Rajan Kee Work Phone: [facility] 04-26-2022 09:57-0400 Body weight 87 kg MD Rajan Kee Work Phone: [facility] 04-26-2022 09:57-0400 Diastolic blood pressure 73 mm[Hg] MD Rajan Kee Work Phone: [facility] 04-26-2022 09:57-0400 Heart rate 44 /min MD Rajan Kee Work Phone: [facility] 04-26-2022 09:57-0400 SaO2% (BldA) [Mass fraction] 96 % MD Rajan Kee Work Phone: [facility] 04-26-2022 09:57-0400 Systolic blood pressure 134 mm[Hg] MD Rajan Kee Work Phone: [facility] 04-23-2022 10:00-0400 Body height 173.99 cm Nicolas Evansvanessa Other [employer] Other 04-23-2022 10:00-0400 Body mass index (BMI) [Ratio] 28.17 kg/m2 Nicolas Evansr Other [employer] Other 04-23-2022 10:00-0400 Body temperature 96.2 [degF] Nicolas Evansvanessa Other [employer] Other 04-23-2022 10:00-0400 Body weight 85.28 kg Nicolas Evansvanessa Other [employer] Other 04-23-2022 10:00-0400 Diastolic blood pressure 60 mm[Hg] Nicolas Valdez Other [employer] Other 04-23-2022 10:00-0400 SaO2% (BldA) [Mass fraction] 97 % Nicolas Mckeonafshan Other [employer] Other 04-23-2022 10:00-0400 Systolic blood pressure 130 mm[Hg] Nioclas Stephenssarahrevanessa Other [employer] Other 04-17-2022 09:30-0400 Body height 173.99 cm Rajan Kee Other [employer] Other 04-17-2022 09:30-0400 Body mass index (BMI) [Ratio] 28.17 kg/m2 Rajan Kee Other [employer] Other 04-17-2022 09:30-0400 Body temperature 96.4 [degF] Rajan Kee Other [employer] Other 04-17-2022 09:30-0400 Body weight 85.28 kg Rajan Chilango Other [employer] Other 04-17-2022 09:30-0400 Diastolic blood pressure 62 mm[Hg] Rajan Kee Other [employer] Other 04-17-2022 09:30-0400 SaO2% (BldA) [Mass fraction] 98 % Rajan Kee Other [employer] Other 04-17-2022 09:30-0400 Systolic blood pressure 110 mm[Hg] Rajan Kee Other [employer] Other 01-02-2022 12:15-0400 Body height 173.99 cm Rajan Kee Other [employer] Other 01-02-2022 12:15-0400 Body mass index (BMI) [Ratio] 28.17 kg/m2 Rajan Kee Other [employer] Other 01-02-2022 12:15-0400 Body temperature 97.6 [degF] Rajan Kee Other [employer] Other 01-02-2022 12:15-0400 Body weight 85.28 kg Rajan Kee Other [employer] Other 01-02-2022 12:15-0400 Diastolic blood pressure 60 mm[Hg] Rajan Kee Other [employer] Other 01-02-2022 12:15-0400 SaO2% (BldA) [Mass fraction] 91 % Rajan Kee Other [employer] Other 01-02-2022 12:15-0400 Systolic blood pressure 120 mm[Hg] Rajan Kee Other [employer] Other 11-15-2021 12:30-0500 Body height 173.99 cm Rajan Kee Other [employer] Other 11-15-2021 12:30-0500 Body mass index (BMI) [Ratio] 28.17 kg/m2 Rajan Kee Other [employer] Other 11-15-2021 12:30-0500 Body temperature 96.8 [degF] Rajan Kee Other [employer] Other 11-15-2021 12:30-0500 Body weight 85.28 kg Rajan Chilango Other [employer] Other 11-15-2021 12:30-0500 Diastolic blood pressure 70 mm[Hg] Rajan Kee Other [employer] Other 11-15-2021 12:30-0500 SaO2% (BldA) [Mass fraction] 98 % Rajan Kee Other [employer] Other 11-15-2021 12:30-0500 Systolic blood pressure 126 mm[Hg] Rajan Kee Other [employer] Other 07-30-2021 16:00-0500 Body height 173.99 cm Rajan Kee Other [employer] Other 07-30-2021 16:00-0500 Body mass index (BMI) [Ratio] 28.17 kg/m2 Rajan Shinlashae Other [employer] Other 07-30-2021 16:00-0500 Body temperature 97.6 [degF] Rajan Chilango Other [employer] Other 07-30-2021 16:00-0500 Body weight 85.28 kg Rajan Chilango Other [employer] Other 07-30-2021 16:00-0500 Diastolic blood pressure 56 mm[Hg] Rajan Chilango Other [employer] Other 07-30-2021 16:00-0500 SaO2% (BldA) [Mass fraction] 96 % Rajan Chilango Other [employer] Other 07-30-2021 16:00-0500 Systolic blood pressure 118 mm[Hg] Rajan Shinlashae Other [employer] Other Encounters Encounter Date Encounter Type Care Provider Facility Start: 10-04-2024 End: 10-04-2024 Refill Chao Vyas DO Work Phone: [facility] Start: 09-30-2024 End: 09-30-2024 Patient encounter procedure Krishna Burgos DPM Work Phone: [facility] Comment on above: Diabetes mellitus du e to underlying condition with diabetic polyneuropathy, unspecified whether terminal makeup operator insulin use ([facility]) (Primary Dx); Pain due to onychomycosis of toenails of both feet; Hav (hallux abducto valgus), left; Hav (hallux abducto valgus), right Start: 09-30-2024 End: 09-30-2024 Bamboo flowsheet Krishna Burgos DPM Work Phone: [facility] Start: 09-30-2024 End: 09-30-2024 Bamboo flowsheet Krishna Burgos DPM Work Phone: [facility] Start: 09-30-2024 End: 09-30-2024 ambulatory KRISHNA BURGOS Not Available Start: 08-24-2024 End: 08-24-2024 Office outpatient visit 15 minutes Arin Ferrera MD Work Phone: [facility] Comment on above: Psoriasis vulgaris ( CMS/HCC) (Primary Dx); High risk medication use Start: 08-24-2024 End: 08-24-2024 ambulatory ARIN FERRERA Not Available Start: 08-24-2024 End: 08-24-2024 Mervin Ferrera MD Work Phone: [facility] Start: 08-24-2024 End: 08-24-2024 Bamboo flowslew Ferrera MD Work Phone: [facility] Start: 08-02-2024 End: 08-02-2024 Orders Only Chao Jared [facility]yas DO [facility] Start: 07-29-2024 End: 08-05-2024 Telephone encounter [facility]varado C[facility] Start: 07-15-2024 End: 07-15-2024 Patient encounter procedure Krishna Burgos DPM Work Phone: [facility] Comment on above: Diabetes mellitus du e to underlying condition with diabetic polyneuropathy, unspecified whether terminal makeup operator insulin use (CMS/HCC) (Primary Dx); Pain due [...] Start: 06-28-2024 End: 06-28-2024 ambulatory PHYSICIAN NO [facility] Work Phone: Start: 06-28-2024 End: 06-28-2024 Patient encounter procedure PHYSICIAN NO [facility] Work Phone: Start: 06-21-2024 End: 06-21-2024 Office outpatient visit 15 minutes Chao Vyas DO [facility] Comment on above: Upper respiratory tr act infection, unspecified type (Primary Dx); Pharyngitis, unspecified etiology Start: 06-21-2024 End: 06-21-2024 ambulatory [facility] Start: 05-18-2024 End: 05-18-2024 Departed Referred DO Chao Janng Work Phone: [facility] [place] Work Phone: Start: 05-18-2024 End: 05-18-2024 ambulatory DO Chaoiban Montoyang Work Phone: [facility] Work Phone: Start: 05-18-2024 End: 05-18-2024 Patient encounter procedure DO Chaoiban Montoyalong Work Phone: [facility] Work Phone: Start: 05-06-2024 End: 05-06-2024 ambulatory KRISHNA BURGOS Not Available Start: 05-04-2024 End: 05-05-2024 [facility] Start: 05-03-2024 End: 05-03-[address] [facility] Start: 05-03-2024 End: 05-03-2024 Office outpatient visit 25 minutes Chao Vyas DO Work Phone: [facility] Comment on above: Essential hypertensi on (Primary Dx); Type 2 diabetes mellitus with other circulatory complication, without long-term current use of insulin ([facility]); Need for vaccination; Mixed hyperlipidemia; Overweight; Laceration of left hand without foreign body, initial encounter; Hammer toe of right foot Start: 05-03-2024 End: 05-03-2024 ambulatory [facility] Start: 04-19-2024 End: 04-19-2024 Refill Seda Squires [facility] Start: 04-15-2024 End: 04-15-2024 Refill Akilah Eric [facility] Start: 04-07-2024 End: 04-07-2024 Refill Chao Vyas DO Work Phone: [facility] Start: 03-30-2024 End: 03-30-2024 Refill Seda Squires [facility] Start: 03-28-2024 End: 03-28-2024 Refill Chao Vyas DO Work Phone: [facility] Comment on above: Essential hypertensi on Start: 03-17-2024 End: 03-17-2024 ambulatory DO Chao Downingng Work Phone: [facility] Work Phone: Start: 03-17-2024 End: 03-17-2024 Patient encounter procedure DO Chaoiban Montoyalong Work Phone: [facility] Physician [facility] Vascular Surgery Work Phone: Start: 03-16-2024 End: 03-16-2024 Patient encounter procedure Chaoiban Downingng DO Work Phone: [facility] Internal Medicine - Family Medicine Comment on above: Medicare annual well ness visit, subsequent (Primary Dx); Screening for depression Start: 03-16-2024 End: 03-16-2024 ambulatory [facility] Start: 02-26-2024 End: 02-26-2024 ambulatory KRISHNA BURGOS Not Available Start: 01-05-2024 End: 01-05-2024 ambulatory [facility] Work Phone: Start: 01-05-2024 End: 01-05-2024 Patient encounter procedure [facility] Work Phone: Start: 12-31-2023 End: 12-31-2023 Orders Only Chao Vyas DO Work Phone: [facility] Internal Medicine - Family Medicine Comment on above: Sleep pattern distur bance (Primary Dx) Start: 12-08-2023 Orders Only Chao rodriguez DO Work Phone: [facility] Internal Medicine - Family Medicine Start: 11-28-2023 Refill Chao Downing ng DO Work Phone: [facility] Internal Medicine - Family Medicine Start: 11-12-2023 Refill Na Alvarado [facility] Physicians Internal Medicine - Family Medicine Start: 11-03-2023 End: 11-03-[address] [facility] Start: 11-03-2023 End: 11-03-2023 ambulatory [facility] Start: 11-03-2023 End: 11-03-2023 Office outpatient visit 25 minutes Chao Vyas DO Work Phone: [facility] Internal Medicine - Family Medicine Comment on above: Essential hypertensi on (Primary Dx); Type 2 diabetes mellitus with other circulatory complication, without long-term current use of insulin (CMS-HCC); Hemiplegia of dominant side (CMS-HCC); Peripheral vascular disease (CMS-HCC); Coagulopathy ([facility]-HCC); Leukocytosis, unspecified type; Hyponatremia; Screening for colon cancer; Special screening for malignant neoplasm of colon; Mixed anxiety and depressive disorder Start: 10-23-2023 Bamboo flowsheet Karime Bautista MD Work Phone: [facility] Start: 10-23-2023 Quianao anjaliheet Karime Bautista MD Work Phone: [facility] Start: 10-23-2023 End: 10-23-2023 ambulatory KARIME BAUTISTA Not Available Start: 10-06-2023 Refill Chao rodriguez DO Work Phone: [facility] Internal [facility] - Family Medicine Comment on above: Type 2 diabetes eric itus with other circulatory complication, without long-term current use of insulin ([facility]) Start: 09-21-2023 Orders Only Chao Downing ng DO Work Phone: [facility] Start: 09-11-2023 End: 09-11-2023 Patient encounter procedure DO Chaoiban Montoyalong Work Phone: [facility]-Ultrasound [facility] Vascular Start: 09-11-2023 End: 09-11-2023 ambulatory DO Chao Janlong Work Phone: [facility] Work Phone: Start: 09-05-2023 End: 09-05-2023 Patient encounter procedure DO Chaoiban Montoyalong Work Phone: [facility]-XRay [facility] Work Phone: Start: 09-05-2023 End: 09-05-2023 ambulatory Arin A Petbenjii Facility:[facility] Start: 05-12-2023 End: 05-13-2023 Evaluation and management of inpatient DO Chao Furlong Work Phone: [facility] [place] [facility] Work Phone: Start: 05-12-2023 End: 05-13-2023 observation encounter DO Chao Furlong Work Phone: [facility] Work Phone: Start: 03-19-2023 End: 03-19-2023 Patient encounter procedure Lory Bernardo [facility] Start: 03-19-2023 End: 03-19-2023 ambulatory DO Chao Furlong Work Phone: [employer] Other Start: 09-11-2022 Follow-up encounter Lory Bernardo [facility] Start: 09-11-2022 End: 09-11-2022 ambulatory DO Chao Furlong Work Phone: [facility] Work Phone: Start: 09-11-2022 End: 09-11-2022 Patient encounter procedure DO Chao Furlong Work Phone: [facility]-Ultrasound [facility] Vascular Start: 06-12-2022 End: 06-12-2022 ambulatory Lory Bernardo Other [employer] Other Start: 06-12-2022 FQHC visit, estab pt Lory Bernardo [facility] Start: 05-25-2022 End: 05-25-[address] DOCTOR SHIRLEY Facility: Start: 05-21-2022 End: 05-22-2022 Evaluation and management of inpatient MD Rajan Kee Work Phone: [facility] [place] [facility] Start: 05-17-2022 End: 05-17-2022 Patient encounter procedure MD Rajan Kee Work Phone: [facility]-Pre-Surgical Testing Start: 05-09-2022 End: 05-09-2022 ambulatory Rajan Kee Other [employer] Other Start: 05-09-2022 Encounter for other preprocedural examination Rajan Kee [facility] Vascular Surgery Start: 05-09-2022 Telephone encounter Rajan painting [facility] Start: 05-08-2022 Encounter for preprocedural cardiovascular examination ZAID TALAVERA [facility] Start: 05-08-2022 Encounter for other preprocedural examination ZAID TALAVERA [facility] Start: 05-08-2022 Patient encounter procedure Chao Vyas Work Phone: [facility] [address] [place] Work Phone: Start: 05-08-[address] [id number] Start: 05-07-2022 Office outpatient vi sit 25 minutes Chao Vyas Work Phone: [facility] 250 DO Work Phone: Start: 04-30-2022 End: 04-30-2022 ambulatory NON STAFF [facility] Work Phone: Start: 04-30-2022 End: 04-30-2022 Departed Referred MD Rajan Kee Work Phone: [facility] - [facility]P Start: 04-26-2022 End: 04-26-2022 Patient encounter procedure MD Rajan Kee Work Phone: [facility]-Hve-Hestiiic Testing Start: 04-23-2022 End: 04-23-2022 ambulatory Nicolas Valdez Other [employer] Other Start: 04-23-2022 Office outpatient vi sit 25 minutes Nicolas Valdez [facility] Start: 04-17-2022 End: 04-17-2022 ambulatory Rajan Kee Other [employer] Other Start: 04-17-2022 Encounter for other preprocedural examination Rajan Kee [facility] Vascular Surgery Start: 04-17-2022 Office outpatient vi sit 25 minutes Rajan Kee [facility] Vascular Surgery Start: 04-17-2022 Telephone encounter Rajan painting [facility] Start: 04-15-2022 End: 04-15-2022 Patient encounter procedure MD Rajan Kee Work Phone: [facility]-CT Scan [facility] [place] Start: 04-03-2022 End: 04-03-2022 ambulatory Rajan Kee Other [employer] Other Start: 04-03-2022 Office outpatient vi sit 25 minutes Rajan Kee [facility] Start: 04-03-2022 End: 04-03-2022 Patient encounter procedure MD Rajan Kee Work Phone: [facility]-Ultrasound [facility] Vascular Start: 01-02-2022 End: 01-02-2022 ambulatory Rajan Kee Other [employer] Other Start: 01-02-2022 Postop follow up vis it related to original px Rajan Kee [facility] Start: 11-27-2021 Patient encounter status MD Darian Kee Work Phone: [facility] Start: 11-27-2021 End: 11-27-2021 ambulatory Rajan Kee Other [employer] Other Start: 11-27-2021 Telephone encounter Rajan Malloy rg [facility] Start: 11-19-2021 End: 11-19-2021 ambulatory Rajan Kee Other [employer] Other Start: 11-19-2021 Encounter for other preprocedural examination Rajan Kee [facility] Start: 11-19-2021 Telephone encounter Rajan Malloy rg [facility] Start: 11-15-2021 End: 11-15-2021 ambulatory Rajan Kee Other [employer] Other Start: 11-15-2021 Office outpatient vi sit [...] 07-30-2021 End: 07-30-2021 ambulatory Rajan Kee Other [facility] [employer] Other Start: 07-30-2021 Postop follow up vis it related to original px Rajan Langlashae [facility] Start: 06-29-2018 End: 06-30-2018 Patient encounter procedure TARIK RYAN Facility:[facility] Patient encounter status Chao Chavez Lithera Work Phone: [facility] 250 DO Work Phone: Procedures Date Procedure Procedure Detail Performing Clinician Start: 06-21-2024 POCT INFLUENZA A/INFLUENZA B/SARS-COV-2 VERITOR Chao Vyas DO Work Phone: Start: 06-21-2024 Iaadiadoo streptococ cus group a Chao Vyas DO Work Phone: Start: 06-21-2024 Adult depression screening assessment Chao MontoyaAcousticeyejennifer DO Work Phone: Start: 05-18-2024 Investigation of transfusion reaction PHYSICIAN NO FAMILY Start: 05-03-2024 Adult depression screening assessment Chao Vyas DO Work Phone: Start: 05-03-2024 Microalbumin [Mass/volume] in Urine by Test strip Karan Alvarez EVENT SECURITY OFFICER Start: 03-17-2024 Doppler ultrasonogra phy of bilateral carotid arteries DO Chao [employer] Work Phone: Start: 03-16-2024 Adult depression screening assessment Chao MontoyaCarbonlights Solutions DO Work Phone: Start: 11-03-2023 History of carotid endarterectomy S/P carotid endarterectomy Chao Nymirum Phone: Start: 11-03-2023 Adult depression screening assessment [employer]lev[employer] Phone: Start: 10-23-2023 End: 10-23-2023 [facility] medical xm&eval comprhnsv estab pt 1/> Type 2 diabetes mellitus without complication, without long-term current use of insulin (CMS/HCC) Karime Bautista MD Work Phone: Comment on above: Type 2 diabetes eric itus without complication, without long- term current use of insulin (CMS/HCC) (Primary Dx); Pseudophakia Start: 10-23-2023 Diabetic retinal eye exam Chao [employer] Phone: Start: 09-11-2023 Doppler ultrasonogra phy of bilateral carotid arteries DO [employer] Phone: Start: 09-05-2023 Plain chest X-ray DO [employer] Phone: Start: 09-04-2023 Adult depression screening assessment [employer] Phone: Start: 05-13-2023 MRI of head DO [employer] Phone: Start: 05-13-2023 Magnetic resonance angiography of head without contrast DO [employer] Phone: Start: 05-12-2023 CT of head without contrast DO [employer] Phone: Start: 05-12-2023 Plain chest X-ray DO [employer] Phone: Start: 04-28-2023 Microalbumin [Mass/volume] in Urine by Test strip Chao Nymirum Phone: Start: 03-19-2023 Doppler ultrasonogra phy of bilateral carotid arteries DO [employer] Phone: Start: 09-11-2022 Doppler ultrasonogra phy of [...] Td Vaccines (2 - Td or Tdap) [facility] [employer] Start: 08-24-2025 End: 08-24-2025 Patient encounter procedure 08/24/2025 3:15 PM EST Office Visit [facility] [address] [place] [address] Arin Ferrera MD [address] [place] [address] [facility] Start: 06-21-2025 Adult BMI Screening Adult BMI Screen ing [facility] Start: 06-21-2025 Depression Screening Depression Scre ening [facility] Start: 06-21-2025 Fall Risk Screening Fall Risk Screen ing [facility] Start: 06-21-2025 Tobacco Screening Tobacco Screening [facility] Start: 05-03-2025 Adult BMI Screening Adult BMI Screen ing [facility] Start: 05-03-2025 Depression Screening Depression Scre ening [facility] Start: 05-03-2025 Diabetic foot examination Diabetic F oot Exam [facility] Start: 05-03-2025 Fall Risk Screening Fall Risk Screen ing [facility] Start: 05-03-2025 Tobacco Screening Tobacco Screening [facility] Start: 05-03-2025 Urine screening for protein Urine Microalbumin [facility] Start: 03-17-2025 End: 03-17-2025 Patient encounter procedure 03/17/2025 1:40 PM EDT Office Visit [facility] Internal Medicine - Family Medicine [address] [place] [address] [facility] - [facility] Start: 03-16-2025 Adult BMI Screening Adult BMI Screen ing [facility] Start: 03-16-2025 Depression Screening Depression Scre ening [facility] Start: 03-16-2025 Fall Risk Screening Fall Risk Screen ing [facility] Start: 03-16-2025 Medicare Annual Well ness Visit Medicare Annual Wellness Visit [facility] Start: 03-16-2025 Tobacco Screening Tobacco Screening [facility] Start: 12-16-2024 End: 12-16-2024 Patient encounter procedure 12/16/2024 2:10 PM EDT Procedure Visit [facility] [address] [facility] [address] [place] [address] Krishna Burgos, DPKenyetta [address] [facility] [address] [place] [address] [facility] Start: 11-04-2024 End: 11-04-2024 Patient encounter procedure 11/04/2024 10:00 AM EST Office Visit [facility] Internal Medicine - Family Medicine [address] [place] [address] Chao Vyas, DO [address] [facility] [place] [address] [facility] - [facility] Start: 11-03-2024 Adult BMI Screening Adult BMI Screen ing [facility] Start: 11-03-2024 Depression Screening Depression Scre [facility] Start: 11-03-2024 Fall Risk Screening Fall Risk Screen ing [facility] Start: 11-03-2024 Tobacco Screening Tobacco Screening [facility] Start: 10-23-2024 Glaucoma screening Diabetic Op hthalmology Exam [facility] Start: 09-30-2024 End: 09-30-2024 Patient encounter procedure [facility] Comment on above: Diabetes mellitus du e to underlying condition with diabetic polyneuropathy, unspecified whether terminal makeup operator insulin use ([facility]) (Primary Dx); Pain due to onychomycosis of toenails of both feet; Hav (hallux abducto valgus), left; Hav (hallux abducto valgus), right Start: 09-04-2024 Adult BMI Screening Adult BMI Screen ing [facility] Start: 09-04-2024 Depression Screening Depression Scre [facility] Start: 09-04-2024 Fall Risk Screening Fall Risk Screen ing [facility] Start: 09-04-2024 Tobacco Screening Tobacco Screening [facility] Start: 08-24-2024 End: 08-24-2024 Patient encounter procedure [facility] Comment on above: Arrived Start: 08-24-2024 End: 08-24-2025 XR Chest 2 Views XR chest 2 views Imaging Routine Psoriasis vulgaris ([facility]) High risk medication use Expected: 08/24/2024, Expires: 08/24/2025 [facility] Work Phone: Comment on above: Expected: 08/24/2024 , Expires: 08/24/2025 Start: 07-15-2024 End: 07-15-2024 Patient encounter procedure 07/15/2024 3:40 PM EDT Procedure Visit [facility] [address] [facility] [address] [place] [id number] Krishna Burgos DPM [address] [facility] 5 [place] [address] Diabetes mellitus due to underlying condition with diabetic polyneuropathy, unspecified whether mcc insulin use ([facility]) (Primary Dx); Pain due to onychomycosis of toenails of both feet; Hav (hallux abducto valgus), left; Hav (hallux abducto valgus), right [facility] Comment on above: Diabetes mellitus du e to underlying condition with diabetic polyneuropathy, unspecified whether mcc insulin use ([facility]) (Primary Dx); Pain due to onychomycosis of toenails of both feet; Hav (hallux abducto valgus), left; Hav (hallux abducto valgus), right Start: 05-23-2024 Influenza vaccination Influenza Vacc ine [facility] Start: 05-18-2024 Microscopic observat ion [Identifier] in Unspecified specimen by Gram stain [facility] Start: 05-18-2024 [facility] Start: 05-03-2024 End: 05-03-2024 Patient encounter procedure [facility] - [facility] Start: 04-28-2024 Diabetic foot examination Diabetic F oot Exam [facility] Start: 04-28-2024 Urine screening for protein Urine Microalbumin [facility] Start: 03-16-2024 End: 03-16-2024 Patient encounter procedure 03/16/2024 1:30 PM EDT Office Visit [facility] - Family Medicine [address] [place] [address] [facility] - [facility] Start: 03-11-2024 Medicare Annual Well ness Visit Medicare Annual Wellness Visit [facility] Start: 11-03-2023 End: 11-03-2023 Patient encounter procedure 11/03/2023 10:10 AM EST Office Visit [facility] - Family Medicine [address] [place] [address] Chao Vyas DO [address] [place] [address] [facility] Start: 10-23-2023 End: 10-23-2023 Patient encounter procedure 10/23/2023 2:00 PM EST Office Visit [facility] [address] [place] [phone] Karime Bautista MD [address] [place] [address] Arrived [facility] Comment on above: Arrived Start: 05-22-2023 Blood chemistry [facility] Start: 05-22-2023 [facility] Start: 05-21-2023 Blood chemistry [facility] Start: 05-21-2023 [facility] Start: 05-20-2023 Blood chemistry [facility] Start: 05-20-2023 [facility] Start: 05-19-2023 Blood chemistry [facility] Start: 05-19-2023 [facility] Start: 05-18-2023 Blood chemistry [facility] Start: 05-18-2023 [facility] Start: 05-17-2023 Blood chemistry [facility] Start: 05-17-2023 [facility] Start: 05-16-2023 Blood chemistry [facility] Start: 05-16-2023 [facility] Start: 05-15-2023 Blood chemistry [facility] Start: 05-15-2023 [facility] Start: 05-14-2023 Blood chemistry [facility] Start: 05-14-2023 [facility] Start: 05-13-2023 [facility] Start: 05-13-2023 [facility] Start: 05-12-2023 Referral to neurologist [facility] Start: 05-12-2023 Hospital admission [facility] Start: 03-19-2023 Doppler ultrasonogra phy of bilateral carotid arteries US carotid doppler BI [facility] Start: 03-19-2023 US.doppler Carotid arteries - bilateral [facility] Start: 05-22-2022 [facility] Start: 05-21-2022 Cerebral Embolic Filtration, Extracorporeal Flow Reversal Circuit from Left Common Carotid Artery, Percutaneous Approach, [employer] Cerebral Embolic Filtration, Extracorporeal Flow Reversal Circuit from Left Common Carotid Artery, Percutaneous Approach, [employer] [facility] Start: 05-21-2022 Dilation of Left Int ernal Carotid Artery with Intraluminal Device, Open Approach Dilation of Left Internal Carotid Artery with Intraluminal Device, Open Approach [facility] Start: 05-21-2022 OR TCAR (Left) OR TCAR (Left) [facility] Start: 05-21-2022 End: 05-22-2022 Evaluation and management of inpatient Postoperative hematoma [facility] [place] [facility] Start: 05-17-2022 [facility] Work Phone: Start: 05-17-2022 End: 05-17-2022 Patient encounter procedure [facility] Xwv-Thw-Doqymqub Testing Start: 04-30-2022 OR TCAR (Left) OR TCAR (Left) [facility] Start: 04-26-2022 End: 04-26-2022 Patient encounter procedure Departed Clinical [facility] Sep-Phm-Bzvuuugl Testing Start: 2018 Abdominal aortic ane urysm screening Abdominal Aortic Aneurysm (AAA) Screen [facility] Start: 2003 Administration of varicella zoster vaccine Zoster (Shingles) Vaccine (1 of 2) [facility] Start: 1998 Screening for malign ant neoplasm of colon Colonoscopy [facility] Start: 1972 DTaP,Tdap and Td Vac cines (1 - Tdap) DTaP,Tdap and Td Vaccines (1 - Tdap) [facility] Start: 1971 Adult BMI Follow Up Plan Adult BMI F ollow Up Plan [facility] Start: 1953 Glaucoma screening Diabetic Op hthalmology Exam [facility] [employer] Bacteria identified in Unspecified specimen by Aerobe culture [facility] Bacteria identified in Unspecified specimen by Anaerobe culture [facility] Cologuard [facility] Cologuar d [facility] Lab Routine Special screening for malignant neoplasm of colon Ordered: 11/03/2023 [employer] Work Phone: Comment on above: Ordered: 11/03/2023 End: 05-03-2025 Comprehensive metabolic 2000 panel - Serum or Plasma Comprehensive metabolic panel Lab Routine Essential hypertension 1 Occurrences starting 05/03/2024 until 05/03/2025 [employer] Work Phone: Comment on above: 1 Occurrences starti ng 05/03/2024 until 05/03/2025 End: 05-03-2025 Hemoglobin A1c/Hemoglobin.total in Blood Hemoglobin A1c Lab Routine Type 2 diabetes mellitus with other circulatory complication, without long-term current use of insulin ([facility]) 1 Occurrences starting 05/03/2024 until 05/03/2025 [employer] Comment on above: 1 Occurrences starti ng 05/03/2024 until 05/03/2025 End: 05-03-2025 Lipid panel Lipid panel Lab Routine Mixed hyperlipidemia 1 Occurrences starting 05/03/2024 until 05/03/2025 [employer] Comment on above: 1 Occurrences starti ng 05/03/2024 until 05/03/2025 End: 05-03-2025 Microalbumin - Albumin: Creatinine Urine Ratio Microalbumin - Albumin: Creatinine Urine Ratio Lab Routine Type 2 diabetes mellitus with other circulatory complication, without long-term current use of insulin ([facility]) 1 Occurrences starting 05/03/2024 until 05/03/2025 [employer] Comment on above: 1 Occurrences starti ng 05/03/2024 until 05/03/2025 Patient Education [facility] Work Phone: Patient referral [facility] Work Phone: [facility] Immunizations Immunization Date Immunization Notes Care Provider Fa cility 05-03-2024 tetanus toxoid, redu lubna diphtheria toxoid, and acellular pertussis vaccine, adsorbed Chao Montoyajosselin DO Work Phone: [employer] 05-03-2024 Immunization, In Clinic,; Translations: [Drug or medicament (substance)] Chao Janjosselin DO Work Phone: [employer] 09-04-2023 Influenza Vaccine, Quadrivalent, Adjuvanted Chao Furlong DO Work Phone: [facility] 09-04-2023 influenza virus vacc ine, unspecified formulation Chao Furlong DO Work Phone: [facility] 04-28-2023 Pneumococcal Conjuga te 20-valent Chao Furlong DO Work Phone: [facility] 07-04-2020 influenza, high dose seasonal, preservative-free Chao G Janlong Work Phone: [facility] [employer] DO Work Phone: 07-04-2020 pneumococcal polysaccharide vaccine, 23 valent [facility] G [facility]long [facility] Work Phone: 10-23-2018 influenza, injectabl e, quadrivalent, preservative free Chao G Janlong Work Phone: [facility] 07-08-2009 influenza virus vacc ine, unspecified formulation Chao Furlong DO Work Phone: [facility] 06-29-2009 hepatitis A and hepatitis B vaccine Chao G Janlong Work Phone: [facility] DO Work Phone: 05-25-2009 hepatitis A and hepatitis B vaccine Chao G Janlong [facility] Work Phone: Payers Date Payer Category Payer [facility] Care O (unspecified) [employer] HMO [id number] 2024 Medicare [id number] 2023 Unknown [id number] 2023 Self-pay [id number] 2023 Medicare (Managed Care) [employer]OTED HE[employer] [id number] 2023 Medicare DEVOTED HEALTH P [place] MEDICARE DEVOTED HEALTH MEDICARE ADVANTAGE [id number] 2023-Present [phone] [address] [place] [address] [id number]. [id number] 2023 Medicare HMO [employer]OTED [employer] EDICARE ADVANTAGE [id number] 2023 Unknown 2023 Medicare [id number] 2022 Unknown [id number] 2018 Unknown [id number] 1959 Medicare [id number] 1953 Unknown [id number] 2.16.840.1.268659.3.579.2. 727 1953 Unknown [id number] 2.16.840.1.388652.3.579.2. 593 1953 Unknown [id number] 2.16.840.1.247267.3.579.2. 593 1953 Unknown [id number] 2.16.840.1.071336.3.579.2. 593 1953 Unknown [id number] 2.16.840.1.954322.3.579.2. 593 1953 Unknown [id number] 2.16.840.1.771613.3.579.2. 593 1953 Unknown [id number] 2.16.840.1.055194.3.579.2. 593 1953 Unknown [id number] 2.16.840.1.881741.3.579.2. 593 1953 Unknown [id number] 2.16.840.1.126301.3.579.2. 593 1953 Unknown [id number] 2.16.840.1.922412.3.579.2. 1068 1953 Unknown [id number] 2.16.840.1.220760.3.579.2. 1286 1953 Unknown [id number] 2.16.840.1.112653.3.579.2. 1286 1953 Unknown [id number] 2.16.840.1.936884.3.579.2. 1286 1953 Unknown [id number] 2.16.840.1.670462.3.579.2. 1285 1953 Unknown [id number] 2.16.840.1.359280.3.579.2. 1285 1953 Unknown [id number] 2.16840.1.977498.3.579.2. 128 1953 Unknown [id number] 2.840.1.590445.3.579.2. 1258 1953 Unknown [id number] 2.840.1.780441.3.579.2. 1258 1953 Unknown [id number] 2.840.1.764211.3.579.2. 1258 1953 Unknown [id number] 2.840.1.047590.3.579.2. 1258 1953 Unknown [id number] 2.840.1.923948.3.579.2. 1258 1953 Unknown [id number] 2.840.1.277059.3.579.2. 1258 1953 Unknown [id number] 2.840.1.135084.3.579.2. 1259 Medicare [id number] 2.840.1.171132.19 Medicare [id number] Unknown [id number] 2.840.1.493542.3.579.2. 531 Unknown [id number] 2.16840.1.855299.3.579.2. 531 Unknown [id number] 2.16840.1.994146.3.579.2. 531 Unknown [id number] 2.16840.1.002294.3.579.2. 531 Social History Date Type Detail Facility Unknown if ever smoked [facility] [employer] Other Start: 05-22-2023 End: 08-21-2023 Sex Assigned At [facility] Other Start: 05-22-2023 End: 08-21-2023 Occasional alcohol use Occasional alcohol use -[facility] [address] DO Work Phone: Comment on above: QUIT 1997; Start: 04-26-2022 End: 05-03-2024 Tobacco smoking status [facility] Ex-smoker (finding) [facility] Start: 1955 Sex Assigned At Male F [facility] Start: 08-21-2023 Tobacco smoking status [facility] Never smoked tobacco [facility] Start: 08-21-2023 End: 05-03-2024 Tobacco use and exposure Smokeless tobacco non-user [facility] Start: 1955 Sex Assigned At Not on file P [facility] Start: 09-22-1972 End: 09-22-1997 History of tobacco use Current smoker [facility] Start: 09-22-1972 End: 09-22-1997 History of tobacco use Cigarette Smoker [facility] Start: 05-06-2024 End: 09-30-2024 Alcoholic beverage intake Defer [facility] Start: 11-03-2023 End: 06-21-2024 Alcoholic beverage intake Ex-drinker (finding) [facility] Has the [employer], [employer], oil, or water [employer] threatened to shut off services in your home in past 12Mo No [facility] Are you now , , , , never or living with a partner? [facility] How often to you hav e a drink containing alcohol? Never [facility] How many standard drinks containing alcohol do you have on a typical day? Patient does not drink [facility] Do you feel stress - tense, restless, nervous, or anxious, or unable to sleep at night because your mind is troubled all the time - these days [OSQ] Not at all [facility] Start: 06-20-2021 Sex Male (finding) [facility] NEGATED: Highlighted rowStart: [place] History of tobacco use Passive smoker [facility] Medical Equipment Procedure Code Equipment Code Equipment Origin al Text Equipment Identifier Dates Endarterectomy, carotid Cardiovascular patch, animal-derived ()[id number] 23-06 FDA Start: 06-20-2021 Bare-metal carot id artery stent ()[id number] FDA Start: 12-03-2021 Bare-metal carot id artery stent ()[id number] FDA Start: 05-21-2022 [id number] Start: 11-11-2022 USE ONCE DAILY A S DIRECTED IN THE MORNING [id number] Start: 02-26-2023 1 strip by Other route Daily as needed. [id number] Start: 11-11-2022 Blood Sugar Diag nostic (Onetouch Ultra Test) strip Start: 05-18-2024 Blood Sugar Diag nostic (Onetouch Ultra Test) strip Start: 05-18-2024 Blood Sugar Diag nostic (Onetouch Ultra Test) strip Start: 05-18-2024 1 strip by other route in the morning. [id number] Start: 10-06-2023 1 Lancet. by miscellaneous route in the morning. [id number] Start: 11-11-2022 1 strip by other route as needed for high blood sugar. [id number] Start: 11-11-2022 End: 10-06-2023 1 strip by miscellaneous route in the morning. [id number] Start: 02-26-2023 USE ONCE DAILY A S DIRECTED IN THE MORNING [id number] Start: 02-26-2023 Goals Date Patient Goal Desired Activity /State Functional Status Date Assessment Result Facility 05-13-2023 Functional status Patient at [facility] Work Phone: 05-22-2022 Functional status Patient at [facility] Work Phone: 04-26-2022 Functional status Patient at [facility] Work Phone: Mental Status Date Assessment Result Facility 05-13-2023 Cognitive function Cognitive Sta tus Patient at [facility] Work Phone: 05-22-2022 Cognitive function Cognitive Sta tus Patient at [facility] Work Phone: 04-26-2022 Cognitive function Cognitive Sta tus Patient at [facility] Work Phone: Clinical Notes 05-05-2014 to 09-30-2024 [...] same time., Disp: , Rfl: Lancet Devices (PaxeraTouch Delica Plus Lancing) misc, USE DIRECTED ONCE DAILY IN THE MORNING, Disp: , Rfl: Lancets (PaxeraTouch Delica Plus [id number]) misc, USE ONCE DAILY DIRECTED IN THE [...] Resource Strain: Low Risk (03/11/2023) Received from [facility] Overall Financial Resource Strain (CARDIA) Difficulty of Paying Living Expenses: Not hard at all Food Insecurity: No Food Insecurity (06/21/2024) Received from [facility] Hunger Screening Within the past 12 months we worried whether our food would run out before we got money to buy more.: Never True Within the past 12 months the food we bought just didn't last and we didn't have money to get more.: Never True Transportation Needs: No Transportation Needs (03/11/2023) Received from [facility], [facility] PRAPARE - Transportation Lack of Transportation (Medical): No Lack of Transportation (Non-Medical): No Physical Activity: Sufficiently Active (05/22/2023) Received from [facility], [employer] Exercise Vital Sign Days of Exercise per Week: 3 days Minutes of Exercise per Session: 50 min Recent Concern: Physical Activity - Inactive (03/11/2023) Received from [facility] Exercise Vital Sign Days of Exercise per Week: 0 days Minutes of Exercise per Session: 0 min Stress: No Stress Concern Present (05/22/2023) Received from [facility], [facility] [place] [employer] - Occupational Stress Questionnaire Feeling of Stress : Not at all Social Connections: Moderately Isolated (03/16/2024) Received from [facility] Social Connection and Isolation Panel [NHANES] Frequency of Communication with Friends and Family: Twice a week Frequency of Social Gatherings with Friends and Family: Twice a week Attends Hoahaoism Services: More than 4 times per year Active Member of Clubs or Organizations: No Attends Club or Organization Meetings: Never Marital Status: Intimate Partner Violence: Not on file Housing Stability: Low Risk (03/11/2023) Received from [facility], [facility], [facility] Housing Instability Are you worried or concerned [...] and negative PT pedal pulses NEURO: 5.07 [place] monofilament test diminished to digits and forefoot bilaterally 125Hz tuning fork diminished to 1st MPJ bilaterally ORTHO: Positive pain on palpation to nails 1 through 10 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 Diabetes mellitus due to underlying condition with diabetic polyneuropathy, unspecified whether mcc insulin use ([facility]) 2. Pain due to onychomycosis of toenails [...] Krishna Burgos DPM documented in this encounter [facility] 08-24-2024 History of Presen t illness [...] Visit: 1 year. documented in this encounter [facility] 07-29-2024 Miscellaneous Notes Formattin g of this note might be different from the original. Patient wanted to know if his handicap placard could be renewed? Letter printed to pick documented in this encounter [facility] 07-29-2024 Telephone encount er Note Patient wanted to know if his handicap placard could be renewed? [facility] 07-29-2024 Telephone encount er Note Letter printed to pick [facility] 06-21-2024 History of Presen t illness Narrative [...] Left Turbinates: Enlarged and swollen. Mouth/Throat: Lips: Maxwell. Mouth: Mucous membranes are moist. Tongue: No [...] If so then I will send in [employer] for him. Pharyngitis, unspecified etiology - POCT Influenza A/Influenza B/SARS-COV-2 Veritor - POCT rapid strep A As above. Other orders - predniSONE (DELTASONE) 20 mg tablet; Take 1 tablet (20 mg total) by mouth in the morning and 1 tablet (20 mg total) before bedtime. Do all this for 5 days. documented in this encounter [facility] 05-04-2024 Miscellaneous Notes Formattin g of this [...] his potassium. If he is taking an rryw-hyj-wfqzzpz supplement he can stop. The rest of his CMP was normal. His GFR was greater than 90 which is really good. His lipids were all at goal. Continue current regimen Patient notified documented in this encounter [facility] 05-04-2024 Telephone encount er Note ----- Message [...] his potassium. If he is taking an qozk-sqk-vjcvocb supplement he can stop. The rest of his CMP was normal. His GFR was greater than 90 which is really good. His lipids were all at goal. Continue current regimen [facility] 05-04-2024 Telephone encount er Note Patient notified [facility] 05-03-2024 History of Presen t illness Narrative [...] Objective Physical Exam Exam conducted with a technical support director present (daniela Pettit MS III). Constitutional: Appearance: [...] complication, without long-term current use of insulin ([facility]) - Hemoglobin A1c; Future - Microalbumin - [...] for diabetic shoes documented in this encounter [facility] 03-16-2024 History of Presen t illness Narrative [...] Do you have a durable power of state attorney?: Yes Cognitive Screening Do you have [...] year (around 03/16/2025). documented in this encounter [facility] 11-03-2023 Miscellaneous Notes Formattin g of this note might be different from the original. Insurance requested a 100 day supply documented in this encounter [facility] 11-03-2023 Telephone encount er Note Insurance requested a 100 day supply [facility] 11-03-2023 History of Presen t illness Narrative [...] medications well. 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 Have not had a whizzer lately so he has not been going [...] complication, without long-term current use of insulin ([facility]) - Hemoglobin A1c; Future Check A1c. Continue metformin 850 once a day. Hemiplegia of dominant side ([facility]) Stable. Continue current regimen Peripheral vascular disease ([facility]) Stable. Coagulopathy ([facility]) Continue anticoagulation Leukocytosis, unspecified type - CBC; [...] Continue current regimen documented in this encounter [facility] 10-23-2023 History of Presen t illness Narrative Assessment/Plan Diabetes Mellitus without sign of diabetic retinopathy on dilated retinal examination today OU: Discussed the pathophysiology of diabetes and its effect on the eye. Stressed the importance of strong glucose control. Advised of importance of at least yearly dilated examinations, but to contact us immediately for any problems or concerns. documented in this encounter [facility] 09-21-2023 History of Presen t illness Narrative Stopped by specialist per pt documented in this encounter [facility] 09-11-2023 Evaluation note Encounter Date Diagnosis Assessment [...] Aug, Right arm weakness (ICD-10 - R29.898) [facility] Other 08-22-2023 Consult note Author Hamilton Stuart [facility] May 13, 2023 1:46pm Note Date/Time May 13, 2023 11 :26am [facility] [address] [place] [address] Neurology Consult Note Signed Patient: Archana Gutierrez MR#: [id number] 3 : 1955 Acct:[id number] Age/Sex: 68 / M Adm Date: 3 Loc: 3T Room: [address] [place] [address] Type: ADM INOo Attending Dr: Scooby Brenner DO Copies to: DO Chao Lopes DO Kyle T [place], DO~ HPI Consult Date: 05/13/23 Golf Cart Assembler: Hamilton Stuart DO [facility] Medical History (Updated 05/13/23 @ 13:46 by [...] Villasenor Jr., D.O.05/12/2023 5:14 PM Dictation Location: [facility]-[address] 05/12/23 16:38 IMPRESSION: NO ACUTE INTRACRANIAL ABNORMALITY. Impression dictated by: Ashish Villasenor Jr., D.O.05/12/2023 5:13 PM Dictation Location: [facility] [employer] [facility]--15 Brain MRI 05/13/23 18:02 IMPRESSION: No acute intracranial pathology. There is gliosis and encephalomalacia within the left frontal lobe consistent with a remote infarct. This is unchanged. Periventricular and subcortical white matter T2 and T2 FLAIR hyperintense foci are noted consistent with chronic microvascular ischemic change. Impression dictated by: Tad Rea M.D.05/13/2023 10:44 AM Dictation Location: [place] [address] Therapy Recommendations Therapy Recommendations: OT Recommendations OT [...] rapidly alternating movements. No limb dysmetria with djsrla-dhgq-jcedml testing. DATA REVIEW: -MRI brain May 13, [...] <Electronically signed by Hamilton Stuart DO> 05/13/23 1349 [facility] Work Phone: 1(249) 788-235308-21-2023 History and physical note Author Scooby Brenner [facility] May 12, 2023 6:56pm Note Date/Time May 12, 2023 6: 49pm [facility] [address] [place] [address] Hospitalist H&P Signed Patient: Archana Gutierrez MR#: [id number] 3 : 1955 Acct:[id number] Age/Sex: 68 / M Adm Date: 3 Loc: Room: [address] [place] [address] Type: ADM IN Attending Dr: Scooby Brenner [...] negative unless noted below or in HPI [facility] Medical History (Updated 05/12/23 @ 18:52 by [...] % (Auto) 37.6 % (.) 05/12/23 16:30 Wells % (Auto) 13.2 % (.) 05/12/23 16:30 Eos % (Auto) 5.2 % (.) 05/12/23 16:30 Baso % (Auto) 1.0 % (.) 05/12/23 16:30 Nucleat RBC Rel Count 0.3 /100 WBC (0-0.5) 05/12/23 16:30 Neut # (Auto) 3.5 x10E3/uL (1.8-7.7) 05/12/23 16:30 Lymph # (Auto) 3.0 x10E3/uL (1.00-4.8) 05/12/23 16:30 Wells # (Auto) 1.1 x10E3/uL (0.0-0.8) H 05/12/23 [...] pH 6.5 (5.0-9.0) 05/12/23 17:04 Ur Specific Hope 1.011 (1.001-1.030) 05/12/23 17:04 Urine Protein Negative [...] signed by Scooby Brenner DO> 05/12/23 1856 [facility] Work Phone: 1(733) 166-416606-28-2023 Evaluation note* Encounter Date Diagnosis Assessment Notes [...] with this plan, and denies any questions. [facility] Other 12-21-2022 Evaluation note* Encounter Date Diagnosis [...] the meantime with any issues or concerns. [facility] Other 09-21-2022 Evaluation note* Encounter Date Diagnosis [...] agrees with this plan, denies any questions. [facility] Other 08-31-2022 Discharge summary Author Rajan Kee [facility] May 22, 2022 11:24am Note Date/Time May 22, 2022 8: 26am [facility] [address] [place] [address] Discharge Summary Signed Patient: Archana Gutierrez MR#: [id number] 3 : 1955 Acct:[id number] Age/Sex: 67 / M Adm Date: 2 Loc: Room: [address] [place] [address]: Rajan Kee MD Copies to: [...] is good with slight pain reported. 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 when compared bilaterally [...] signed by Rajan Kee MD> 05/22/22 112[address] [facility] Work Phone: 1(785) 283-592208-30-2022 Progress note Author Rajan Kee [facility] May 21, 2022 3:39pm Note Date/Time May 21, 2022 3: 39pm [facility] [address] [place] [address] Vascular Surgery Progress Note Signed Patient: Archana Gutierrez MR#: [id number] 3 : 1955 Acct:[id number] Age/Sex: 67 / M Adm Date: 2 Loc: Room: [address] [place] [address] Type: ADM IN Attending Dr: Rajan Kee [...] <Electronically signed by Rajan Kee MD> 05/21/221538 [facility] Work Phone: 1(687) 113-259808-30-2022 [facility]* Encounter Date Diagnosis Assessment Notes Treatment Notes Treatment Clinical Notes Apr, Pre-op testing (ICD-10 - Z01.818) [facility] Other 08-02-2022 Evaluation note* Encounter Date Diagnosis [...] so he does not have 2 visits. [facility] Other 07-27-2022 Evaluation note* Encounter Date Diagnosis [...] stenoses. I respectfully disagree with this finding. [facility] Other 07-27-2022 Evaluation note* Encounter Date Diagnosis Assessment Notes Treatment Notes Treatment Clinical Notes Mar, Pre-op testing (ICD-10 - Z01.818) [facility] Other 07-13-2022 Evaluation note* Encounter Date Diagnosis [...] the plan all his questions were addressed. [facility] Other 04-13-2022 Evaluation note* Encounter Date Diagnosis [...] were addressed. He understands agrees the plan. [facility] Other 02-28-2022 Evaluation note* Encounter Date Diagnosis Assessment Notes Treatment Notes Treatment Clinical Notes Oct, Pre-op testing (ICD-10 - Z01.818) [facility] Other 02-24-2022 Evaluation note* Encounter Date Diagnosis [...] agrees. We will send the images to [facility] for an opinion as to whether [...] aware of the potential complications including stroke. [facility] Other 08-14-2014 History general Narrative - Reported* [...] angioplast y 06/20/21 Hospitalization History see above [facility] Other 08-14-2014 History general Narrative - Reported* [...] RT TCAR 2021 Hospitalization History see above [facility] Other Discharge summary Author Scooby Brenner [facility] May 13, 2023 3:09pm Note Date/Time May 13, 2023 3: 09pm [facility] [address] [place] [address] Discharge Summary Signed Patient: Archana Gutierrez MR#: [id number] 3 : 1955 Acct:[id number] Age/Sex: 68 / M Adm Date: 3 Loc: 3T Room: [address] [place] [address]: Scooby Brenner DO Copies to: [...] % (Auto) 44.9, Lymph % (Auto) 34.7, Wells % (Auto) 13.9, Eos % (Auto) 5.4, Baso % (Auto) 1.1, Nucleat RBC Rel Count 0.1, Neut # (Auto) 2.9, Lymph # (Auto) 2.2, Wells # (Auto) 0.9 H, Eos # (Auto) 0.4, Baso # (Auto) 0.1 05/12/23 21:51: POC Glucose 75 05/12/23 17:04: Urine Color Yellow, Urine Appearance Clear, Urine pH 6.5, Ur Specific Hope 1.011, Urine Protein Negative, Urine Glucose (UA) [...] % (Auto) 43.0, Lymph % (Auto) 37.6, Wells % (Auto) 13.2, Eos % (Auto) 5.2, Baso % (Auto) 1.0, Nucleat RBC Rel Count 0.3, Neut # (Auto) 3.5, Lymph # (Auto) 3.0, Wells # (Auto) 1.1 H, Eos # (Auto) [...] signed by Scooby Brenner DO> 05/13/23 1509 [facility] Work Phone: Evaluation noteNortUrban [employer] Other Evaluation noteNo InformationNort [employer] Other Evaluation noteNo assessment information available [facility] Work Phone: Evaluation note* Diagnosis Onset Date Resolution Status Postoperative hematoma acute [facility] Work Phone: evaluation note* Diagnosis Onset Date Resolution Status Amaurosis fugax of left eye acute Brain TIA acute Hypertensive urgency acute [facility] Work Phone: Evaluation note* Diagnosis Type 2 diabetes mellitus without complication, without long-term current use of insulin ([facility])- Primary Pseudophakia Lens replaced by other means documented in this encounter [facility] HealthcareEvaluation note* Diagnosis Onset Date Resolution Status Sebaceous cyst noneactive [facility] Work Phone: evaluation note* Diagnosis Onset Date Resolution Status Sebaceous cyst noneactive Bilateral carotid artery stenosis acute [facility] Work Phone: evaluation note* Diagnosis Onset Date Resolution Status Bilateral carotid artery stenosis acute [facility] Work Phone: evaluation note* Diagnosis Onset Date Resolution Status Bilateral carotid artery stenosis acute Boil noneactive [facility] Work Phone: Evaluation note* Diagnosis Onset Date Resolution Status Abscess of back noneactive Contact with and (suspected) exposure to covid-19 noneactive [facility] Work Phone: evaluation note* Diagnosis Diabetes mellitus due to underlying condition with diabetic polyneuropathy, unspecified whether terminal makeup operator insulin use ([facility])- Primary Pain due to onychomycosis of toenails of both feet Hav (hallux abducto valgus), left Hav (hallux abducto valgus), right documented in this encounter [facility] HealthcareEvaluation note* Diagnosis Psoriasis vulgaris ([facility])- Primary Other psoriasis High risk medication use documented in this encounter [facility] HealthcareEvaluation note* Diagnosis Type 2 diabetes mellitus with other circulatory complication, without long-term current use of insulin ([facility]) documented [facility] Diagnosis Essential hypertension- Primary Unspecified essential hypertension Type 2 diabetes mellitus with other circulatory complication, without long-term current use of insulin ([facility]) Hemiplegia of dominant side (CMS-HCC) Peripheral vascular disease (CMS-HCC) Unspecified peripheral vascular disease Coagulopathy (CMS-HCC) Other and unspecified coagulation defects Leukocytosis, unspecified type Hyponatremia Hyposmolality and/or hyponatremia Screening for colon cancer Special screening for malignant neoplasms, colon Special screening for malignant neoplasm of colon Special screening for malignant neoplasms, colon Mixed anxiety and depressive disorder Dysthymic disorder [facility] note* Diagnosis Medicare annual wellness visit, subsequent- Primary Screening for depression [facility] Diagnosis Essential hypertension Unspecified essential hypertension [facility] Diagnosis Essential hypertension- Primary Unspecified essential hypertension Type 2 diabetes mellitus with other circulatory complication, without long-term current use of insulin ([facility]) Need for vaccination Need for prophylactic vaccination and inoculation against unspecified single disease Mixed hyperlipidemia Overweight Laceration of left hand without foreign body, initial encounter Hammer toe of right foot [facility] Diagnosis Sleep pattern disturbance- Primary [facility] Diagnosis Upper respiratory tract infection, unspecified type- Primary Pharyngitis, unspecified etiology [facility] Narrative - ReportedMidway Tailored Games Other History of Present illness Narrative* Krishna [...] same time., Disp: , Rfl: Lancet Devices (Qustodianuch Delica Plus Lancing) [facility] [place], USE DIRECTED ONCE DAILY IN THE MORNING, Disp: , Rfl: Lancets (PaxeraTouch Delica Plus [id number]) misc, USE ONCE DAILY DIRECTED IN THE MORNING, Disp: , Rfl: metFORMIN (Glucophage) 850 MG tablet, take 1 tablet by mouth every morning WITH BREAKFAST, Disp: , Rfl: Qustodianuch Ultra test strip, 1 strip by Other [...] Resource Strain: Low Risk (03/11/2023) Received from [facility] Overall Financial Resource Strain (CARDIA) Difficulty of Paying Living Expenses: Not hard at all Food Insecurity: No Food Insecurity (06/21/2024) Received from [facility] Hunger Screening Within the past 12 months we worried whether our food would run out before we got money to buy more.: Never True Within the past 12 months the food we bought just didn't last and we didn't have money to get more.: Never True Transportation Needs: No Transportation Needs (03/11/2023) Received from [facility], [facility] PRAPARE - Transportation Lack of Transportation (Medical): No Lack of Transportation (Non-Medical): No Physical Activity: Sufficiently Active (05/22/2023) [facility] Vital Sign Days of Exercise per Week: 3 days Minutes of Exercise per Session: 50 min Recent Concern: Physical Activity - Inactive (03/11/2023) Received from [facility] Exercise Vital Sign Days of Exercise per Week: 0 days Minutes of Exercise per Session: 0 min Stress: No Stress Concern Present (05/22/2023) Received from [facility], [facility] [place] [employer] - Occupational Stress Questionnaire Feeling of Stress : Not at all Social Connections: Moderately Isolated (03/16/2024) Received from [facility] Social Connection and Isolation Panel [NHANES] Frequency of Communication with Friends and Family: Twice a week Frequency of Social Gatherings with Friends and Family: Twice a week Attends Hoahaoism Services: More than 4 times per year Active Member of Clubs or Organizations: No Attends Club or Organization Meetings: Never Marital Status: Intimate Partner Violence: Not on file Housing Stability: Low Risk (03/11/2023) Received from [facility], [facility], [facility] Housing Instability Are you worried or concerned [...] and negative PT pedal pulses NEURO: 5.07 [place] Tsering monofilament test diminished to digits and forefoot bilaterally 125Hz tuning fork diminished to 1st MPJ bilaterally ORTHO: Positive pain on palpation to nails 1 through 10 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 Diabetes mellitus due to underlying condition with diabetic polyneuropathy, unspecified whether mcc insulin use ([facility]) 2. Pain due to onychomycosis of toenails [...] gear. Krishna Burgos DPM documented in this encounterSaint [facility] HospitalInstructionsNot on filedocumented in this encounterProBarnesville HospitalInstructionsNot on filedocumented in this encounterProBarnesville HospitalInstructionsNot on filedocumented in this encounterAvita Health [facility] HospitalInstructionsNot on filedocumented in this encounterAvita Health System Bucyrus HospitalInstructionsNot on filedocumented in this encounterC[facility] SystemInstructionsNot on filedocumented in this encounterProZanesville City Hospital SystemInstructionsNot on filedocumented in this encounterProZanesville City Hospital SystemInstructionsNot on filedocumented in this encounterProZanesville City Hospital SystemInstructionsNot on filedocumented in this encounterProZanesville City Hospital SystemInstructionsNot on filedocumented in this encounterC[facility] Summary Purpose Family History Unknown [...] CREATED AUTHOR AUTHOR'S ORGANIZ ATION 05/27/2022 [facility] DATE CREATED AUTHOR AUTHOR'S ORGANIZ ATION 08/06/2022 [facility] dical Specialist DATE CREATED AUTHOR AUTHOR'S ORGANIZ ATION 01/05/2023 [facility] DATE CREATED AUTHOR AUTHOR'S ORGANIZ ATION 05/05/2024 [facility] DATE CREATED AUTHOR AUTHOR'S ORGANIZ ATION 05/22/2024 [facility] DATE CREATED AUTHOR AUTHOR'S ORGANIZ ATION [facility]/22/20[facility] DATE CREATED AUTHOR AUTHOR'S ORGANIZ ATION 10/05/2024 [facility] dical Specialists EPIC REASON FOR VISIT [...] Status: Inactive Member Role Status Dates Chao Vays DO Primary Care Provider Active Rajan Kee [...] Active Arin Ferrera MD Attending Provider Active Target Setter Relationship Specialty Start Date End Date Chao Vyas MD [address] [facility] [place] [address] PCP - General Family Medicine 04/15/23 Target Setter Relationship Specialty Start Date End Date Chao Vyas MD [address] [place] [address] PCP - General Family Medicine 04/15/23 Team [...] June 28, 2024 End: June 28, 2024 Target Setter Relationship Specialty Start Date End Date Chao Vyas MD [address] [place] [address] PCP - General Family Medicine 04/15/23 Target Setter Relationship Specialty Start Date End Date Chao Vyas DO [address] [place] [address] PCP - General Family Medicine 07/02/22 Target Setter Relationship Specialty Start Date End Date Chao Vyas MD [address] [place] [address] PCP - General Family Medicine 04/15/23 Target Setter Relationship Specialty Start Date End Date Chao Vyas DO [address] [place] [address] PCP - General Family Medicine 07/02/22 Target Setter Relationship Specialty Start Date End Date Chao Vyas DO [address] [place] [address] PCP - General Family Medicine 07/02/22 Target Setter Relationship Specialty Start Date End Date Chao Vyas DO [address] [place] [address] PCP - General Family Medicine 07/02/22 Target Setter Relationship Specialty Start Date End Date Chao Vyas DO [address] [place] [address] PCP - General Family Medicine 07/02/22 Target Setter Relationship Specialty Start Date End Date Chao Vyas DO [address] [place] [address] PCP [facility] 07/02/22 Target Setter Relationship Specialty Start Date End Date Chao Vyas DO [address], [place] [address] PCP [facility] 07/02/22 Target Setter Relationship Specialty Start Date End Date Chao Vyas DO [address], [place] [address] PCP [facility] 07/02/22 Target Setter Relationship Specialty Start Date End Date Chao Vyas DO [address], [place] [address] PCP [facility] 07/02/22 Target Setter Relationship Specialty Start Date End Date Chao Vyas DO [address], [place] [address] PCP [facility] 07/02/22 Goals (unrecognized section and content) [...] BE BASED ON THE PRIMARY CLINICAL RECORDS. [facility] [employer] [facility]. provides no warranty or guarantee of the accuracy or completeness of information in this document.
[2024-11-13 14:45] VITALS: BP 92/44; PULSE 48; TEMP 36.5; O2SAT 98; BMI 27.3
--- NOTE | 2024-11-13 16:19 | ED.ABDPAIN1 ---
Documented by User: Jersey Mao 11/14/24 07:01 HPI - Abdominal Pain General Chief Complaint: Abdominal Pain Stated Complaint: CONSTIPATION, ABDOMINAL PAIN Time Seen by Provider: 11/13/24 14:40 Source: patient Mode of arrival: Wheelchair History of Present Illness HPI narrative: cc - constipation Pt was evaluated 11/09/24 in our ED for constipation. He had a fecal impaction and they were unable to clear it manually. They tried enema x 2 without success. He was discharged home with recommendation to take mag citrate. He took it as prescribed but still was unable to pass stool. He continued to eat as he normally does - no reduction in oral intake. He denies any nausea or vomiting. He admits to pain across the lower abdomen. No fever, chills, problems urinating or flank pain. No prior hx of bowel surgery Related Data Home Medications ?Medication ?Instructions ?Recorded ?Confirmed atorvastatin 80 mg tablet 80 mg PO .QHS 10/26/24 10/26/24 blood sugar diagnostic (OneTouch 10/26/24 10/26/24 Ultra Test strips) doxepin 10 mg capsule 20 mg PO BEDTIME 10/26/24 10/26/24 escitalopram oxalate 5 mg tablet 5 mg PO DAILY 10/26/24 10/26/24 hydralazine 25 mg tablet 25 mg PO BID 10/26/24 10/26/24 metformin 850 mg tablet 850 mg PO DAILY 10/26/24 10/26/24 Previous Rx's ?Medication ?Instructions ?Recorded ciprofloxacin HCl 500 mg tablet 500 mg PO BID 7 days #14 tabs 10/26/24 metronidazole 250 mg tablet 250 mg PO BID 7 days #14 tabs 10/26/24 omeprazole 40 mg capsule,delayed 40 mg PO BID 7 days #14 caps 10/26/24 release magnesium citrate (Citrate of 296 ml PO DAILY constipation #296 11/09/24 Magnesia oral) mL ondansetron 4 mg disintegrating 4 mg PO Q6H PRN nausea and 11/09/24 tablet vomiting #12 tabs amoxicillin 875 mg-potassium 1 tab PO Q12H #14 tabs 11/13/24 clavulanate 125 mg tablet polyethylene glycol 3350 17 17 g PO DAILY PRN constipation 11/13/24 gram/dose oral powder (Miralax) #238 grams Allergies Allergy/AdvReac Type Severity Reaction Status Date / Time lisinopril Allergy Mild Cough Verified 11/09/24 17:47 [facility] Medical History (Updated 11/13/24 @ 16:23 by Jersey Mao) Type 2 diabetes mellitus ?E11.9 - Type 2 diabetes mellitus without complications (ICD-10) Hyperlipidemia associated with type 2 diabetes mellitus ?E11.69 - Type 2 diabetes mellitus with other specified complication (ICD-10) ?E78.5 - Hyperlipidemia, unspecified (ICD-10) Primary hypertension ?I10 - Essential (primary) hypertension (ICD-10) History of CVA with residual deficit ?I69.30 - Unspecified sequelae of cerebral infarction (ICD-10) Type 2 diabetes mellitus ?E11.9 - Type 2 diabetes mellitus without complications (ICD-10) Stroke ?I63.9 - Cerebral infarction, unspecified (ICD-10) Family History Other Family history of cancer Family history of diabetes mellitus Family history of hypertension Family history of stroke Social History Within the past year, how often did you have a drink containing alcohol: never Within the past year, how often did you have six or more drinks on one occasion: never Score interpretation: A score less than 4 is consistent with normal alcohol consumption. Smoking status: Former smoker Non-prescribed substance use: denies use Previous occupational history: retired Highest level of school completed/degree received: GED or equivalent In a typical week, how many times do you talk on the telephone with family, friends, or neighbors: twice per week How often do you get together with friends or relatives: twice per week How often do you attend rastafari or lutheran services: 4 or more times per year Little interest or pleasure in doing things: not at all Feeling down, depressed, or hopeless: not at all Feel stressed/tense/nervous/anxious/difficulty sleeping: not at all Do you think of yourself as: straight/heterosexual Gender Identity: male Exam Narrative Exam Narrative: Nurses notes and vital signs reviewed and patient is not hypoxic. afebrile General: Well-appearing and in no apparent distress. Skin: Warm, dry, no pallor noted. Head: Normocephalic, atraumatic. Eye: Pupils are equal, round and EOMI. No scleral icterus. Cardiovascular: Regular Rate and Rhythm without murmur, gallop or rub. Respiratory: No accessory muscle use or respiratory distress. Lungs are clear to auscultation, no wheezing, rales or rhonchi GI: Abdomen is soft, non-distended. Normal bowel sounds. No masses appreciated. Very mild bilateral lower abdominal tenderness to palpation. No rebound, guarding, or rigidity noted. Neurological: A&O x4. No cranial nerve dysfunction observed. No truncal ataxia. Moves all extremities. Sensation intact. Psychiatric: Cooperative and interactive. Normal mood and affect. Constitutional Vital Signs, click to edit/add: Last Vital Signs Temp 97.7 F 11/13/24 14:45 Pulse 67 11/13/24 22:44 Resp 14 11/13/24 22:44 BP 122/52 11/13/24 22:44 Pulse Ox 97 11/13/24 22:44 O2 Del Method Room Air 11/13/24 22:44 Course Vital Signs Vital signs: Vital Signs Temperature 97.7 F 11/13/24 14:45 Pulse Rate 48 L 11/13/24 14:45 Respiratory Rate 20 11/13/24 14:45 Blood Pressure 92/44 L 11/13/24 14:45 Pulse Oximetry 98 11/13/24 14:45 Oxygen Delivery Method Room Air 11/13/24 14:45 Temperature 97.7 F 11/13/24 14:45 Pulse Rate 67 11/13/24 22:44 Respiratory Rate 14 11/13/24 22:44 Blood Pressure 122/52 11/13/24 22:44 Pulse Oximetry 97 11/13/24 22:44 Oxygen Delivery Method Room Air 11/13/24 22:44 MDM - Abdominal Pain MDM Narrative Medical decision making narrative: The patient was able to be manually disimpacted and passed a large amount of stool after receiving an enema. He continued to describe the sensation of having to pass additional stool but there was nothing left in the vault. On re-examination, he felt much better and did not have any abdominal tenderness. But due to his age and continued sensation of needing to pass stool, he was sent for x-rays of the abdomen to confirm, as a large fecal impaction was noted on previous ED visit and I wanted to ensure. Xrays revealed air fluid levels and the patient's BP was lower than on last visit, so I asked the ED nurse to establish a peripheral IV and draw blood, get a CT with oral and IV contrast. I also ordered 500mL NS IVF. Pt signed out to Dr Ramirez at 7pm shift change to follow up with CT abd/pelvis and final disposition of pt. Lab Data Labs: Lab Results 11/13/24 Range/Units 18:55 WBC 10.5 (4.0-11.0) 10^3/uL RBC 3.91 L (4.70-6.10) 10^6/uL Hgb 11.7 L (14.0-18.0) g/dL Hct 36.1 L (42.0-54.0) % MCV 92.3 (80.0-94.0) fL MCH 29.9 (25.9-34.0) pg MCHC 32.4 (29.9-35.2) g/dL RDW 14.0 (11.0-15.0) % Plt Count 466 H (150-450) 10^3/uL MPV 10.7 (9.5-13.5) fL Neut % (Auto) 80.3 H (43.0-75.0) % Lymph % (Auto) 7.7 L (20.5-60.0) % Obion % (Auto) 10.8 (1.7-12.0) % Eos % (Auto) 0.3 L (0.9-7.0) % Baso % (Auto) 0.7 (0.2-2.0) % Neut # (Auto) 8.5 H (1.4-6.5) 10^3/uL Lymph # (Auto) 0.8 L (1.2-3.8) 10^3/uL Ob[place] # (Auto) 1.1 H (0.3-0.8) 10^3/uL Eos # (Auto) 0.0 (0.0-0.7) 10^3/uL Baso # (Auto) 0.1 (0.0-0.1) 10^3/uL Abs Immat Gran (auto) 0.02 (0.00-0.03) 10^3/uL Imm/Tot Granulo (auto) 0.2 (0.0-0.5) % Sodium 138 (136-145) mmol/L Potassium 4.2 (3.5-5.1) mmol/L Chloride 103 (98-107) mmol/L Carbon Dioxide 26.8 (21.0-32.0) mmol/L Anion Gap 12.4 BUN 15.0 (7.0-18.0) mg/dL Creatinine 1.09 (0.70-1.30) mg/dL Est GFR ( Amer) >60 (>=60 mL/min/1.73m^2) Est GFR (Non-Af Amer) >60 (>=60 mL/min/1.73m^2) BUN/Creatinine Ratio 13.8 Glucose 135 H (74-106) mg/dL Calcium 8.9 (8.5-10.1) mg/dL Total Bilirubin 0.7 (0.2-1.0) mg/dL AST 30 (15-37) U/L ALT 37 (16-63) U/L Alkaline Phosphatase 107 (46-116) U/L Total Protein 7.0 (6.4-8.2) g/dL Albumin 3.9 (3.4-5.0) g/dL Globulin 3.1 g/dL Albumin/Globulin Ratio 1.3 Discharge Plan Discharge Chief Complaint: Abdominal Pain Clinical Impression: Constipation, Abdominal pain Patient Disposition: Home, Self-Care Time of Disposition Decision: 22:07 Condition: Good Mode of Transportation: Private Vehicle Prescriptions / Home Meds: New amoxicillin-pot clavulanate 875-125 mg tablet 1 tab PO Q12H Qty: 14 0RF polyethylene glycol 3350 [Miralax] 17 gram/dose powder 17 g PO DAILY PRN (Reason: constipation) Qty: 238 0RF No Action atorvastatin 80 mg tablet 80 mg PO .QHS metformin 850 mg tablet 850 mg PO DAILY hydralazine 25 mg tablet 25 mg PO BID (DME) OneTouch Ultra Test Strip MISCELLANEOUS doxepin 10 mg capsule 20 mg PO BEDTIME escitalopram oxalate 5 mg tablet 5 mg PO DAILY metronidazole 250 mg Tablet 250 mg PO BID 7 Days Qty: 14 0RF ciprofloxacin HCl 500 mg Tablet 500 mg PO BID 7 Days Qty: 14 0RF omeprazole 40 mg Capsule,Delayed Release(Dr/Ec) 40 mg PO BID 7 Days Qty: 14 0RF magnesium citrate [Citrate of Magnesia] Solution 296 ml PO DAILY Qty: 296 0RF Rx Instructions: Take half of the bottle with 8 oz of water, take the other half after 1 hour with 8 oz of water ondansetron 4 mg tablet,disintegrating 4 mg PO Q6H PRN (Reason: nausea and vomiting) Qty: 12 0RF Print Language: Indian Instructions: Constipation (ED), Proctitis (ED) Additional Instructions: Call the office of your primary care doctor to arrange for follow-up within the above-stated timeframe. Your ED visit was focused on your acute issue and does not replace primary care. You should review your labs, imaging, and diagnoses from this ED visit with your primary care physician. There may be non-emergent/ incidental findings that need further evaluation. You should review your vital signs including blood pressure with your PCP. If you were prescribed medications you should discuss possible side-effects and drug interactions with your pharmacist. Call 911 or go to the nearest Emergency Department if you develop any new or worsening symptoms. Seek immediate medical attention if you develop: worsening abdominal pain, new or worsening nausea, new or worsening vomiting, new or worsening diarrhea, chest pain, shortness of breath, pain with urination, problems urinating, fever, chills, weakness, or any new or worsening symptoms. Follow-up with gastroenterology. Take medications as prescribed. Referrals: HITESH WATKINS [Primary Care Provider] - 1 week Discharge Date/Time: 11/13/24 22:46 Documented by User: Lukas Ramirez MD 11/13/24 22:13 HPI - Abdominal Pain General Chief Complaint: Abdominal Pain Stated Complaint: CONSTIPATION, ABDOMINAL PAIN Time Seen by Provider: 11/13/24 14:40 Related Data Home Medications ?Medication ?Instructions ?Recorded ?Confirmed atorvastatin 80 mg tablet 80 mg PO .QHS 10/26/24 10/26/24 blood sugar diagnostic (OneTouch 10/26/24 10/26/24 Ultra Test strips) doxepin 10 mg capsule 20 mg PO BEDTIME 10/26/24 10/26/24 escitalopram oxalate 5 mg tablet 5 mg PO DAILY 10/26/24 10/26/24 hydralazine 25 mg tablet 25 mg PO BID 10/26/24 10/26/24 metformin 850 mg tablet 850 mg PO DAILY 10/26/24 10/26/24 Previous Rx's ?Medication ?Instructions ?Recorded ciprofloxacin HCl 500 mg tablet 500 mg PO BID 7 days #14 tabs 10/26/24 metronidazole 250 mg tablet 250 mg PO BID 7 days #14 tabs 10/26/24 omeprazole 40 mg capsule,delayed 40 mg PO BID 7 days #14 caps 10/26/24 release magnesium citrate (Citrate of 296 ml PO DAILY constipation #296 11/09/24 Magnesia oral) mL ondansetron 4 mg disintegrating 4 mg PO Q6H PRN nausea and 11/09/24 tablet vomiting #12 tabs amoxicillin 875 mg-potassium 1 tab PO Q12H #14 tabs 11/13/24 clavulanate 125 mg tablet polyethylene glycol 3350 17 17 g PO DAILY PRN constipation 11/13/24 gram/dose oral powder (Miralax) #238 grams Allergies Allergy/AdvReac Type Severity Reaction Status Date / Time lisinopril Allergy Mild Cough Verified 11/09/24 17:47 [facility] Medical History (Updated 11/13/24 @ 16:23 by Jersey Mao) Type 2 diabetes mellitus ?E11.9 - Type 2 diabetes mellitus without complications (ICD-10) Hyperlipidemia associated with type 2 diabetes mellitus ?E11.69 - Type 2 diabetes mellitus with other specified complication (ICD-10) ?E78.5 - Hyperlipidemia, unspecified (ICD-10) Primary hypertension ?I10 - Essential (primary) hypertension (ICD-10) History of CVA with residual deficit ?I69.30 - Unspecified sequelae of cerebral infarction (ICD-10) Type 2 diabetes mellitus ?E11.9 - Type 2 diabetes mellitus without complications (ICD-10) Stroke ?I63.9 - Cerebral infarction, unspecified (ICD-10) Family History Other Family history of cancer Family history of diabetes mellitus Family history of hypertension Family history of stroke Social History Within the past year, how often did you have a drink containing alcohol: never Within the past year, how often did you have six or more drinks on one occasion: never Score interpretation: A score less than 4 is consistent with normal alcohol consumption. Smoking status: Former smoker Non-prescribed substance use: denies use Previous occupational history: retired Highest level of school completed/degree received: GED or equivalent In a typical week, how many times do you talk on the telephone with family, friends, or neighbors: twice per week How often do you get together with friends or relatives: twice per week How often do you attend rastafari or lutheran services: 4 or more times per year Little interest or pleasure in doing things: not at all Feeling down, depressed, or hopeless: not at all Feel stressed/tense/nervous/anxious/difficulty sleeping: not at all Do you think of yourself as: straight/heterosexual Gender Identity: male Exam Constitutional Vital Signs, click to edit/add: Last Vital Signs Temp 97.7 F 11/13/24 14:45 Pulse 67 11/13/24 22:44 Resp 14 11/13/24 22:44 BP 122/52 11/13/24 22:44 Pulse Ox 97 11/13/24 22:44 O2 Del Method Room Air 11/13/24 22:44 Course Vital Signs Vital signs: Vital Signs Temperature 97.7 F 11/13/24 14:45 Pulse Rate 48 L 11/13/24 14:45 Respiratory Rate 20 11/13/24 14:45 Blood Pressure 92/44 L 11/13/24 14:45 Pulse Oximetry 98 11/13/24 14:45 Oxygen Delivery Method Room Air 11/13/24 14:45 Temperature 97.7 F 11/13/24 14:45 Pulse Rate 67 11/13/24 22:44 Respiratory Rate 14 11/13/24 22:44 Blood Pressure 122/52 11/13/24 22:44 Pulse Oximetry 97 11/13/24 22:44 Oxygen Delivery Method Room Air 11/13/24 22:44 MDM - Abdominal Pain MDM Narrative Medical decision making narrative: The patient was able to be manually disimpacted and passed a large amount of stool after receiving an enema. He continued to describe the sensation of having to pass additional stool but there was nothing left in the vault. On re-examination, he felt much better and did not have any abdominal tenderness. But due to his age and continued sensation of needing to pass stool, he was sent for x-rays of the abdomen to confirm, as a large fecal impaction was noted on previous ED visit and I wanted to ensure. Xrays revealed air fluid levels and the patient's BP was lower than on last visit, so I asked the ED nurse to establish a peripheral IV and draw blood, get a CT with oral and IV contrast. I also ordered 500mL NS IVF. Pt signed out to Dr Ramirez at 7pm shift change to follow up with CT abd/pelvis and final disposition of pt. Signout note: CT scan shows proctitis. No severe stool burden. He has arthrosclerotic changes. Other chronic findings. Lab work reviewed and noted. He remains hemodynamically stable and in no distress. He had several bowel movements here that were nonbloody. Discussed findings with the patient. He is eager for discharge home which I believe is reasonable. Will send on Augmentin for his proctitis as well as continue him on MiraLAX. Proctitis infectious versus stercoral colitis resolving from constipation previous. He is given a GI referral ([facility]). PCP follow-up. Return precautions were discussed. All questions were answered. The patient was discharged home Lukas Ramirez DO, FAAEM Medical Records Attestation: I reviewed the patient's medical records. Lab Data Attestation: I reviewed the patient's lab results. Labs: Lab Results 11/13/24 Range/Units 18:55 WBC 10.5 (4.0-11.0) 10^3/uL RBC 3.91 L (4.70-6.10) 10^6/uL Hgb 11.7 L (14.0-18.0) g/dL Hct 36.1 L (42.0-54.0) % MCV 92.3 (80.0-94.0) fL MCH 29.9 (25.9-34.0) pg MCHC 32.4 (29.9-35.2) g/dL RDW 14.0 (11.0-15.0) % Plt Count 466 H (150-450) 10^3/uL MPV 10.7 (9.5-13.5) fL Neut % (Auto) 80.3 H (43.0-75.0) % Lymph % (Auto) 7.7 L (20.5-60.0) % Obion % (Auto) 10.8 (1.7-12.0) % Eos % (Auto) 0.3 L (0.9-7.0) % Baso % (Auto) 0.7 (0.2-2.0) % Neut # (Auto) 8.5 H (1.4-6.5) 10^3/uL Lymph # (Auto) 0.8 L (1.2-3.8) 10^3/uL Ob[place] # (Auto) 1.1 H (0.3-0.8) 10^3/uL Eos # (Auto) 0.0 (0.0-0.7) 10^3/uL Baso # (Auto) 0.1 (0.0-0.1) 10^3/uL Abs Immat Gran (auto) 0.02 (0.00-0.03) 10^3/uL Imm/Tot Granulo (auto) 0.2 (0.0-0.5) % Sodium 138 (136-145) mmol/L Potassium 4.2 (3.5-5.1) mmol/L Chloride 103 (98-107) mmol/L Carbon Dioxide 26.8 (21.0-32.0) mmol/L Anion Gap 12.4 BUN 15.0 (7.0-18.0) mg/dL Creatinine 1.09 (0.70-1.30) mg/dL Est GFR ( Amer) >60 (>=60 mL/min/1.73m^2) Est GFR (Non-Af Amer) >60 (>=60 mL/min/1.73m^2) BUN/Creatinine Ratio 13.8 Glucose 135 H (74-106) mg/dL Calcium 8.9 (8.5-10.1) mg/dL Total Bilirubin 0.7 (0.2-1.0) mg/dL AST 30 (15-37) U/L ALT 37 (16-63) U/L Alkaline Phosphatase 107 (46-116) U/L Total Protein 7.0 (6.4-8.2) g/dL Albumin 3.9 (3.4-5.0) g/dL Globulin 3.1 g/dL Albumin/Globulin Ratio 1.[address] scan - abdomen: Attestation: I have reviewed the pertinent imaging results. Discharge Plan Discharge Chief Complaint: Abdominal Pain Clinical Impression: Constipation, Abdominal pain Patient Disposition: Home, Self-Care Time of Disposition Decision: 22:07 Condition: Good Mode of Transportation: Private Vehicle Prescriptions / Home Meds: New amoxicillin-pot clavulanate 875-125 mg tablet 1 tab PO Q12H Qty: 14 0RF polyethylene glycol 3350 [Miralax] 17 gram/dose powder 17 g PO DAILY PRN (Reason: constipation) Qty: 238 0RF No Action atorvastatin 80 mg tablet 80 mg PO .QHS metformin 850 mg tablet 850 mg PO DAILY hydralazine 25 mg tablet 25 mg PO BID (DME) OneTouch Ultra Test Strip MISCELLANEOUS doxepin 10 mg capsule 20 mg PO BEDTIME escitalopram oxalate 5 mg tablet 5 mg PO DAILY metronidazole 250 mg Tablet 250 mg PO BID 7 Days Qty: 14 0RF ciprofloxacin HCl 500 mg Tablet 500 mg PO BID 7 Days Qty: 14 0RF omeprazole 40 mg Capsule,Delayed Release(Dr/Ec) 40 mg PO BID 7 Days Qty: 14 0RF magnesium citrate [Citrate of Magnesia] Solution 296 ml PO DAILY Qty: 296 0RF Rx Instructions: Take half of the bottle with 8 oz of water, take the other half after 1 hour with 8 oz of water ondansetron 4 mg tablet,disintegrating 4 mg PO Q6H PRN (Reason: nausea and vomiting) Qty: 12 0RF Print Language: Indian Instructions: Constipation (ED), Proctitis (ED) Additional Instructions: Call the office of your primary care doctor to arrange for follow-up within the above-stated timeframe. Your ED visit was focused on your acute issue and does not replace primary care. You should review your labs, imaging, and diagnoses from this ED visit with your primary care physician. There may be non-emergent/ incidental findings that need further evaluation. You should review your vital signs including blood pressure with your PCP. If you were prescribed medications you should discuss possible side-effects and drug interactions with your pharmacist. Call 911 or go to the nearest Emergency Department if you develop any new or worsening symptoms. Seek immediate medical attention if you develop: worsening abdominal pain, new or worsening nausea, new or worsening vomiting, new or worsening diarrhea, chest pain, shortness of breath, pain with urination, problems urinating, fever, chills, weakness, or any new or worsening symptoms. Follow-up with gastroenterology. Take medications as prescribed. Referrals: HITESH WATKINS [Primary Care Provider] - 1 week Discharge Date/Time: 11/13/24 22:46
[2024-11-13] MEDS: 0.9 % SODIUM CHLORIDE 500 ML IV (18:46)
[2024-11-13 19:27] LABS: Basophils Absolute Auto 0.1 10^3/uL (0.0-0.1); Basophils Percent Auto 0.7 % (0.2-2.0); Eosinophils Percent Auto 0.3 % (0.9-7.0); Hematocrit 36.1 % (42.0-54.0); Hemoglobin 11.7 g/dL (14.0-18.0); Immature Granulocytes Abs Auto 0.02 10^3/uL (0.00-0.03); Immature Granulocytes Pct Auto 0.2 % (0.0-0.5); Lymphocytes Absolute Auto 0.8 10^3/uL (1.2-3.8); Lymphocytes Percent Auto 7.7 % (20.5-60.0); Mean Corpuscular HGB Conc 32.4 g/dL (29.9-35.2); Mean Corpuscular Hemoglobin 29.9 pg (25.9-34.0); Mean Corpuscular Volume 92.3 fL (80.0-94.0); Mean Platelet Volume 10.7 fL (9.5-13.5); Monocytes Absolute Auto 1.1 10^3/uL (0.3-0.8); Monocytes Percent Auto 10.8 % (1.7-12.0); Neutrophils Absolute Auto 8.5 10^3/uL (1.4-6.5); Neutrophils Percent Auto 80.3 % (43.0-75.0); Platelet Count 466 10^3/uL (150-450); Red Blood Count 3.91 10^6/uL (4.70-6.10); White Blood Count 10.5 10^3/uL (4.0-11.0)
[2024-11-13 19:41] LABS: Alanine Aminotransferase 37 U/L (16-63); Albumin Globulin Ratio 1.3; Albumin Level 3.9 g/dL (3.4-5.0); Alkaline Phosphatase 107 U/L (46-116); Anion Gap 12.4; Aspartate Amino Transferase 30 U/L (15-37); BUN Creatinine Ratio 13.8; Bilirubin Total 0.7 mg/dL (0.2-1.0); Calcium 8.9 mg/dL (8.5-10.1); Carbon Dioxide 26.8 mmol/L (21.0-32.0); Chloride 103 mmol/L (98-107); Estimated GFR (African America >60 (>=60 mL/min/1.73m^2); Estimated GFR (Non-African Ame >60 (>=60 mL/min/1.73m^2); Globulin 3.1 g/dL; Glucose 135 mg/dL (74-106); Potassium 4.2 mmol/L (3.5-5.1); Sodium 138 mmol/L (136-145)
[2024-11-13] MEDS: FAMOTIDINE/PF 20 MG/2 ML VIAL IV (20:17)
[2024-11-13 22:04] VITALS: BP 122/52; PULSE 67; O2SAT 97
[2024-11-13 22:44] VITALS: BP 122/52; PULSE 67; O2SAT 97
== END 2024-11-13 22:46 | disposition home or self-care (01) ==
PROVIDERS: Emergency Medicine; Emergency Provider Student in an Organized Health Care Education/Training Program; PCP Family Medicine
DX: K59.00 Constipation, unspecified (principal); R10.84 Generalized abdominal pain; Z87.891 Personal history of nicotine dependence
CPT/HCPCS: 36415; 74019; 74177; 80053; 85025; 96374; 99285; J3490; Q9966; Q9967